=== PATIENT | male | born 1945 | race Caucasian/White ===

== ENCOUNTER 2017-03-09 19:22 | Inpatient (IN) | payer MEDICARE ==
[~2017-03-09] VITALS: Ht 167.6 cm; Wt 67.6 kg
[2017-03-09] VITALS (7 sets, daily range): BP systolic 114–156; BP diastolic 65–80; PULSE 102–124; RESP 18–20; TEMP 98.1; O2SAT 94–100
[2017-03-09] MEDS ORDERED: SODIUM CHLOR 0.9% 1000 ML INJ 1,000 ML IV SCH (19:41)
[2017-03-09] MEDS ORDERED: ONDANSETRON HCL 4 MG/2 ML VIAL IVP ONE (19:45)
[2017-03-09] MEDS ORDERED: SODIUM CHLORIDE 0.9% FLUSH 10 ML FLUSH IV FLUSH PRN ×3 (19:45→22:30)
[2017-03-09] MEDS ORDERED: FAMOTIDINE 20 MG/2 ML VIAL IV PUSH ONE (19:45)
[2017-03-09] MEDS ORDERED: MORPHINE SULFATE 4 MG/ML INJ IV PUSH ONE ×2 (19:45→22:00)
[2017-03-09] MEDS ORDERED: GLIP5TAB8 PO (19:58)
[2017-03-09] MEDS ORDERED: NABU1TAB37 PO (19:58)
[2017-03-09] MEDS ORDERED: LOVA40TA PO (19:58)
[2017-03-09] MEDS ORDERED: AMLO10TA2 PO (19:58)
[2017-03-09] MEDS ORDERED: LISI-519 PO (19:58)
[2017-03-09] MEDS ORDERED: METF1000 PO (19:58)
[2017-03-09] MEDS ORDERED: AMIT75TA2 PO ×2 (19:58)
[2017-03-09] MEDS ORDERED: OMEP20TA PO (19:58)
[2017-03-09 20:06] LABS: AUTOMATED NEUTROPHIL # 14.3 TH/MM3 (1.8-7.7); BASOPHIL # 0.7 TH/MM3 (0-0.2); EOSINOPHIL # 0.5 TH/MM3 (0-0.4); EOSINOPHIL % 2.9 % (0.0-4.0); HEMATOCRIT 27.2 % (39.0-51.0); LYMPH % 7.4 % (9.0-44.0); LYMPHOCYTE # 1.3 TH/MM3 (1.0-4.8); MEAN CELL VOLUME 89.6 FL (80.0-100.0); MEAN CORPUSCULAR HEMOGLOBIN 30.4 PG (27.0-34.0); MEAN CORPUSCULAR HGB CONC 33.9 % (32.0-36.0); MONO % 6.5 % (0.0-8.0); NEUT % 79.2 % (16.0-70.0); PLATELET COUNT 781 TH/MM3 (150-450); RED BLOOD COUNT 3.04 MIL/MM3 (4.50-5.90); RED CELL DISTRIBUTION WIDTH 12.3 % (11.6-17.2)
[2017-03-09 20:15] LABS: CHLORIDE 97 MEQ/L (98-107); POTASSIUM 3.9 MEQ/L (3.5-5.1); SODIUM (NA) 135 MEQ/L (136-145)
[2017-03-09 20:19] LABS: ANION GAP 15 MEQ/L (5-15); BICARBONATE 22.7 MEQ/L (21.0-32.0); BLOOD UREA NITROGEN 21 MG/DL (7-18)
[2017-03-09 20:20] LABS: APTT (PATIENT) 33.7 SEC (24.3-30.1); INTERNATIONAL NORMALIZED RATIO 1.1 RATIO; PROTHROMBIN TIME - PATIENT 12.7 SEC (9.8-11.6)
[2017-03-09 20:21] LABS: ALT (GPT) 31 U/L (12-78); HEMO FLAGS AUTO DIFF
[2017-03-09 20:22] LABS: AST (GOT) 12 U/L (15-37); GLOMERULAR FILTRATION RATE 73 ML/MIN (>89)
[2017-03-09 20:23] LABS: INDIRECT BILIRUBIN 0.2 MG/DL (0.0-0.8); TOTAL BILIRUBIN ADULT 0.3 MG/DL (0.2-1.0)
[2017-03-09 20:24] LABS: ALKALINE PHOSPHATASE 109 U/L (45-117)
[2017-03-09 20:50] LABS: PLATELET ESTIMATE SMEAR HIGH (NORMAL); PLATELET MORPHOLOGY NORMAL (NORMAL); SCAN/DIFF AUTO DIFF CONFIRMED
--- NOTE | 2017-03-09 20:51 | PD ---
HPI Chief Complaint: GI Complaint Time Seen by Provider: 19:41 Travel History International Travel<30 days: No Contact w/Intl Traveler<30days: No Traveled to known affect area: No History of Present Illness HPI Patient is a 72 year old male who comes in complaining of RUQ abdominal pain that started just prior to arrival. He says he has had increased GERD for the past few days and increased belching, but the severe pain just started. He says he feels nauseous, but has not vomited. He has not had a bowel movement in a few days. He denies fever or chills. He denies chest pain or SOB. PFSH Past Medical History Arthritis: Yes Depression: Yes High Cholesterol: Yes Diabetes: Yes Patient Takes Glucophage: No Diminished Hearing: Yes ([place]) GERD: Yes Hypertension: Yes Immunizations Current: Yes Tetanus Vaccination: Unknown Influenza Vaccination: No Past Surgical History Appendectomy: Yes Social History Alcohol Use: No Tobacco Use: No Substance Use: No Allergies-Medications (Allergen,Severity, Reaction): Coded Allergies: No Known Allergies (Unverified , 03/09/17) Reported Meds & Prescriptions Reported Meds & Active Scripts Active Reported Amlodipine (Amlodipine Besylate) 10 Mg Tab 10 Mg PO DAILY Nabumetone 500 Mg Tab 500 Mg PO DAILY Lovastatin 40 Mg Tab 40 Mg PO DAILY Omeprazole 20 Mg Tab 20 Mg PO DAILY Lisinopril 5 Mg Tab 5 Mg PO BID Amitriptyline (Amitriptyline HCl) 75 Mg Tab 75 Mg PO DAILY Metformin (Metformin HCl) 1,000 Mg Tab 1,000 Mg PO BIDPC With meals Glipizide 5 Mg Tab 5 Mg PO BIDAC Take 30 minutes before a meal Review of Systems Except as stated in HPI: all other systems reviewed are Neg General / Constitutional: No: Fever, Chills HENT: No: Headaches Cardiovascular: No: Chest Pain or Discomfort Respiratory: No: Shortness of Breath Gastrointestinal: Positive: Nausea, Abdominal Pain, Constipation, No: Vomiting Genitourinary: No: Dysuria Skin: No Rash, No Change in Pigmentation Neurologic: No: Weakness, Dizziness Physical Exam Narrative GENERAL: Awake and alert, in mild distress due to pain. SKIN: Focused skin assessment warm/dry. HEAD: Atraumatic. Normocephalic. EYES: Pupils equal and round. No scleral icterus. ENT: Mucous membranes pink and moist. NECK: Trachea midline. No JVD. CARDIOVASCULAR: Tachycardia. No murmur appreciated. RESPIRATORY: No accessory muscle use. Clear to auscultation. Breath sounds equal bilaterally. GASTROINTESTINAL: Tender to palpation of the right upper quadrant and midepigastric area. No rebound or guarding. Belly is slightly distended. Hyperactive bowel sounds. MUSCULOSKELETAL: No obvious deformities. No clubbing. No cyanosis. No edema. NEUROLOGICAL: Awake and alert. No obvious cranial nerve deficits. Motor grossly within normal limits. Normal speech. PSYCHIATRIC: Appropriate mood and affect; insight and judgment normal. Data Data Last Documented VS Vital Signs Date Time Temp Pulse Resp B/P Pulse Ox O2 Delivery O2 Flow Rate FiO2 03/09/17 20:35 18 03/09/17 19:45 99 Room Air 03/09/17 19:26 98.1 124 Orders Basic Metabolic Panel (Bmp) (03/09/17 19:41) Complete Blood Count With Diff (03/09/17:41) Lipase (03/09/17:41) Lactic Acid (03/09/17:41) Prothrombin Time / Inr (Pt) (03/09/17:41) Act Partial Throm Time (Ptt) (03/09/17:41) Urinalysis - C+S If Indicated (03/09/17 19:41) Ua Includes Microscopic (03/09/17 19:41) Ct Abd/Pel W Iv Contrast(Rout) (03/09/17 19:41) Iv Access Insert/Monitor (03/09/17 19:41) Ecg Monitoring (03/09/17:41) Oximetry (03/09/17:41) Morphine Inj (Morphine Inj) (03/09/17 19:45) Ondansetron Inj (Zofran Inj) (03/09/17 19:45) Sodium Chlor 0.9% 1000 Ml Inj (Ns 1000 M (03/09/17 19:41) Sodium Chloride 0.9% Flush (Ns Flush) (03/09/17 19:45) Electrocardiogram (03/09/17 19:41) Famotidine Inj (Pepcid Inj) (03/09/17 19:45) Troponin I (03/09/17 19:41) Hepatic Functional Panel (03/09/17 19:41) Iohexol 350 Inj (Omnipaque 350 Inj) (03/09/17 21:15) Morphine Inj (Morphine Inj) (03/09/17 22:00) Admit Order (Ed Use Only) (03/09/17 ) Labs Laboratory Tests Test 03/09/17 03/09/17 19:50 20:50 White Blood Count 18.0 TH/MM3 Red Blood Count 3.04 MIL/MM3 Hemoglobin 9.2 GM/DL Hematocrit 27.2 % Mean Corpuscular Volume 89.6 FL Mean Corpuscular Hemoglobin 30.4 PG Mean Corpuscular Hemoglobin 33.9 % Concent Red Cell Distribution Width 12.3 % Platelet Count 781 TH/MM3 Mean Platelet Volume 6.8 FL Neutrophils (%) (Auto) 79.2 % Lymphocytes (%) (Auto) 7.4 % Monocytes (%) (Auto) 6.5 % Eosinophils (%) (Auto) 2.9 % Basophils (%) (Auto) 4.0 % Neutrophils # (Auto) 14.3 TH/MM3 Lymphocytes # (Auto) 1.3 TH/MM3 Monocytes # (Auto) 1.2 TH/MM3 Eosinophils # (Auto) 0.5 TH/MM3 Basophils # (Auto) 0.7 TH/MM3 CBC Comment AUTO DIFF Differential Comment AUTO DIFF CONFIRMED Platelet Estimate HIGH Platelet Morphology Comment NORMAL Prothrombin Time 12.7 SEC Prothromb Time International 1.1 RATIO Ratio Activated Partial 33.7 SEC Thromboplast Time Sodium Level 135 MEQ/L Potassium Level 3.9 MEQ/L Chloride Level 97 MEQ/L Carbon Dioxide Level 22.7 MEQ/L Anion Gap 15 MEQ/L Blood Urea Nitrogen 21 MG/DL Creatinine 1.00 MG/DL Estimat Glomerular Filtration 73 ML/MIN Rate Random Glucose 120 MG/DL Lactic Acid Level 2.8 mmol/L Calcium Level 8.9 MG/DL Total Bilirubin 0.3 MG/DL Direct Bilirubin 0.1 MG/DL Indirect Bilirubin 0.2 MG/DL Aspartate Amino Transf 12 U/L (AST/SGOT) Alanine Aminotransferase 31 U/L (ALT/SGPT) Alkaline Phosphatase 109 U/L Troponin I LESS THAN 0.02 NG/ML Total Protein 7.3 GM/DL Albumin 2.3 GM/DL Lipase 250 U/L Urine Color YELLOW Urine Turbidity CLEAR Urine pH 6.0 Urine Specific [place] 1.007 Urine Protein NEG mg/dL Urine Glucose (UA) NEG mg/dL Urine Ketones TRACE mg/dL Urine Occult Blood NEG Urine Nitrite NEG Urine Bilirubin NEG Urine Leukocyte Esterase NEG Urine WBC 0-2 /hpf Urine Squamous Epithelial 0-5 /hpf Cells Microscopic Urinalysis Comment CULT NOT INDICATED MDM Medical Decision Making Medical Screen Exam Complete: Yes Emergency Medical Condition: Yes Interpretation(s) ECG shows sinus tachycardia at 108, no ST elevation or depression, normal intervals Differential Diagnosis Small bowel obstruction versus cholecystitis versus colitis versus ACS Narrative Course Patient is a 72-year-old male who comes in complaining of abdominal pain. Exam shows right upper quadrant epigastric tenderness on palpation. IV established, labs sent. Labs show a white blood cell count of 18.2 and a hemoglobin of 9. Lactic acid is 2.8. Given IV fluids and morphine for pain. 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 Patient's pain returned, given additional dose of morphine. GI consulted, advises EGD tomorrow. Patient informed of results. Patient admitted for further management. Diagnosis Primary Impression: Gastric outlet obstruction Additional Impression: Gastric mass Admitting Information Admitting Physician Requests: Admit Condition: Stable Diana Peterson MD Mar 09, 2017 20:51
[2017-03-09] MEDS ORDERED: IOHEXOL 350 MG/ML 10 ML VIAL (for RAD DIAG) IV ONE (21:15)
[2017-03-09 21:22] LABS: BLOOD, URINE NEG (NEG); GLUCOSE,URINE NEG (NEG); KETONE, URINE TRACE mg/dL (NEG); NITRITE,URINE NEG (NEG)
[2017-03-09 21:23] LABS: URINE COLOR YELLOW (YELLW/STRAW)
[2017-03-09 21:27] LABS: WBC, URINE 0-2 /hpf (0-5)
[2017-03-09 21:28] LABS: COMMENT (UR) CULT NOT INDICATED; CULTURE IF INDICATED CULT NOT INDICATED; SQUAMOUS EPITHELIAL CELL URINE 0-5 /hpf (0-5)
--- NOTE | 2017-03-09 21:42 | RADHPO ---
EXAM DATE/TIME: 03/09/2017 20:56 [facility] COMPARISON: No previous studies available for comparison. INDICATIONS : Right abdominal pain. Constipation. IV CONTRAST: 100 cc Omnipaque 350 (iohexol) IV ORAL CONTRAST: No oral contrast ingested. RADIATION DOSE: 10.82 CTDIvol (mGy) MEDICAL HISTORY : Hypertension. Gastroesophageal reflux disease. Diabetes mellitus type 2. SURGICAL HISTORY : Appendectomy. ENCOUNTER: Initial ACUITY: 1 week PAIN SCALE: 9/10 LOCATION: Right abdomen TECHNIQUE: Volumetric scanning of the abdomen and pelvis was performed. Using automated exposure control and ad justment of the mA and/or kV according to patient size, radiation dose was kept as low as reasonably achievable to obtain optimal diagnostic quality images. FINDINGS: There is a heterogeneous conglomerate mass in the region of the pyloric antrum, proximal duodenum and pancreatic head region. The exact site of origin is undetermined. Abnormality is fairly large, measu ring close to 8 cm and there appears to be associated gastric outlet obstruction with pronounced dila tion of the stomach and fluid distention of the esophagus. The third and fourth portions of the duode num appear normal. The distal pancreas appears mildly atrophic. There are the liver is notable for a 2.4 cm low-density mass in the subcapsular anterolateral tissue of segment V. A tiny nonspecific low- density in segment may be a small cyst. There are 8mm nodules in the lung bases bilaterally. The spleen and adrenals are benign in appearance. Bilateral renal cortical cysts are present. There is no evidence of retroperitoneal mass or adenopathy. The distal bowel structures are unremarkable other than colonic diverticula. In the pelvis cavity urinary bladder is mildly dilated. No free fluid or pelvic adenopathy is noted. CONCLUSION: Heterogeneous mass encompassing the region of the pyloric antrum, proximal duodenum and pancreatic he ad. There does appear to be gastric outlet obstruction without evidence of biliary obstruction which would favor a GI location of origin. Low-density lesion in the liver and bilateral lung base nodules worrisome for metastatic disease. Carlos Kelsey MD on March 09, 2017 at 21:30 Board Certified Radiologist. This report was verified electronically.
[2017-03-09] MEDS ORDERED: ACETAMINOPHEN/HYDROcodone 325 MG/5 MG TAB PO PRN (22:30)
[2017-03-09] MEDS ORDERED: BISACODYL 10 MG SUPP RECTAL PRN (22:30)
[2017-03-09] MEDS ORDERED: ONDANSETRON HCL 4 MG/2 ML VIAL IVP PRN (22:30)
[2017-03-09] MEDS ORDERED: ACETAMINOPHEN 325 MG TAB PO PRN ×2 (22:30)
[2017-03-09] MEDS ORDERED: NS + KCL 20 MEQ INJ 1,000 ML IV SCH (22:30)
[2017-03-09] MEDS ORDERED: NALOXONE HCL 0.4 MG/ML AMP IV PRN ×2 (22:30)
[2017-03-09] MEDS ORDERED: MAGNESIUM HYDROXIDE SUSP 30 ML CUP PO PRN (22:30)
[2017-03-09] MEDS: SODIUM CHLOR 0.9% 1000 ML INJ 1,000 ML IV SCH (22:45)
[2017-03-09] MEDS ORDERED: DEXTROSE 50% IN WATER 50 ML VIAL(D50) IV PUSH PRN (22:45)
[2017-03-09] MEDS ORDERED: GLUCAGON 1 MG/ML VIAL OTHER PRN (22:45)
[2017-03-09] MEDS ORDERED: DEXT 5%-NACL 0.45% 1000 ML INJ 1,000 ML IV SCH (22:45)
--- NOTE | 2017-03-09 22:49 | EKG ---
Date Performed: 03/09/2017 Time Performed: 20:06:02 PTAGE: 72 years EKG: Sinus tachycardia Possible inferior infarct - age undetermined Low QRS voltages in precordi al leads Abnormal ECG NO PREVIOUS TRACING DOCTOR: Maximo Mcclure Interpretating Date/Time 03/09/2017 22:49:07
[2017-03-09] MEDS: PANTOPRAZOLE SODIUM 40 MG VIAL IV PUSH SCH (23:43)
[2017-03-10] VITALS (13 sets, daily range): BP systolic 100–144; BP diastolic 54–82; PULSE 80–170; RESP 16–20; TEMP 96.3–99; O2SAT 92–96
[2017-03-10] MEDS: INSULIN ASPART SUPPLEMENTAL SCALE SQ SCH ×3 (05:48→19:51)
[2017-03-10 06:55] LABS: AUTOMATED NEUTROPHIL # 8.7 TH/MM3 (1.8-7.7); BASOPHIL # 0.1 TH/MM3 (0-0.2); BASOPHIL % 0.8 % (0.0-2.0); EOSINOPHIL # 0.7 TH/MM3 (0-0.4); EOSINOPHIL % 5.7 % (0.0-4.0); HEMATOCRIT 23.4 % (39.0-51.0); LYMPH % 13.4 % (9.0-44.0); LYMPHOCYTE # 1.6 TH/MM3 (1.0-4.8); MEAN CELL VOLUME 89.4 FL (80.0-100.0); MEAN CORPUSCULAR HEMOGLOBIN 30.6 PG (27.0-34.0); MEAN CORPUSCULAR HGB CONC 34.3 % (32.0-36.0); MONO % 9.3 % (0.0-8.0); NEUT % 70.8 % (16.0-70.0); PLATELET COUNT 689 TH/MM3 (150-450); RED BLOOD COUNT 2.62 MIL/MM3 (4.50-5.90); RED CELL DISTRIBUTION WIDTH 12.5 % (11.6-17.2); WHITE BLOOD COUNT 12.2 TH/MM3 (4.0-11.0)
[2017-03-10 07:00] LABS: POTASSIUM 3.7 MEQ/L (3.5-5.1)
[2017-03-10 07:11] LABS: HEMO FLAGS DIFF FINAL
--- NOTE | 2017-03-10 07:27 | GIPROC ---
[address], [address] EGD PROCEDURE REPORT EXAM DATE: 03/10/2017 PATIENT NAME: Pieter James MR #: [id number] BIRTHDATE: 1945 ATTENDING: Becki Brand MD ORDER #: [id number] FIELD UNDERWRITER: Yasmin Ayers and Kindra Mtz STATUS: inpatient INDICATIONS: The patient is a 72 yr old male here for an EGD due to anemia abnormal ct PROCEDURE PERFORMED: EGD w/ biopsy MEDICATIONS: None and Per Anesthesia. TOPICAL ANESTHETIC: none CONSENT: The patient understands the risks and benefits of the procedure and understands that these risks include, but are not limited to: sedation, allergic reaction, infection, perforation and/or bleeding. Alternative means of evaluation and treatment include, among others: physical exam, x-rays, and/or surgical intervention. The patient elects to proceed with this endoscopic procedure. medical equipment was checked for proper function. Hand hygiene and appropriate measures for infection prevention was taken. After the risks, benefits and alternatives of the procedure were thoroughly explained, Informed consent was verified, confirmed and timeout was successfully executed by the treatment team. The patient was anesthetized with topical anesthesia and the [employer] [id number] endoscope was introduced through the mouth and advanced to the second portion of the duodenum. Retroflexed views revealed a hiatal hernia The gastroscope was then slowly withdrawn and removed. Mass in duodenal bulb, extending to second portion, very friable, nearly obstructing lumen-multiple biopsies done. Gastritis antrum-biopsy gastric body poyps-biopsy. ADVERSE EVENTS: There were no complications. IMPRESSIONS: 1. Mass in duodenal bulb, extending to second portion, very friable, nearly obstructing lumen-multiple biopsies done 2. Retroflexed views revealed a hiatal hernia RECOMMENDATIONS: Clear liquid diet ppi consult surgical/oncology consult oncology cea level, ca 19-9 level alfafetoprotein trnasfuse to keep hb more than 8 PATIENT CONDITION: stable DISPOSITION: Inpatient REPEAT EXAM: EGD pending biopsy results Becki Brand MD eSigned: Becki Brand MD 03/10/2017 7:26 AM cc: PATIENT NAME: Pieter James MR#: [id number]
[2017-03-10 07:33] LABS: BICARBONATE 25.5 MEQ/L (21.0-32.0)
[2017-03-10] MEDS ORDERED: SODIUM CHLORIDE 0.9% FLUSH 10 ML FLUSH IV FLUSH SCH (09:00)
[2017-03-10] MEDS: SODIUM CHLORIDE 0.9% FLUSH 10 ML FLUSH IV FLUSH SCH ×2 (09:00→19:48)
[2017-03-10] MEDS: AMITRIPTYLINE HCL 75 MG TAB PO SCH (09:30)
[2017-03-10] MEDS: SODIUM CHLOR 0.9% 1000 ML INJ 1,000 ML IV SCH ×2 (09:31→19:51)
--- NOTE | 2017-03-10 10:08 | MB ---
cc: MER DWYER BEATRICE S. M.D. DATE OF CONSULTATION: 03/10/2017 DATE OF : 1945 REASON FOR CONSULTATION Abnormal CT, abdominal pain, anemia. HISTORY OF PRESENT ILLNESS: Mr. James is a 72-year-old gentleman who came to emergency room with complaint of right upper quadrant pain which started few days ago, increased reflux for the last few days, increased belching also he reports having nausea and decreased appetite and weight loss of approximately 20 pounds over the last couple of weeks. He does have also constipation and he did not have a bowel movement for a few days. He had a CT of the abdomen and pelvis to the emergency room which showed a gastric outlet obstruction secondary to a mass in the pylorus proximal duodenum and pancreatic head causing gastric outlet obstruction. Also low densities were seen in the liver and lung worrisome for metastatic disease. The patient never had an endoscopy. He did have a colonoscopy few years ago. PAST MEDICAL HISTORY: 1. Arthritis. 2. Depression. 3. High cholesterol. 4. Diabetes. 5. Diminished hearing. 6. Reflux 7. Hypertension. PAST SURGICAL HISTORY Appendectomy. SOCIAL HISTORY Denies any smoking, drinking or drug use. ALLERGIES No known allergies. MEDICATIONS Medications at home; 1. Amlodipine 2. <<1:41>> 3. Lovastatin. 4. Omeprazole 5. Lisinopril. 6. Amitripyline. 7. Metoformin. 8. Glipizide. REVIEW OF SYSTEMS IN GENERAL: He denies any fever or chills. She does have weight loss. HEAD, EYES, EARS, NOSE, AND THROAT: No alteration in baseline hearing or visual acuity. PULMONARY: Denies any chest pain, shortness of breath. GASTROINTESTINAL: As above. GENITOURINARY: Denies dysuria or hematuria. HEMATOLOGIC: No history of anemia or bleeding disorder. SKIN: No alteration in baseline skin lesion. NEUROLOGIC: No history of TIA or CVA kind of symptoms. PHYSICAL EXAMINATION: IN GENERAL: On clinical exam he is sitting comfortably in bed in no acute distress. Looks pale. VITAL SIGNS: Temperature 96.5, Pulse 90, blood pressure 108/64 saturation 95. SKIN: Pale. NECK: No JVD. No lymphadenopathy. CHEST: The chest is clear to auscultation on palpitation. CARDIOVASCULAR SYSTEM: S1, S2, No murmur. ABDOMEN: Soft, nontender. Bowel sounds are present. CENTRAL NERVOUS SYSTEM: Awake, alert, oriented x3. No focal signs identified. LABORATORY FINDINGS: Hemoglobin was 9.2 on admission currently 8, white count is 18 and then dropped to 12.2, platelets 71, currently 689. PT/INR normal. His chemistry was suggestive of glucose of 120, AST 12, ALT normal. Total bilirubin normal. RADIOLOGIC: The CT abdomen and pelvis as described. IMPRESSION Obstructive mass in the duodenum around the pancreatic head. Causing gastric outlet obstruction. He needs endoscopy for further evaluation and treatment of anemia most likely secondary to the above. RECOMMENDATIONS 1. Upper endoscopy will be scheduled. All risks and benefits were discussed with the patient and he is agreeing with it. Monitor H&H closely. Transfuse to keep hemoglobin more than 8. A tumor markers seen, CEA, Positive CA 19-9. Consult 2. General surgery for further evaluation and treatment. 3. Consult oncology for supportive care. I would like to thank you for referring her to our office for consultation. We will continue to follow the patient along with you. Becki Brand MD BSB/jessica /7:36 AM /9:43 AM MTDD
[2017-03-10] MEDS ORDERED: PROPOFOL 200 MG/20 ML AMP IV ONE (12:00)
--- NOTE | 2017-03-10 12:33 | HHI.HP ---
[facility] Service [facility] Primary Care Physician Non-Staff Admission Diagnosis gastric mass, gastric outlet obstruction Diagnoses: Chief Complaint: Abdominal pain Travel History International Travel<30 Days: No Contact w/Intl Traveler <30 Da: No Traveled to Known Affected Are: No History of Present Illness This is a 72-year-old male who presents to the emergency room complaining of right upper quadrant abdominal pain which started about a week ago. Pain has been intermittent triggered by eating but was worse yesterday associated with nausea, abdominal bloating/distention, heartburn and belching. He also reports of anorexia and weight loss of 30 pounds in the past 45 days. No BM for several days. Underwent EGD which showed nearly obstructing friable mass in the duodenal bulb. Discussed with general surgery, NGT will be placed for decompression and we'll schedule patient for CT-guided biopsy of the liver mass. The patient also needs to be transferred to the main hospital as he will need bypass surgery Review of Systems Constitutional: COMPLAINS OF: Weight loss, DENIES: Diaphoretic episodes, Fatigue, Fever, Weight gain, Chills, Dizziness, Change in appetite, Night Sweats Endocrine: DENIES: Heat/cold intolerance, Polydipsia, Polyuria, Polyphagia Eyes: DENIES: Blurred vision, Diplopia, Vision loss, Photosensitivity Ears, nose, mouth, throat: DENIES: Tinnitus, Vertigo, Throat pain, Hoarseness, Epistaxis, Odynophagia Respiratory: DENIES: Cough, Wheezing, Hemoptysis, Sputum production, Shortness of breath Cardiovascular: DENIES: Chest pain, Palpitations, Syncope, Dyspnea on Exertion , PND, Lower Extremity Edema, Orthopnea, Claudication Gastrointestinal: COMPLAINS OF: Abdominal pain, Nausea, Anorexia, DENIES: Black stools, Bloody stools, Constipation, Diarrhea, Vomiting, Difficulty Swallowing Genitourinary: DENIES: Urinary frequency, Urinary incontinence, Urgency, Hematuria, Dysuria, Nocturia, Penile Discharge Integumentary: DENIES: Rash Neurologic: DENIES: Headache, Localized weakness, Seizures, Tremor, Poor Balance Psychiatric: DENIES: Anxiety, Confusion, Depression, Hallucinations, Agitation , Suicidal Ideation, Homicidal Ideation, Delusions Past Family Social History Past Medical History Arthritis, depression, hyperlipidemia, diabetes mellitus, hard of hearing, GERD and hypertension Past Surgical History Appendectomy Reported Medications Amlodipine (Amlodipine Besylate) 10 Mg Tab 10 Mg PO DAILY Nabumetone 500 Mg Tab 500 Mg PO DAILY Lovastatin 40 Mg Tab 40 Mg PO DAILY Omeprazole 20 Mg Tab 20 Mg PO DAILY Lisinopril 5 Mg Tab 5 Mg PO BID Amitriptyline (Amitriptyline HCl) 75 Mg Tab 75 Mg PO DAILY Metformin (Metformin HCl) 1,000 Mg Tab 1,000 Mg PO BIDPC With meals Glipizide 5 Mg Tab 5 Mg PO BIDAC Take 30 minutes before a meal Allergies: Coded Allergies: No Known Allergies (Unverified , 03/09/17) Family History Breast cancer mother Social History Does not smoke or drink Physical Exam Vital Signs Vital Signs Date Time Temp Pulse Resp B/P Pulse Ox O2 Delivery O2 Flow Rate FiO2 03/10/17 08:00 97.8 88 16 100/63 96 03/10/17 07:55 98.1 93 16 103/57 96 03/10/17 07:30 98.2 83 16 95/43 96 03/10/17 06:55 96.5 90 20 108/64 94 03/10/17 04:00 96.3 95 20 109/68 95 03/10/17 00:32 98 03/10/17 00:30 96.8 103 20 144/82 95 03/10/17 00:05 102 18 111/63 94 Room Air 03/09/17 23:15 18 03/09/17 23:15 102 18 117/66 94 Room Air 03/09/17 22:51 94 21 03/09/17 22:20 16 03/09/17 22:15 104 18 114/65 94 Room Air 03/09/17 21:15 118 18 156/79 96 Room Air 03/09/17 20:45 110 18 156/80 97 Room Air 03/09/17 20:35 18 03/09/17 20:15 20 03/09/17 19:45 107 18 147/71 98 Room Air 03/09/17 19:45 18 99 Room Air 03/09/17 19:26 98.1 124 20 100 Physical Exam GENERAL: This is a well-nourished, well-developed patient, in distress due to NGT. SKIN: No rashes, ecchymoses or lesions. Cool and dry. HEAD: Atraumatic. Normocephalic. No temporal or scalp tenderness. EYES: Pupils equal round and reactive. Extraocular motions intact. No scleral icterus. No injection or drainage. ENT: Nose without bleeding, purulent drainage or septal hematoma. Throat without erythema, tonsillar hypertrophy or exudate. Uvula midline. Airway patent. NECK: Trachea midline. No JVD or lymphadenopathy. Supple, nontender, no meningeal signs. CARDIOVASCULAR: Regular rate and rhythm without murmurs, gallops, or rubs. RESPIRATORY: Clear to auscultation. Breath sounds equal bilaterally. No wheezes , rales, or rhonchi. GASTROINTESTINAL: Abdomen soft, non-tender, slightly distended. No guarding. MUSCULOSKELETAL: Extremities without clubbing, cyanosis, or edema. No joint tenderness, effusion, or edema noted. No calf tenderness. Negative Homans sign bilaterally. NEUROLOGICAL: Awake and alert. Cranial nerves II through XII intact. Motor and sensory grossly within normal limits. Five out of 5 muscle strength in all muscle groups. Normal speech. Laboratory Laboratory Tests Test 03/09/17 03/09/17 03/10/17 19:50 20:50 06:20 White Blood Count 18.0 12.2 Red Blood Count 3.04 2.62 Hemoglobin 9.2 8.0 Hematocrit 27.2 23.4 Mean Corpuscular Volume 89.6 89.4 Mean Corpuscular Hemoglobin 30.4 30.6 Mean Corpuscular Hemoglobin 33.9 34.3 Concent Red Cell Distribution Width 12.3 12.5 Platelet Count 781 689 Mean Platelet Volume 6.8 6.6 Neutrophils (%) (Auto) 79.2 70.8 Lymphocytes (%) (Auto) 7.4 13.4 Monocytes (%) (Auto) 6.5 9.3 Eosinophils (%) (Auto) 2.9 5.7 Basophils (%) (Auto) 4.0 0.8 Neutrophils # (Auto) 14.3 8.7 Lymphocytes # (Auto) 1.3 1.6 Monocytes # (Auto) 1.2 1.1 Eosinophils # (Auto) 0.5 0.7 Basophils # (Auto) 0.7 0.1 CBC Comment AUTO DIFF DIFF FINAL Differential Comment AUTO DIFF CONFIRMED Platelet Estimate HIGH Platelet Morphology Comment NORMAL Prothrombin Time 12.7 Prothromb Time International 1.1 Ratio Activated Partial 33.7 Thromboplast Time Sodium Level 135 139 Potassium Level 3.9 3.7 Chloride Level 97 103 Carbon Dioxide Level 22.7 25.5 Anion Gap 15 11 Blood Urea Nitrogen 21 15 Creatinine 1.00 0.78 Estimat Glomerular Filtration 73 98 Rate Random Glucose 120 175 Lactic Acid Level 2.8 Calcium Level 8.9 8.0 Total Bilirubin 0.3 Direct Bilirubin 0.1 Indirect Bilirubin 0.2 Aspartate Amino Transf 12 (AST/SGOT) Alanine Aminotransferase 31 (ALT/SGPT) Alkaline Phosphatase 109 Troponin I LESS THAN 0.02 Total Protein 7.3 Albumin 2.3 Lipase 250 Urine Color YELLOW Urine Turbidity CLEAR Urine pH 6.0 Urine Specific [place] 1.007 Urine Protein NEG Urine Glucose (UA) NEG Urine Ketones TRACE Urine Occult Blood NEG Urine Nitrite NEG Urine Bilirubin NEG Urine Leukocyte Esterase NEG Urine WBC 0-2 Urine Squamous Epithelial 0-5 Cells Microscopic Urinalysis Comment CULT NOT INDICATED Tumor Marker Alpha Fetoprotein 1.4 Carcinoembryonic Antigen 1.3 CA 19-9 Antigen 1.4 Result Diagram: 03/10/1720 03/10/17619 Imaging Last Impressions Abdomen/Pelvis CT 03/09/17 194 Signed Impressions: Service Date/Time: February 20:56 - CONCLUSION: Heterogeneous mass encompassing the region of the pyloric antrum, proximal duodenum and pancreatic head. There does appear to be gastric outlet obstruction without evidence of biliary obstruction which would favor a GI location of origin. Low-density lesion in the liver and bilateral lung base nodules worrisome for metastatic disease. Carlos Kelsey MD Assessment and Plan Problem List: (1) Gastric mass ICD Code: K31.9 Status: Acute (2) Gastric outlet obstruction ICD Code: K31.1 Status: Acute Assessment and Plan This is a 72-year-old male who presents to the emergency room complaining of right upper quadrant abdominal pain, nausea, abdominal bloating/distention, heartburn and belching. He also reports of anorexia and weight loss of 30 pounds in the past 45 days. Underwent EGD which showed nearly obstructing friable mass in the duodenal bulb. D Gastric outlet obstruction secondary to duodenal bulb mass status post EGD and biopsy. Discussed with general surgery, NGT will be placed for decompression and we'll schedule patient for CT-guided biopsy of the liver mass. The patient also needs to be transferred to the main hospital as he will need bypass surgery. Continue IV fluids and consult dietitian for recommendations for tube feeding versus PPN/TPN Leukocytosis likely reactive. Improving Normocytic normochromic anemia secondary to above. We'll monitor Chronic medical conditions of Arthritis, depression, hyperlipidemia, diabetes mellitus, hard of hearing, GERD and hypertension. Stable continue outpatient medications as appropriate. Monitor fingersticks with sliding scale coverage DVT prophylaxis with SCD and early ambulation. Avoid pharmacological prophylaxis secondary to procedures Discussed Condition With Patient, and Gen. surgery Physician Certification 2 Midnight Certification Type: Admission for Inpatient Services Order for Inpatient Services The services are ordered in accordance with Medicare regulations or non- Medicare payer requirements, as applicable. In the case of services not specified as inpatient-only, they are appropriately provided as inpatient services in accordance with the 2-midnight benchmark. Estimated LOS (days): 2 days is the estimated time the patient will need to remain in the hospital, assuming treatment plan goals are met and no additional complications. Post-Hospital Plan: Not yet determined Ryan Guerra MD Mar 10, 2017 12:33
--- NOTE | 2017-03-10 13:14 | MB ---
cc: BENIGNO BAKER DATE OF CONSULTATION: 03/10/2017. REASON FOR CONSULTATION: Patient with gastric outlet obstruction secondary to a mass in the pylorus / proximal duodenum and pancreatic head. CHIEF COMPLAINT: Abdominal pain. HISTORY OF PRESENT ILLNESS: Mr. James is a 72-year-old male who presented to the emergency department with right sided abdominal pain. He has been experiencing nausea and anorexia. He has had significant weight loss over the past one month. He endorses at least 20 pounds of weight loss. He has also been experiencing pain in his abdomen. He has not been having any urinary difficulty. He does endorse constipation for the past several days. In the emergency department, CT scan of the abdomen and pelvis was obtained. This showed a heterogeneous conglomerate mass in the pyloric antrum, proximal duodenum and pancreatic head region. This is a fairly large sized mass measuring approximately 80 cm and appears to be causing the gastric outlet obstruction with pronounced dilation of the stomach. There is fluid distension of the esophagus. The distal pancreatic appears mildly atrophic. There is a 2.4 cm low density mass in the subcapsular anterolateral tissue of segment 5 of the liver. On admission the patient was also found to be anemic with hemoglobin dropping to 8 today. His MCV is 89.4. The patient had tumor markers checked and his AST is normal. CEA level is 1.3 and CA 19-9 level is pending. The patient has undergone EGD with biopsy. The results of the biopsy are pending. REVIEW OF SYSTEMS: A comprehensive 14-point review of systems was completed which was negative except as described in the history of present illness. PAST MEDICAL HISTORY: 1. Osteoarthritis. 2. Depression. 3. Hyperlipidemia. 4. Diabetes. 5. Hearing loss. 6. Gastroesophageal reflux disease (GERD). 7. Hypertension. PAST SURGICAL HISTORY: History of appendectomy. SOCIAL HISTORY: He denies smoking cigarettes. No alcohol or drug abuse. MEDICATIONS: 1. Elavil 75 milligrams one tablet p.o. daily. 2. Insulin aspart sliding scale. 3. Protonix 40 milligrams q. 24 hours. 4. Tylenol 650 one tablet p.o. q. 4 hours. 5. Zofran 4 milligrams IV q. 6 hours PRN. 6. Dulcolax 10 milligrams rectally PRN. 7. [place] 5/325 one tablet p.o. q. 4 hours PRN. 8. Morphine 4 milligrams IV q. 3 hours PRN. ALLERGIES: NO KNOWN DRUG ALLERGIES. PHYSICAL EXAMINATION: VITAL SIGNS: Blood pressure is 100/63, pulse is in the 80s, temperature 97.8, 02 saturations are 96% on room air. GENERAL: In no apparent distress. HEAD, EYES, EARS, NOSE, THROAT: Pupils are equal, round and reactive to light. Extraocular muscles intact. No oral thrush. No oral lesions. NECK: The neck is supple. No jugular venous distention. No bruits. No lymphadenopathy. CARDIAC: S1-S2. Regular rate and rhythm. CHEST: Clear to auscultation bilaterally. ABDOMEN: Abdomen is tender in the left quadrant. No rebound or guarding. Bowel sounds are decreased. EXTREMITIES: No edema, erythema or cyanosis. SKIN: Without any petechiae, lesions or bruises. NEUROLOGIC: No focal deficit. PSYCHIATRIC: Mood and affect are appropriate. LABS: WBCs 12.2, hemoglobin is 8, MCV is 89.4, platelet count is 689,000. Serum chemistries show sodium of 139, potassium 3.7, chloride 103, anion gap 11, BUN 15, creatinine 0.78, GFR is 98, glucose is 175, calcium is 8. AST is 1.4. CEA is 1.3. Total protein is 7.3. Albumin is 0.3. Lipase is 250. IMAGING STUDIES: CT of the abdomen and pelvis was reviewed. ASSESSMENT AND PLAN: This is a 72-year-old male who presents with left-sided abdominal pain, nausea, anorexia and weight loss of 20 pounds and was found to have a duodenal and pancreatic mass. There is also a lesion in the liver. 1. Gastric outlet obstruction secondary to a mass / pancreatic mass / liver mass which appears to be metastatic disease. Biopsy has been obtained. Will wait for the results. It could be a GI malignancy such as pancreatic and cholangiocarcinoma. He will need a CT of the chest to complete staging. CA 19-9 levels are pending and CEA and AFP levels were within normal range. Further recommendations will be made once the biopsy results are available. He will need a PET/CT scan outpatient. 2. Normocytic anemia. Obtain anemia studies. Keep hemoglobin greater than 8 with p.r.n. packed red blood cell transfusions. 3. Thrombocytopenia. This is reactive secondary to his anemia. 4. Poor oral intake and malnutrition/hypoalbuminemia. Dietitian consult. Supplement meals with Ensure or Boost. Thank you for allowing me to participate in the care of this patient. I will continue to follow this patient along. MD SARAH Randall/WYATT /11:16 AM /12:59 PM MTDD
[2017-03-10] MEDS: MORPHINE SULFATE 4 MG/ML INJ IV PRN ×2 (15:07→18:33)
--- NOTE | 2017-03-10 15:52 | MB ---
cc: ANTONIO DE LA PAZ DATE OF CONSULTATION 03/10/2017 REASON FOR CONSULTATION Near obstructing duodenal mass, questionable metastatic malignancy. HISTORY This is a pleasant 72-year-old gentleman who has had some weeks duration of some abdominal discomfort, felt like he had to vomit, it never came around to vomiting. Pain became more severe in the right upper quadrant. He came into the emergency room where imaging was done and endoscopy recently performed showing a near obstructing mass in the distal proximal duodenal area and surgery was consulted for surgical opinion and evaluation. The mass appeared to be most likely a malignancy. PAST MEDICAL HISTORY The patient denied any cardiac or pulmonary history. PAST SURGICAL HISTORY The only surgery he had on his abdomen was appendectomy. SOCIAL HISTORY [place] months and comes down to [place]. ALLERGIES He is not allergic to anything. PHYSICAL EXAMINATION GENERAL: On physical exam he is a pleasant elderly gentleman in minimal distress. NECK: Supple. CHEST: Clear. HEART: Regular rate. ABDOMEN: Full in the right upper quadrant, mild soreness. Surgical scar in the right lower quadrant consistent with an appendectomy. No rebound or guarding. EXTREMITIES: Moves all extremities well with no clubbing, cyanosis or edema. NEUROLOGIC: He is alert, oriented, obviously concerned about his medical condition. LABORATORY DATA He had a white count of 18 yesterday, today it is 12. H&H 8 into 23. Platelets elevated. LFTs are normal. Chem-7 was normal. Tumor markers are all low normal, that is AFP, CEA and CA19-9. Calcium is 8.0. IMAGING STUDIES The imaging studies show a large mass in the first, second portion of duodenum and the pancreatic head and questionable possible metastatic disease in two areas of the liver. ASSESSMENT A 72-year-old gentleman with: 1. 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 2. Anemia. 3. Nausea. PLAN At this time his stomach is fairly sizable on the CT scan. Recommend NG tube for decompression of the stomach. Obtain a CT biopsy of the possible malignancy in the liver. If this is confirmed metastatic disease then he would be a candidate for palliative bypass surgery. The oncologist is seeing him as well, wait for his input. I have taken the liberty to order a CT guided biopsy that may be performed today or possibly by Monday. This was all discussed with the family, the at the bedside. They appear to understand. I reviewed the case with Dr. Guerra as well. Will follow during this admission. Antonio De La Paz MD JDB/[place] /2:26 PM /3:29 PM
--- NOTE | 2017-03-10 17:53 | RADRPT ---
EXAM DATE/TIME: 03/10/2017 17:22 [facility] COMPARISON: No previous studies available for comparison. INDICATIONS : NG tube placement. Gastric outlet obstruction. MEDICAL HISTORY : None. SURGICAL HISTORY : None. ENCOUNTER: Subsequent ACUITY: 2 days PAIN SCORE: 6/10 LOCATION: Left upper quadrant FINDINGS: Nasogastric tube tip just reaches the fundus of the stomach. The sidehole is in the distal esophagus. Advancement by an additional 6 cm would be optimal. Intestinal gas pattern is nonspecific with minim al gaseous distention of small and large bowel throughout the abdomen. No suspicious calcifications. Degenerative changes present in the spine. CONCLUSION: NG tube should be advanced slightly. Carlos Kelsey MD on March 10, 2017 at 17:51 Board Certified Radiologist. This report was verified electronically.
[2017-03-10] MEDS: HYDROmorphone HCL PF 1 MG/ML VIAL IV PUSH PRN (19:44)
[2017-03-10] MEDS ORDERED: LORazepam 0.5 MG TAB PO ONE (19:45)
[2017-03-10] MEDS ORDERED: LORazepam 2 MG/ML VIAL IV PUSH ONE (20:00)
[2017-03-10] MEDS ORDERED: SODIUM CHLORID 0.9% 500 ML INJ 500 ML IV ONE (20:15)
[2017-03-10] MEDS ORDERED: DILTIAZEM HCL 30 MG TAB PO ONE ×2 (21:15→21:45)
[2017-03-10] MEDS ORDERED: DILTIAZEM INJ 125 MG in SODIUM CHLORIDE 0.9% INJ 100 ML IV SCH (21:30)
[2017-03-10] MEDS ORDERED: DILTIAZEM HCL 25 MG/5 ML VIAL IVP ONE (21:30)
[2017-03-10] MEDS: PANTOPRAZOLE SODIUM 40 MG VIAL IV PUSH SCH (22:47)
[2017-03-10] MEDS: ACETAMINOPHEN/HYDROcodone 325 MG/7.5 MG TAB PO PRN (23:49)
[2017-03-11] VITALS (8 sets, daily range): BP systolic 117–145; BP diastolic 59–85; PULSE 88–119; RESP 17–20; TEMP 96.2–98.4; O2SAT 90–95
[2017-03-11] MEDS: INSULIN ASPART SUPPLEMENTAL SCALE SQ SCH ×4 (05:27→21:00)
[2017-03-11 07:59] LABS: AUTOMATED NEUTROPHIL # 16.5 TH/MM3 (1.8-7.7); BASOPHIL # 0.1 TH/MM3 (0-0.2); BASOPHIL % 0.5 % (0.0-2.0); EOSINOPHIL # 0.3 TH/MM3 (0-0.4); EOSINOPHIL % 1.7 % (0.0-4.0); HEMATOCRIT 26.8 % (39.0-51.0); HEMO FLAGS DIFF FINAL; LYMPH % 5.1 % (9.0-44.0); MEAN CELL VOLUME 89.3 FL (80.0-100.0); MEAN CORPUSCULAR HEMOGLOBIN 29.1 PG (27.0-34.0); MEAN CORPUSCULAR HGB CONC 32.6 % (32.0-36.0); MONO % 6.5 % (0.0-8.0); NEUT % 86.2 % (16.0-70.0); PLATELET COUNT 645 TH/MM3 (150-450); RED CELL DISTRIBUTION WIDTH 13.3 % (11.6-17.2); WHITE BLOOD COUNT 19.2 TH/MM3 (4.0-11.0)
[2017-03-11 08:25] LABS: BICARBONATE 26.5 MEQ/L (21.0-32.0); MAGNESIUM 1.5 MG/DL (1.5-2.5)
[2017-03-11] MEDS: SODIUM CHLORIDE 0.9% FLUSH 10 ML FLUSH IV FLUSH SCH ×2 (09:00→21:00)
[2017-03-11] MEDS: AMITRIPTYLINE HCL 75 MG TAB PO SCH (10:02)
[2017-03-11] MEDS ORDERED: IOHEXOL 350 MG/ML 10 ML VIAL (for RAD DIAG) IV ONE (10:48)
--- NOTE | 2017-03-11 11:05 | RADRPT ---
EXAM DATE/TIME: 03/11/2017 10:40 [facility] COMPARISON: CT ABDOMEN & PELVIS W CONTRAST, March 09, 2017, 20:56. INDICATIONS : Evaluate for neoplasm. IV CONTRAST: 75 cc Omnipaque 350 (iohexol) IV RADIATION DOSE: 8.80 CTDIvol (mGy) MEDICAL HISTORY : Cardiovascular disease. Carcinoma, gastric. Gastroesophageal reflux disease. SURGICAL HISTORY : None. ENCOUNTER: Initial ACUITY: 1 day PAIN SCALE: 0/10 LOCATION: Bilateral chest TECHNIQUE: Volumetric scanning of the chest was performed. Using automated exposure control and adjustment of t he mA and/or kV according to patient size, radiation dose was kept as low as reasonably achievable to obtain optimal diagnostic quality images. FINDINGS: There is an approximate 7 mm nodule in the right middle lobe with an approximate 5-6 mm nodule i n the left lower lobe. Slight bibasilar atelectasis and/or infiltrate is seen. There are lymph nodes within the mediastinum nonspecific most likely benign including the hilum bilaterally the largest john sures 2.3 cm in size in the subcarinal location. Coronary artery calcifications are seen typically se en with CAD and need to be evaluated clinically. There is an approximate 2.7 cm cystic lesion within the liver indeterminate and could be a simple cyst. There is vicarious excretion of contrast in the g allbladder. CONCLUSION: 1. Lung nodules are nonspecific in regards to metastatic disease. 2. There are lymph nodes within the mediastinum indeterminant, however could be benign. 3. Slight bibasilar atelectasis and/or infiltrate is seen. 4. Cystic lesion in the liver also not adequately characterized possibly a simple cyst. Robb Estevez MD on March 11, 2017 at 10:57 Board Certified Radiologist. This report was verified electronically.
--- NOTE | 2017-03-11 12:19 | HHI.PR ---
Subjective Remarks As per RN report, the patient removed his NG tube last night. The patient denies nausea, vomiting or abdominal pain. Denies fevers or chills Blood sugars very elevated. c/o pain in right upper quadrant with deep inspirations Objective Vitals Vital Signs Date Time Temp Pulse Resp B/P Pulse Ox O2 Delivery O2 Flow Rate FiO2 03/11/17 10:52 95 21 03/11/17 08:00 96.2 88 18 121/61 91 03/11/17 04:00 96.8 89 18 120/59 94 03/11/17 00:00 97.6 119 17 140/85 90 03/10/17 21:36 117 03/10/17 21:17 122 18 129/79 92 03/10/17 20:30 97.4 170 17 139/54 95 03/10/17 20:00 160 03/10/17 16:30 97.2 111 18 135/65 95 03/10/17 15:00 99.0 84 18 110/68 96 03/10/17 12:25 97.8 80 18 118/70 95 I/O 03/10/17 03/10/17 03/10/17 03/11/17 03/11/17 03/11/17 07:00 15:00 23:00 07:00 15:00 23:00 Intake Total 500 ml 480 ml 1035 ml Output Total 250 ml 300 ml Balance 500 ml -250 ml 180 ml 1035 ml Intake Oral 0 ml 480 ml IV Total 500 ml 1035 ml Output Urine Total 250 ml 300 ml # Voids 5 1 2 # Bowel Movements 0 0 Result Diagram: 03/11/17 0725 03/11/17 0735 Imaging Last Impressions Chest CT 03/11/17 0000 Signed Impressions: Service Date/Time: Saturday, March 11, 2017 10:40 - CONCLUSION: 1. Lung nodules are nonspecific in regards to metastatic disease. 2. There are lymph nodes within the mediastinum indeterminant, however could be benign. 3. Slight bibasilar atelectasis and/or infiltrate is seen. 4. Cystic lesion in the liver also not adequately characterized possibly a simple cyst. Robb Estevez MD Abdomen X-Ray 03/10/17 0000 Signed Impressions: Service Date/Time: Friday, March 10, 2017 17:22 - CONCLUSION: NG tube should be advanced slightly. Carlos Kelsey MD Abdomen/Pelvis CT 03/09/171940 Signed Impressions: Service Date/Time: February 20:56 - CONCLUSION: Heterogeneous mass encompassing the region of the pyloric antrum, proximal duodenum and pancreatic head. There does appear to be gastric outlet obstruction without evidence of biliary obstruction which would favor a GI location of origin. Low-density lesion in the liver and bilateral lung base nodules worrisome for metastatic disease. Carlos Kelsey MD Objective Remarks GENERAL: This is a thin, well-developed patient, NAD. SKIN: No rashes, ecchymoses or lesions. Cool and dry. Very pale skin. HEAD: Atraumatic. Normocephalic. No temporal or scalp tenderness. EYES: Pupils equal round and reactive. Extraocular motions intact. No scleral icterus. No injection or drainage. Pale conjunctiva. ENT: Nose without bleeding, purulent drainage or septal hematoma. Throat without erythema, tonsillar hypertrophy or exudate. Uvula midline. Airway patent. NECK: Trachea midline. No JVD or lymphadenopathy. Supple, nontender, no meningeal signs. CARDIOVASCULAR: Regular rate and rhythm without murmurs, gallops, or rubs. RESPIRATORY: Clear to auscultation. Breath sounds equal bilaterally. No wheezes , rales, or rhonchi. GASTROINTESTINAL: Abdomen soft, non-tender, slightly distended. No guarding. Bowel sounds present. MUSCULOSKELETAL: Extremities without clubbing, cyanosis, or edema. No joint tenderness, effusion, or edema noted. No calf tenderness. Negative Homans sign bilaterally. NEUROLOGICAL: Awake and alert. Cranial nerves II through XII intact. Motor and sensory grossly within normal limits. Five out of 5 muscle strength in all muscle groups. Normal speech. Procedures EGD with biopsy on 03/10/17 - Duodenal bulb mass, gastritis, gastric polyps. Medications and IVs Current Medications Medications (Trade) Dose Ordered Sig/Burton Route Start Time Stop Time Status Last Admin (NS 1000 ml Inj) 1,000 ml @ 84 mls/hr [id number] IV 03/09/17 22:45 03/10/17 19:51 (Protonix Inj) 40 mg Q24H IV PUSH 03/09/17 23:00 03/10/17 22:47 (NS Flush) 2 ml UNSCH PRN IV FLUSH 03/09/17 22:30 (NS Flush) 2 ml BID IV FLUSH 03/10/17 09:00 (Tylenol) 650 mg Q4H PRN PO 03/09/17 22:30 (Zofran Inj) 4 mg Q6H PRN IVP 03/09/17 22:30 (Dulcolax Supp) 10 mg DAILY PRN RECTAL 03/09/17 22:30 (Milk Of Magndeya Liq) 30 ml Q12H PRN PO 03/09/17 22:30 (Tylenol) 650 mg Q6H PRN PO 03/09/17 22:30 (Bertrand 5-325 Mg) 1 tab Q4H PRN PO 03/09/17 22:30 ([place] 7.5-325 Mg) 1 tab Q4H PRN PO 03/09/17 22:30 03/10/17 23:49 (Narcan Inj) 0.4 mg UNSCH PRN IV 03/09/17 22:30 (D50w (Vial) Inj) 25 ml UNSCH PRN IV PUSH 03/09/17 22:45 (Glucagon Inj) 1 mg UNSCH PRN OTHER 03/09/17 22:45 (Elavil) 75 mg DAILY PO 03/10/17 09:00 03/11/17 10:02 Hydromorphone HCl 0.5 mg 0.5 mg Q4H PRN IV PUSH 03/10/17 19:45 03/10/17 19:44 (Cardizem Inj/NS Inj) 125 ml @ 0 mls/hr TITRATE IV 03/10/17 21:30 Hold Urinary Catheter: No Vascular Central Line Catheter: No A/P Problem List: (1) Gastric mass ICD Code: K31.9 Status: Acute Plan: This is a 72-year-old male who presents to the emergency room complaining of right upper quadrant abdominal pain, nausea, abdominal bloating/ distention, heartburn and belching. He also reports of anorexia and weight loss of 30 pounds in the past 45 days. Underwent EGD which showed nearly obstructing friable mass in the duodenal bulb. General surgery consulted. Recommended a CT-guided biopsy of the liver lesion. If mass in the liver is confirmed to be metastatic disease then he will be a candidate for palliative bypass surgery. Medical oncology consulted as well. I will order a CT of the chest complete staging. (2) Gastric outlet obstruction ICD Code: K31.1 Status: Acute Plan: Secondary to duodenal bulb mass status post EGD and biopsy. Gen. surgery following. NG tube was placed for decompression, however patient has removed the NG tube. May keep NG tube out if patient is not nauseous or vomiting and there is no abdominal pain. (3) Weight loss ICD Code: R63.4 Status: Acute Plan: Consult dietitian. (4) Anemia ICD Code: D64.9 Status: Acute Plan: Normocytic. Will check iron studies and ferritin. (5) Thrombocytosis ICD Code: D47.3 Status: Acute Plan: Thrombocytosis likely reactive to anemia. (6) Diabetes ICD Code: E11.9 Status: Acute Plan: Continue SSI with insulin NovoLog. Monitor Accu-Cheks. Hold glipizide. (7) HTN (hypertension) ICD Code: I10 Status: Acute Plan: Blood pressure seems to be stable without any antihypertensive medications. We'll continue to monitor vital signs. (8) GERD (gastroesophageal reflux disease) ICD Code: K21.9 Status: Acute Plan: Continue PPI. Seems to be stable. Assessment and Plan Chronic medical conditions of arthritis, depression, hyperlipidemia, diabetes mellitus, heart appearing, GERD and hypertension seem to be stable. Continue outpatient medications as appropriate. Discharge Planning Continue to monitor in the oncology floor. Problem Qualifiers (1) Anemia: Qualified Code: D64.9 - Anemia, unspecified type (2) Diabetes: Qualified Code: E11.8 - Type 2 diabetes mellitus with complication, without long-term current use of insulin Ozzie Montes MD Mar 11, 2017 12:19
--- NOTE | 2017-03-11 13:11 | PD.ONC.PN ---
Subjective Subjective Remarks Afebrile overnight. Patient resting comfortably. Complaining of some pain in RUQ and hunger. Drank some coffee earlier but vomited it up. able to keep very little down. Objective Data Date Time Temp Pulse Resp B/P Pulse Ox O2 Delivery O2 Flow Rate FiO2 03/11/17 10:52 95 21 03/11/17 08:00 96.2 88 18 121/61 91 03/11/17 04:00 96.8 89 18 120/59 94 03/11/17 00:00 97.6 119 17 140/85 90 03/10/17 21:36 117 03/10/17 21:17 122 18 129/79 92 03/10/17 20:30 97.4 170 17 139/54 95 03/10/17 20:00 160 03/10/17 16:30 97.2 111 18 135/65 95 03/10/17 15:00 99.0 84 18 110/68 96 Result Diagram: 03/11/17 0725 03/11/17 0735 Laboratory Results Laboratory Tests Test 03/11/17 03/11/17 07:25 07:35 White Blood Count 19.2 TH/MM3 Red Blood Count 3.00 MIL/MM3 Hemoglobin 8.7 GM/DL Hematocrit 26.8 % Mean Corpuscular Volume 89.3 FL Mean Corpuscular Hemoglobin 29.1 PG Mean Corpuscular Hemoglobin 32.6 % Concent Red Cell Distribution Width 13.3 % Platelet Count 645 TH/MM3 Mean Platelet Volume 6.3 FL Neutrophils (%) (Auto) 86.2 % Lymphocytes (%) (Auto) 5.1 % Monocytes (%) (Auto) 6.5 % Eosinophils (%) (Auto) 1.7 % Basophils (%) (Auto) 0.5 % Neutrophils # (Auto) 16.5 TH/MM3 Lymphocytes # (Auto) 1.0 TH/MM3 Monocytes # (Auto) 1.3 TH/MM3 Eosinophils # (Auto) 0.3 TH/MM3 Basophils # (Auto) 0.1 TH/MM3 CBC Comment DIFF FINAL Differential Comment Sodium Level 137 MEQ/L Potassium Level 4.0 MEQ/L Chloride Level 102 MEQ/L Carbon Dioxide Level 26.5 MEQ/L Anion Gap 9 MEQ/L Blood Urea Nitrogen 9 MG/DL Creatinine 0.64 MG/DL Estimat Glomerular Filtration 123 ML/MIN Rate Random Glucose 170 MG/DL Calcium Level 8.4 MG/DL Magnesium Level 1.5 MG/DL Imaging Studies Last [address] 03/11/17 0000 Signed Impressions: Service Date/Time: Saturday, March 11, 2017 10:40 - CONCLUSION: 1. Lung nodules are nonspecific in regards to metastatic disease. 2. There are lymph nodes within the mediastinum indeterminant, however could be benign. 3. Slight bibasilar atelectasis and/or infiltrate is seen. 4. Cystic lesion in the liver also not adequately characterized possibly a simple cyst. KTonny Estevez MD Administered Medications Medications (Trade) Dose Ordered Sig/Burton Route PRN Reason Start Time Stop Time Status Last Admin Dose Admin Sodium Chloride (NS 1000 ml Inj) 1,000 ml @ 84 mls/hr [id number] IV 03/09/17 22:45 03/10/17 19:51 Pantoprazole Sodium (Protonix Inj) 40 mg Q24H IV PUSH 03/09/17 23:00 03/10/17 22:47 Acetaminophen/ Hydrocodone Bitart ([place] 7.5-325 Mg) 1 tab Q4H PRN PO PAIN SCALE 6 TO 10 03/09/17 22:30 03/10/17 23:49 Amitriptyline HCl (Elavil) 75 mg DAILY PO 03/10/17 09:00 03/11/17 10:02 Hydromorphone HCl (Dilaudid Pf Inj) 0.5 mg Q4H PRN IV PUSH BREAKTHROUGH PAIN 03/10/17 19:45 03/10/17 19:44 Objective Remarks GENERAL: Elderly male, lying in bed in nad. SKIN: Warm and dry. HEAD: Normocephalic. EYES: No injection or drainage. NECK: Supple, trachea midline. CARDIOVASCULAR: Regular rate and rhythm RESPIRATORY: Breath sounds equal bilaterally. No accessory muscle use. GASTROINTESTINAL: Abdomen soft, non-tender, nondistended. EXTREMITIES: No cyanosis MUSCULOSKELETAL: Adequate muscle tone. NEUROLOGICAL: No obvious focal deficit. Awake, alert, and oriented x3. Assessment/Plan Problem List: (1) Gastric mass Status: Acute Plan: --Gastric outlet obstruction secondary to a mass / pancreatic mass / liver mass which appears to be metastatic disease. --Biopsy has been obtained. pathology pending --could be a GI malignancy such as pancreatic and cholangiocarcinoma. --CT chest shows multiple lung nodules --CA 19-9 WNL --will need a PET/CT scan outpatient. (2) Anemia Status: Acute Plan: --Keep hemoglobin greater than 8 --iron studies show low iron. will give iv venofer --B12/folate pending (3) Weight loss Status: Acute Plan: -- Dietitian consult: Risk for refeeding syndrome 2.Rec PPN Clinimix 4.25/5 @ 80ml/hr and 20% Lipids 250ml @ 10ml/hr 3.For PPN, required greater than 7-days, then Rec placing PICC and start TPN w/Clinimix 4.25/25 @ 80ml/hr and 20% Lipids 250ml @ 31.25ml/hr twice weekly over 8-hrs 4.Consider placing J-tube, during bypass surgery, starting trickle feeds @ 10ml/hr w/Glucerna 1.5; once tolerated, increase 10ml Q 12-hr to a goal rate 50ml/hr 5.Rec checking Mg and Phosphorus levels prior to initiating parenteral/enteral feedings and recheck weekly until pt tolerating at rec goal rate and replenish as needed 6.Rec supplemental Thiamine 100mg daily until pt tolerating enteral/parenteral at feedings at Rec goal rate Assessment 72y/o male with gastric outlet obstruction secondary to a mass in the pylorus / proximal duodenum and pancreatic head. h/o Osteoarthritis. Depression. Hyperlipidemia. Diabetes. Hearing loss. Gastroesophageal reflux disease (GERD). Hypertension. HPI: presented to the emergency department with right sided abdominal pain, nausea and anorexia +20 pounds of weight loss. CT ab/pelvis showed a heterogeneous conglomerate 80cm mass in the pyloric antrum, proximal duodenum and pancreatic head region causing the gastric outlet obstruction with pronounced dilation of the stomach.+ 2.4 cm low density mass in liver. s/p EGD with biopsy. The results of the biopsy are pending. Plan 1. await pathology 2. start PPN 3. monitor CBC, CMP Attending Statement The exam, history, and the medical decision-making described in the above note were completed with the assistance of the mid-level provider. I reviewed and agree with the findings presented. I attest that I had a [id number] encounter with the patient on the same day, and personally performed and documented my assessment and findings in the medical record. CT guided biopsy of liver lesion on Monday Consideration of palliative surgery to relieve gastric obstruction Start PPN Hold off PICC line. Patient will need port placement for chemotherapy iron deficient. Give iron infusion. iron sucrose 200mg X 3 d/w rn Problem Qualifiers (1) Anemia: Qualified Code: D64.9 - Anemia, unspecified type Amanda Valverde Mar 11, 2017 13:11 Reji Rios MD Mar 11, 2017 23:51
[2017-03-11 13:38] LABS: TRANSFERRIN IRON PROFILE 123 MG/DL (200-360)
[2017-03-11] MEDS: SODIUM CHLOR 0.9% 1000 ML INJ 1,000 ML IV SCH (15:02)
--- NOTE | 2017-03-11 15:28 | EKG ---
Date Performed: 03/10/2017 Time Performed: 20:50:28 PTAGE: 72 years EKG: RAPID SUPRAVENTRICULAR TACHYCARDIA WITH RATE OF 163 WITH OCCASIONAL ABERRANT CONDUCTED BEAT S POSSIBLE INFERIOR WALL MYOCARDIAL INFARCTION , OF INDETERMINATE AGE POOR INITIAL ANTERIOR FORCES NO NSPECIFIC ST WAVE CHANGE Compared to previous tracing, heart rate has increased from [address]-T changes are slightly more prominent. Aberrant conduction is new on occasional beats. ABNORMAL ECG PREVIOUS TRACING : 03/09/2017 20.06 DOCTOR: Joseph Shelley Interpretating Date/Time 03/11/2017 15:28:09
[2017-03-11] MEDS: ACETAMINOPHEN/HYDROcodone 325 MG/7.5 MG TAB PO PRN (18:33)
[2017-03-11] MEDS: IRON SUCROSE INJ 200 MG in SODIUM CHLORIDE 0.9% INJ 100 ML IV SCH (18:35)
[2017-03-11] MEDS: HYDROmorphone HCL PF 1 MG/ML VIAL IV PUSH PRN (20:38)
[2017-03-11] MEDS: FAT EMULSION 20% INJ 250 ML (@10 mls/hr) IV SCH (20:38)
[2017-03-11] MEDS: CLINIMIX E 4.25/5 2000 mL- >42 mls/hr IV SCH ×3 (20:38)
--- NOTE | 2017-03-11 21:20 | HHI.PR ---
Subjective Subjective Notes Patient not sure what is going on; hurts on right side. Objective Vitals/I&O Vital Signs Date Time Temp Pulse Resp B/P Pulse Ox O2 Delivery O2 Flow Rate FiO2 03/11/17 20:50 98.4 111 20 145/76 91 03/11/17 10:52 21 03/10/17 00:05 Room Air Labs Laboratory Tests Test 03/11/17 03/11/17 03/11/17 07:25 07:35 12:40 White Blood Count 19.2 Red Blood Count 3.00 Hemoglobin 8.7 Hematocrit 26.8 Mean Corpuscular Volume 89.3 Mean Corpuscular Hemoglobin 29.1 Mean Corpuscular Hemoglobin 32.6 Concent Red Cell Distribution Width 13.3 Platelet Count 645 Mean Platelet Volume 6.3 Neutrophils (%) (Auto) 86.2 Lymphocytes (%) (Auto) 5.1 Monocytes (%) (Auto) 6.5 Eosinophils (%) (Auto) 1.7 Basophils (%) (Auto) 0.5 Neutrophils # (Auto) 16.5 Lymphocytes # (Auto) 1.0 Monocytes # (Auto) 1.3 Eosinophils # (Auto) 0.3 Basophils # (Auto) 0.1 CBC Comment DIFF FINAL Differential Comment Sodium Level 137 Potassium Level 4.0 Chloride Level 102 Carbon Dioxide Level 26.5 Anion Gap 9 Blood Urea Nitrogen 9 Creatinine 0.64 Estimat Glomerular Filtration 123 Rate Random Glucose 170 Calcium Level 8.4 Magnesium Level 1.5 Lactic Acid Level 0.8 Iron Level 17 Total Iron Binding Capacity 172 Percent Iron Saturation 9.9 Transferrin 123 Vitamin B12 Level 753 Lungs: Clear Abdomen: Non-distended, Other (Tender on right side near costal margin) A/P Assessment and Plan 72 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 Edwin Canales MD Mar 11, 2017 21:20
[2017-03-11 22:06] LABS: ALKALINE PHOSPHATASE 86 U/L (45-117); ALT (GPT) 22 U/L (12-78); AST (GOT) 17 U/L (15-37); GLOMERULAR FILTRATION RATE 111 ML/MIN (>89); MAGNESIUM 1.6 MG/DL (1.5-2.5); TOTAL BILIRUBIN ADULT 0.1 MG/DL (0.2-1.0)
[2017-03-11] MEDS: PANTOPRAZOLE SODIUM 40 MG VIAL IV PUSH SCH (22:54)
[2017-03-12] VITALS (10 sets, daily range): BP systolic 109–163; BP diastolic 64–86; PULSE 97–117; RESP 18–20; TEMP 95.6–98.2; O2SAT 88–95
[2017-03-12] MEDS: ACETAMINOPHEN/HYDROcodone 325 MG/7.5 MG TAB PO PRN ×3 (04:42→20:26)
[2017-03-12] MEDS: HYDROmorphone HCL PF 1 MG/ML VIAL IV PUSH PRN (05:22)
[2017-03-12] MEDS: INSULIN ASPART SUPPLEMENTAL SCALE SQ SCH ×5 (05:23→20:32)
[2017-03-12] MEDS: ONDANSETRON HCL 4 MG/2 ML VIAL IVP PRN (05:38)
--- NOTE | 2017-03-12 08:48 | PD.ONC.PN ---
Subjective Subjective Remarks Afebrile overnight. Patient had some pain in RUQ earlier this morning. It is improved now that he has had some pain medication. Tolerating PPN. Objective Data Date Time Temp Pulse Resp B/P Pulse Ox O2 Delivery O2 Flow Rate FiO2 03/12/17 05:42 113 142/78 95 03/12/17 04:00 96.2 107 18 109/72 94 03/12/17 02:52 93 3.00 03/12/17 01:05 98.2 109 18 149/68 95 03/12/17 00:01 95 03/12/17 00:01 95 Nasal Cannula 3.00 03/12/17 00:00 98.2 109 18 149/68 88 03/11/17 20:50 98.4 111 20 145/76 91 03/11/17 20:00 113 03/11/17 16:00 96.4 104 18 121/81 95 03/11/17 12:00 96.9 98 18 117/69 93 03/11/17 10:52 95 21 03/12/17 03/12/17 03/12/17 07:00 15:00 23:00 Intake Total 623 ml Output Total 900 ml Balance -277 ml Result Diagram: 03/11/1772403/11/172051 Laboratory Results Laboratory Tests Test 03/11/17 03/11/17 12:40 20:52 Lactic Acid Level 0.8 mmol/L Iron Level 17 MCG/DL Total Iron Binding Capacity 172 MCG/DL Percent Iron Saturation 9.9 % Transferrin 123 MG/DL Vitamin B12 Level 753 PG/ML Creatinine 0.70 MG/DL Estimat Glomerular Filtration 111 ML/MIN Rate Phosphorus Level 1.9 MG/DL Magnesium Level 1.6 MG/DL Total Bilirubin 0.1 MG/DL Direct Bilirubin LESS THAN 0.1 MG/DL Indirect Bilirubin 0.0 MG/DL Aspartate Amino Transf 17 U/L (AST/SGOT) Alanine Aminotransferase 22 U/L (ALT/SGPT) Alkaline Phosphatase 86 U/L Total Protein 6.5 GM/DL Albumin 2.0 GM/DL Administered Medications Medications (Trade) Dose Ordered Sig/Burton Route PRN Reason Start Time Stop Time Status Last Admin Dose Admin Pantoprazole Sodium (Protonix Inj) 40 mg Q24H IV PUSH 03/09/17 23:00 03/11/17 22:54 Ondansetron HCl (Zofran Inj) 4 mg Q6H PRN IVP NAUSEA OR VOMITING 03/09/17 22:30 03/12/17 05:38 Acetaminophen/ Hydrocodone Bitart ([place] 7.5-325 Mg) 1 tab Q4H PRN PO PAIN SCALE 6 TO 10 03/09/17 22:30 03/12/17 04:42 Amitriptyline HCl (Elavil) 75 mg DAILY PO 03/10/17 09:00 03/11/17 10:02 Hydromorphone HCl 0.5 mg 0.5 mg Q4H PRN IV PUSH BREAKTHROUGH PAIN 03/10/17 19:45 03/12/17 05:22 Multivitamins 10 ml/Folic Acid 1 mg/Amino Acids/ Electrolytes/ Dextrose 2,010.2 ml @ 80 mls/hr Q24H IV 03/11/17 20:00 03/11/17 20:38 Fat Emulsion Intravenous 250 ml @ 10 mls/hr Q24H IV 03/11/17 20:00 03/11/17 20:38 Iron Sucrose/ Sodium Chloride (Venofer Inj/NS Inj) 110 ml @ 110 mls/hr DAILY@17 IV 03/11/17 17:00 03/13/17 17:59 03/11/17 18:35 Objective Remarks GENERAL: Elderly male, lying in bed on 3L O2 via NC SKIN: Warm and dry. HEAD: Normocephalic. EYES: No injection or drainage. NECK: Supple, trachea midline. CARDIOVASCULAR: Regular rate and rhythm RESPIRATORY: Breath sounds equal bilaterally. No accessory muscle use. GASTROINTESTINAL: Abdomen soft, non-tender, nondistended. EXTREMITIES: No cyanosis MUSCULOSKELETAL: Adequate muscle tone. NEUROLOGICAL: awake and alert, normal speech. moving extremities. Assessment/Plan Problem List: (1) Gastric mass Status: Acute Plan: --CT liver biopsy Monday afternoon in IR --Gastric outlet obstruction secondary to a mass / pancreatic mass / liver mass which appears to be metastatic disease. --Biopsy has been obtained. pathology pending --could be a GI malignancy such as pancreatic and cholangiocarcinoma. --CT chest shows multiple lung nodules --CA 19-9 WNL --will need a PET/CT scan outpatient. (2) Anemia Status: Acute Plan: --Keep hemoglobin greater than 8 --iron studies show low iron. iv venofer 200mg x 3 ordered --B12/folate WNL (3) Weight loss Status: Acute Plan: --on PPN Clinimix 4.25/5 @ 80ml/hr and 20% Lipids 250ml @ 10ml/hr Assessment 72y/o male with gastric outlet obstruction secondary to a mass in the pylorus / proximal duodenum and pancreatic head. h/o Osteoarthritis. Depression. Hyperlipidemia. Diabetes. Hearing loss. Gastroesophageal reflux disease (GERD). Hypertension. HPI: presented to the emergency department with right sided abdominal pain, nausea and anorexia +20 pounds of weight loss. CT ab/pelvis showed a heterogeneous conglomerate 80cm mass in the pyloric antrum, proximal duodenum and pancreatic head region causing the gastric outlet obstruction with pronounced dilation of the stomach.+ 2.4 cm low density mass in liver. s/p EGD with biopsy. The results of the biopsy are pending. Plan 1. CT liver biopsy Monday 2. continue PPN 3. monitor CBC, CMP, phosphorus, magnesium 4. start Zosyn for possibly aspiration PNA--was hypoxic overnight, CXR shows possible infiltrate and WBC=27K 5. D-dimer for question of PE in patient with likely malignancy Attending Statement The exam, history, and the medical decision-making described in the above note were completed with the assistance of the mid-level provider. I reviewed and agree with the findings presented. I attest that I had a [id number] encounter with the patient on the same day, and personally performed and documented my assessment and findings in the medical record. Dyspnea and chest Xray worrisome for pneumonia. Leucocytosis worse Start abx. blood cultures continue Parenteral Nutrition. Poor oral intake check D-dimers. If dyspnea or O2 sats worse. will get CTA to r/o PTE NPO after midnight for CT guided liver biopsy in am d/w rn Problem Qualifiers (1) Anemia: Qualified Code: D64.9 - Anemia, unspecified type Amanda Valverde Mar 12, 2017 08:48 Reji Rios MD Mar 12, 2017 23:07
[2017-03-12 09:11] LABS: AUTOMATED NEUTROPHIL # 20.6 TH/MM3 (1.8-7.7); BASOPHIL # 0.2 TH/MM3 (0-0.2); BASOPHIL % 0.7 % (0.0-2.0); EOSINOPHIL # 1.6 TH/MM3 (0-0.4); EOSINOPHIL % 5.8 % (0.0-4.0); HEMATOCRIT 30.7 % (39.0-51.0); LYMPH % 8.1 % (9.0-44.0); LYMPHOCYTE # 2.2 TH/MM3 (1.0-4.8); MEAN CELL VOLUME 90.1 FL (80.0-100.0); MEAN CORPUSCULAR HEMOGLOBIN 29.1 PG (27.0-34.0); MEAN CORPUSCULAR HGB CONC 32.3 % (32.0-36.0); MONO % 9.2 % (0.0-8.0); NEUT % 76.2 % (16.0-70.0); PLATELET COUNT 782 TH/MM3 (150-450); RED BLOOD COUNT 3.41 MIL/MM3 (4.50-5.90); RED CELL DISTRIBUTION WIDTH 13.5 % (11.6-17.2)
[2017-03-12 09:13] LABS: HEMO FLAGS AUTO DIFF
[2017-03-12] MEDS: AMITRIPTYLINE HCL 75 MG TAB PO SCH (09:13)
[2017-03-12] MEDS: SODIUM CHLORIDE 0.9% FLUSH 10 ML FLUSH IV FLUSH SCH ×2 (09:13→20:26)
[2017-03-12 09:48] LABS: BANDS 1 % (0-6); BASOPHILS 1 % (0-2); EOSINOPHILS 5 % (0-4); NEUTROPHIL # MANUAL DIFF 22.1 TH/MM3 (1.8-7.7); POLYS (SEG NEUTROPHILS) 81 % (16-70); WBC DIFF SAMPLE 100
[2017-03-12 09:49] LABS: PLATELET ESTIMATE SMEAR HIGH (NORMAL); PLATELET MORPHOLOGY NORMAL (NORMAL); SCAN/DIFF FINAL DIFF MANUAL
[2017-03-12 09:56] LABS: ALKALINE PHOSPHATASE 96 U/L (45-117); ALT (GPT) 21 U/L (12-78); ANION GAP 10 MEQ/L (5-15); AST (GOT) 12 U/L (15-37); BICARBONATE 27.6 MEQ/L (21.0-32.0); BLOOD UREA NITROGEN 7 MG/DL (7-18); CHLORIDE 99 MEQ/L (98-107); FERRITIN 568 NG/ML (26-388); GLOMERULAR FILTRATION RATE 84 ML/MIN (>89); MAGNESIUM 1.8 MG/DL (1.5-2.5); POTASSIUM 4.1 MEQ/L (3.5-5.1); SODIUM (NA) 137 MEQ/L (136-145); TOTAL BILIRUBIN ADULT 0.2 MG/DL (0.2-1.0); TRANSFERRIN IRON PROFILE 155 MG/DL (200-360)
--- NOTE | 2017-03-12 10:13 | RADRPT ---
EXAM DATE/TIME: 03/12/2017 09:41 [facility] COMPARISON: No previous studies available for comparison. INDICATIONS : Shortness of breath. MEDICAL HISTORY : Cardiovascular disease. Carcinoma, gastric. SURGICAL HISTORY : None. ENCOUNTER: Initial ACUITY: 3 days PAIN SCORE: 0/10 LOCATION: Bilateral chest FINDINGS: Mild right lung base atelectasis and/or infiltrate is seen.. There is no appreciable pleural effusio n for technique. Heart and mediastinum are unremarkable. CONCLUSION: Mild right lung base atelectasis and/or infiltrate is seen. Robb Estevez MD on March 12, 2017 at 10:10 Board Certified Radiologist. This report was verified electronically.
--- NOTE | 2017-03-12 11:24 | HHI.PR ---
Subjective Remarks Patient had an episode of oxygen desaturation overnight into the 80's requiring oxygen administration patient denies cough denies cp/sob WBC trending up c/o right upper quadrant pain Objective Vitals Vital Signs Date Time Temp Pulse Resp B/P Pulse Ox O2 Delivery O2 Flow Rate FiO2 03/12/17 08:00 96.6 97 18 121/79 95 03/12/17 05:42 113 142/78 95 03/12/17 04:00 96.2 107 18 109/72 94 03/12/17 02:52 93 3.00 03/12/17 01:05 98.2 109 18 149/68 95 03/12/17 00:01 95 03/12/17 00:01 95 Nasal Cannula 3.00 03/12/17 00:00 98.2 109 18 149/68 88 03/11/17 20:50 98.4 111 20 145/76 91 03/11/17 20:00 113 03/11/17 16:00 96.4 104 18 121/81 95 03/11/17 12:00 96.9 98 18 117/69 93 I/O 03/11/17 03/11/17 03/11/17 03/12/17 03/12/17 03/12/17 07:00 15:00 23:00 07:00 15:00 23:00 Intake Total 1035 ml 840 ml 623 ml Output Total 900 ml Balance 1035 ml 840 ml -277 ml Intake Oral 840 ml IV Total 1035 ml 623 ml Output Urine Total 900 ml # Voids 3 Result Diagram: 03/12/17 0855 03/12/17 0855 Imaging Last Impressions Chest X-Ray 03/12/17 0000 Signed Impressions: Service Date/Time: Sunday, March 12, 2017 09:41 - CONCLUSION: Mild right lung base atelectasis and/or infiltrate is seen. Robb Estevez MD Chest CT 03/11/17 0000 Signed Impressions: Service Date/Time: Saturday, March 11, 2017 10:40 - CONCLUSION: 1. Lung nodules are nonspecific in regards to metastatic disease. 2. There are lymph nodes within the mediastinum indeterminant, however could be benign. 3. Slight bibasilar atelectasis and/or infiltrate is seen. 4. Cystic lesion in the liver also not adequately characterized possibly a simple cyst. KTonny Estevez MD Abdomen X-Ray 03/10/17 0000 Signed Impressions: Service Date/Time: Friday, March 10, 2017 17:22 - CONCLUSION: NG tube should be advanced slightly. Carlos Kelsey MD Abdomen/Pelvis CT 03/09/171940 Signed Impressions: Service Date/Time: February 20:56 - CONCLUSION: Heterogeneous mass encompassing the region of the pyloric antrum, proximal duodenum and pancreatic head. There does appear to be gastric outlet obstruction without evidence of biliary obstruction which would favor a GI location of origin. Low-density lesion in the liver and bilateral lung base nodules worrisome for metastatic disease. Carlos Kelsey MD Objective Remarks GENERAL: This is a thin, well-developed patient, NAD. SKIN: No rashes, ecchymoses or lesions. Cool and dry. Very pale skin. HEAD: Atraumatic. Normocephalic. No temporal or scalp tenderness. EYES: Pupils equal round and reactive. Extraocular motions intact. No scleral icterus. No injection or drainage. Pale conjunctiva. ENT: Nose without bleeding, purulent drainage or septal hematoma. Throat without erythema, tonsillar hypertrophy or exudate. Uvula midline. Airway patent. NECK: Trachea midline. No JVD or lymphadenopathy. Supple, nontender, no meningeal signs. CARDIOVASCULAR: Regular rate and rhythm without murmurs, gallops, or rubs. RESPIRATORY: Clear to auscultation. Breath sounds equal bilaterally. No wheezes , rales, or rhonchi. GASTROINTESTINAL: Abdomen soft, non-tender, slightly distended. No guarding. Bowel sounds present. MUSCULOSKELETAL: Extremities without clubbing, cyanosis, or edema. No joint tenderness, effusion, or edema noted. No calf tenderness. Negative Homans sign bilaterally. NEUROLOGICAL: Awake and alert. Cranial nerves II through XII intact. Motor and sensory grossly within normal limits. Five out of 5 muscle strength in all muscle groups. Normal speech. Procedures EGD with biopsy on 03/10/17 - Duodenal bulb mass, gastritis, gastric polyps. Medications and IVs Current Medications Medications (Trade) Dose Ordered Sig/Burton Route Start Time Stop Time Status Last Admin (Protonix Inj) 40 mg Q24H IV PUSH 03/09/17 23:00 03/11/17 22:54 (NS Flush) 2 ml UNSCH PRN IV FLUSH 03/09/17 22:30 (NS Flush) 2 ml BID IV FLUSH 03/10/17 09:00 (Tylenol) 650 mg Q4H PRN PO 03/09/17 22:30 (Zofran Inj) 4 mg Q6H PRN IVP 03/09/17 22:30 03/12/17 05:38 (Dulcolax Supp) 10 mg DAILY PRN RECTAL 03/09/17 22:30 (Milk Of Magnesia Liq) 30 ml Q12H PRN PO 03/09/17 22:30 (Tylenol) 650 mg Q6H PRN PO 03/09/17 22:30 ([place] 5-325 Mg) 1 tab Q4H PRN PO 03/09/17 22:30 ([place] 7.5-325 Mg) 1 tab Q4H PRN PO 03/09/17 22:30 03/12/17 09:15 (Narcan Inj) 0.4 mg UNSCH PRN IV 03/09/17 22:30 (D50w (Vial) Inj) 25 ml UNSCH PRN IV PUSH 03/09/17 22:45 (Glucagon Inj) 1 mg UNSCH PRN OTHER 03/09/17 22:45 (Elavil) 75 mg DAILY PO 03/10/17 09:00 03/12/17 09:13 Hydromorphone HCl 0.5 mg 0.5 mg Q4H PRN IV PUSH 03/10/17 19:45 03/12/17 05:22 Diltiazem HCl 125 mg/Sodium Chloride 125 ml @ 0 mls/hr TITRATE IV 03/10/17 21:30 Hold Multivitamins 10 ml/Folic Acid 1 mg/Amino Acids/ Electrolytes/ Dextrose 2,010.2 ml @ 80 mls/hr Q24H IV 03/11/17 20:00 03/11/17 20:38 Fat Emulsion Intravenous 250 ml @ 10 mls/hr Q24H IV 03/11/17 20:00 03/11/17 20:38 Iron Sucrose 200 mg/Sodium Chloride 110 ml @ 110 mls/hr DAILY@17 IV 03/11/17 17:00 03/13/17 17:59 03/11/17 18:35 (Zosyn 3.375 Gm Premix) 50 ml @ 100 mls/hr Q6H IV 03/12/17 10:00 Urinary Catheter: No Vascular Central Line Catheter: No A/P Problem List: (1) Gastric mass ICD Code: K31.9 Status: Acute Plan: This is a 72-year-old male who presents to the emergency room complaining of right upper quadrant abdominal pain, nausea, abdominal bloating/ distention, heartburn and belching. He also reports of anorexia and weight loss of 30 pounds in the past 45 days. Underwent EGD which showed nearly obstructing friable mass in the duodenal bulb. General surgery consulted. Recommended a CT-guided biopsy of the liver lesion. If mass in the liver is confirmed to be metastatic disease then he will be a candidate for palliative bypass surgery. Medical oncology consulted as well. CT chest as described above showed some infiltrates versus atelectasis in the lower lungs, some nodules. (2) Gastric outlet obstruction ICD Code: K31.1 Status: Acute Plan: Secondary to duodenal bulb mass status post EGD and biopsy. Gen. surgery following. NG tube was placed for decompression, however patient has removed the NG tube. May keep NG tube out if patient is not nauseous or vomiting and there is no abdominal pain. Patient on PPN and tolerating it. (3) Weight loss ICD Code: R63.4 Status: Acute Plan: Patient on PPN. Dietitian consulted. (4) Anemia ICD Code: D64.9 Status: Acute Plan: Normocytic. Iron studies consistent with iron deficiency anemia. IV iron ordered 3. (5) Thrombocytosis ICD Code: D47.3 Status: Acute Plan: Thrombocytosis likely reactive to anemia. (6) Diabetes ICD Code: E11.9 Status: Chronic Plan: Continue SSI with insulin NovoLog. Monitor Accu-Cheks. Hold glipizide. 03/12 blood sugars trending up in the 200s. I will start the patient on insulin Levemir 5 units at bedtime. (7) HTN (hypertension) ICD Code: I10 Status: Chronic Plan: Blood pressure seems to be stable without any antihypertensive medications. We'll continue to monitor vital signs. (8) GERD (gastroesophageal reflux disease) ICD Code: K21.9 Status: Chronic Plan: Continue PPI. Seems to be stable. (9) Sepsis ICD Code: A41.9 Status: Acute Plan: Present on admission. The patient with leukocytosis which is worsening and trending up. Sinus tachycardia. Patient decided overnight and CT chest shows bilateral lower lobe infiltrate versus atelectasis. So the patient IV Zosyn, obtain blood cultures, lactic acid, monitor CBC with differential. Case discussed with oncology PA. (10) Leukocytosis ICD Code: D72.829 Status: Acute Plan: Possibly secondary to sepsis, secondary to pneumonia. Continue to monitor CBC with differential. WBC trending up from 19 K2 20 7K. (11) PNA (pneumonia) ICD Code: J18.9 Status: Acute Plan: Possible aspiration pneumonia given findings on CT chest and chest x-ray with right middle lobe infiltrate. Start the patient. An IV Zosyn, continue supplemental oxygen to keep oxygen saturation more than 92% (12) Hypoxemia ICD Code: R09.02 Status: Acute Plan: Activity secondary to pneumonia as mentioned above. Continue supplemental oxygen. Will check d-dimer is elevated then will get CTA to rule out PE. Case discussed extensively with Mihaela Valverde. Assessment and Plan Chronic medical conditions of arthritis, depression, hyperlipidemia, diabetes mellitus, heart appearing, GERD and hypertension seem to be stable. Continue outpatient medications as appropriate. Discharge Planning Continue to monitor in the oncology floor. Problem Qualifiers (1) Anemia: Qualified Code: D64.9 - Anemia, unspecified type (2) Diabetes: Qualified Code: E11.8 - Type 2 diabetes mellitus with complication, without long-term current use of insulin (3) Sepsis: Qualified Code: A41.9 - Sepsis, due to unspecified organism (4) Leukocytosis: Qualified Code: D72.829 - Leukocytosis, unspecified type (5) PNA (pneumonia): Qualified Code: J69.0 - Aspiration pneumonia of both lower lobes due to gastric secretions Ozzie Montes MD Mar 12, 2017 11:24
[2017-03-12] MEDS: PIPERACIL-TAZO 3.375 GM PREMIX 50 ML IV SCH ×3 (13:45→22:35)
--- NOTE | 2017-03-12 14:59 | PD.PN.STU ---
Subjective Remarks DAILY PROGRESS NOTE FOR SURGICAL ATTENDING, DR. TARAS DE LA PAZ 72 year-old male with small bowel obstruction is "feeling fairly well " today. He accidentally pulled out his NG tube while was asleep. Despite his imaging results and upcoming liver biopsy, the patient is eager to get back to his home in [place], [place]. at bedside Objective Vitals Vital Signs Date Time Temp Pulse Resp B/P Pulse Ox O2 Delivery O2 Flow Rate FiO2 03/12/17 12:00 95.6 108 20 116/64 90 03/12/17 08:00 96.6 97 18 121/79 95 03/12/17 05:42 113 142/78 95 03/12/17 04:00 96.2 107 18 109/72 94 03/12/17 02:52 93 3.00 03/12/17 01:05 98.2 109 18 149/68 95 03/12/17 00:01 95 03/12/17 00:01 95 Nasal Cannula 3.00 03/12/17 00:00 98.2 109 18 149/68 88 03/11/17 20:50 98.4 111 20 145/76 91 03/11/17 20:00 113 03/11/17 16:00 96.4 104 18 121/81 95 I/O 03/11/17 03/11/17 03/11/17 03/12/17 03/12/17 03/12/17 07:00 15:00 23:00 07:00 15:00 23:00 Intake Total 1035 ml 840 ml 623 ml Output Total 900 ml Balance 1035 ml 840 ml -277 ml Intake Oral 840 ml IV Total 1035 ml 623 ml Output Urine Total 900 ml # Voids 3 Result Diagram: 03/12/17 0855 03/12/17 0855 Imaging Last Impressions Chest X-Ray 03/12/17 0000 Signed Impressions: Service Date/Time: Sunday, March 12, 2017 09:41 - CONCLUSION: Mild right lung base atelectasis and/or infiltrate is seen. Robb Estevez MD Chest CT 03/11/17 0000 Signed Impressions: Service Date/Time: Saturday, March 11, 2017 10:40 - CONCLUSION: 1. Lung nodules are nonspecific in regards to metastatic disease. 2. There are lymph nodes within the mediastinum indeterminant, however could be benign. 3. Slight bibasilar atelectasis and/or infiltrate is seen. 4. Cystic lesion in the liver also not adequately characterized possibly a simple cyst. Robb Estevez MD Abdomen X-Ray 03/10/17 0000 Signed Impressions: Service Date/Time: Friday, March 10, 2017 17:22 - CONCLUSION: NG tube should be advanced slightly. Carlos Kelsey MD Abdomen/Pelvis CT 03/09/171940 Signed Impressions: Service Date/Time: February 20:56 - CONCLUSION: Heterogeneous mass encompassing the region of the pyloric antrum, proximal duodenum and pancreatic head. There does appear to be gastric outlet obstruction without evidence of biliary obstruction which would favor a GI location of origin. Low-density lesion in the liver and bilateral lung base nodules worrisome for metastatic disease. Carlos Kelsey MD Objective Remarks The patient appeared comfortable and in no acute distress today. His was at his bedside. He is alert and oriented with an affect that paralleled his mood. His abdomen appeared distended, as it did when I saw him two days ago. Procedures Patient is going to have CT-guided biopsy tomorrow Medications and IVs Current Medications Medications (Trade) Dose Ordered Sig/Burton Route Start Time Stop Time Status Last Admin (Protonix Inj) 40 mg Q24H IV PUSH 03/09/17 23:00 03/11/17 22:54 (NS Flush) 2 ml UNSCH PRN IV FLUSH 03/09/17 22:30 (NS Flush) 2 ml BID IV FLUSH 03/10/17 09:00 (Tylenol) 650 mg Q4H PRN PO 03/09/17 22:30 (Zofran Inj) 4 mg Q6H PRN IVP 03/09/17 22:30 03/12/17 05:38 (Dulcolax Supp) 10 mg DAILY PRN RECTAL 03/09/17 22:30 (Milk Of Magnesia Liq) 30 ml Q12H PRN PO 03/09/17 22:30 (Tylenol) 650 mg Q6H PRN PO 03/09/17 22:30 ([place] 5-325 Mg) 1 tab Q4H PRN PO 03/09/17 22:30 ([place] 7.5-325 Mg) 1 tab Q4H PRN PO 03/09/17 22:30 03/12/17 09:15 (Narcan Inj) 0.4 mg UNSCH PRN IV 03/09/17 22:30 (D50w (Vial) Inj) 25 ml UNSCH PRN IV PUSH 03/09/17 22:45 (Glucagon Inj) 1 mg UNSCH PRN OTHER 03/09/17 22:45 (Elavil) 75 mg DAILY PO 03/10/17 09:00 03/12/17 09:13 Hydromorphone HCl 0.5 mg 0.5 mg Q4H PRN IV PUSH 03/10/17 19:45 03/12/17 05:22 Diltiazem HCl 125 mg/Sodium Chloride 125 ml @ 0 mls/hr TITRATE IV 03/10/17 21:30 Hold Multivitamins 10 ml/Folic Acid 1 mg/Amino Acids/ Electrolytes/ Dextrose 2,010.2 ml @ 80 mls/hr Q24H IV 03/11/17 20:00 03/11/17 20:38 Fat Emulsion Intravenous 250 ml @ 10 mls/hr Q24H IV 03/11/17 20:00 03/11/17 20:38 Iron Sucrose 200 mg/Sodium Chloride 110 ml @ 110 mls/hr DAILY@17 IV 03/11/17 17:00 03/13/17 17:59 03/11/17 18:35 (Zosyn 3.375 Gm Premix) 50 ml @ 100 mls/hr Q6H IV 03/12/17 10:00 03/12/17 13:45 A/P Assessment and Plan NOTE FOR SURGICAL ATTENDING, DR. TARAS DE LA PAZ I agree with above assessment and plan. The exam, history, and the medical decision-making described in the above note were completed with the assistance of the mid-level provider. I reviewed and agree with the findings presented. I attest that I had a [id number] encounter with the patient on the same day, and personally performed and documented my assessment and findings in the medical record. The following services were provided during this hospital visit: Chart data review, vital sign assessments/reviewing monitor data Review of consultations notes if present. Medication orders/review and/or management Ordering and/or reviewing lab tests Ordering and/or interpreting/reviewing x-rays and/or diagnostic studies Care of the patient and discussion of the patient with the care team Documentation time To help prompt me to consider important information that might be impacting today's encounter and assessment, information from prior notes written by myself or my colleagues may have been "brought forward/copy and pasted" into today's note. Gastric outlet obstruction: CT imaging has confirmed a mass involving the pyloric antrum, proximal duodenum , and pancreatic head. Lack of biliary obstruction decreases the likelihood of pancreatic origin. Results of endoscopic biopsy are pending. NG tube does not need to be reinserted immediately, but will likely be necessary if serial imaging suggests stomach overload. Liver nodules: Liver nodule biopsy will be performed on Monday (03/13) to differentiate between benign/unrelated hepatic cysts and metastatic disease. Anemia: Continue monitoring to keep hemoglobin > 8. The patient was informed that the plan of care will depend on the pathology reports obtained from the endoscopic duodenal biopsy and the upcoming liver biopsy. Him and his understand that the only surgical intervention that will occur if there is metastatic disease would be for alleviation of gastric outlet obstruction. The patient is encouraged to ambulate and his diet will be changed from clear liquids to full liquids. Alicia Frances Mar 12, 2017 14:59 Taras De La Paz MD Mar 12, 2017 15:02
[2017-03-12] MEDS: IRON SUCROSE INJ 200 MG in SODIUM CHLORIDE 0.9% INJ 100 ML IV SCH (16:33)
[2017-03-12] MEDS: CLINIMIX E 4.25/5 2000 mL- >42 mls/hr IV SCH ×3 (20:24)
[2017-03-12] MEDS: FAT EMULSION 20% INJ 250 ML (@10 mls/hr) IV SCH (20:26)
[2017-03-12] MEDS: PANTOPRAZOLE SODIUM 40 MG VIAL IV PUSH SCH (22:35)
[2017-03-13] VITALS: BP 125/80; PULSE 106; RESP 18; TEMP 97.7; O2SAT 92
[2017-03-13] MEDS: ACETAMINOPHEN/HYDROcodone 325 MG/7.5 MG TAB PO PRN ×2 (02:53→08:53)
[2017-03-13] MEDS: HYDROmorphone HCL PF 1 MG/ML VIAL IV PUSH PRN (03:54)
[2017-03-13] MEDS: PIPERACIL-TAZO 3.375 GM PREMIX 50 ML IV SCH ×4 (03:54→22:02)
[2017-03-13 04:00] VITALS: BP 145/75; PULSE 110; RESP 20; TEMP 98.8; O2SAT 92
[2017-03-13] MEDS: INSULIN ASPART SUPPLEMENTAL SCALE SQ SCH ×4 (05:21→20:40)
[2017-03-13 08:00] VITALS: BP 125/79; PULSE 88; PULSE 90; RESP 16; TEMP 96; O2SAT 96
[2017-03-13] MEDS: AMITRIPTYLINE HCL 75 MG TAB PO SCH (08:52)
[2017-03-13 09:07] LABS: AUTOMATED NEUTROPHIL # 16.9 TH/MM3 (1.8-7.7); BASOPHIL # 0.1 TH/MM3 (0-0.2); BASOPHIL % 0.5 % (0.0-2.0); EOSINOPHIL # 1.1 TH/MM3 (0-0.4); EOSINOPHIL % 4.9 % (0.0-4.0); HEMATOCRIT 28.3 % (39.0-51.0); LYMPH % 8.4 % (9.0-44.0); LYMPHOCYTE # 1.8 TH/MM3 (1.0-4.8); MEAN CELL VOLUME 89.9 FL (80.0-100.0); MEAN CORPUSCULAR HEMOGLOBIN 30.1 PG (27.0-34.0); MEAN CORPUSCULAR HGB CONC 33.5 % (32.0-36.0); MONO % 7.5 % (0.0-8.0); NEUT % 78.7 % (16.0-70.0); PLATELET COUNT 676 TH/MM3 (150-450); RED BLOOD COUNT 3.14 MIL/MM3 (4.50-5.90); RED CELL DISTRIBUTION WIDTH 13.6 % (11.6-17.2); WHITE BLOOD COUNT 21.4 TH/MM3 (4.0-11.0)
[2017-03-13 09:09] LABS: HEMO FLAGS AUTO DIFF
[2017-03-13 09:20] LABS: ANION GAP 8 MEQ/L (5-15); AST (GOT) 9 U/L (15-37); BICARBONATE 27.2 MEQ/L (21.0-32.0); BLOOD UREA NITROGEN 11 MG/DL (7-18); CHLORIDE 100 MEQ/L (98-107); GLOMERULAR FILTRATION RATE 101 ML/MIN (>89); MAGNESIUM 1.9 MG/DL (1.5-2.5); POTASSIUM 3.9 MEQ/L (3.5-5.1); SODIUM (NA) 135 MEQ/L (136-145)
[2017-03-13 09:24] LABS: ALKALINE PHOSPHATASE 85 U/L (45-117); ALT (GPT) 15 U/L (12-78); TOTAL BILIRUBIN ADULT 0.2 MG/DL (0.2-1.0)
[2017-03-13 09:35] LABS: BANDS 8 % (0-6); BASOPHILS 1 % (0-2); EOSINOPHILS 9 % (0-4); NEUTROPHIL # MANUAL DIFF 17.1 TH/MM3 (1.8-7.7); POLYS (SEG NEUTROPHILS) 72 % (16-70); WBC DIFF SAMPLE 100
[2017-03-13 09:36] LABS: PLATELET ESTIMATE SMEAR HIGH (NORMAL); PLATELET MORPHOLOGY NORMAL (NORMAL); ROULEAUX PRESENT (NORMAL); SCAN/DIFF FINAL DIFF MANUAL
--- NOTE | 2017-03-13 10:17 | RADRPT ---
EXAM DATE/TIME: 03/10/2017 13:30 [facility] COMPARISON: CT ABDOMEN & PELVIS W CONTRAST, March 09, 2017, 20:56. INDICATIONS : Liver mass. FINDINGS: Previous CT of the abdomen and pelvis dated 03/09/17 was reviewed for possible biopsy of right hepatic lobe mass. It is difficult to rule out hemangioma on this CT scan and therefore CT-guided core biop sy of this lesion, MRI of the abdomen with contrast using hemangioma protocol is suggested for furthe r evaluation of this lesion before biopsy. The findings were discussed with Dr. De La Paz who agrees w ith this plan. CONCLUSION: 1. Indeterminate mass within the right lobe of the liver. MRI of the abdomen with contrast using he mangioma protocol is suggested before core biopsy of this lesion is attempted. Campbell Jensen MD on March 13, 2017 at 9:50 Board Certified Radiologist. This report was verified electronically.
--- NOTE | 2017-03-13 10:23 | HHI.PR ---
Subjective Subjective Notes DAILY PROGRESS NOTE FOR SURGICAL ATTENDING, DR. TARAS DE LA PAZ Feels okay Minimal right upper quadrant discomfort Objective Vitals/I&O Vital Signs Date Time Temp Pulse Resp B/P Pulse Ox O2 Delivery O2 Flow Rate FiO2 03/13/17 04:00 98.8 110 20 145/75 92 03/13/17 03:02 3.00 03/13/17 03:00 Room Air 03/11/17 10:52 21 Labs Laboratory Tests Test 03/12/17 03/13/17 12:15 08:50 D-Dimer Quantitative (PE/DVT) 1.22 Lactic Acid Level 1.7 White Blood Count 21.4 Red Blood Count 3.14 Hemoglobin 9.5 Hematocrit 28.3 Mean Corpuscular Volume 89.9 Mean Corpuscular Hemoglobin 30.1 Mean Corpuscular Hemoglobin 33.5 Concent Red Cell Distribution Width 13.6 Platelet Count 676 Mean Platelet Volume 6.4 Neutrophils (%) (Auto) 78.7 Lymphocytes (%) (Auto) 8.4 Monocytes (%) (Auto) 7.5 Eosinophils (%) (Auto) 4.9 Basophils (%) (Auto) 0.5 Neutrophils # (Auto) 16.9 Lymphocytes # (Auto) 1.8 Monocytes # (Auto) 1.6 Eosinophils # (Auto) 1.1 Basophils # (Auto) 0.1 CBC Comment AUTO DIFF Differential Total Cells 100 Counted Neutrophils % (Manual) 72 Band Neutrophils % 8 Lymphocytes % 5 Monocytes % 5 Eosinophils % 9 Basophils % 1 Neutrophils # (Manual) 17.1 Differential Comment FINAL DIFF MANUAL Platelet Estimate HIGH Platelet Morphology Comment NORMAL Rouleau PRESENT Sodium Level 135 Potassium Level 3.9 Chloride Level 100 Carbon Dioxide Level 27.2 Anion Gap 8 Blood Urea Nitrogen 11 Creatinine 0.76 Estimat Glomerular Filtration 101 Rate Random Glucose 170 Calcium Level 8.7 Phosphorus Level 3.8 Magnesium Level 1.9 Total Bilirubin 0.2 Aspartate Amino Transf 9 (AST/SGOT) Alanine Aminotransferase 15 (ALT/SGPT) Alkaline Phosphatase 85 Total Protein 6.7 Albumin 2.0 Date/Time Procedure Status Source Growth 03/12/17 12:13 Aerobic Blood Culture Received Blood Line Pending 03/12/17 12:13 Anaerobic Blood Culture Received Blood Line Pending Radiology Last Impressions Chest X-Ray 03/12/17 0000 Signed Impressions: Service Date/Time: Sunday, March 12, 2017 09:41 - CONCLUSION: Mild right lung base atelectasis and/or infiltrate is seen. Robb Estevez MD Chest CT 03/11/17 0000 Signed Impressions: Service Date/Time: Saturday, March 11, 2017 10:40 - CONCLUSION: 1. Lung nodules are nonspecific in regards to metastatic disease. 2. There are lymph nodes within the mediastinum indeterminant, however could be benign. 3. Slight bibasilar atelectasis and/or infiltrate is seen. 4. Cystic lesion in the liver also not adequately characterized possibly a simple cyst. Robb Estevez MD Abdomen X-Ray 03/10/17 0000 Signed Impressions: Service Date/Time: Friday, March 10, 2017 17:22 - CONCLUSION: NG tube should be advanced slightly. Carlos Kelsey MD Abdomen/Pelvis CT 03/09/17 1941 Signed Impressions: Service Date/Time: February 20:56 - CONCLUSION: Heterogeneous mass encompassing the region of the pyloric antrum, proximal duodenum and pancreatic head. There does appear to be gastric outlet obstruction without evidence of biliary obstruction which would favor a GI location of origin. Low-density lesion in the liver and bilateral lung base nodules worrisome for metastatic disease. 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 CT suggest metastatic disease however I talked to the radiologist today (Dr Jensen ) and he wants further imaging on the abnormality seen on the CT scan to rule out a hemangioma of the liver. This was discussed with the patient and Will order an MRI to further evaluate the liver masses Then plan to biopsy if indicated Again if he has metastatic disease he will need palliative bypass if it is not metastatic disease then he will benefit from attempted resection of the mass Attending Statement NOTE FOR SURGICAL ATTENDING, DR. TARAS DE LA PAZ I attest that I had a [id number] encounter with the patient on the same day, and personally performed and documented my assessment and findings in the medical record. The following services were provided during this hospital visit: Chart data review, vital sign assessments/reviewing monitor data Review of consultations notes if present. Medication orders/review and/or management Ordering and/or reviewing lab tests Ordering and/or interpreting/reviewing x-rays and/or diagnostic studies Care of the patient and discussion of the patient with the care team Documentation time To help prompt me to consider important information that might be impacting today's encounter and assessment, information from prior notes written by myself or my colleagues may have been "brought forward/copy and pasted" into today's note. Problem Qualifiers (1) Anemia: Qualified Code: D64.9 - Anemia, unspecified type (2) Leukocytosis: Qualified Code: D72.829 - Leukocytosis, unspecified type (3) HTN (hypertension): Qualified Code: I10 - Essential hypertension (4) Diabetes: Qualified Code: E11.8 - Type 2 diabetes mellitus with complication, without long-term current use of insulin Taras De La Paz MD Mar 13, 2017 10:23
--- NOTE | 2017-03-13 10:50 | HHI.PR ---
Subjective Remarks Overnight events reviewed Patient had an episode of oxygen to saturation in the high 70s earlier Patient denies chest pain, shortness of breath or cough Afebrile Objective Vitals Vital Signs Date Time Temp Pulse Resp B/P Pulse Ox O2 Delivery O2 Flow Rate FiO2 03/13/17 04:00 98.8 110 20 145/75 92 03/13/17 03:02 92 3.00 03/13/17 03:00 78 Room Air 03/13/17 00:00 97.7 106 18 125/80 92 03/12/17 20:32 92 1.50 03/12/17 20:30 90 1.00 03/12/17 20:09 108 03/12/17 20:00 97.4 117 20 163/86 91 03/12/17 17:00 96.6 102 20 142/74 92 03/12/17 12:00 95.6 108 20 116/64 90 I/O 03/12/17 03/12/17 03/12/17 03/13/17 03/13/17 03/13/17 07:00 15:00 23:00 07:00 15:00 23:00 Intake Total 623 ml 480 ml Output Total 900 ml 900 ml 200 ml 800 ml Balance -277 ml -420 ml -200 ml -800 ml Intake Oral 480 ml IV Total 623 ml Output Urine Total 900 ml 900 ml 200 ml 800 ml # Bowel Movements 0 Result Diagram: 03/13/17 0850 03/13/17 0850 Imaging Last Impressions Chest X-Ray 03/12/17 0000 Signed Impressions: Service Date/Time: Sunday, March 12, 2017 09:41 - CONCLUSION: Mild right lung base atelectasis and/or infiltrate is seen. Robb Estevez MD Chest CT 03/11/17 0000 Signed Impressions: Service Date/Time: Saturday, March 11, 2017 10:40 - CONCLUSION: 1. Lung nodules are nonspecific in regards to metastatic disease. 2. There are lymph nodes within the mediastinum indeterminant, however could be benign. 3. Slight bibasilar atelectasis and/or infiltrate is seen. 4. Cystic lesion in the liver also not adequately characterized possibly a simple cyst. Robb Estevez MD Consultation 03/10/17 1330 Signed Impressions: Service Date/Time: Friday, March 10, 2017 13:30 - CONCLUSION: 1. Indeterminate mass within the right lobe of the liver. MRI of the abdomen with contrast using hemangioma protocol is suggested before core biopsy of this lesion is attempted. Campbell Jensen MD Abdomen X-Ray 03/10/17 0000 Signed Impressions: Service Date/Time: Friday, March 10, 2017 17:22 - CONCLUSION: NG tube should be advanced slightly. Carlos Kelsey MD Abdomen/Pelvis CT 03/09/17 1941 Signed Impressions: Service Date/Time: February 20:56 - CONCLUSION: Heterogeneous mass encompassing the region of the pyloric antrum, proximal duodenum and pancreatic head. There does appear to be gastric outlet obstruction without evidence of biliary obstruction which would favor a GI location of origin. Low-density lesion in the liver and bilateral lung base nodules worrisome for metastatic disease. Carlos Kelsey MD Objective Remarks GENERAL: This is a thin, well-developed patient, NAD. SKIN: No rashes, ecchymoses or lesions. Cool and dry. Very pale skin. HEAD: Atraumatic. Normocephalic. No temporal or scalp tenderness. EYES: Pupils equal round and reactive. Extraocular motions intact. No scleral icterus. No injection or drainage. Pale conjunctiva. ENT: Nose without bleeding, purulent drainage or septal hematoma. Throat without erythema, tonsillar hypertrophy or exudate. Uvula midline. Airway patent. NECK: Trachea midline. No JVD or lymphadenopathy. Supple, nontender, no meningeal signs. CARDIOVASCULAR: Regular rate and rhythm without murmurs, gallops, or rubs. RESPIRATORY: Fine rales at bilateral bases. Breath sounds equal bilaterally. No wheezes, rales, or rhonchi. GASTROINTESTINAL: Abdomen soft, non-tender, slightly distended. No guarding. Bowel sounds present. MUSCULOSKELETAL: Extremities without clubbing, cyanosis, or edema. No joint tenderness, effusion, or edema noted. No calf tenderness. Negative Homans sign bilaterally. NEUROLOGICAL: Awake and alert. Cranial nerves II through XII intact. Motor and sensory grossly within normal limits. Five out of 5 muscle strength in all muscle groups. Normal speech. Procedures EGD with biopsy on 03/10/17 - Duodenal bulb mass, gastritis, gastric polyps. Medications and IVs Current Medications Medications (Trade) Dose Ordered Sig/Burton Route Start Time Stop Time Status Last Admin (Protonix Inj) 40 mg Q24H IV PUSH 03/09/17 23:00 03/12/17 22:35 (NS Flush) 2 ml UNSCH PRN IV FLUSH 03/09/17 22:30 (NS Flush) 2 ml BID IV FLUSH 03/10/17 09:00 (Tylenol) 650 mg Q4H PRN PO 03/09/17 22:30 (Zofran Inj) 4 mg Q6H PRN IVP 03/09/17 22:30 03/12/17 05:38 (Dulcolax Supp) 10 mg DAILY PRN RECTAL 03/09/17 22:30 (Milk Of Magnesia Liq) 30 ml Q12H PRN PO 03/09/17 22:30 (Tylenol) 650 mg Q6H PRN PO 03/09/17 22:30 ([place] 5-325 Mg) 1 tab Q4H PRN PO 03/09/17 22:30 ([place] 7.5-325 Mg) 1 tab Q4H PRN PO 03/09/17 22:30 03/13/17 08:53 (Narcan Inj) 0.4 mg UNSCH PRN IV 03/09/17 22:30 (D50w (Vial) Inj) 25 ml UNSCH PRN IV PUSH 03/09/17 22:45 (Glucagon Inj) 1 mg UNSCH PRN OTHER 03/09/17 22:45 (Elavil) 75 mg DAILY PO 03/10/17 09:00 03/13/17 08:52 Hydromorphone HCl 0.5 mg 0.5 mg Q4H PRN IV PUSH 03/10/17 19:45 03/13/17 03:54 Diltiazem HCl 125 mg/Sodium Chloride 125 ml @ 0 mls/hr TITRATE IV 03/10/17 21:30 Hold Multivitamins 10 ml/Folic Acid 1 mg/Amino Acids/ Electrolytes/ Dextrose 2,010.2 ml @ 80 mls/hr Q24H IV 03/11/17 20:00 03/12/17 20:24 Fat Emulsion Intravenous 250 ml @ 10 mls/hr Q24H IV 03/11/17 20:00 03/12/17 20:26 Iron Sucrose 200 mg/Sodium Chloride 110 ml @ 110 mls/hr DAILY@17 IV 03/11/17 17:00 03/13/17 17:59 03/12/17 16:33 (Zosyn 3.375 Gm Premix) 50 ml @ 100 mls/hr Q6H IV 03/12/17 10:00 03/13/17 08:53 Urinary Catheter: No Vascular Central Line Catheter: No A/P Problem List: (1) Gastric mass ICD Code: K31.9 Status: Acute Plan: This is a 72-year-old male who presents to the emergency room complaining of right upper quadrant abdominal pain, nausea, abdominal bloating/ distention, heartburn and belching. He also reports of anorexia and weight loss of 30 pounds in the past 45 days. Underwent EGD which showed nearly obstructing friable mass in the duodenal bulb. General surgery consulted. Recommended a CT-guided biopsy of the liver lesion. If mass in the liver is confirmed to be metastatic disease then he will be a candidate for palliative bypass surgery. Medical oncology consulted as well. CT chest as described above showed some infiltrates versus atelectasis in the lower lungs, some nodules. 03/13 as per general surgery documentation. Radiology recommended doing further studies to rule out hemangioma in the liver. MRI ordered by general surgery. Will follow. If disease is metastatic then palliative bypass surgery will be done, if not metastatic in resection of the tumor would be attempted. (2) Gastric outlet obstruction ICD Code: K31.1 Status: Acute Plan: Secondary to duodenal bulb mass status post EGD and biopsy. Gen. surgery following. NG tube was placed for decompression, however patient has removed the NG tube. NG tube was kept out to patient not having nausea or vomiting. Currently on PPN and tolerating it. (3) Weight loss ICD Code: R63.4 Status: Acute Plan: Patient on PPN. Dietitian consulted. On PPN. (4) Anemia ICD Code: D64.9 Status: Acute Plan: Normocytic. Iron studies consistent with iron deficiency anemia. IV iron ordered 3. Follow-up hematology/oncology recommendations. (5) Thrombocytosis ICD Code: D47.3 Status: Acute Plan: Thrombocytosis likely reactive to anemia. Continue to monitor platelets. (6) Diabetes ICD Code: E11.9 Status: Chronic Plan: Continue SSI with insulin NovoLog. Monitor Accu-Cheks. Hold glipizide. 03/13 Blood sugars uncontrolled. I will start Levemir 5 units subcutaneously twice a day. (7) HTN (hypertension) ICD Code: I10 Status: Chronic Plan: Blood pressure seems to be stable without any antihypertensive medications. We'll continue to monitor vital signs. (8) GERD (gastroesophageal reflux disease) ICD Code: K21.9 Status: Chronic Plan: Continue PPI. Seems to be stable. (9) Sepsis ICD Code: A41.9 Status: Acute Plan: Present on admission. Initially the patient's WBC was increased and was trending up. Patient with both leukocytosis and tachycardia. Patient desated overnight on 03/[address] chest shows bilateral lower lobe infiltrate versus atelectasis. Continue IV Zosyn, blood cultures still pending, lactic acid was elevated at 2.8 on admission, now within normal range. 03/13 WBC trending down, now 20 1K. Continue to monitor CBC with differential and continue IV Zosyn. Blood cultures still pending. (10) Leukocytosis ICD Code: D72.829 Status: Acute Plan: Possibly secondary to sepsis, secondary to suspected aspiration pneumonia. Continue to monitor CBC with differential. WBC trending up from 19 K2 27K. 03/13 WBC trending down, now 21. Continue IV Zosyn. (11) PNA (pneumonia) ICD Code: J18.9 Status: Acute Plan: Possible aspiration pneumonia given findings on CT chest and chest x-ray with right middle lobe infiltrate. Continue IV Zosyn, continue supplemental oxygen to keep oxygen saturation more than 92% (12) Hypoxemia ICD Code: R09.02 Status: Acute Plan: Likely secondary to pneumonia as mentioned above. Continue supplemental oxygen. D-dimer elevated, will order a CT of the chest since patient is very high risk for PE due to suspected malignancy Assessment and Plan Chronic medical conditions of arthritis, depression, hyperlipidemia, diabetes mellitus, heart appearing, GERD and hypertension seem to be stable. Continue outpatient medications as appropriate. Discharge Planning Continue to monitor in the oncology floor. Problem Qualifiers (1) Anemia: Qualified Code: D64.9 - Anemia, unspecified type (2) Diabetes: Qualified Code: E11.8 - Type 2 diabetes mellitus with complication, without long-term current use of insulin (3) HTN (hypertension): Qualified Code: I10 - Essential hypertension (4) Sepsis: Qualified Code: A41.9 - Sepsis, due to unspecified organism (5) Leukocytosis: Qualified Code: D72.829 - Leukocytosis, unspecified type (6) PNA (pneumonia): Qualified Code: J69.0 - Aspiration pneumonia of both lower lobes due to gastric secretions Ozzie Montes MD Mar 13, 2017 10:50
--- NOTE | 2017-03-13 10:54 | EKG ---
Date Performed: 03/13/2017 Time Performed: 09:38:59 PTAGE: 72 years EKG: Sinus rhythm POSSIBLE ANTERIOR MYOCARDIAL INFARCTION , OF INDETERMINATE AGE INFERIOR MYOCARDIAL INFARCTION , PROB ABLY OLD ABNORMAL ECG PREVIOUS TRACING : 03/10/2017 20.50 Compared to the previous tracing sinus tachycardia no longe r present DOCTOR: Ahmet Augustin Interpretating Date/Time 03/13/2017 10:52:03
[2017-03-13] MEDS ORDERED: IOHEXOL 350 MG/ML 10 ML VIAL (for RAD DIAG) IV ONE (12:36)
--- NOTE | 2017-03-13 12:46 | RADRPT ---
EXAM DATE/TIME: 03/13/2017 12:09 [facility] COMPARISON: CT THORAX W CONTRAST, March 11, 2017, 10:40. CT ABDOMEN & PELVIS W CONTRAST, March 09, 2017, 20:56. INDICATIONS : Evaluate for pulmonary emboli. IV CONTRAST: 75 cc Omnipaque 350 (iohexol) IV RADIATION DOSE: 9.68 CTDIvol (mGy) MEDICAL HISTORY : Cardiovascular disease. Hypertension. SURGICAL HISTORY : Appendectomy. ENCOUNTER: Initial ACUITY: 1 day PAIN SCALE: 0/10 LOCATION: Bilateral chest TECHNIQUE: Volumetric scanning of the chest was performed using a pulmonary embolism protocol MIP images were re constructed. Using automated exposure control and adjustment of the mA and/or kV according to patien t size, radiation dose was kept as low as reasonably achievable to obtain optimal diagnostic quality images. FINDINGS: There is no evidence for PE for technique. Right middle lobe nodule is again seen and discussed previously and not changed. Slight bilateral lung base atelectasis and/or infiltrate is seen. There i s no change in small lymph nodes within the mediastinum. There are findings in the upper abdomen disc ussed on the patient's CT abdomen from 4 days ago. Coronary artery calcifications are seen typically seen with CAD and need to be evaluated clinically. CONCLUSION: There is no evidence for PE for technique. Robb Estevez MD on March 13, 2017 at 12:41 Board Certified Radiologist. This report was verified electronically.
[2017-03-13] MEDS ORDERED: GADODIAMIDE PF 287 MG/ML 10 ML VIAL (for RAD MRI) IV ONE (13:29)
--- NOTE | 2017-03-13 14:26 | PD.ONC.PN ---
Subjective Subjective Remarks Afebrile overnight. Patient resting comfortably. Just back from MRI abdomen. He is requesting something to drink. Objective Data Date Time Temp Pulse Resp B/P Pulse Ox O2 Delivery O2 Flow Rate FiO2 03/13/17 08:00 96.0 88 16 125/79 96 03/13/17 04:00 98.8 110 20 145/75 92 03/13/17 03:02 92 3.00 03/13/17 03:00 78 Room Air 03/13/17 00:00 97.7 106 18 125/80 92 03/12/17 20:32 92 1.50 03/12/17 20:30 90 1.00 03/12/17 20:09 108 03/12/17 20:00 97.4 117 20 163/86 91 03/12/17 17:00 96.6 102 20 142/74 92 03/13/17 03/13/17 03/13/17 07:00 15:00 23:00 Output Total 800 ml Balance -800 ml Result Diagram: 03/13/17 0850 03/13/17 0850 Laboratory Results Laboratory Tests Test 03/13/17 08:50 White Blood Count 21.4 TH/MM3 Red Blood Count 3.14 MIL/MM3 Hemoglobin 9.5 GM/DL Hematocrit 28.3 % Mean Corpuscular Volume 89.9 FL Mean Corpuscular Hemoglobin 30.1 PG Mean Corpuscular Hemoglobin 33.5 % Concent Red Cell Distribution Width 13.6 % Platelet Count 676 TH/MM3 Mean Platelet Volume 6.4 FL Neutrophils (%) (Auto) 78.7 % Lymphocytes (%) (Auto) 8.4 % Monocytes (%) (Auto) 7.5 % Eosinophils (%) (Auto) 4.9 % Basophils (%) (Auto) 0.5 % Neutrophils # (Auto) 16.9 TH/MM3 Lymphocytes # (Auto) 1.8 TH/MM3 Monocytes # (Auto) 1.6 TH/MM3 Eosinophils # (Auto) 1.1 TH/MM3 Basophils # (Auto) 0.1 TH/MM3 CBC Comment AUTO DIFF Differential Total Cells 100 Counted Neutrophils % (Manual) 72 % Band Neutrophils % 8 % Lymphocytes % 5 % Monocytes % 5 % Eosinophils % 9 % Basophils % 1 % Neutrophils # (Manual) 17.1 TH/MM3 Differential Comment FINAL DIFF MANUAL Platelet Estimate HIGH Platelet Morphology Comment NORMAL Rouleau PRESENT Sodium Level 135 MEQ/L Potassium Level 3.9 MEQ/L Chloride Level 100 MEQ/L Carbon Dioxide Level 27.2 MEQ/L Anion Gap 8 MEQ/L Blood Urea Nitrogen 11 MG/DL Creatinine 0.76 MG/DL Estimat Glomerular Filtration 101 ML/MIN Rate Random Glucose 170 MG/DL Calcium Level 8.7 MG/DL Phosphorus Level 3.8 MG/DL Magnesium Level 1.9 MG/DL Total Bilirubin 0.2 MG/DL Aspartate Amino Transf 9 U/L (AST/SGOT) Alanine Aminotransferase 15 U/L (ALT/SGPT) Alkaline Phosphatase 85 U/L Total Protein 6.7 GM/DL Albumin 2.0 GM/DL Culture Results Microbiology Date/Time Procedure Status Source Growth 03/12/17 12:07 Aerobic Blood Culture - Preliminary Resulted Blood Line NO GROWTH IN 1 DAY 03/12/17 12:07 Anaerobic Blood Culture - Preliminary Resulted Blood Line NO GROWTH IN 1 DAY 03/12/17 12:13 Aerobic Blood Culture - Preliminary Resulted Blood Line NO GROWTH IN 1 DAY 03/12/17 12:13 Anaerobic Blood Culture - Preliminary Resulted Blood Line NO GROWTH IN 1 DAY Imaging Studies Last [address] Angiography 03/13/17 0000 Signed Impressions: Service Date/Time: Monday, March 13, 2017 12:09 - CONCLUSION: There is no evidence for PE for technique. K. Saji Estevez MD Administered Medications Medications (Trade) Dose Ordered Sig/Burton Route PRN Reason Start Time Stop Time Status Last Admin Dose Admin Pantoprazole Sodium (Protonix Inj) 40 mg Q24H IV PUSH 03/09/17 23:00 03/12/17 22:35 Ondansetron HCl (Zofran Inj) 4 mg Q6H PRN IVP NAUSEA OR VOMITING 03/09/17 22:30 03/12/17 05:38 Acetaminophen/ Hydrocodone Bitart ([place] 7.5-325 Mg) 1 tab Q4H PRN PO PAIN SCALE 6 TO 10 03/09/17 22:30 03/13/17 08:53 Amitriptyline HCl (Elavil) 75 mg DAILY PO 03/10/17 09:00 03/13/17 08:52 Hydromorphone HCl 0.5 mg 0.5 mg Q4H PRN IV PUSH BREAKTHROUGH PAIN 03/10/17 19:45 03/13/17 03:54 Multivitamins 10 ml/Folic Acid 1 mg/Amino Acids/ Electrolytes/ Dextrose 2,010.2 ml @ 80 mls/hr Q24H IV 03/11/17 20:00 03/12/17 20:24 Fat Emulsion Intravenous 250 ml @ 10 mls/hr Q24H IV 03/11/17 20:00 03/12/17 20:26 Iron Sucrose 200 mg/Sodium Chloride 110 ml @ 110 mls/hr DAILY@17 IV 03/11/17 17:00 03/13/17 17:59 03/12/17 16:33 Piperacillin Sod/ Tazobactam Sod (Zosyn 3.375 Gm Premix) 50 ml @ 100 mls/hr Q6H IV 03/12/17 10:00 03/13/17 08:53 Objective Remarks GENERAL: Elderly male, supine in bed on 4L O2 via NC. SKIN: Warm and dry. HEAD: Normocephalic. EYES: No injection or drainage. NECK: Supple, trachea midline. CARDIOVASCULAR: Regular rate and rhythm RESPIRATORY: diminished at bases, anterior [place] clear. GASTROINTESTINAL: Abdomen soft, non-tender, nondistended. EXTREMITIES: No cyanosis MUSCULOSKELETAL: Adequate muscle tone. NEUROLOGICAL: aox3. normal speech. moving extremities. Assessment/Plan Problem List: (1) Gastric mass Status: Acute Plan: --CT liver biopsy ordered--awaiting MRI for further characterization --Gastric outlet obstruction secondary to a mass / pancreatic mass / liver mass which appears to be metastatic disease. --Biopsy has been obtained. pathology pending --could be a GI malignancy such as pancreatic and cholangiocarcinoma. --CT chest shows multiple lung nodules --CA 19-9 WNL --will need a PET/CT scan outpatient. (2) Anemia Status: Acute Plan: --Keep hemoglobin greater than 8 --iron studies show low iron. iv venofer 200mg x 3 ordered --B12/folate WNL (3) Weight loss Status: Acute Plan: --on PPN Clinimix 4.25/5 @ 80ml/hr and 20% Lipids 250ml @ 10ml/hr Assessment 72y/o male with gastric outlet obstruction secondary to a mass in the pylorus / proximal duodenum and pancreatic head. h/o Osteoarthritis. Depression. Hyperlipidemia. Diabetes. Hearing loss. Gastroesophageal reflux disease (GERD). Hypertension. HPI: presented to the emergency department with right sided abdominal pain, nausea and anorexia +20 pounds of weight loss. CT ab/pelvis showed a heterogeneous conglomerate 80cm mass in the pyloric antrum, proximal duodenum and pancreatic head region causing the gastric outlet obstruction with pronounced dilation of the stomach.+ 2.4 cm low density mass in liver. s/p EGD with biopsy. The results of the biopsy are pending. Plan 1. continue Zosyn 2. MRI abdomen 3. monitor CBC, CMP Attending Statement The exam, history, and the medical decision-making described in the above note were completed with the assistance of the mid-level provider. I reviewed and agree with the findings presented. I attest that I had a [id number] encounter with the patient on the same day, and personally performed and documented my assessment and findings in the medical record. MRI images reviewed. liver mass not a hemangioma. possibility of complex cyst MRI shows metastatic mesenteric lymphadenopathy. Biopsy results confirm high grade neoplasm. IHC staining pending to characterize the malignancy pending will d/w surgery whether debulking surgery to palliate the obstruction would be beneficial vs excision of the mass with lymphadenectomy. CTA did not show PTE continue PPN/PT tolerating iron infusion. thrombocythemia is reactive d/w rn Problem Qualifiers (1) Anemia: Qualified Code: D64.9 - Anemia, unspecified type Amanda Valverde Mar 13, 2017 14:26 Reji Rios MD Mar 13, 2017 22:43
--- NOTE | 2017-03-13 15:28 | RADRPT ---
EXAM DATE/TIME: 03/13/2017 12:34 [facility] COMPARISON: CT ABDOMEN & PELVIS W CONTRAST, March 09, 2017, 20:56. INDICATIONS : Liver masses with an abnormal CT. CONTRAST: 13 cc Omniscan (gadodiamide) IV MEDICAL HISTORY : Diabetes mellitus type 2. Hypertension. SURGICAL HISTORY : Appendectomy. ENCOUNTER: Subsequent ACUITY: 4-6 days PAIN SCORE: 0/10 LOCATION: abdomen TECHNIQUE: Multiplanar, multisequence magnetic resonance imaging of the abdomen was performed without and with i ntravenous contrast. FINDINGS: There is a 2.7 x 2.0 cm complex cystic mass within the right lobe of the liver which does not have th e typical appearance of a hemangioma. There is a second 1.1 cm complex cystic lesion within the infe rior aspect of the right lobe. No other hepatic lesions are identified. The heterogeneous mass iden tified within the expected region of the proximal duodenum is again confirmed within the proximal duo denum rather than within the pancreatic head. The pancreatic head is not enlarged. Multiple bilater al renal cysts are noted. The spleen is normal. The adrenal glands are normal bilaterally. There a ppears to be an enlarged mesenteric lymph node anterior to the third portion of the duodenum. This m easures 3.1 x 2.3 cm. CONCLUSION: 1. Complex cystic mass within the anterior aspect of the right lobe of the liver measuring 2.7 x 2.0 cm. This lesion does NOT have the typical appearance of a hemangioma. Cystic metastasis or a complex cyst remain in the differential. 2. 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 Upper endoscopy would be helpful for further evaluation and possible biopsy of this lesion if n ot already performed. 3. Enlarged mesenteric lymph node within the midline measuring 3.1 x 2.3 cm. 4. A tiny complex cystic nodule within the inferior aspect of the right lobe of the liver measuring 1 1 mm. 5. Multiple bilateral renal cysts. Campbell Jensen MD on March 13, 2017 at 15:09 Board Certified Radiologist. This report was verified electronically.
[2017-03-13 16:00] VITALS: BP 134/79; PULSE 106; RESP 16; TEMP 98.9; O2SAT 95
[2017-03-13] MEDS: IRON SUCROSE INJ 200 MG in SODIUM CHLORIDE 0.9% INJ 100 ML IV SCH (16:52)
[2017-03-13 17:51] VITALS: PULSE 110
[2017-03-13] MEDS: SODIUM CHLORIDE 0.9% FLUSH 10 ML FLUSH IV FLUSH SCH ×2 (18:22→20:38)
[2017-03-13 20:00] VITALS: BP 157/79; PULSE 109; PULSE 87; RESP 18; TEMP 97.2; O2SAT 95
[2017-03-13] MEDS: INSULIN DETEMIR 100 UNITS/ML VIAL SQ SCH (20:38)
[2017-03-13] MEDS: CLINIMIX E 4.25/5 2000 mL- >42 mls/hr IV SCH ×3 (20:38)
[2017-03-13] MEDS: FAT EMULSION 20% INJ 250 ML (@10 mls/hr) IV SCH (20:38)
[2017-03-13] MEDS: PANTOPRAZOLE SODIUM 40 MG VIAL IV PUSH SCH (22:02)
[2017-03-14] VITALS (12 sets, daily range): BP systolic 106–144; BP diastolic 52–81; PULSE 93–125; RESP 16–20; TEMP 96.4–98.8; O2SAT 91–96
[2017-03-14] MEDS: PIPERACIL-TAZO 3.375 GM PREMIX 50 ML IV SCH ×4 (04:36→22:40)
[2017-03-14] MEDS: ACETAMINOPHEN/HYDROcodone 325 MG/7.5 MG TAB PO PRN ×2 (05:04→21:32)
[2017-03-14] MEDS: INSULIN ASPART SUPPLEMENTAL SCALE SQ SCH ×5 (05:04→21:31)
[2017-03-14 05:41] LABS: AUTOMATED NEUTROPHIL # 18.5 TH/MM3 (1.8-7.7); BASOPHIL # 0.4 TH/MM3 (0-0.2); BASOPHIL % 1.7 % (0.0-2.0); EOSINOPHIL # 1.3 TH/MM3 (0-0.4); EOSINOPHIL % 5.3 % (0.0-4.0); LYMPHOCYTE # 1.9 TH/MM3 (1.0-4.8); MEAN CELL VOLUME 90.1 FL (80.0-100.0); MEAN CORPUSCULAR HEMOGLOBIN 29.1 PG (27.0-34.0); MEAN CORPUSCULAR HGB CONC 32.3 % (32.0-36.0); MONO % 8.9 % (0.0-8.0); NEUT % 76.1 % (16.0-70.0); PLATELET COUNT 641 TH/MM3 (150-450); RED BLOOD COUNT 3.22 MIL/MM3 (4.50-5.90); RED CELL DISTRIBUTION WIDTH 14.1 % (11.6-17.2); WHITE BLOOD COUNT 24.2 TH/MM3 (4.0-11.0)
[2017-03-14 05:44] LABS: HEMO FLAGS AUTO DIFF
[2017-03-14 05:46] LABS: ANION GAP 12 MEQ/L (5-15); AST (GOT) 10 U/L (15-37); BICARBONATE 25.5 MEQ/L (21.0-32.0); BLOOD UREA NITROGEN 11 MG/DL (7-18); CHLORIDE 100 MEQ/L (98-107); GLOMERULAR FILTRATION RATE 114 ML/MIN (>89); MAGNESIUM 1.8 MG/DL (1.5-2.5); POTASSIUM 4.6 MEQ/L (3.5-5.1); SODIUM (NA) 137 MEQ/L (136-145)
[2017-03-14 05:49] LABS: ALKALINE PHOSPHATASE 94 U/L (45-117); ALT (GPT) 15 U/L (12-78); TOTAL BILIRUBIN ADULT 0.3 MG/DL (0.2-1.0)
[2017-03-14] MEDS: HYDROmorphone HCL PF 1 MG/ML VIAL IV PUSH PRN (07:05)
[2017-03-14] MEDS: INSULIN DETEMIR 100 UNITS/ML VIAL SQ SCH ×2 (09:00→21:31)
[2017-03-14 09:15] LABS: HEMATOCRIT 26.2 % (39.0-51.0); MEAN CELL VOLUME 89.5 FL (80.0-100.0); MEAN CORPUSCULAR HEMOGLOBIN 30.2 PG (27.0-34.0); MEAN CORPUSCULAR HGB CONC 33.7 % (32.0-36.0); PLATELET COUNT 652 TH/MM3 (150-450); RED BLOOD COUNT 2.92 MIL/MM3 (4.50-5.90); RED CELL DISTRIBUTION WIDTH 13.7 % (11.6-17.2); REVIEW FLAG FINAL; WHITE BLOOD COUNT 21.9 TH/MM3 (4.0-11.0)
[2017-03-14 09:16] LABS: BANDS 6 % (0-6); BASOPHILS 2 % (0-2); EOSINOPHILS 6 % (0-4); METAMYELOCYTES 1 % (0-1); NEUTROPHIL # MANUAL DIFF 19.1 TH/MM3 (1.8-7.7); POLYS (SEG NEUTROPHILS) 72 % (16-70); WBC DIFF SAMPLE 100
[2017-03-14 09:17] LABS: PLATELET ESTIMATE SMEAR HIGH (NORMAL); PLATELET MORPHOLOGY NORMAL (NORMAL); SCAN/DIFF FINAL DIFF MANUAL
[2017-03-14] MEDS: SODIUM CHLORIDE 0.9% FLUSH 10 ML FLUSH IV FLUSH SCH ×2 (09:50→21:31)
[2017-03-14 10:05] LABS: BICARBONATE 29.2 MEQ/L (21.0-32.0); POTASSIUM 4.5 MEQ/L (3.5-5.1)
--- NOTE | 2017-03-14 11:26 | PD.ONC.PN ---
Subjective Subjective Remarks Afebrile overnight. Patient waiting to go down for CT biopsy of liver lesion. He feels well without complaint. Objective Data Date Time Temp Pulse Resp B/P Pulse Ox O2 Delivery O2 Flow Rate FiO2 03/14/17 08:00 96.4 93 16 121/77 96 03/14/17 04:00 97.7 99 17 125/75 95 03/14/17 00:00 97.5 100 18 120/66 94 03/13/17 20:00 87 03/13/17 20:00 97.2 109 18 157/79 95 03/13/17 20:00 Nasal Cannula 3.00 03/13/17 17:51 110 03/13/17 16:00 98.9 106 16 134/79 95 03/14/17 03/14/17 03/14/17 07:00 15:00 23:00 Intake Total 1164 ml Output Total 600 ml Balance -600 ml 1164 ml Result Diagram: 03/14/17 0830 03/14/17 0830 Laboratory Results Laboratory Tests Test 03/14/17 03/14/17 04:47 08:30 White Blood Count 24.2 TH/MM3 21.9 TH/MM3 Red Blood Count 3.22 MIL/MM3 2.92 MIL/MM3 Hemoglobin 9.4 GM/DL 8.8 GM/DL Hematocrit 29.0 % 26.2 % Mean Corpuscular Volume 90.1 FL 89.5 FL Mean Corpuscular Hemoglobin 29.1 PG 30.2 PG Mean Corpuscular Hemoglobin 32.3 % 33.7 % Concent Red Cell Distribution Width 14.1 % 13.7 % Platelet Count 641 TH/MM3 652 TH/MM3 Mean Platelet Volume 6.7 FL 6.7 FL Neutrophils (%) (Auto) 76.1 % Lymphocytes (%) (Auto) 8.0 % Monocytes (%) (Auto) 8.9 % Eosinophils (%) (Auto) 5.3 % Basophils (%) (Auto) 1.7 % Neutrophils # (Auto) 18.5 TH/MM3 Lymphocytes # (Auto) 1.9 TH/MM3 Monocytes # (Auto) 2.2 TH/MM3 Eosinophils # (Auto) 1.3 TH/MM3 Basophils # (Auto) 0.4 TH/MM3 CBC Comment AUTO DIFF Differential Total Cells 100 Counted Neutrophils % (Manual) 72 % Band Neutrophils % 6 % Lymphocytes % 11 % Monocytes % 2 % Eosinophils % 6 % Basophils % 2 % Neutrophils # (Manual) 19.1 TH/MM3 Metamyelocytes 1 % Differential Comment FINAL DIFF MANUAL Platelet Estimate HIGH Platelet Morphology Comment NORMAL Sodium Level 137 MEQ/L 136 MEQ/L Potassium Level 4.6 MEQ/L 4.5 MEQ/L Chloride Level 100 MEQ/L 99 MEQ/L Carbon Dioxide Level 25.5 MEQ/L 29.2 MEQ/L Anion Gap 12 MEQ/L 8 MEQ/L Blood Urea Nitrogen 11 MG/DL 12 MG/DL Creatinine 0.68 MG/DL 0.74 MG/DL Estimat Glomerular Filtration 114 ML/MIN 104 ML/MIN Rate Random Glucose 159 MG/DL 171 MG/DL Calcium Level 8.7 MG/DL 8.7 MG/DL Phosphorus Level 3.6 MG/DL Magnesium Level 1.8 MG/DL Total Bilirubin 0.3 MG/DL Aspartate Amino Transf 10 U/L (AST/SGOT) Alanine Aminotransferase 15 U/L (ALT/SGPT) Alkaline Phosphatase 94 U/L Total Protein 6.1 GM/DL Albumin 2.1 GM/DL Culture Results Microbiology Date/Time Procedure Status Source Growth 03/12/17 12:07 Aerobic Blood Culture - Preliminary Resulted Blood Line NO GROWTH IN 2 DAYS 03/12/17 12:07 Anaerobic Blood Culture - Preliminary Resulted Blood Line NO GROWTH IN 2 DAYS 03/12/17 12:13 Aerobic Blood Culture - Preliminary Resulted Blood Line NO GROWTH IN 2 DAYS 03/12/17 12:13 Anaerobic Blood Culture - Preliminary Resulted Blood Line NO GROWTH IN 2 DAYS Administered Medications Medications (Trade) Dose Ordered Sig/[place] Route PRN Reason Start Time Stop Time Status Last Admin Dose Admin Pantoprazole Sodium (Protonix Inj) 40 mg Q24H IV PUSH 03/09/17 23:00 03/13/17 22:02 Sodium Chloride (NS Flush) 2 ml BID IV FLUSH 03/10/17 09:00 03/13/17 18:22 Ondansetron HCl (Zofran Inj) 4 mg Q6H PRN IVP NAUSEA OR VOMITING 03/09/17 22:30 03/12/17 05:38 Acetaminophen/ Hydrocodone Bitart ([place] 5-325 Mg) 1 tab Q4H PRN PO PAIN SCALE 3 TO 5 03/09/17 22:30 03/13/17 17:02 Acetaminophen/ Hydrocodone Bitart ([place] 7.5-325 Mg) 1 tab Q4H PRN PO PAIN SCALE 6 TO 10 03/09/17 22:30 03/14/17 05:04 Amitriptyline HCl (Elavil) 75 mg DAILY PO 03/10/17 09:00 03/13/17 08:52 Hydromorphone HCl 0.5 mg 0.5 mg Q4H PRN IV PUSH BREAKTHROUGH PAIN 03/10/17 19:45 03/14/17 07:05 Multivitamins 10 ml/Folic Acid 1 mg/Amino Acids/ Electrolytes/ Dextrose 2,010.2 ml @ 80 mls/hr Q24H IV 03/11/17 20:00 03/13/17 20:38 Fat Emulsion Intravenous 250 ml @ 10 mls/hr Q24H IV 03/11/17 20:00 03/13/17 20:38 Piperacillin Sod/ Tazobactam Sod (Zosyn 3.375 Gm Premix) 50 ml @ 100 mls/hr Q6H IV 03/12/17 10:00 03/14/17 04:36 Insulin Detemir (Levemir Inj) 5 units Q12HR SQ 03/13/17 21:00 03/13/17 20:38 Objective Remarks GENERAL: Elderly male, sitting up in bed in [facility]. SKIN: Warm and dry. HEAD: Normocephalic. EYES: No injection or drainage. NECK: Supple, trachea midline. CARDIOVASCULAR: Regular rate and rhythm RESPIRATORY: diminished at bases, anterior [place] clear. GASTROINTESTINAL: Abdomen soft, non-tender, nondistended. EXTREMITIES: No cyanosis MUSCULOSKELETAL: Adequate muscle tone. NEUROLOGICAL: awake and alert, normal speech. moving extremities. Assessment/Plan Problem List: (1) Gastric mass Status: Acute Plan: --CT liver biopsy ordered--awaiting MRI for further characterization --Gastric outlet obstruction secondary to a mass / pancreatic mass / liver mass which appears to be metastatic disease. --Biopsy has been obtained. pathology pending --could be a GI malignancy such as pancreatic and cholangiocarcinoma. --CT chest shows multiple lung nodules --CA 19-9 WNL --will need a PET/CT scan outpatient. (2) Anemia Status: Acute Plan: --Keep hemoglobin greater than 8 --iron studies show low iron. iv venofer 200mg x 3 ordered --B12/folate WNL (3) Weight loss Status: Acute Plan: --on PPN Clinimix 4.25/5 @ 80ml/hr and 20% Lipids 250ml @ 10ml/hr Assessment 72y/o male with gastric outlet obstruction secondary to a mass in the pylorus / proximal duodenum and pancreatic head. h/o Osteoarthritis. Depression. Hyperlipidemia. Diabetes. Hearing loss. Gastroesophageal reflux disease (GERD). Hypertension. HPI: presented to the emergency department with right sided abdominal pain, nausea and anorexia +20 pounds of weight loss. CT ab/pelvis showed a heterogeneous conglomerate 80cm mass in the pyloric antrum, proximal duodenum and pancreatic head region causing the gastric outlet obstruction with pronounced dilation of the stomach.+ 2.4 cm low density mass in liver. s/p EGD with biopsy. Plan 1. continue PPI 2. CT guided biopsy of liver lesion today 3. monitor CBC, CMP 4. continue zosyn Attending Statement The exam, history, and the medical decision-making described in the above note were completed with the assistance of the mid-level provider. I reviewed and agree with the findings presented. I attest that I had a [id number] encounter with the patient on the same day, and personally performed and documented my assessment and findings in the medical record. Still hypoxic. chest imaging not impressive for pneumonia. Blood cultures negative for 2 days. Switch to azithromycin Anemia possibly contributing to hypoxia. CTA was negative for PTE. Transfuse 1 unit of pRBC Iron Infusion being given and tolerating CT guided biopsy of liver lesion today. Path pending d/w rn Problem Qualifiers (1) Anemia: Qualified Code: D64.9 - Anemia, unspecified type Amanda Valverde Mar 14, 2017 11:26 Reji Rios MD Mar 14, 2017 23:14
[2017-03-14] MEDS ORDERED: LIDOCAINE 1%/EPINEPHrine 1:100,000 SOLN 20 ML VIAL ONE (11:29)
[2017-03-14] MEDS ORDERED: MIDAZOLAM HCL 5 MG/5 ML VIAL ONE (12:02)
[2017-03-14] MEDS ORDERED: fentaNYL CITRATE 250 MCG/5 ML AMP ONE (12:02)
[2017-03-14] MEDS: AMITRIPTYLINE HCL 75 MG TAB PO SCH (15:10)
--- NOTE | 2017-03-14 15:23 | RADRPT ---
EXAM DATE/TIME: 03/14/2017 12:11 [place] COMPARISON: No previous studies available for comparison. INDICATIONS : Liver mass. SEDATION TIME: 30 minutes BIOPSY SITE: Liver MEDICATION(S): 1.) 3 mg midazolam (Versed) IV 2.) 150 mcg fentanyl (Sublimaze) IV DEVICE(S): 1.) 18 gauge Temno core biopsy needle MEDICAL HISTORY : Diabetes mellitus type 2. Gastroesophageal reflux disease. Hypertension. SURGICAL HISTORY : Appendectomy. ENCOUNTER: Initial ACUITY: 1 day PAIN SCORE: 0/10 LOCATION: Right hepatic lobe mass A total of one core specimen(s) were obtained and sent to the laboratory for pathologic evaluation. PROCEDURE: 1. CT guided liver biopsy. 2. Conscious sedation with continuous EKG and oximetry monitoring. 3. EKG and oximetry remained stable throughout the procedure. Prior to the procedure informed consent was obtained. Any appropriate prior imaging studies were rev iewed. Using automated exposure control and adjustment of the mA and/or kV according to patient size, radiat ion dose was kept as low as reasonably achievable to obtain optimal diagnostic quality images. The site was prepped in a sterile fashion. Full sterile technique was used, including cap, mask, mandy rile gloves and gown and a large sterile sheet. Hand hygiene and 2% chlorhexidine and/or betadine/al cohol prep was utilized per protocol for cutaneous antisepsis. The skin and subcutaneous tissues wer e infiltrated with local anesthetic solution. With CT guidance the previously identified target was localized. Biopsy was performed using the presc ribed needle as above. Adequate hemostasis was obtained with compression at the puncture site. Follow-up CT scan reveals no hemorrhage. The patient tolerated the procedure well and there were no complications. The patient was returned to the Radiology Outpatient Unit in stable condition. CONCLUSION: Uncomplicated CT-guided biopsy of right hepatic lobe mass. Campbell Jensen MD on March 14, 2017 at 15:20 Board Certified Radiologist. This report was verified electronically.
--- NOTE | 2017-03-14 16:40 | HHI.PR ---
Subjective Remarks Status post liver biopsy today. Results pending. He will be having a trial of food this evening. Objective Vital Signs Date Time Temp Pulse Resp B/P Pulse Ox O2 Delivery O2 Flow Rate FiO2 03/14/17 15:03 Nasal Cannula 3.00 03/14/17 14:40 100 18 108/64 94 03/14/17 14:10 101 18 106/52 93 03/14/17 13:40 100 18 112/57 94 03/14/17 13:10 103 18 109/57 94 03/14/17 12:55 97.5 104 20 123/55 91 03/14/17 08:09 95 03/14/17 08:00 96.4 93 16 121/77 96 03/14/17 04:00 97.7 99 17 125/75 95 03/14/17 00:00 97.5 100 18 120/66 94 03/13/17 20:00 87 03/13/17 20:00 97.2 109 18 157/79 95 03/13/17 20:00 Nasal Cannula 3.00 03/13/17 17:51 110 I/O 03/13/17 03/13/17 03/13/17 03/14/17 03/14/17 03/14/17 07:00 15:00 23:00 07:00 15:00 23:00 Intake Total 240 ml 1164 ml 764 ml Output Total 800 ml 450 ml 650 ml 600 ml Balance -800 ml -210 ml -650 ml -600 ml 1164 ml 764 ml Intake Oral 240 ml TPN/PPN 987 ml 679 ml Lipid 177 ml 85 ml Output Urine Total 800 ml 450 ml 650 ml 600 ml Result Diagram: 03/14/17 0830 03/14/17 0830 Imaging Last Impressions Liver Biopsy CT 03/14/17 0000 Signed Impressions: Service Date/Time: Tuesday, March 14, 2017 12:11 - CONCLUSION: Uncomplicated CT-guided biopsy of right hepatic lobe mass. Campbell Jensen MD CT Angiography 03/13/17 0000 Signed Impressions: Service Date/Time: Monday, March 13, 2017 12:09 - CONCLUSION: There is no evidence for PE for technique. K. Saji Estevez MD Abdomen MRI 03/13/17 0000 Signed Impressions: Service Date/Time: Monday, March 13, 2017 12:34 - CONCLUSION: 1. Complex cystic mass within the anterior aspect of the right lobe of the liver measuring 2.7 x 2.0 cm. This lesion does NOT have the typical appearance of a hemangioma. Cystic metastasis or a complex cyst remain in the differential. 2. 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 Upper endoscopy would be helpful for further evaluation and possible biopsy of this lesion if not already performed. 3. Enlarged mesenteric lymph node within the midline measuring 3.1 x 2.3 cm. 4. A tiny complex cystic nodule within the inferior aspect of the right lobe of the liver measuring 11 mm. 5. Multiple bilateral renal cysts. Campbell Jensen MD Chest X-Ray 03/12/17 0000 Signed Impressions: Service Date/Time: Sunday, March 12, 2017 09:41 - CONCLUSION: Mild right lung base atelectasis and/or infiltrate is seen. Robb Estevez MD Chest CT 03/11/17 0000 Signed Impressions: Service Date/Time: Saturday, March 11, 2017 10:40 - CONCLUSION: 1. Lung nodules are nonspecific in regards to metastatic disease. 2. There are lymph nodes within the mediastinum indeterminant, however could be benign. 3. Slight bibasilar atelectasis and/or infiltrate is seen. 4. Cystic lesion in the liver also not adequately characterized possibly a simple cyst. Robb Estevez MD Consultation 03/10/17 1330 Signed Impressions: Service Date/Time: Friday, March 10, 2017 13:30 - CONCLUSION: 1. Indeterminate mass within the right lobe of the liver. MRI of the abdomen with contrast using hemangioma protocol is suggested before core biopsy of this lesion is attempted. Campbell Jensen MD Abdomen X-Ray 03/10/17 0000 Signed Impressions: Service Date/Time: Friday, March 10, 2017 17:22 - CONCLUSION: NG tube should be advanced slightly. Carlos Kelsey MD Abdomen/Pelvis CT 03/09/17 1941 Signed Impressions: Service Date/Time: February 20:56 - CONCLUSION: Heterogeneous mass encompassing the region of the pyloric antrum, proximal duodenum and pancreatic head. There does appear to be gastric outlet obstruction without evidence of biliary obstruction which would favor a GI location of origin. Low-density lesion in the liver and bilateral lung base nodules worrisome for metastatic disease. Carlos Kelsey MD Procedures Liver Biopsy 03/14/17 Objective Remarks GENERAL: A&Ox3, NAD SKIN: Warm and dry. HEAD: Normocephalic. EYES: No scleral icterus. No injection or drainage. NECK: Supple, trachea midline. No JVD or lymphadenopathy. CARDIOVASCULAR: Regular rate and rhythm without murmurs, gallops, or rubs. RESPIRATORY: Breath sounds equal bilaterally. No accessory muscle use. GASTROINTESTINAL: Abdomen soft, non-tender, nondistended. MUSCULOSKELETAL: No cyanosis, or edema. BACK: Nontender without obvious deformity. No CVA tenderness. Medications and IVs Administered Medications Medications (Trade) Dose Ordered Sig/[place]ton Route PRN Reason Start Time Stop Time Status Last Admin Dose Admin Pantoprazole Sodium (Protonix Inj) 40 mg Q24H IV PUSH 03/09/17 23:00 03/13/17 22:02 Sodium Chloride (NS Flush) 2 ml BID IV FLUSH 03/10/17 09:00 03/14/17 09:50 Ondansetron HCl (Zofran Inj) 4 mg Q6H PRN IVP NAUSEA OR VOMITING 03/09/17 22:30 03/12/17 05:38 Acetaminophen/ Hydrocodone Bitart ([place] 5-325 Mg) 1 tab Q4H PRN PO PAIN SCALE 3 TO 5 03/09/17 22:30 03/13/17 17:02 Acetaminophen/ Hydrocodone Bitart ([place] 7.5-325 Mg) 1 tab Q4H PRN PO PAIN SCALE 6 TO 10 03/09/17 22:30 03/14/17 05:04 Amitriptyline HCl (Elavil) 75 mg DAILY PO 03/10/17 09:00 03/14/17 15:10 Hydromorphone HCl 0.5 mg 0.5 mg Q4H PRN IV PUSH BREAKTHROUGH PAIN 03/10/17 19:45 03/14/17 07:05 Multivitamins 10 ml/Folic Acid 1 mg/Amino Acids/ Electrolytes/ Dextrose 2,010.2 ml @ 80 mls/hr Q24H IV 03/11/17 20:00 03/13/17 20:38 Fat Emulsion Intravenous 250 ml @ 10 mls/hr Q24H IV 03/11/17 20:00 03/13/17 20:38 Piperacillin Sod/ Tazobactam Sod (Zosyn 3.375 Gm Premix) 50 ml @ 100 mls/hr Q6H IV 03/12/17 10:00 03/14/17 15:11 Insulin Detemir (Levemir Inj) 5 units Q12HR SQ 03/13/17 21:00 03/13/17 20:38 A/P Problem List: (1) Gastric outlet obstruction ICD Code: K31.1 Assessment & Plan: [place] of food No nausea when seen Monitor for emesis (2) Gastric mass ICD Code: K31.9 Assessment & Plan: (same as above 'gastric outlet obstruction') (3) Anemia ICD Code: D64.9 Assessment & Plan: Appearing stable Follow CBC (4) Liver masses ICD Code: R16.0 Assessment & Plan: Post biopsy today Follow pathology (5) Leukocytosis ICD Code: D72.829 Assessment & Plan: Remains elevated No evidence of infection otherwise Follow CBC Problem Qualifiers (1) Anemia: Qualified Code: D64.9 - Anemia, unspecified type (2) Leukocytosis: Qualified Code: D72.829 - Leukocytosis, unspecified type Samir Palm MD Mar 14, 2017 16:40
[2017-03-14] MEDS: FAT EMULSION 20% INJ 250 ML (@10 mls/hr) IV SCH (21:31)
[2017-03-14] MEDS: CLINIMIX E 4.25/5 2000 mL- >42 mls/hr IV SCH ×3 (21:32)
[2017-03-14] MEDS: PANTOPRAZOLE SODIUM 40 MG VIAL IV PUSH SCH (22:39)
[2017-03-15] VITALS (10 sets, daily range): BP systolic 114–157; BP diastolic 65–100; PULSE 82–150; RESP 17–20; TEMP 95.3–98.6; O2SAT 94–98
[2017-03-15] MEDS: ACETAMINOPHEN/HYDROcodone 325 MG/7.5 MG TAB PO PRN ×3 (03:30→22:42)
[2017-03-15] MEDS: ONDANSETRON HCL 4 MG/2 ML VIAL IVP PRN (03:30)
[2017-03-15] MEDS ORDERED: diphenhydrAMINE HCL 25 MG CAP PO PRN (04:00)
--- NOTE | 2017-03-15 06:21 | MB ---
cc: RACHEL HERNÁNDEZ DATE OF EVALUATION 03/14/[address] De La Paz, General Surgery. REASON FOR CONSULTATION Surgical oncology evaluation for duodenal malignancy. HISTORY OF PRESENT ILLNESS The patient is a 72-year-old male who was admitted to the emergency department to [facility] for gastric outlet obstruction. The patient developed nausea, anorexia and significant weight loss, approximately 20 pounds over the previous month. The patient has pain and bloating in his abdomen and is unable to take significant p.o. intake. He also relates constipation as well. During the patient's evaluation he underwent a CT scan was clearly shows a large mass in the duodenum as well as liver lesions concerning for metastasis. The patient did undergo placement of NG tube and nonoperative management of this for gastric decompression successfully. The patient underwent upper endoscopy on 03/10/[address] Brand and that returned high-grade malignant neoplasm. 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 Due to the patient's complexity, Surgical Oncology is asked to evaluate the patient for possible resection and treatment options versus palliation. Currently the patient has no NG tube and is tolerating clear liquids and has minimal pain. He states that he would like to undergo palliative surgery as previously discussed by General Surgery, Dr. De La Paz, and mandible would like to pursue chemotherapy and other cancer treatment options in his hometown in [place] at the [facility]. REVIEW OF SYSTEMS A 12-point review of systems done with the patient is negative except for the pertinent positives mentioned above in the History Present Illness. PAST MEDICAL HISTORY 1. Diabetes. 2. Hearing loss. 3. Hypertension 4. Gastroesophageal reflux disease. 5. Depression. 6. Osteoarthritis. 7. Hyperlipidemia. PAST SURGICAL HISTORY Appendectomy. SOCIAL HISTORY No history of tobacco. No alcohol or drug use. MEDICATIONS 1. Elavil. 2. Insulin. 3. Protonix. 4. Tylenol. 5. Zofran. 6. Dulcolax. 7. [place]. 8. Morphine. ALLERGIES No known drug allergies. PHYSICAL EXAMINATION VITAL SIGNS: Temperature 97.0 degrees, blood pressure 144/77, heart rate 125. GENERAL: The patient is a thin elderly, chronically ill-appearing male in no acute distress. HEAD: Normocephalic, atraumatic. Pupils round, equally reactive to accommodate and to light. Sclerae anicteric. Mucous membranes are moist. NECK: Supple. No JVD. LUNGS: Clear to auscultation bilaterally. Nonlabored breathing pattern. HEART: Regular rate and rhythm. ABDOMEN: Soft, minimally distended. Nontender to palpation. No organomegaly. No ascites. BACK: No CVA tenderness. EXTREMITIES: No clubbing, cyanosis or edema. NEUROLOGIC EXAM: The patient is alert and oriented x 4, nonfocal peripheral exam. Cranial II-XII are grossly intact. LABORATORY VALUES White blood cell count 21.9, hemoglobin 8.8. 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 If the patient is found to be Stage IV, would not recommend any surgical intervention beyond palliation and would recommend palliative chemotherapy, consideration of radiation as well as palliation with either a GI stent, bypass or at a minimum gastrostomy tube. I discussed these options with him and he would like to undergo palliative gastroduodenal bypass or for symptomatic control and to improve his clinical status for travel back to [place]. At this point the risks, benefits and alternatives including risks of open procedures well as the risks of anastomotic leak, dehiscence or stricture and all questions were answered to his satisfaction. We will plan surgery once we have liver biopsy results in the near future. I do recommend if the patient has recurrent tachycardia, abdominal bloating, discomfort, diaphoresis, nausea, vomiting or signs of gastric distension, we would recommend to replace NG tube. We will follow the patient. Thank you very much for this consultation. MD JULIUS Luis/HERON /10:06 PM /6:01 AM
[2017-03-15] MEDS: INSULIN ASPART SUPPLEMENTAL SCALE SQ SCH ×4 (06:30→20:19)
[2017-03-15] MEDS: SODIUM CHLORIDE 0.9% FLUSH 10 ML FLUSH IV FLUSH SCH ×2 (08:23→20:14)
[2017-03-15] MEDS: AMITRIPTYLINE HCL 75 MG TAB PO SCH (08:23)
[2017-03-15] MEDS: AZITHROMYCIN INJ 250 MG in SODIUM CHLOR 0.9% 250 ML INJ 250 ML IV SCH (08:23)
[2017-03-15] MEDS: INSULIN DETEMIR 100 UNITS/ML VIAL SQ SCH ×2 (08:24→20:13)
[2017-03-15 11:44] LABS: AUTOMATED NEUTROPHIL # 12.9 TH/MM3 (1.8-7.7); BASOPHIL # 0.1 TH/MM3 (0-0.2); BASOPHIL % 0.7 % (0.0-2.0); EOSINOPHIL # 0.9 TH/MM3 (0-0.4); EOSINOPHIL % 5.4 % (0.0-4.0); HEMATOCRIT 27.9 % (39.0-51.0); LYMPH % 8.4 % (9.0-44.0); LYMPHOCYTE # 1.4 TH/MM3 (1.0-4.8); MEAN CELL VOLUME 89.9 FL (80.0-100.0); MEAN CORPUSCULAR HEMOGLOBIN 30.9 PG (27.0-34.0); MEAN CORPUSCULAR HGB CONC 34.3 % (32.0-36.0); MONO % 9.1 % (0.0-8.0); NEUT % 76.4 % (16.0-70.0); PLATELET COUNT 577 TH/MM3 (150-450); RED CELL DISTRIBUTION WIDTH 13.9 % (11.6-17.2); WHITE BLOOD COUNT 16.9 TH/MM3 (4.0-11.0)
[2017-03-15 11:46] LABS: HEMO FLAGS AUTO DIFF
--- NOTE | 2017-03-15 11:59 | PD.ONC.PN ---
Subjective Subjective Remarks Afebrile overnight. Patient resting comfortably. He is very tired as he had a hard time sleeping last night due to multiple interupptions for vitals to check ivs, etc. Objective Data Date Time Temp Pulse Resp B/P Pulse Ox O2 Delivery O2 Flow Rate FiO2 03/15/17 11:40 Nasal Cannula 2.00 03/15/17 09:12 88 03/15/17 08:20 96.2 84 18 157/71 97 03/15/17 05:59 96.8 92 17 134/69 98 03/15/17 04:35 96.8 98 17 138/65 03/15/17 04:30 18 03/15/17 04:00 96.5 96 18 142/76 96 03/15/17 00:00 97.8 99 17 136/67 97 03/14/17 20:15 114 03/14/17 20:00 97.0 125 18 144/77 92 03/14/17 19:37 Nasal Cannula 3.00 03/14/17 16:00 98.8 102 16 127/81 96 03/14/17 15:03 Nasal Cannula 3.00 03/14/17 14:40 100 18 108/64 94 03/14/17 14:10 101 18 106/52 93 03/14/17 13:40 100 18 112/57 94 03/14/17 13:10 103 18 109/57 94 03/14/17 12:55 97.5 104 20 123/55 91 Result Diagram: 03/15/17 1056 03/14/17 0830 Laboratory Results Laboratory Tests Test 03/15/17 03/15/17 01:35 10:56 Blood Type AB POSITIVE Antibody Screen NEGATIVE Crossmatch Leukocyte-Reduced Red Blood Cells Blood Bank Comment White Blood Count 16.9 TH/MM3 Red Blood Count 3.10 MIL/MM3 Hemoglobin 9.6 GM/DL Hematocrit 27.9 % Mean Corpuscular Volume 89.9 FL Mean Corpuscular Hemoglobin 30.9 PG Mean Corpuscular Hemoglobin 34.3 % Concent Red Cell Distribution Width 13.9 % Platelet Count 577 TH/MM3 Mean Platelet Volume 7.1 FL Neutrophils (%) (Auto) 76.4 % Lymphocytes (%) (Auto) 8.4 % Monocytes (%) (Auto) 9.1 % Eosinophils (%) (Auto) 5.4 % Basophils (%) (Auto) 0.7 % Neutrophils # (Auto) 12.9 TH/MM3 Lymphocytes # (Auto) 1.4 TH/MM3 Monocytes # (Auto) 1.5 TH/MM3 Eosinophils # (Auto) 0.9 TH/MM3 Basophils # (Auto) 0.1 TH/MM3 CBC Comment AUTO DIFF Culture Results Microbiology Date/Time Procedure Status Source Growth 03/12/17 12:07 Aerobic Blood Culture - Preliminary Resulted Blood Line NO GROWTH IN 3 DAYS 03/12/17 12:07 Anaerobic Blood Culture - Preliminary Resulted Blood Line NO GROWTH IN 3 DAYS 03/12/17 12:13 Aerobic Blood Culture - Preliminary Resulted Blood Line NO GROWTH IN 3 DAYS 03/12/17 12:13 Anaerobic Blood Culture - Preliminary Resulted Blood Line NO GROWTH IN 3 DAYS Administered Medications Medications (Trade) Dose Ordered Sig/[place] Route PRN Reason Start Time Stop Time Status Last Admin Dose Admin Pantoprazole Sodium (Protonix Inj) 40 mg Q24H IV PUSH 03/09/17 23:00 03/14/17 22:39 Sodium Chloride (NS Flush) 2 ml BID IV FLUSH 03/10/17 09:00 03/14/17 21:31 Ondansetron HCl (Zofran Inj) 4 mg Q6H PRN IVP NAUSEA OR VOMITING 03/09/17 22:30 03/15/17 03:30 Acetaminophen (Tylenol) 650 mg Q6H PRN PO PAIN SCALE 1 TO 2 03/09/17 22:30 03/15/17 03:54 Acetaminophen/ Hydrocodone Bitart ([place] 5-325 Mg) 1 tab Q4H PRN PO PAIN SCALE 3 TO 5 03/09/17 22:30 03/13/17 17:02 Acetaminophen/ Hydrocodone Bitart ([place] 7.5-325 Mg) 1 tab Q4H PRN PO PAIN SCALE 6 TO 10 03/09/17 22:30 03/15/17 03:30 Amitriptyline HCl (Elavil) 75 mg DAILY PO 03/10/17 09:00 03/15/17 08:23 Hydromorphone HCl 0.5 mg 0.5 mg Q4H PRN IV PUSH BREAKTHROUGH PAIN 03/10/17 19:45 03/14/17 07:05 Multivitamins 10 ml/Folic Acid 1 mg/Amino Acids/ Electrolytes/ Dextrose 2,010.2 ml @ 80 mls/hr Q24H IV 03/11/17 20:00 03/14/17 21:32 Fat Emulsion Intravenous (Liposyn Iii 20% Inj) 250 ml @ 10 mls/hr Q24H IV 03/11/17 20:00 03/14/17 21:31 Insulin Detemir 5 units 5 units Q12HR SQ 03/13/17 21:00 03/15/17 08:24 Azithromycin/ Sodium Chloride (Zithromax Inj/ NS 250 ml Inj) 250 ml @ 250 mls/hr Q24H IV 03/15/17 06:00 03/18/17 05:59 03/15/17 08:23 Objective Remarks GENERAL: Elderly male, lying in bed, fatigued. SKIN: Warm and dry. HEAD: Normocephalic. EYES: No injection or drainage. NECK: Supple, trachea midline. CARDIOVASCULAR: Regular rate and rhythm RESPIRATORY: Breath sounds equal bilaterally. No accessory muscle use. GASTROINTESTINAL: Abdomen soft, non-tender, nondistended. EXTREMITIES: No cyanosis NEUROLOGICAL: No obvious focal deficit. Awake, alert, and oriented x3. Assessment/Plan Problem List: (1) Gastric mass Status: Acute Plan: --CT liver biopsy done, pathology pending. --Gastric outlet obstruction secondary to a mass / pancreatic mass / liver mass which appears to be metastatic disease. --could be a GI malignancy such as pancreatic and cholangiocarcinoma. --CT chest shows multiple lung nodules --CA 19-9 WNL --will need a PET/CT scan outpatient. (2) Anemia Status: Acute Plan: --Keep hemoglobin greater than 8 --iron studies show low iron. iv venofer 200mg x 3 ordered --B12/folate WNL (3) Weight loss Status: Acute Plan: --on PPN Clinimix 4.25/5 @ 80ml/hr and 20% Lipids 250ml @ 10ml/hr Assessment 72y/o male with gastric outlet obstruction secondary to a mass in the pylorus / proximal duodenum and pancreatic head. h/o Osteoarthritis. Depression. Hyperlipidemia. Diabetes. Hearing loss. Gastroesophageal reflux disease (GERD). Hypertension. HPI: presented to the emergency department with right sided abdominal pain, nausea and anorexia +20 pounds of weight loss. CT ab/pelvis showed a heterogeneous conglomerate 80cm mass in the pyloric antrum, proximal duodenum and pancreatic head region causing the gastric outlet obstruction with pronounced dilation of the stomach.+ 2.4 cm low density mass in liver. s/p EGD with biopsy. Plan 1. await pathology from liver biopsy 2. continue PPN 3. monitor CBC, CMP Attending Statement The exam, history, and the medical decision-making described in the above note were completed with the assistance of the mid-level provider. I reviewed and agree with the findings presented. I attest that I had a [id number] encounter with the patient on the same day, and personally performed and documented my assessment and findings in the medical record. Biopsy from liver shows metastatic disease Patient agrees to palliative surgery to relieve obstruction IHC studies to further delineate the malignancy pending. CA19-9 and CEA levels were normal. AFP was also normal. Will need port placement since he would require systemic chemotherapy continue parenteral nutrition. albumin remains very low. d/w rn Problem Qualifiers (1) Anemia: Qualified Code: D64.9 - Anemia, unspecified type Amanda Valverde Mar 15, 2017 11:59 Reji Rios MD Mar 15, 2017 23:01
[2017-03-15 12:03] LABS: ALKALINE PHOSPHATASE 106 U/L (45-117); ALT (GPT) 18 U/L (12-78); ANION GAP 8 MEQ/L (5-15); AST (GOT) 17 U/L (15-37); BICARBONATE 26.7 MEQ/L (21.0-32.0); BLOOD UREA NITROGEN 15 MG/DL (7-18); CHLORIDE 101 MEQ/L (98-107); GLOMERULAR FILTRATION RATE 112 ML/MIN (>89); SODIUM (NA) 136 MEQ/L (136-145); TOTAL BILIRUBIN ADULT 0.7 MG/DL (0.2-1.0)
[2017-03-15 12:16] LABS: PLATELET ESTIMATE SMEAR HIGH (NORMAL); PLATELET MORPHOLOGY NORMAL (NORMAL); SCAN/DIFF AUTO DIFF CONFIRMED; TOXIC VACUOLATION PRESENT (NONE SEEN)
--- NOTE | 2017-03-15 16:10 | HHI.PR ---
Subjective Remarks Status post liver biopsy yesterday. Results pending. He is tolerating PO intake of solids thus far. No nausea reported. No emesis after meals. Objective Vital Signs Date Time Temp Pulse Resp B/P Pulse Ox O2 Delivery O2 Flow Rate FiO2 03/15/17 12:00 95.3 82 20 114/72 97 03/15/17 11:40 Nasal Cannula 2.00 03/15/17 09:12 88 03/15/17 08:20 96.2 84 18 157/71 97 03/15/17 05:59 96.8 92 17 134/69 98 03/15/17 04:35 96.8 98 17 138/65 03/15/17 04:30 18 03/15/17 04:00 96.5 96 18 142/76 96 03/15/17 00:00 97.8 99 17 136/67 97 03/14/17 20:15 114 03/14/17 20:00 97.0 125 18 144/77 92 03/14/17 19:37 Nasal Cannula 3.00 I/O 03/14/17 03/14/17 03/14/17 03/15/17 03/15/17 03/15/17 07:00 15:00 23:00 07:00 15:00 23:00 Intake Total 1164 ml 1564 ml Output Total 600 ml 300 ml 600 ml 850 ml Balance -600 ml 864 ml 964 ml -850 ml TPN/PPN 987 ml 1399 ml Lipid 177 ml 165 ml Output Urine Total 600 ml 300 ml 600 ml 850 ml # Voids 1 Result Diagram: 03/15/17 1056 03/15/17 1056 Procedures Liver Biopsy 03/14/17 Objective Remarks GENERAL: A&Ox3, NAD SKIN: Warm and dry. HEAD: Normocephalic. EYES: No scleral icterus. No injection or drainage. NECK: Supple, trachea midline. No JVD or lymphadenopathy. CARDIOVASCULAR: Regular rate and rhythm without murmurs, gallops, or rubs. RESPIRATORY: Breath sounds equal bilaterally. No accessory muscle use. GASTROINTESTINAL: Abdomen soft, non-tender, nondistended. MUSCULOSKELETAL: No cyanosis, or edema. BACK: Nontender without obvious deformity. No CVA tenderness. A/P Problem List: (1) Gastric outlet obstruction ICD Code: K31.1 Assessment & Plan: Continue PO intake No nausea Monitor for emesis (2) Gastric mass ICD Code: K31.9 Assessment & Plan: Awaiting biopsy results Treatment pending findings of biopsy GI, Surgery, Oncology also following (3) Anemia ICD Code: D64.9 Assessment & Plan: No decline Follow CBC intermittantly (4) Liver masses ICD Code: R16.0 Assessment & Plan: Post biopsy yesterday Follow pathology (5) Leukocytosis ICD Code: D72.829 Assessment & Plan: Improving Follow CBC Problem Qualifiers (1) Anemia: Qualified Code: D64.9 - Anemia, unspecified type (2) Leukocytosis: Qualified Code: D72.829 - Leukocytosis, unspecified type Samir Palm MD Mar 15, 2017 16:10
[2017-03-15] MEDS: HYDROmorphone HCL PF 1 MG/ML VIAL IV PUSH PRN (19:29)
[2017-03-15] MEDS: FAT EMULSION 20% INJ 250 ML (@10 mls/hr) IV SCH (20:13)
[2017-03-15] MEDS: CLINIMIX E 4.25/5 2000 mL- >42 mls/hr IV SCH ×3 (20:14)
[2017-03-15] MEDS: PANTOPRAZOLE SODIUM 40 MG VIAL IV PUSH SCH (22:41)
[2017-03-16] VITALS: BP 135/78; PULSE 86; RESP 17; TEMP 97.5; O2SAT 95
[2017-03-16 04:00] VITALS: BP 130/66; PULSE 85; RESP 17; TEMP 97; O2SAT 98
[2017-03-16] MEDS: INSULIN ASPART SUPPLEMENTAL SCALE SQ SCH ×4 (05:30→22:47)
[2017-03-16] MEDS: AZITHROMYCIN INJ 250 MG in SODIUM CHLOR 0.9% 250 ML INJ 250 ML IV SCH (05:30)
[2017-03-16 08:00] VITALS: BP 130/74; PULSE 90; RESP 16; TEMP 96.5; O2SAT 98
[2017-03-16 08:35] VITALS: PULSE 94
[2017-03-16] MEDS: SODIUM CHLORIDE 0.9% FLUSH 10 ML FLUSH IV FLUSH SCH ×2 (08:35→21:00)
[2017-03-16] MEDS: INSULIN DETEMIR 100 UNITS/ML VIAL SQ SCH ×2 (08:35→22:47)
[2017-03-16] MEDS: AMITRIPTYLINE HCL 75 MG TAB PO SCH (08:40)
--- NOTE | 2017-03-16 10:46 | PD.ONC.PN ---
Subjective Subjective Remarks Afebrile overnight. Patient tired today. He had a hard time sleeping again last night. at bedside. Patient denies pain. Objective Data Date Time Temp Pulse Resp B/P Pulse Ox O2 Delivery O2 Flow Rate FiO2 03/16/17 08:43 Nasal Cannula 3.00 03/16/17 08:00 96.5 90 16 130/74 98 03/16/17 04:00 97.0 85 17 130/66 98 03/16/17 00:00 97.5 86 17 135/78 95 03/15/17 23:40 18 03/15/17 20:20 Nasal Cannula 2.00 21 03/15/17 20:07 99 03/15/17 20:00 98.6 150 18 157/100 94 03/15/17 19:58 18 03/15/17 17:00 96.8 93 20 139/84 97 03/15/17 12:00 95.3 82 20 114/72 97 03/15/17 11:40 Nasal Cannula 2.00 Result Diagram: 03/15/17 1056 03/15/17 1056 Laboratory Results Laboratory Tests Test 03/15/17 10:56 White Blood Count 16.9 TH/MM3 Red Blood Count 3.10 MIL/MM3 Hemoglobin 9.6 GM/DL Hematocrit 27.9 % Mean Corpuscular Volume 89.9 FL Mean Corpuscular Hemoglobin 30.9 PG Mean Corpuscular Hemoglobin 34.3 % Concent Red Cell Distribution Width 13.9 % Platelet Count 577 TH/MM3 Mean Platelet Volume 7.1 FL Neutrophils (%) (Auto) 76.4 % Lymphocytes (%) (Auto) 8.4 % Monocytes (%) (Auto) 9.1 % Eosinophils (%) (Auto) 5.4 % Basophils (%) (Auto) 0.7 % Neutrophils # (Auto) 12.9 TH/MM3 Lymphocytes # (Auto) 1.4 TH/MM3 Monocytes # (Auto) 1.5 TH/MM3 Eosinophils # (Auto) 0.9 TH/MM3 Basophils # (Auto) 0.1 TH/MM3 CBC Comment AUTO DIFF Differential Comment AUTO DIFF CONFIRMED Toxic Vacuolation PRESENT Platelet Estimate HIGH Platelet Morphology Comment NORMAL Sodium Level 136 MEQ/L Potassium Level 4.0 MEQ/L Chloride Level 101 MEQ/L Carbon Dioxide Level 26.7 MEQ/L Anion Gap 8 MEQ/L Blood Urea Nitrogen 15 MG/DL Creatinine 0.69 MG/DL Estimat Glomerular Filtration 112 ML/MIN Rate Random Glucose 203 MG/DL Calcium Level 8.5 MG/DL Magnesium Level 2.0 MG/DL Total Bilirubin 0.7 MG/DL Aspartate Amino Transf 17 U/L (AST/SGOT) Alanine Aminotransferase 18 U/L (ALT/SGPT) Alkaline Phosphatase 106 U/L Total Protein 6.0 GM/DL Albumin 1.8 GM/DL Administered Medications Medications (Trade) Dose Ordered Sig/[place] Route PRN Reason Start Time Stop Time Status Last Admin Dose Admin Pantoprazole Sodium (Protonix Inj) 40 mg Q24H IV PUSH 03/09/17 23:00 03/15/17 22:41 Sodium Chloride (NS Flush) 2 ml BID IV FLUSH 03/10/17 09:00 03/15/17 20:14 Ondansetron HCl (Zofran Inj) 4 mg Q6H PRN IVP NAUSEA OR VOMITING 03/09/17 22:30 03/15/17 03:30 Acetaminophen (Tylenol) 650 mg Q6H PRN PO PAIN SCALE 1 TO 2 03/09/17 22:30 03/15/17 03:54 Acetaminophen/ Hydrocodone Bitart ([place] 5-325 Mg) 1 tab Q4H PRN PO PAIN SCALE 3 TO 5 03/09/17 22:30 03/13/17 17:02 Acetaminophen/ Hydrocodone Bitart ([place] 7.5-325 Mg) 1 tab Q4H PRN PO PAIN SCALE 6 TO 10 03/09/17 22:30 03/15/17 22:42 Amitriptyline HCl (Elavil) 75 mg DAILY PO 03/10/17 09:00 03/16/17 08:40 Hydromorphone HCl 0.5 mg 0.5 mg Q4H PRN IV PUSH BREAKTHROUGH PAIN 03/10/17 19:45 03/15/17 19:29 Multivitamins 10 ml/Folic Acid 1 mg/Amino Acids/ Electrolytes/ Dextrose 2,010.2 ml @ 80 mls/hr Q24H IV 03/11/17 20:00 03/15/17 20:14 Fat Emulsion Intravenous (Liposyn Iii 20% Inj) 250 ml @ 10 mls/hr Q24H IV 03/11/17 20:00 03/15/17 20:13 Insulin Detemir 5 units 5 units Q12HR SQ 03/13/17 21:00 03/15/17 20:13 Azithromycin/ Sodium Chloride (Zithromax Inj/ NS 250 ml Inj) 250 ml @ 250 mls/hr Q24H IV 03/15/17 06:00 03/18/17 05:59 03/16/17 05:30 Objective Remarks GENERAL: Elderly male, lying in bed in nad. SKIN: Warm and dry. HEAD: Normocephalic. EYES: No injection or drainage. NECK: Supple, trachea midline. CARDIOVASCULAR: Regular rate and rhythm RESPIRATORY: Breath sounds equal bilaterally. No accessory muscle use. GASTROINTESTINAL: Abdomen soft, non-tender, nondistended. EXTREMITIES: No cyanosis NEUROLOGICAL: awake and alert, normal speech. moving all extremities. Assessment/Plan Problem List: (1) Gastric mass Status: Acute Plan: --CT liver biopsy done, pathology shows non-small cell cancer--awaiting stains to help determine primary site --CT chest shows multiple lung nodules --CA 19-9 WNL --will need a PET/CT scan outpatient. (2) Anemia Status: Acute Plan: --Keep hemoglobin greater than 8 --iron studies show low iron. iv venofer 200mg x 3 ordered --B12/folate WNL (3) Weight loss Status: Acute Plan: --on PPN Clinimix 4.25/5 @ 80ml/hr and 20% Lipids 250ml @ 10ml/hr Assessment 72y/o male with gastric outlet obstruction secondary to a mass in the pylorus / proximal duodenum and pancreatic head. h/o Osteoarthritis. Depression. Hyperlipidemia. Diabetes. Hearing loss. Gastroesophageal reflux disease (GERD). Hypertension. HPI: presented to the emergency department with right sided abdominal pain, nausea and anorexia +20 pounds of weight loss. CT ab/pelvis showed a heterogeneous conglomerate 80cm mass in the pyloric antrum, proximal duodenum and pancreatic head region causing the gastric outlet obstruction with pronounced dilation of the stomach.+ 2.4 cm low density mass in liver. s/p EGD with biopsy. Plan 1. continue PPN 2. will need port placement--d/w Dr. King, not good to do with surgery planned for today (dirty and clean procedure, respectively) will do at a later date. 3. monitor CBC, CMP Attending Statement The exam, history, and the medical decision-making described in the above note were completed with the assistance of the mid-level provider. I reviewed and agree with the findings presented. I attest that I had a [id number] encounter with the patient on the same day, and personally performed and documented my assessment and findings in the medical record. Problem Qualifiers (1) Anemia: Qualified Code: D64.9 - Anemia, unspecified type Amanda Valverde Mar 16, 2017 10:46 Reji Rios MD Mar 16, 2017 23:12
[2017-03-16 10:51] LABS: BICARBONATE 27.2 MEQ/L (21.0-32.0); POTASSIUM 4.5 MEQ/L (3.5-5.1)
[2017-03-16 12:00] VITALS: BP 140/72; PULSE 88; RESP 16; TEMP 97; O2SAT 97
[2017-03-16 12:07] LABS: AUTOMATED NEUTROPHIL # 13.3 TH/MM3 (1.8-7.7); BASOPHIL # 0.2 TH/MM3 (0-0.2); BASOPHIL % 0.9 % (0.0-2.0); EOSINOPHIL # 0.8 TH/MM3 (0-0.4); EOSINOPHIL % 4.5 % (0.0-4.0); HEMATOCRIT 29.3 % (39.0-51.0); LYMPH % 8.2 % (9.0-44.0); LYMPHOCYTE # 1.4 TH/MM3 (1.0-4.8); MEAN CELL VOLUME 90.5 FL (80.0-100.0); MEAN CORPUSCULAR HEMOGLOBIN 30.1 PG (27.0-34.0); MEAN CORPUSCULAR HGB CONC 33.3 % (32.0-36.0); MONO % 9.1 % (0.0-8.0); NEUT % 77.3 % (16.0-70.0); PLATELET COUNT 555 TH/MM3 (150-450); RED BLOOD COUNT 3.24 MIL/MM3 (4.50-5.90); RED CELL DISTRIBUTION WIDTH 14.3 % (11.6-17.2); WHITE BLOOD COUNT 17.3 TH/MM3 (4.0-11.0)
[2017-03-16 12:11] LABS: HEMO FLAGS AUTO DIFF
[2017-03-16 13:01] LABS: BANDS 5 % (0-6); BASOPHILS 2 % (0-2); EOSINOPHILS 2 % (0-4); MYELOCYTES 3 % (0-0); NEUTROPHIL # MANUAL DIFF 13.8 TH/MM3 (1.8-7.7); POLYS (SEG NEUTROPHILS) 72 % (16-70); WBC DIFF SAMPLE 100
[2017-03-16 13:02] LABS: PLATELET ESTIMATE SMEAR HIGH (NORMAL); PLATELET MORPHOLOGY NORMAL (NORMAL); SCAN/DIFF FINAL DIFF MANUAL
[2017-03-16] MEDS ORDERED: BUPIVACAINE/EPINEPHRINE 0.25% 50 ML VIAL ONE (13:32)
--- NOTE | 2017-03-16 13:50 | EKG ---
Date Performed: 03/15/2017 Time Performed: 20:09:52 PTAGE: 72 years EKG: Sinus rhythm PROBABLE INFERIOR MYOCARDIAL INFARCTION , OF INDETERMINATE AGE ANTEROSEPTAL MYOCARDIAL INFARCTION , PROBABLY OLD ABNORMAL ECG Compared to prior tracing no significant change PREVIOUS TRACING : 03/13/2017 09.38 DOCTOR: Guy Fitzgerald Interpretating Date/Time 03/16/2017 13:47:33
[2017-03-16] MEDS ORDERED: PHENYLEPH/NS 1000 MCG/10 ML SYR IV ONE (14:03)
[2017-03-16] MEDS ORDERED: PROPOFOL 200 MG/20 ML AMP IV ONE (14:03)
[2017-03-16] MEDS ORDERED: NEOSTIGMINE 3 MG/3 ML SYR IV ONE (14:03)
[2017-03-16] MEDS ORDERED: NORMOSOL R INJ 1,000 ML IV ONE (14:04)
[2017-03-16] MEDS ORDERED: LACTATED RINGER'S 1000 ML INJ 1,000 ML IV ONE (14:04)
[2017-03-16] MEDS ORDERED: ONDANSETRON HCL 4 MG/2 ML VIAL IV PUSH ONE (14:04)
[2017-03-16] MEDS: HYDROmorphone HCL PF 1 MG/ML VIAL IV PUSH PRN (14:30)
--- NOTE | 2017-03-16 16:32 | HHI.PR ---
Subjective Remarks Gastric surgery today. Status post liver biopsy. Results pending. Objective Vital Signs Date Time Temp Pulse Resp B/P Pulse Ox O2 Delivery O2 Flow Rate FiO2 03/16/17 12:00 97.0 88 16 140/72 97 03/16/17 08:43 Nasal Cannula 3.00 03/16/17 08:00 96.5 90 16 130/74 98 03/16/17 04:00 97.0 85 17 130/66 98 03/16/17 00:00 97.5 86 17 135/78 95 03/15/17 23:40 18 03/15/17 20:20 Nasal Cannula 2.00 21 03/15/17 20:07 99 03/15/17 20:00 98.6 150 18 157/100 94 03/15/17 19:58 18 03/15/17 17:00 96.8 93 20 139/84 97 I/O 03/15/17 03/15/17 03/15/17 03/16/17 03/16/17 03/16/17 07:00 15:00 23:00 07:00 15:00 23:00 Intake Total 1348 ml 616 ml Output Total 850 ml 400 ml 750 ml Balance -850 ml 1348 ml -400 ml -134 ml Intake Oral 600 ml IV Total 660 ml TPN/PPN 547 ml Lipid 88 ml 69 ml Output Urine Total 850 ml 400 ml 750 ml # Voids 4 Result Diagram: 03/16/17 1149 03/16/17 1005 Procedures Liver Biopsy 03/14/17 Objective Remarks GENERAL: A&Ox3, NAD SKIN: Warm and dry. HEAD: Normocephalic. EYES: No scleral icterus. No injection or drainage. NECK: Supple, trachea midline. No JVD or lymphadenopathy. CARDIOVASCULAR: Regular rate and rhythm without murmurs, gallops, or rubs. RESPIRATORY: Breath sounds equal bilaterally. No accessory muscle use. GASTROINTESTINAL: Abdomen soft, non-tender, nondistended. MUSCULOSKELETAL: No cyanosis, or edema. BACK: Nontender without obvious deformity. No CVA tenderness. Medications and IVs Administered Medications Medications (Trade) Dose Ordered Sig/[place] Route PRN Reason Start Time Stop Time Status Last Admin Dose Admin Pantoprazole Sodium (Protonix Inj) 40 mg Q24H IV PUSH 03/09/17 23:00 03/15/17 22:41 Sodium Chloride (NS Flush) 2 ml BID IV FLUSH 03/10/17 09:00 03/15/17 20:14 Ondansetron HCl (Zofran Inj) 4 mg Q6H PRN IVP NAUSEA OR VOMITING 03/09/17 22:30 03/15/17 03:30 Acetaminophen (Tylenol) 650 mg Q6H PRN PO PAIN SCALE 1 TO 2 03/09/17 22:30 03/15/17 03:54 Acetaminophen/ Hydrocodone Bitart ([place] 5-325 Mg) 1 tab Q4H PRN PO PAIN SCALE 3 TO 5 03/09/17 22:30 03/13/17 17:02 Acetaminophen/ Hydrocodone Bitart ([place] 7.5-325 Mg) 1 tab Q4H PRN PO PAIN SCALE 6 TO 10 03/09/17 22:30 03/15/17 22:42 Amitriptyline HCl (Elavil) 75 mg DAILY PO 03/10/17 09:00 03/16/17 08:40 Hydromorphone HCl 0.5 mg 0.5 mg Q4H PRN IV PUSH BREAKTHROUGH PAIN 03/10/17 19:45 03/16/17 14:30 Multivitamins 10 ml/Folic Acid 1 mg/Amino Acids/ Electrolytes/ Dextrose 2,010.2 ml @ 80 mls/hr Q24H IV 03/11/17 20:00 03/15/17 20:14 Fat Emulsion Intravenous (Liposyn Iii 20% Inj) 250 ml @ 10 mls/hr Q24H IV 03/11/17 20:00 03/15/17 20:13 Insulin Detemir 5 units 5 units Q12HR SQ 03/13/17 21:00 03/15/17 20:13 Azithromycin/ Sodium Chloride (Zithromax Inj/ NS 250 ml Inj) 250 ml @ 250 mls/hr Q24H IV 03/15/17 06:00 03/18/17 05:59 03/16/17 05:30 A/P Problem List: (1) Gastric outlet obstruction ICD Code: K31.1 Assessment & Plan: NPO for surgery Surgery today No nausea Monitor for emesis (2) Gastric mass ICD Code: K31.9 Assessment & Plan: Awaiting biopsy results Treatment pending findings of biopsy GI, Surgery, Oncology also following (3) Anemia ICD Code: D64.9 Assessment & Plan: No decline Follow CBC (4) Liver masses ICD Code: R16.0 Assessment & Plan: Post biopsy yesterday Follow pathology (5) Leukocytosis ICD Code: D72.829 Assessment & Plan: Improving Follow CBC Problem Qualifiers (1) Anemia: Qualified Code: D64.9 - Anemia, unspecified type (2) Leukocytosis: Qualified Code: D72.829 - Leukocytosis, unspecified type Samir Palm MD Mar 16, 2017 16:32
[2017-03-16] MEDS ORDERED: ACETAMINOPHEN 1000 MG/100 ML VIAL IV ONE (17:23)
--- NOTE | 2017-03-16 18:38 | HHI.PR ---
Immediate Post Op Note Procedure Date: Mar 16, 2017 Pre Op Diagnosis: (1) Gastric outlet obstruction Post Op Diagnosis: (1) Gastric outlet obstruction Surgeon: Romeo King Real Estate Clerk(s): MD Ana Cristina Procedure: laparoscopic gastrojejunostomy Findings: no carcinomatosis Complications: none Estimated blood loss: 10ml Anesthesia: General Drains: None IVF Patient to: PACU Patient Condition: Good Romeo King MD Mar 16, 2017 18:38
[2017-03-16] MEDS ORDERED: SUGAMMADEX SODIUM 200 MG/2 ML VIAL IV PUSH ONE ×2 (19:11)
[2017-03-16] MEDS ORDERED: fentaNYL CITRATE 250 MCG/5 ML AMP ONE (19:25)
[2017-03-16] MEDS ORDERED: *morphine SULFATE 8 MG/ML PERIprocedure ONLY ONE ×2 (19:44→20:14)
[2017-03-16] MEDS ORDERED: DO NOT ADM ANY ANTICOAGULANT DRUGS PRN (19:45)
[2017-03-16 20:00] VITALS: BP 145/72; PULSE 90; RESP 18; TEMP 96.2; O2SAT 92
[2017-03-16] MEDS: FAT EMULSION 20% INJ 250 ML (@10 mls/hr) IV SCH (22:46)
[2017-03-16] MEDS: PANTOPRAZOLE SODIUM 40 MG VIAL IV PUSH SCH (22:46)
[2017-03-16] MEDS: CLINIMIX E 4.25/5 2000 mL- >42 mls/hr IV SCH ×3 (22:46)
[2017-03-17] VITALS: BP 147/80; PULSE 89; RESP 18; TEMP 96.1; O2SAT 93
[2017-03-17] MEDS: HYDROmorphone HCL PF 1 MG/ML VIAL IV PUSH PRN ×3 (03:40→13:50)
[2017-03-17 04:00] VITALS: BP 173/92; PULSE 103; RESP 20; TEMP 95.9; O2SAT 91
[2017-03-17] MEDS: INSULIN ASPART SUPPLEMENTAL SCALE SQ SCH ×4 (06:16→21:11)
[2017-03-17] MEDS: AZITHROMYCIN INJ 250 MG in SODIUM CHLOR 0.9% 250 ML INJ 250 ML IV SCH (08:24)
[2017-03-17] MEDS ORDERED: cloNIDine HCL 0.1 MG TAB PO PRN (08:30)
[2017-03-17] MEDS: AMITRIPTYLINE HCL 75 MG TAB PO SCH (09:00)
[2017-03-17] MEDS: SODIUM CHLORIDE 0.9% FLUSH 10 ML FLUSH IV FLUSH SCH ×2 (09:15→21:11)
[2017-03-17 10:00] VITALS: BP 161/84; PULSE 109; RESP 16; TEMP 97.8; O2SAT 93
[2017-03-17] MEDS: INSULIN DETEMIR 100 UNITS/ML VIAL SQ SCH ×2 (10:41→21:12)
[2017-03-17 12:00] VITALS: BP 161/85; PULSE 108; RESP 16; TEMP 96.5; O2SAT 95
[2017-03-17 12:23] LABS: AUTOMATED NEUTROPHIL # 22.1 TH/MM3 (1.8-7.7); BASOPHIL # 0.1 TH/MM3 (0-0.2); BASOPHIL % 0.5 % (0.0-2.0); EOSINOPHIL # 0.1 TH/MM3 (0-0.4); EOSINOPHIL % 0.5 % (0.0-4.0); HEMATOCRIT 33.7 % (39.0-51.0); HEMO FLAGS DIFF FINAL; LYMPH % 3.6 % (9.0-44.0); LYMPHOCYTE # 0.9 TH/MM3 (1.0-4.8); MEAN CELL VOLUME 91.8 FL (80.0-100.0); MEAN CORPUSCULAR HEMOGLOBIN 29.8 PG (27.0-34.0); MEAN CORPUSCULAR HGB CONC 32.4 % (32.0-36.0); MONO % 7.5 % (0.0-8.0); NEUT % 87.9 % (16.0-70.0); PLATELET COUNT 581 TH/MM3 (150-450); RED BLOOD COUNT 3.67 MIL/MM3 (4.50-5.90); RED CELL DISTRIBUTION WIDTH 14.2 % (11.6-17.2); WHITE BLOOD COUNT 25.2 TH/MM3 (4.0-11.0)
--- NOTE | 2017-03-17 12:44 | HHI.PR ---
Subjective Subjective Notes post op day 1 Objective Vitals/I&O Vital Signs Date Time Temp Pulse Resp B/P Pulse Ox O2 Delivery O2 Flow Rate FiO2 03/17/17 04:00 95.9 103 20 173/92 91 03/16/17 22:45 Nasal Cannula 3.00 03/15/17 20:20 21 Labs Laboratory Tests Test 03/16/17 03/17/17 17:07 11:52 Blood Type AB POSITIVE Crossmatch Leukocyte-Reduced Red Blood Cells Blood Bank Comment White Blood Count 25.2 Red Blood Count 3.67 Hemoglobin 10.9 Hematocrit 33.7 Mean Corpuscular Volume 91.8 Mean Corpuscular Hemoglobin 29.8 Mean Corpuscular Hemoglobin 32.4 Concent Red Cell Distribution Width 14.2 Platelet Count 581 Mean Platelet Volume 6.9 Neutrophils (%) (Auto) 87.9 Lymphocytes (%) (Auto) 3.6 Monocytes (%) (Auto) 7.5 Eosinophils (%) (Auto) 0.5 Basophils (%) (Auto) 0.5 Neutrophils # (Auto) 22.1 Lymphocytes # (Auto) 0.9 Monocytes # (Auto) 1.9 Eosinophils # (Auto) 0.1 Basophils # (Auto) 0.1 CBC Comment DIFF FINAL Differential Comment Radiology Last Impressions Chest X-Ray 03/12/17 0000 Signed Impressions: Service Date/Time: Sunday, March 12, 2017 09:41 - CONCLUSION: Mild right lung base atelectasis and/or infiltrate is seen. Robb Estevez MD Chest CT 03/11/17 0000 Signed Impressions: Service Date/Time: Saturday, March 11, 2017 10:40 - CONCLUSION: 1. Lung nodules are nonspecific in regards to metastatic disease. 2. There are lymph nodes within the mediastinum indeterminant, however could be benign. 3. Slight bibasilar atelectasis and/or infiltrate is seen. 4. Cystic lesion in the liver also not adequately characterized possibly a simple cyst. Robb Estevez MD Abdomen X-Ray 03/10/17 0000 Signed Impressions: Service Date/Time: Friday, March 10, 2017 17:22 - CONCLUSION: NG tube should be advanced slightly. Carlos Kelsey MD Abdomen/Pelvis CT 03/09/17 1941 Signed Impressions: Service Date/Time: February 20:56 - CONCLUSION: Heterogeneous mass encompassing the region of the pyloric antrum, proximal duodenum and pancreatic head. There does appear to be gastric outlet obstruction without evidence of biliary obstruction which would favor a GI location of origin. Low-density lesion in the liver and bilateral lung base nodules worrisome for metastatic disease. 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
[2017-03-17 12:55] LABS: ALKALINE PHOSPHATASE 134 U/L (45-117); ALT (GPT) 27 U/L (12-78); ANION GAP 9 MEQ/L (5-15); AST (GOT) 21 U/L (15-37); BLOOD UREA NITROGEN 12 MG/DL (7-18); CHLORIDE 95 MEQ/L (98-107); GLOMERULAR FILTRATION RATE 112 ML/MIN (>89); POTASSIUM 4.5 MEQ/L (3.5-5.1); SODIUM (NA) 131 MEQ/L (136-145); TOTAL BILIRUBIN ADULT 0.3 MG/DL (0.2-1.0)
[2017-03-17] MEDS ORDERED: NALOXONE HCL 0.4 MG/ML AMP IV PRN (13:30)
--- NOTE | 2017-03-17 13:38 | PD.ONC.PN ---
Subjective Subjective Remarks Afebrile overnight. Patient complaining of pain in his abdomen. His pain is not controlled with current regimen of 0.5mg of dilaudid every 4 hours. The pain quickly returns after the medication is received. He accidently pulled out his martin catheter this AM. at bedside is overwhelmed and stressed out with the patient's condition. Objective Data Date Time Temp Pulse Resp B/P Pulse Ox O2 Delivery O2 Flow Rate FiO2 03/17/17 04:00 95.9 103 20 173/92 91 03/17/17 00:00 96.1 89 18 147/80 93 03/16/17 22:45 Nasal Cannula 3.00 03/16/17 20:30 98.1 90 16 151/78 97 Nasal Cannula 3 03/16/17 20:00 88 16 145/80 98 Nasal Cannula 3 03/16/17 20:00 96.2 90 18 145/72 92 03/16/17 19:45 86 16 167/90 97 Nasal Cannula 3 03/16/17 19:30 86 15 157/86 97 Nasal Cannula 3 03/16/17 19:15 84 15 156/86 97 Simple Mask 6 03/16/17 19:06 97.7 89 15 170/90 94 Simple Mask 6 03/17/17 03/17/17 03/17/17 07:00 15:00 23:00 Output Total 1800 ml Balance -1800 ml Result Diagram: 03/17/17 1152 03/17/17 1152 Laboratory Results Laboratory Tests Test 03/16/17 03/17/17 17:07 11:52 Blood Type AB POSITIVE Crossmatch Leukocyte-Reduced Red Blood Cells Blood Bank Comment White Blood Count 25.2 TH/MM3 Red Blood Count 3.67 MIL/MM3 Hemoglobin 10.9 GM/DL Hematocrit 33.7 % Mean Corpuscular Volume 91.8 FL Mean Corpuscular Hemoglobin 29.8 PG Mean Corpuscular Hemoglobin 32.4 % Concent Red Cell Distribution Width 14.2 % Platelet Count 581 TH/MM3 Mean Platelet Volume 6.9 FL Neutrophils (%) (Auto) 87.9 % Lymphocytes (%) (Auto) 3.6 % Monocytes (%) (Auto) 7.5 % Eosinophils (%) (Auto) 0.5 % Basophils (%) (Auto) 0.5 % Neutrophils # (Auto) 22.1 TH/MM3 Lymphocytes # (Auto) 0.9 TH/MM3 Monocytes # (Auto) 1.9 TH/MM3 Eosinophils # (Auto) 0.1 TH/MM3 Basophils # (Auto) 0.1 TH/MM3 CBC Comment DIFF FINAL Differential Comment Sodium Level 131 MEQ/L Potassium Level 4.5 MEQ/L Chloride Level 95 MEQ/L Carbon Dioxide Level 27.0 MEQ/L Anion Gap 9 MEQ/L Blood Urea Nitrogen 12 MG/DL Creatinine 0.69 MG/DL Estimat Glomerular Filtration 112 ML/MIN Rate Random Glucose 253 MG/DL Calcium Level 8.9 MG/DL Total Bilirubin 0.3 MG/DL Aspartate Amino Transf 21 U/L (AST/SGOT) Alanine Aminotransferase 27 U/L (ALT/SGPT) Alkaline Phosphatase 134 U/L Total Protein 7.2 GM/DL Albumin 2.1 GM/DL Administered Medications Medications (Trade) Dose Ordered Sig/[place] Route PRN Reason Start Time Stop Time Status Last Admin Dose Admin Pantoprazole Sodium (Protonix Inj) 40 mg Q24H IV PUSH 03/09/17 23:00 03/16/17 22:46 Sodium Chloride (NS Flush) 2 ml BID IV FLUSH 03/10/17 09:00 03/17/17 09:15 Ondansetron HCl (Zofran Inj) 4 mg Q6H PRN IVP NAUSEA OR VOMITING 03/09/17 22:30 03/15/17 03:30 Acetaminophen (Tylenol) 650 mg Q6H PRN PO PAIN SCALE 1 TO 2 03/09/17 22:30 03/15/17 03:54 Acetaminophen/ Hydrocodone Bitart ([place] 5-325 Mg) 1 tab Q4H PRN PO PAIN SCALE 3 TO 5 03/09/17 22:30 03/13/17 17:02 Acetaminophen/ Hydrocodone Bitart ([place] 7.5-325 Mg) 1 tab Q4H PRN PO PAIN SCALE 6 TO 10 03/09/17 22:30 03/15/17 22:42 Amitriptyline HCl (Elavil) 75 mg DAILY PO 03/10/17 09:00 03/17/17 09:00 Hydromorphone HCl 0.5 mg 0.5 mg Q4H PRN IV PUSH BREAKTHROUGH PAIN 03/10/17 19:45 03/17/17 09:14 Multivitamins 10 ml/Folic Acid 1 mg/Amino Acids/ Electrolytes/ Dextrose 2,010.2 ml @ 80 mls/hr Q24H IV 03/11/17 20:00 03/16/17 22:46 Fat Emulsion Intravenous (Liposyn Iii 20% Inj) 250 ml @ 10 mls/hr Q24H IV 03/11/17 20:00 03/16/17 22:46 Insulin Detemir 5 units 5 units Q12HR SQ 03/13/17 21:00 03/17/17 10:41 Azithromycin/ Sodium Chloride (Zithromax Inj/ NS 250 ml Inj) 250 ml @ 250 mls/hr Q24H IV 03/15/17 06:00 03/18/17 05:59 03/17/17 08:24 Objective Remarks GENERAL: Elderly male, groaning in pain supine in bed SKIN: Warm and dry. HEAD: Normocephalic. NG tube in place. EYES: No injection or drainage. NECK: Supple, trachea midline. CARDIOVASCULAR: Regular rate and rhythm RESPIRATORY: Breath sounds equal bilaterally. No accessory muscle use. GASTROINTESTINAL: Abdomen soft, multiple incision sites are clean without bleeding or sign of infection. TTP throughout EXTREMITIES: No cyanosis NEUROLOGICAL: No obvious focal deficit. Awake, alert, and oriented x3. Assessment/Plan Problem List: (1) Gastric mass Status: Acute Plan: --CT liver biopsy done, pathology shows non-small cell cancer--awaiting stains to help determine primary site --CT chest shows multiple lung nodules --CA 19-9 WNL --will need a PET/CT scan outpatient. --fs faxed to new patient referrals (2) Anemia Status: Acute Plan: --Keep hemoglobin greater than 8 --iron studies show low iron. iv venofer 200mg x 3 ordered --B12/folate WNL (3) Weight loss Status: Acute Plan: --on PPN Clinimix 4.25/5 @ 80ml/hr and 20% Lipids 250ml @ 10ml/hr Assessment 72y/o male with gastric outlet obstruction secondary to a mass in the pylorus / proximal duodenum and pancreatic head. h/o Osteoarthritis. Depression. Hyperlipidemia. Diabetes. Hearing loss. Gastroesophageal reflux disease (GERD). Hypertension. HPI: presented to the emergency department with right sided abdominal pain, nausea and anorexia +20 pounds of weight loss. CT ab/pelvis showed a heterogeneous conglomerate 80cm mass in the pyloric antrum, proximal duodenum and pancreatic head region causing the gastric outlet obstruction with pronounced dilation of the stomach.+ 2.4 cm low density mass in liver. s/p EGD with biopsy. Plan 1. continue PPN 2. plan for port placement outpatient 3. start morphine AUTOMOTIVE MACHINIST for better pain control Attending Statement The exam, history, and the medical decision-making described in the above note were completed with the assistance of the mid-level provider. I reviewed and agree with the findings presented. I attest that I had a [id number] encounter with the patient on the same day, and personally performed and documented my assessment and findings in the medical record. had surgery yesterday pain not adequately controlled. add basal morphine to the AUTOMOTIVE MACHINIST 0.5 per hour/has on demand as well Plan for port on Monday by IR supportive care PT and nutritional focus d/w rn Problem Qualifiers (1) Anemia: Amanda Valverde Mar 17, 2017 13:37 Reji Rios MD Mar 17, 2017 23:02
[2017-03-17] MEDS: PCA - TOTAL MG MORPHINE DELIVERED PER SHIFT SCH ×2 (14:00→22:00)
[2017-03-17 16:00] VITALS: BP 170/85; PULSE 95; RESP 16; TEMP 96.7; O2SAT 95
--- NOTE | 2017-03-17 16:35 | HHI.PR ---
Subjective Remarks Gastric surgery yesterday. Complaints of pain are present. Pain is controlled when he is on his pain medications.. Status post liver biopsy. Results pending. Objective Vital Signs Date Time Temp Pulse Resp B/P Pulse Ox O2 Delivery O2 Flow Rate FiO2 03/17/17 15:00 95 Nasal Cannula 3.00 03/17/17 12:00 96.5 108 16 161/85 95 03/17/17 10:00 97.8 109 16 161/84 93 03/17/17 04:00 95.9 103 20 173/92 91 03/17/17 00:00 96.1 89 18 147/80 93 03/16/17 22:45 Nasal Cannula 3.00 03/16/17 20:30 98.1 90 16 151/78 97 Nasal Cannula 3 03/16/17 20:00 88 16 145/80 98 Nasal Cannula 3 03/16/17 20:00 96.2 90 18 145/72 92 03/16/17 19:45 86 16 167/90 97 Nasal Cannula 3 03/16/17 19:30 86 15 157/86 97 Nasal Cannula 3 03/16/17 19:15 84 15 156/86 97 Simple Mask 6 03/16/17 19:06 97.7 89 15 170/90 94 Simple Mask 6 I/O 03/16/17 03/16/17 03/16/17 03/17/17 03/17/17 03/17/17 07:00 15:00 23:00 07:00 15:00 23:00 Intake Total 616 ml 0 ml 2100 ml Output Total 750 ml 1075 ml 1800 ml 250 ml Balance -134 ml 0 ml 1025 ml -1800 ml -250 ml Intake Oral 0 ml IV Total 300 ml TPN/PPN 547 ml Lipid 69 ml Other 1800 ml Output Urine Total 750 ml 1050 ml 1800 ml 250 ml Gastric Drainage Total 0 ml Estimated Blood Loss 25 ml # Voids 5 # Bowel Movements 0 Result Diagram: 03/17/17 1152 03/17/17 1152 Procedures Liver Biopsy 03/14/17 Objective Remarks GENERAL: A&Ox3, NAD SKIN: Warm and dry. HEAD: Normocephalic. EYES: No scleral icterus. No injection or drainage. NECK: Supple, trachea midline. No JVD or lymphadenopathy. CARDIOVASCULAR: Regular rate and rhythm without murmurs, gallops, or rubs. RESPIRATORY: Breath sounds equal bilaterally. No accessory muscle use. GASTROINTESTINAL: Abdomen soft, non-tender, nondistended. MUSCULOSKELETAL: No cyanosis, or edema. BACK: Nontender without obvious deformity. No CVA tenderness. A/P Problem List: (1) Gastric outlet obstruction ICD Code: K31.1 Assessment & Plan: NPO post op Gastrojejunostomy performed yesterday No nausea Monitor for emesis (2) Gastric mass ICD Code: K31.9 Assessment & Plan: Awaiting biopsy results Treatment pending findings of biopsy GI, Surgery, Oncology also following (3) Anemia ICD Code: D64.9 Assessment & Plan: Stable on labs Follow CBC (4) Liver masses ICD Code: R16.0 Assessment & Plan: Post biopsy Follow pathology (5) Leukocytosis ICD Code: D72.829 Assessment & Plan: Improving Follow CBC Problem Qualifiers (1) Anemia: (2) Leukocytosis: Qualified Code: D72.829 - Leukocytosis, unspecified type Samir Palm MD Mar 17, 2017 16:35
[2017-03-17] MEDS: MORPHINE SULFATE 30 MG/30 ML PCA IV SCH (17:38)
[2017-03-17 20:00] VITALS: BP 169/90; PULSE 109; RESP 20; TEMP 96.2; O2SAT 95
[2017-03-17] MEDS: CLINIMIX E 4.25/5 2000 mL- >42 mls/hr IV SCH ×3 (21:11)
[2017-03-17] MEDS: FAT EMULSION 20% INJ 250 ML (@10 mls/hr) IV SCH (21:11)
[2017-03-17] MEDS: PANTOPRAZOLE SODIUM 40 MG VIAL IV PUSH SCH (23:03)
[2017-03-18] VITALS (8 sets, daily range): BP systolic 134–149; BP diastolic 79–89; PULSE 96–182; RESP 18–22; TEMP 96–97.4; O2SAT 92–99
[2017-03-18] MEDS: PCA - TOTAL MG MORPHINE DELIVERED PER SHIFT SCH ×3 (05:52→22:00)
[2017-03-18] MEDS: INSULIN ASPART SUPPLEMENTAL SCALE SQ SCH ×4 (05:59→21:08)
[2017-03-18] MEDS: MORPHINE SULFATE 30 MG/30 ML PCA IV SCH ×2 (06:49→14:59)
[2017-03-18 07:42] LABS: AUTOMATED NEUTROPHIL # 18.3 TH/MM3 (1.8-7.7); BASOPHIL # 0.1 TH/MM3 (0-0.2); BASOPHIL % 0.6 % (0.0-2.0); EOSINOPHIL # 0.5 TH/MM3 (0-0.4); EOSINOPHIL % 2.4 % (0.0-4.0); HEMATOCRIT 33.8 % (39.0-51.0); HEMO FLAGS AUTO DIFF; LYMPH % 5.9 % (9.0-44.0); LYMPHOCYTE # 1.3 TH/MM3 (1.0-4.8); MEAN CELL VOLUME 91.2 FL (80.0-100.0); MEAN CORPUSCULAR HEMOGLOBIN 30.2 PG (27.0-34.0); MEAN CORPUSCULAR HGB CONC 33.1 % (32.0-36.0); MONO % 9.9 % (0.0-8.0); NEUT % 81.2 % (16.0-70.0); PLATELET COUNT 532 TH/MM3 (150-450); RED BLOOD COUNT 3.71 MIL/MM3 (4.50-5.90); RED CELL DISTRIBUTION WIDTH 14.4 % (11.6-17.2); WHITE BLOOD COUNT 22.4 TH/MM3 (4.0-11.0)
--- NOTE | 2017-03-18 09:01 | HHI.PR ---
Subjective Remarks Post op gastric surgery. Less pain today. 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 Objective Vital Signs Date Time Temp Pulse Resp B/P Pulse Ox O2 Delivery O2 Flow Rate FiO2 03/18/17 08:04 96 03/18/17 06:49 16 03/18/17 05:52 16 03/18/17 04:00 96.5 106 18 137/80 95 03/18/17 00:00 96.0 112 20 149/89 95 03/17/17 22:00 16 03/17/17 21:11 Nasal Cannula 3.00 21 03/17/17 21:11 16 03/17/17 20:00 109 03/17/17 20:00 96.2 109 20 169/90 95 03/17/17 17:38 18 03/17/17 16:00 96.7 95 16 170/85 95 03/17/17 15:00 95 Nasal Cannula 3.00 03/17/17 12:00 96.5 108 16 161/85 95 03/17/17 10:00 97.8 109 16 161/84 93 I/O 03/17/17 03/17/17 03/17/17 03/18/17 03/18/17 03/18/17 07:00 15:00 23:00 07:00 15:00 23:00 Output Total 1800 ml 250 ml 1200 ml 500 ml Balance -1800 ml -250 ml -1200 ml -500 ml Output Urine Total 1800 ml 250 ml 500 ml 200 ml Gastric Drainage Total 0 ml 700 ml 300 ml Result Diagram: 03/18/17 0641 03/17/17 1152 Procedures Liver Biopsy 03/14/17 Gastrojejunostomy 03/16/17 Objective Remarks GENERAL: A&Ox3, NAD SKIN: Warm and dry. HEAD: Normocephalic. EYES: No scleral icterus. No injection or drainage. NECK: Supple, trachea midline. No JVD or lymphadenopathy. CARDIOVASCULAR: Regular rate and rhythm without murmurs, gallops, or rubs. RESPIRATORY: Breath sounds equal bilaterally. No accessory muscle use. GASTROINTESTINAL: Abdomen soft, non-tender, nondistended. MUSCULOSKELETAL: No cyanosis, or edema. BACK: Nontender without obvious deformity. No CVA tenderness. Medications and IVs Administered Medications Medications (Trade) Dose Ordered Sig/[place] Route PRN Reason Start Time Stop Time Status Last Admin Dose Admin Pantoprazole Sodium (Protonix Inj) 40 mg Q24H IV PUSH 03/09/17 23:00 03/17/17 23:03 Sodium Chloride (NS Flush) 2 ml BID IV FLUSH 03/10/17 09:00 03/17/17 21:11 Ondansetron HCl (Zofran Inj) 4 mg Q6H PRN IVP NAUSEA OR VOMITING 03/09/17 22:30 03/15/17 03:30 Amitriptyline HCl (Elavil) 75 mg DAILY PO 03/10/17 09:00 03/17/17 09:00 Hydromorphone HCl 0.5 mg 0.5 mg Q4H PRN IV PUSH BREAKTHROUGH PAIN 03/10/17 19:45 03/17/17 13:50 Multivitamins 10 ml/Folic Acid 1 mg/Amino Acids/ Electrolytes/ Dextrose 2,010.2 ml @ 80 mls/hr Q24H IV 03/11/17 20:00 03/17/17 21:11 Fat Emulsion Intravenous (Liposyn Iii 20% Inj) 250 ml @ 10 mls/hr Q24H IV 03/11/17 20:00 03/17/17 21:11 Insulin Detemir (Levemir Inj) 5 units Q12HR SQ 03/13/17 21:00 03/17/17 21:12 Morphine Sulfate (Morphine 1 Mg/ ml DIGITAL MARKETING PROJECT MANAGER) 30 mg UNSCH IV 03/17/17 13:30 03/18/17 06:49 DIGITAL MARKETING PROJECT MANAGER Dosage Infused (Pha) 1 Q8HR .XX 03/17/17 14:00 03/18/17 05:52 A/P Problem List: (1) Gastric outlet obstruction ICD Code: K31.1 Assessment & Plan: NPO post op Gastrojejunostomy performed 03/16/17 No nausea Monitor for emesis (2) Gastric mass ICD Code: K31.9 Assessment & Plan: Post op gastrojejunostomy on 03/16/17 Recovering well from surgery GI, Surgery, Oncology also following (3) Anemia ICD Code: D64.9 Assessment & Plan: Stable on labs Follow CBC (4) Liver masses ICD Code: R16.0 Assessment & Plan: 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 Possible metastasis from primary lung cancer Oncology following (5) Leukocytosis ICD Code: D72.829 Assessment & Plan: Improving Follow CBC Problem Qualifiers (1) Anemia: (2) Leukocytosis: Qualified Code: D72.829 - Leukocytosis, unspecified type Samir Palm MD Mar 18, 2017 09:01
[2017-03-18] MEDS: SODIUM CHLORIDE 0.9% FLUSH 10 ML FLUSH IV FLUSH SCH ×2 (09:15→21:08)
[2017-03-18] MEDS: AMITRIPTYLINE HCL 75 MG TAB PO SCH (09:15)
[2017-03-18] MEDS: INSULIN DETEMIR 100 UNITS/ML VIAL SQ SCH ×2 (09:15→21:07)
[2017-03-18 09:16] LABS: BANDS 2 % (0-6); EOSINOPHILS 2 % (0-4); NEUTROPHIL # MANUAL DIFF 17.5 TH/MM3 (1.8-7.7); PLATELET ESTIMATE SMEAR HIGH (NORMAL); PLATELET MORPHOLOGY NORMAL (NORMAL); POLYS (SEG NEUTROPHILS) 76 % (16-70); SCAN/DIFF FINAL DIFF MANUAL; WBC DIFF SAMPLE 100
[2017-03-18 14:09] LABS: BICARBONATE 27.9 MEQ/L (21.0-32.0); POTASSIUM 4.2 MEQ/L (3.5-5.1)
--- NOTE | 2017-03-18 16:58 | HHI.PR ---
Subjective Subjective Notes feels well today Objective Vitals/I&O Vital Signs Date Time Temp Pulse Resp B/P Pulse Ox O2 Delivery O2 Flow Rate FiO2 03/18/17 16:00 96.8 108 18 134/83 92 03/18/17 14:06 Room Air 03/17/17 21:11 3.00 21 Labs Laboratory Tests Test 03/18/17 03/18/17 06:41 13:22 White Blood Count 22.4 Red Blood Count 3.71 Hemoglobin 11.2 Hematocrit 33.8 Mean Corpuscular Volume 91.2 Mean Corpuscular Hemoglobin 30.2 Mean Corpuscular Hemoglobin 33.1 Concent Red Cell Distribution Width 14.4 Platelet Count 532 Mean Platelet Volume 7.4 Neutrophils (%) (Auto) 81.2 Lymphocytes (%) (Auto) 5.9 Monocytes (%) (Auto) 9.9 Eosinophils (%) (Auto) 2.4 Basophils (%) (Auto) 0.6 Neutrophils # (Auto) 18.3 Lymphocytes # (Auto) 1.3 Monocytes # (Auto) 2.2 Eosinophils # (Auto) 0.5 Basophils # (Auto) 0.1 CBC Comment AUTO DIFF Differential Total Cells 100 Counted Neutrophils % (Manual) 76 Band Neutrophils % 2 Lymphocytes % 12 Monocytes % 8 Eosinophils % 2 Neutrophils # (Manual) 17.5 Differential Comment FINAL DIFF MANUAL Platelet Estimate HIGH Platelet Morphology Comment NORMAL Red Cell Morphology Comment NORMAL Hematology Comments Sodium Level 133 Potassium Level 4.2 Chloride Level 96 Carbon Dioxide Level 27.9 Anion Gap 9 Blood Urea Nitrogen 16 Creatinine 0.65 Estimat Glomerular Filtration 120 Rate Random Glucose 222 Calcium Level 8.9 Radiology Last Impressions Chest X-Ray 03/12/17 0000 Signed Impressions: Service Date/Time: Sunday, March 12, 2017 09:41 - CONCLUSION: Mild right lung base atelectasis and/or infiltrate is seen. Robb Estevez MD Chest CT 03/11/17 0000 Signed Impressions: Service Date/Time: Saturday, March 11, 2017 10:40 - CONCLUSION: 1. Lung nodules are nonspecific in regards to metastatic disease. 2. There are lymph nodes within the mediastinum indeterminant, however could be benign. 3. Slight bibasilar atelectasis and/or infiltrate is seen. 4. Cystic lesion in the liver also not adequately characterized possibly a simple cyst. Robb Estevez MD Abdomen X-Ray 03/10/17 0000 Signed Impressions: Service Date/Time: Friday, March 10, 2017 17:22 - CONCLUSION: NG tube should be advanced slightly. Carlos Kelsey MD Abdomen/Pelvis CT 03/09/17 1941 Signed Impressions: Service Date/Time: February 20:56 - CONCLUSION: Heterogeneous mass encompassing the region of the pyloric antrum, proximal duodenum and pancreatic head. There does appear to be gastric outlet obstruction without evidence of biliary obstruction which would favor a GI location of origin. Low-density lesion in the liver and bilateral lung base nodules worrisome for metastatic disease. 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 keep NG for now, if falls out leave out and keep NPO Problem Qualifiers (1) Anemia: (2) Leukocytosis: Qualified Code: D72.829 - Leukocytosis, unspecified type (3) HTN (hypertension): Qualified Code: I10 - Essential hypertension (4) Diabetes: Qualified Code: E11.8 - Type 2 diabetes mellitus with complication, without long-term current use of insulin Romeo King MD Mar 18, 2017 16:58
[2017-03-18] MEDS ORDERED: DIATRIZOATE MEGLUM/DIATRIZOATE SOD 9 ML CUP PO ONE (17:30)
[2017-03-18] MEDS ORDERED: ADENOSINE IV SOLN 3 MG/ML 2 ML VIAL IV PUSH ONE ×2 (20:00→20:15)
[2017-03-18] MEDS ORDERED: METOPROLOL TARTRATE 5 MG/5 ML VIAL IV PUSH ONE (20:15)
--- NOTE | 2017-03-18 20:24 | HHI.PR ---
Addendum to Inpatient Note Addendum Reason: Additional Documentation Additional Information AVI was called for SVT with heart rate sustaining in 180's - rhythm confirmed with stat 12 lead EKG. Valsalva maneuvers failed to convert the patient as they had on 03/15. Case discussed with attending physician Dr. Marcus - BP stable, oxygen saturation > 95%. Adenosine 6 mg IV ordered and was given as we (Dr. Marcus and I) came to the bedside with HR dropping to 130's. The patient denies CP, SOB, dizziness. He is confused to place and time - thinks it is 1968 and we are in the ER in a hospital in [place]. Neuro exam performed with no focal weakness. Lungs clear to auscultation though somewhat diminished bibasilarly. Cardiac tones S1S2 without murmur, rub, or gallop. A second dose of Adenosine 12 mg IV was administered with a transient decrease in HR but then it returned to the 130's. Metoprolol 5 mg IV ordered and heart rate dropped to low 100's - sinus tachycardia. Vital signs remain stable. Will transfer to [facility] due to recurrent episode of Vtach. Will check head CT stat for new onset of altered mental status. Will also check stat CBC, BMP, Mag , and Trop I. Will consult cardiology since this is his second episode of SVT this week. Again, first time was 03/15 and the patient converted with Valsalva maneuver. . Nilam Novak Mar 18, 2017 20:24
[2017-03-18 21:27] LABS: AUTOMATED NEUTROPHIL # 18.8 TH/MM3 (1.8-7.7); BASOPHIL # 0.1 TH/MM3 (0-0.2); BASOPHIL % 0.6 % (0.0-2.0); EOSINOPHIL # 0.8 TH/MM3 (0-0.4); EOSINOPHIL % 3.4 % (0.0-4.0); HEMATOCRIT 32.6 % (39.0-51.0); HEMO FLAGS DIFF FINAL; LYMPH % 3.9 % (9.0-44.0); LYMPHOCYTE # 0.9 TH/MM3 (1.0-4.8); MEAN CELL VOLUME 89.9 FL (80.0-100.0); MEAN CORPUSCULAR HEMOGLOBIN 29.5 PG (27.0-34.0); MEAN CORPUSCULAR HGB CONC 32.8 % (32.0-36.0); NEUT % 84.1 % (16.0-70.0); PLATELET COUNT 616 TH/MM3 (150-450); RED BLOOD COUNT 3.63 MIL/MM3 (4.50-5.90); RED CELL DISTRIBUTION WIDTH 14.7 % (11.6-17.2); WHITE BLOOD COUNT 22.3 TH/MM3 (4.0-11.0)
[2017-03-18] MEDS: PANTOPRAZOLE SODIUM 40 MG VIAL IV PUSH SCH (22:11)
[2017-03-18] MEDS: METOPROLOL TARTRATE 25 MG TAB PO SCH (22:11)
[2017-03-18] MEDS: FAT EMULSION 20% INJ 250 ML (@10 mls/hr) IV SCH (22:28)
[2017-03-18] MEDS: CLINIMIX E 4.25/5 2000 mL- >42 mls/hr IV SCH ×3 (22:28)
[2017-03-18 22:45] LABS: BICARBONATE 28.9 MEQ/L (21.0-32.0); MAGNESIUM 1.9 MG/DL (1.5-2.5); POTASSIUM 4.4 MEQ/L (3.5-5.1)
[2017-03-19] VITALS (9 sets, daily range): BP systolic 117–163; BP diastolic 56–87; PULSE 92–165; RESP 20–30; TEMP 97.7–98.9; O2SAT 93–100
--- NOTE | 2017-03-19 00:10 | RADRPT ---
EXAM DATE/TIME: 03/18/2017 23:53 [place] COMPARISON: No previous studies available for comparison. INDICATIONS : Altered mental status. RADIATION DOSE: 41.37 CTDIvol (mGy) MEDICAL HISTORY : Hypertension. Diabetes mellitus type 2. Gastroesophageal reflux disease. SURGICAL HISTORY : Appendectomy. ENCOUNTER: Initial ACUITY: 1 day PAIN SCALE: 0/10 LOCATION: cranial TECHNIQUE: Multiple contiguous axial images were obtained of the head. Using automated exposure control and adj ustment of the mA and/or kV according to patient size, radiation dose was kept as low as reasonably a chievable to obtain optimal diagnostic quality images. FINDINGS: CEREBRUM: Periventricular low attenuation changes seen involving both cerebral hemispheres. The ventricles are normal for age. No evidence of midline shift, mass lesion, hemorrhage or acute infarction. No extra -axial fluid collections are seen. POSTERIOR FOSSA: The cerebellum and brainstem are intact. The 4th ventricle is midline. The cerebellopontine angle i s unremarkable. EXTRACRANIAL: The visualized portion of the orbits is intact. SKULL: The calvaria is intact. No evidence of skull fracture. CONCLUSION: 1. No acute intracranial abnormality. 2. Chronic small vessel ischemic change. Davonte Ansari Jr., MD on March 19, 2017 at 0:07 Board Certified Radiologist. This report was verified electronically.
[2017-03-19 05:05] LABS: BICARBONATE 28.5 MEQ/L (21.0-32.0); POTASSIUM 4.1 MEQ/L (3.5-5.1)
[2017-03-19] MEDS: PCA - TOTAL MG MORPHINE DELIVERED PER SHIFT SCH (05:16)
[2017-03-19 05:23] LABS: AUTOMATED NEUTROPHIL # 16.3 TH/MM3 (1.8-7.7); BASOPHIL # 0.2 TH/MM3 (0-0.2); BASOPHIL % 0.8 % (0.0-2.0); EOSINOPHIL # 1.1 TH/MM3 (0-0.4); EOSINOPHIL % 4.9 % (0.0-4.0); HEMATOCRIT 32.1 % (39.0-51.0); LYMPH % 8.5 % (9.0-44.0); LYMPHOCYTE # 1.9 TH/MM3 (1.0-4.8); MEAN CELL VOLUME 90.3 FL (80.0-100.0); MEAN CORPUSCULAR HEMOGLOBIN 29.9 PG (27.0-34.0); MEAN CORPUSCULAR HGB CONC 33.1 % (32.0-36.0); MONO % 10.9 % (0.0-8.0); NEUT % 74.9 % (16.0-70.0); PLATELET COUNT 603 TH/MM3 (150-450); RED BLOOD COUNT 3.55 MIL/MM3 (4.50-5.90); RED CELL DISTRIBUTION WIDTH 14.7 % (11.6-17.2); WHITE BLOOD COUNT 21.8 TH/MM3 (4.0-11.0)
[2017-03-19 05:57] LABS: HEMO FLAGS AUTO DIFF
[2017-03-19] MEDS: INSULIN ASPART SUPPLEMENTAL SCALE SQ SCH ×4 (06:03→22:23)
[2017-03-19] MEDS: SODIUM CHLORIDE 0.9% FLUSH 10 ML FLUSH IV FLUSH SCH ×2 (08:12→20:50)
[2017-03-19] MEDS: AMITRIPTYLINE HCL 75 MG TAB PO SCH (08:12)
[2017-03-19] MEDS: HYDROmorphone HCL PF 1 MG/ML VIAL IV PUSH PRN (08:12)
[2017-03-19] MEDS: INSULIN DETEMIR 100 UNITS/ML VIAL SQ SCH ×2 (08:12→22:18)
[2017-03-19] MEDS: METOPROLOL TARTRATE 25 MG TAB PO SCH ×2 (08:12→20:50)
[2017-03-19 09:24] LABS: BANDS 6 % (0-6); BASOPHILS 1 % (0-2); EOSINOPHILS 2 % (0-4); MYELOCYTES 1 % (0-0); NEUTROPHIL # MANUAL DIFF 17.7 TH/MM3 (1.8-7.7); POLYS (SEG NEUTROPHILS) 74 % (16-70); WBC DIFF SAMPLE 100
[2017-03-19 09:25] LABS: PLATELET ESTIMATE SMEAR HIGH (NORMAL); PLATELET MORPHOLOGY NORMAL (NORMAL); SCAN/DIFF FINAL DIFF MANUAL
--- NOTE | 2017-03-19 09:36 | HHI.PR ---
Subjective Subjective Notes transferred to ICU for AMS, arrhythmia Objective Vitals/I&O Vital Signs Date Time Temp Pulse Resp B/P Pulse Ox O2 Delivery O2 Flow Rate FiO2 03/19/17 08:42 18 03/19/17 07:15 100 03/19/17 07:00 99 Nasal Cannula 21 03/19/17 04:00 97.7 117/56 03/18/17 22:00 3.00 Labs Laboratory Tests Test 03/18/17 03/18/17 03/19/17 13:22 20:50 04:07 Sodium Level 133 134 135 Potassium Level 4.2 4.4 4.1 Chloride Level 96 95 97 Carbon Dioxide Level 27.9 28.9 28.5 Anion Gap 9 10 10 Blood Urea Nitrogen 16 19 18 Creatinine 0.65 0.76 0.67 Estimat Glomerular Filtration 120 101 116 Rate Random Glucose 222 195 101 Calcium Level 8.9 9.0 9.2 White Blood Count 22.3 21.8 Red Blood Count 3.63 3.55 Hemoglobin 10.7 10.6 Hematocrit 32.6 32.1 Mean Corpuscular Volume 89.9 90.3 Mean Corpuscular Hemoglobin 29.5 29.9 Mean Corpuscular Hemoglobin 32.8 33.1 Concent Red Cell Distribution Width 14.7 14.7 Platelet Count 616 603 Mean Platelet Volume 7.0 6.9 Neutrophils (%) (Auto) 84.1 74.9 Lymphocytes (%) (Auto) 3.9 8.5 Monocytes (%) (Auto) 8.0 10.9 Eosinophils (%) (Auto) 3.4 4.9 Basophils (%) (Auto) 0.6 0.8 Neutrophils # (Auto) 18.8 16.3 Lymphocytes # (Auto) 0.9 1.9 Monocytes # (Auto) 1.8 2.4 Eosinophils # (Auto) 0.8 1.1 Basophils # (Auto) 0.1 0.2 CBC Comment DIFF FINAL AUTO DIFF Differential Comment FINAL DIFF MANUAL Magnesium Level 1.9 Troponin I 0.04 Differential Total Cells 100 Counted Neutrophils % (Manual) 74 Band Neutrophils % 6 Lymphocytes % 8 Monocytes % 8 Eosinophils % 2 Basophils % 1 Neutrophils # (Manual) 17.7 Myelocytes 1 Platelet Estimate HIGH Platelet Morphology Comment NORMAL Polychromasia 2.0 Radiology Last Impressions Chest X-Ray 03/12/17 0000 Signed Impressions: Service Date/Time: Sunday, March 12, 2017 09:41 - CONCLUSION: Mild right lung base atelectasis and/or infiltrate is seen. Robb Estevez MD Chest CT 03/11/17 0000 Signed Impressions: Service Date/Time: Saturday, March 11, 2017 10:40 - CONCLUSION: 1. Lung nodules are nonspecific in regards to metastatic disease. 2. There are lymph nodes within the mediastinum indeterminant, however could be benign. 3. Slight bibasilar atelectasis and/or infiltrate is seen. 4. Cystic lesion in the liver also not adequately characterized possibly a simple cyst. Robb Estevez MD Abdomen X-Ray 03/10/17 0000 Signed Impressions: Service Date/Time: Friday, March 10, 2017 17:22 - CONCLUSION: NG tube should be advanced slightly. Carlos Kelsey MD Abdomen/Pelvis CT 03/09/17 194 Signed Impressions: Service Date/Time: February 20:56 - CONCLUSION: Heterogeneous mass encompassing the region of the pyloric antrum, proximal duodenum and pancreatic head. There does appear to be gastric outlet obstruction without evidence of biliary obstruction which would favor a GI location of origin. Low-density lesion in the liver and bilateral lung base nodules worrisome for metastatic disease. Carlos Kelsey MD Abdomen: Non-distended, Post-op tenderness Narrative Exam incision clean, intact A/P Problem List: (1) Gastric outlet obstruction (2) Duodenal cancer (3) S/P bypass gastrojejunostomy (4) Liver masses (5) Anemia (6) Weight loss (7) Thrombocytosis (8) Leukocytosis (9) GERD (gastroesophageal reflux disease) (10) HTN (hypertension) (11) Diabetes Assessment and Plan 72yo male POD#2 lap GJ bypass, admitted to [facility] overnight. follow up recs keep NG for now, if falls out leave out and keep NPO check upper GI series x-ray on Monday if stable Problem Qualifiers (1) Anemia: (2) Leukocytosis: Qualified Code: D72.829 - Leukocytosis, unspecified type (3) HTN (hypertension): Qualified Code: I10 - Essential hypertension (4) Diabetes: Qualified Code: E11.8 - Type 2 diabetes mellitus with complication, without long-term current use of insulin Romeo King MD Mar 19, 2017 09:35
--- NOTE | 2017-03-19 10:23 | HHI.PR ---
Subjective Remarks Onset of confussion overnight. He also developed SVT tachycardia to a rate of 182 overnight, responded to a beta preston treatment and now is improved. Cardiology has been consulted and will evaluate the tachycardia further, though a likely cause is physiologic changes post op. Objective Vital Signs Date Time Temp Pulse Resp B/P Pulse Ox O2 Delivery O2 Flow Rate FiO2 03/19/17 08:42 18 03/19/17 07:15 100 03/19/17 07:00 99 Nasal Cannula 21 03/19/17 04:00 97.7 98 25 117/56 93 03/19/17 00:00 98.6 92 20 132/79 94 03/18/17 22:00 100 Nasal Cannula 3.00 03/18/17 20:00 100 03/18/17 19:30 96.2 182 22 136/89 99 03/18/17 16:00 96.8 108 18 134/83 92 03/18/17 14:59 16 03/18/17 14:06 Room Air 03/18/17 14:00 16 03/18/17 12:00 97.4 97 18 144/79 95 I/O 03/18/17 03/18/17 03/18/17 03/19/17 03/19/17 03/19/17 07:00 15:00 23:00 07:00 15:00 23:00 Intake Total 0 ml 0 ml 126 ml Output Total 500 ml 300 ml 250 ml Balance -500 ml -300 ml 0 ml -124 ml Intake Oral 0 ml 0 ml 0 ml TPN/PPN 112 ml Lipid 14 ml Output Urine Total 200 ml 300 ml 250 ml Gastric Drainage Total 300 ml # Voids 1 # Bowel Movements 0 0 0 Result Diagram: 03/19/17 0407 03/19/17 0407 Procedures Liver Biopsy 03/14/17 Gastrojejunostomy 03/16/17 Objective Remarks GENERAL: A&Ox3, NAD SKIN: Warm and dry. HEAD: Normocephalic. EYES: No scleral icterus. No injection or drainage. NECK: Supple, trachea midline. No JVD or lymphadenopathy. CARDIOVASCULAR: Regular rate and rhythm without murmurs, gallops, or rubs. RESPIRATORY: Breath sounds equal bilaterally. No accessory muscle use. GASTROINTESTINAL: Abdomen soft, non-tender, nondistended. MUSCULOSKELETAL: No cyanosis, or edema. BACK: Nontender without obvious deformity. No CVA tenderness. Medications and IVs Administered Medications Medications (Trade) Dose Ordered Sig/Burton Route PRN Reason Start Time Stop Time Status Last Admin Dose Admin Pantoprazole Sodium (Protonix Inj) 40 mg Q24H IV PUSH 03/09/17 23:00 03/18/17 22:11 Sodium Chloride (NS Flush) 2 ml BID IV FLUSH 03/10/17 09:00 03/19/17 08:12 Ondansetron HCl (Zofran Inj) 4 mg Q6H PRN IVP NAUSEA OR VOMITING 03/09/17 22:30 03/15/17 03:30 Amitriptyline HCl (Elavil) 75 mg DAILY PO 03/10/17 09:00 03/19/17 08:12 Hydromorphone HCl 0.5 mg 0.5 mg Q4H PRN IV PUSH BREAKTHROUGH PAIN 03/10/17 19:45 03/19/17 08:12 Multivitamins 10 ml/Folic Acid 1 mg/Amino Acids/ Electrolytes/ Dextrose 2,010.2 ml @ 80 mls/hr Q24H IV 03/11/17 20:00 03/18/17 22:28 Fat Emulsion Intravenous (Liposyn Iii 20% Inj) 250 ml @ 10 mls/hr Q24H IV 03/11/17 20:00 03/18/17 22:28 Insulin Detemir (Levemir Inj) 5 units Q12HR SQ 03/13/17 21:00 03/19/17 08:12 Morphine Sulfate (Morphine 1 Mg/ ml AUDIO VISUAL DESIGN ENGINEER) 30 mg UNSCH IV 03/17/17 13:30 03/18/17 14:59 AUDIO VISUAL DESIGN ENGINEER Dosage Infused (Pha) 1 Q8HR .XX 03/17/17 14:00 03/18/17 14:00 Metoprolol Tartrate (Lopressor) 25 mg Q12HR PO 03/18/17 21:15 03/19/17 08:12 A/P Problem List: (1) Gastric outlet obstruction ICD Code: K31.1 Assessment & Plan: NPO post op Gastrojejunostomy performed 03/16/17 No nausea Monitor for emesis (2) Gastric mass ICD Code: K31.9 Assessment & Plan: Post op gastrojejunostomy on 03/16/17 Recovering well from surgery GI, Surgery, Oncology also following (3) Anemia ICD Code: D64.9 Assessment & Plan: Stable on labs Follow CBC (4) Liver masses ICD Code: R16.0 Assessment & Plan: 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 Possible metastasis from primary lung cancer Oncology following (5) Leukocytosis ICD Code: D72.829 Assessment & Plan: Improving Follow CBC (6) SVT (supraventricular tachycardia) ICD Code: I47.1 Assessment & Plan: possible increase natural stimulants from post op condition or pain Follow on telemetry Beta preston now present Cardiology following (7) Encephalopathy acute ICD Code: G93.40 Assessment & Plan: May be from narcotics Dilaudid stopped Continue morphine for pain control AUDIO VISUAL DESIGN ENGINEER discontinued (confusion makes self dosing less likely to be effective) Check a serum ammonia level Problem Qualifiers (1) Anemia: (2) Leukocytosis: Qualified Code: D72.829 - Leukocytosis, unspecified type Samir Palm MD Mar 19, 2017 10:23
--- NOTE | 2017-03-19 11:16 | MB ---
cc: DAYDAY DANIEL M.D. DATE OF CONSULTATION: 03/19/2017 HISTORY OF PRESENT ILLNESS Yesterday the patient had ventricular tachycardia and was transferred to the unit. He seemed to be doing okay neurologic teresa but during the night he was confused, paranoid and this has persisted. He has been in the hospital since 03/09 for abdominal pain, being evaluated for GI and liver dysfunction and had liver biopsy as well as gastric biopsy. Diagnosis apparently includes a poorly differentiated non-small cell cancer. Possible metastatic disease from lung cancer. The patient was very anxious but this may be his baseline. He has been a bit confused and to me he also mentioned that he saw something that was a problem for the government and now the government is after him and he has been afraid that the government wants to kill him. He seems to be anxious about his and did not know her whereabouts. NEUROLOGIC EXAMINATION The neurologic exam shows that he knows he is in the hospital, knows his age, as some reasonable information on the background. He is obviously very anxious. He seemed to be suspicious about everything and initially did not provide much information to me. There seems to be a reasonable trust to his nurse and she has helped him here and she was by me during the exam. The ocular movements and visual robledo were full. There is no facial weakness. He has good strength in the upper and lower extremities on the bedside exam and his reflexes were 2+, plantar responses flexor. ASSESSMENT Acute encephalopathy with paranoid behavior and some agitation and confusion. Apparent underlying metastatic disease. He has been followed by multiple specialists. Status post ventricular tachycardia yesterday. The patient had a CT brain that is reporting no acute abnormality. I am going to request an EEG on him. If feasible an MRI brain also should be obtained but psychotic behavior may all be metabolic. I looked at his labs and he has persistent elevated white count, now 21.8. His chemistries are essentially benign today. If needed we could use small dose of Seroquel, perhaps 25 mg twice a day for the psychotic behavior. He has been on Elavil 75 mg daily and I believe this is a baseline, prehospital medication. I have not had a chance to speak with family members yet. I will follow the neurological course. Thank you for asking us to assist in his care. MD MARÍA Lanier/[employer]LD[employer]a /10:03 AM /10:47 AM
[2017-03-19] MEDS: ONDANSETRON HCL 4 MG/2 ML VIAL IVP PRN ×2 (14:35→22:19)
[2017-03-19] MEDS: MORPHINE SULFATE 4 MG/ML INJ IV PUSH PRN ×2 (14:35→22:19)
--- NOTE | 2017-03-19 14:35 | EKG ---
Date Performed: 03/18/2017 Time Performed: 19:43:24 PTAGE: 72 years EKG: SUPRAVENTRICULAR TACHYCARDIA SEPTAL MYOCARDIAL INFARCTION , PROBABLY OLD Possible inferior infarct, probably old Rate has increased significantly Compared to previous tracing Clinical correlat ion is recommended ABNORMAL ECG PREVIOUS TRACING : 03/15/2017 20.09 DOCTOR: Artur Esparza Interpretating Date/Time 03/19/2017 14:35:12
--- NOTE | 2017-03-19 15:20 | MB ---
cc: NEO JIMENES DO DATE OF CONSULTATION: 03/19/2017. REASON FOR CONSULTATION: Supraventricular tachycardia. HISTORY OF PRESENT ILLNESS: Pieter James is a pleasant 72-year-old male who originally presented to [facility] on March 09, 2017 due to abdominal pain. It appears during his workup he was found to have gastric outlet obstruction by a gastric mass. It appears that he underwent laparoscopic gastrojejunostomy on March 16, [address] King. He appears to be recovering from that and was doing well until last night where he had an episode of supraventricular tachycardia with a heart rate in the 180s. Valsalva maneuvers were attempted but did not convert him. He received adenosine 6 milligrams IV and then a second dose at 12 milligrams IV. He was transferred to the intensive care unit for further observation. On seeing him today, he is slightly confused which appears to have been going on over the past day or so. He denies chest pain or shortness of breath. PAST MEDICAL HISTORY: 1. Duodenal cancer. 2. Diabetes mellitus. 3. Hypertension. 4. Gastroesophageal reflux disease (GERD). 5. Depression. 6. Osteoarthritis. 7. Hyperlipidemia. PAST SURGICAL HISTORY: 1. Appendectomy. 2. Laparoscopic gastrojejunostomy (March 16, 2017). ALLERGIES: NO KNOWN DRUG ALLERGIES. HOME MEDICATIONS: 1. Lisinopril 5 milligrams twice a day. 2. Amitriptyline 75 milligrams daily. 3. Metformin 1000 milligrams twice a day. 4. Norvasc 10 milligrams daily. 5. Lovastatin 40 milligrams daily. 6. Nabumetone 500 milligrams daily. 7. Omeprazole 20 milligrams daily. 8. Glipizide 5 milligrams twice a day. FAMILY HISTORY: Denies premature coronary artery disease or sudden cardiac within the family. SOCIAL HISTORY: Denies tobacco, alcohol or drug abuse. REVIEW OF SYSTEMS: Fourteen systems were reviewed including osteopathic with pertinent positives and negatives as above; otherwise negative. PHYSICAL EXAMINATION VITAL SIGNS: Temperature 98.2, heart rate 95, blood pressure 136/70, respirations 18, pulse ox 100% on room air. GENERAL: In general the patient appears well and in acute distress, alert and awake, somewhat oriented. HEAD, EYES, EARS, NOSE, THROAT: Extraocular muscles intact. Mucous membranes moist. NECK: The neck is supple. No JVD at 45 degrees. No carotid bruits heard bilaterally. Carotid upstroke is brisk in nature. HEART: Regular rate and rhythm. Positive first and second heart sounds with no noted murmurs, gallops or rubs. LUNGS: Clear to auscultation bilaterally. No wheezes, rales or rhonchi. ABDOMEN: Soft and mildly tender at incisional points but no guarding or rebound tenderness noted. EXTREMITIES: No clubbing, cyanosis or edema. Femoral and distal pulses are intact bilaterally. NEUROLOGIC: No focal deficits. SKIN: Warm, dry and intact. OSTEOPATHIC: Osteopathically, mild kyphoscoliosis, no lordosis or paraspinal tender points. LABORATORY FINDINGS: Hemoglobin 10.6, hematocrit 32.1, platelets 603,000. Potassium 4.1, BUN 18, creatinine 0.67. Troponin 0.04. EKGS: Electrocardiogram (March 18, 2017 at 1943): Supraventricular tachycardia with a long R-P tachycardia with no acute S-T-T wave changes. IMPRESSION: 1. Long R-P supraventricular tachycardia with a rate of 180 beats per minute. 2. Duodenal cancer status post laparoscopic gastrojejunostomy. 3. History of hypertension 4. History of diabetes mellitus 5. History of hyperlipidemia. RECOMMENDATIONS: 1. It appears that Mr. James he has had two episodes of SVT with a long R-P interval. This is most likely an atrial tachycardia which has responded to adenosine. 2. I agree with placing him on metoprolol to try to decrease these episodes. 3. These episodes may be partially due to his recent diagnosis and surgery increasing his sympathetic tone. 4. Previous notes mention ventricular tachycardia and these are most likely clerical errors as no ventricular tachycardia has been noted. 5. Will check a 2-D echo to look at his overall left ventricular function, cardiac structure and overall possible valvulopathies. 6. Lastly, he will be watched in the unit for 24 more hours. Thank you for allowing me to see Campbell James. If there are any questions, please do not hesitate to call. Neo Jimenes DO VGP/JCC /1:34 PM /3:06 PM
[2017-03-19] MEDS: ENOXAPARIN SODIUM 40 MG/0.4 ML SYRINGE SQ SCH (17:15)
--- NOTE | 2017-03-19 18:58 | MG ---
cc: DAYDAY DANIEL M.D. Lab No: Date: 03/19/2017 Age: 72 Sex: M Race: REQUESTING: Munir. HISTORY: An EEG was obtained on this 72-year-old patient being evaluated for confusion. DESCRIPTION OF THE RECORD: This EEG is showing a lot of alpha rhythms and there is some intermixed theta activity. The patient seems awake and asleep. Photic stimulation disclosed no significant change. The study is somewhat limited. There is some intermittent eye movement, leg movement and there is no associated paroxysmal activity. INTERPRETATION: Abnormal EEG because of some intermixed slowing intermittently suggesting a mild to moderately severe diffuse disturbance of cerebral function. No epileptiform features present. MD MARÍA Lanier/WYATT /6:40 PM /6:55 PM
[2017-03-19] MEDS: CLINIMIX E 4.25/5 2000 mL- >42 mls/hr IV SCH ×3 (20:50)
[2017-03-19] MEDS: FAT EMULSION 20% INJ 250 ML (@10 mls/hr) IV SCH (20:50)
[2017-03-19] MEDS: PANTOPRAZOLE SODIUM 40 MG VIAL IV PUSH SCH (22:19)
[2017-03-20] VITALS (9 sets, daily range): BP systolic 132–162; BP diastolic 68–80; PULSE 89–104; RESP 12–26; TEMP 97.4–98.4; O2SAT 94–100
[2017-03-20] MEDS: MORPHINE SULFATE 4 MG/ML INJ IV PUSH PRN ×4 (01:22→17:12)
[2017-03-20 04:17] LABS: AUTOMATED NEUTROPHIL # 12.9 TH/MM3 (1.8-7.7); BASOPHIL # 0.1 TH/MM3 (0-0.2); BASOPHIL % 0.7 % (0.0-2.0); EOSINOPHIL # 0.9 TH/MM3 (0-0.4); EOSINOPHIL % 5.1 % (0.0-4.0); HEMATOCRIT 31.4 % (39.0-51.0); HEMO FLAGS DIFF FINAL; LYMPH % 8.8 % (9.0-44.0); LYMPHOCYTE # 1.5 TH/MM3 (1.0-4.8); MEAN CELL VOLUME 89.8 FL (80.0-100.0); MEAN CORPUSCULAR HEMOGLOBIN 29.8 PG (27.0-34.0); MEAN CORPUSCULAR HGB CONC 33.2 % (32.0-36.0); MONO % 10.6 % (0.0-8.0); NEUT % 74.8 % (16.0-70.0); PLATELET COUNT 584 TH/MM3 (150-450); RED CELL DISTRIBUTION WIDTH 14.8 % (11.6-17.2); WHITE BLOOD COUNT 17.2 TH/MM3 (4.0-11.0)
[2017-03-20 04:25] LABS: ALT (GPT) 29 U/L (12-78); ANION GAP 8 MEQ/L (5-15); AST (GOT) 17 U/L (15-37); BICARBONATE 28.6 MEQ/L (21.0-32.0); BLOOD UREA NITROGEN 19 MG/DL (7-18); CHLORIDE 97 MEQ/L (98-107); GLOMERULAR FILTRATION RATE 99 ML/MIN (>89); POTASSIUM 4.8 MEQ/L (3.5-5.1); SODIUM (NA) 134 MEQ/L (136-145)
[2017-03-20 04:27] LABS: ALKALINE PHOSPHATASE 192 U/L (45-117); TOTAL BILIRUBIN ADULT 0.6 MG/DL (0.2-1.0)
[2017-03-20] MEDS: INSULIN ASPART SUPPLEMENTAL SCALE SQ SCH ×4 (06:25→21:03)
[2017-03-20] MEDS: METOPROLOL TARTRATE 25 MG TAB PO SCH (08:31)
[2017-03-20] MEDS: AMITRIPTYLINE HCL 75 MG TAB PO SCH (08:31)
[2017-03-20] MEDS: SODIUM CHLORIDE 0.9% FLUSH 10 ML FLUSH IV FLUSH SCH ×2 (08:31→20:59)
[2017-03-20] MEDS: INSULIN DETEMIR 100 UNITS/ML VIAL SQ SCH ×2 (08:32→20:59)
--- NOTE | 2017-03-20 10:53 | HHI.PR ---
Subjective Remarks Patient is here for a gastric mass with obstruction and is post op gastrojejunectomy and liver biopsies. Confussion is improved. One brief episode of tachycardia overnight. Cardiology has cleared the patient for CIC. I have contacted his PCP regarding the priliminary pathology to initiate the referal process. I faxed imaging and preliminary pathology reports to his PCPs office. No new complaints. Objective Vital Signs Date Time Temp Pulse Resp B/P Pulse Ox O2 Delivery O2 Flow Rate FiO2 03/20/17 10:01 22 03/20/17 04:00 97.7 92 12 149/80 94 03/20/17 00:00 98.4 104 25 158/80 100 03/19/17 20:00 98.3 102 21 151/75 96 03/19/17 19:32 165 03/19/17 19:15 102 03/19/17 19:00 96 Room Air 03/19/17 16:00 98.9 104 20 163/87 100 03/19/17 12:00 98.9 98 30 152/80 97 I/O 03/19/17 03/19/17 03/19/17 03/20/17 03/20/17 03/20/17 07:00 15:00 23:00 07:00 15:00 23:00 Intake Total 126 ml 1085 ml 1106 ml 820 ml Output Total 250 ml 700 ml 325 ml 650 ml Balance -124 ml 385 ml 781 ml 170 ml Intake Oral 0 ml 420 ml 480 ml 240 ml TPN/PPN 112 ml 572 ml 556 ml 516 ml Lipid 14 ml 73 ml 70 ml 64 ml Other 20 ml Output Urine Total 250 ml 700 ml 325 ml 650 ml # Bowel Movements 0 0 0 0 Result Diagram: 03/20/17 0306 03/20/17 0306 Procedures Liver Biopsy 03/14/17 Gastrojejunostomy 03/16/17 Objective Remarks GENERAL: A&Ox3, NAD SKIN: Warm and dry. HEAD: Normocephalic. EYES: No scleral icterus. No injection or drainage. NECK: Supple, trachea midline. No JVD or lymphadenopathy. CARDIOVASCULAR: Regular rate and rhythm without murmurs, gallops, or rubs. RESPIRATORY: Breath sounds equal bilaterally. No accessory muscle use. GASTROINTESTINAL: Abdomen soft, non-tender, nondistended. MUSCULOSKELETAL: No cyanosis, or edema. BACK: Nontender without obvious deformity. No CVA tenderness. Medications and IVs Administered Medications Medications (Trade) Dose Ordered Sig/Burton Route PRN Reason Start Time Stop Time Status Last Admin Dose Admin Pantoprazole Sodium (Protonix Inj) 40 mg Q24H IV PUSH 03/09/17 23:00 03/19/17 22:19 Sodium Chloride (NS Flush) 2 ml BID IV FLUSH 03/10/17 09:00 03/19/17 20:50 Ondansetron HCl (Zofran Inj) 4 mg Q6H PRN IVP NAUSEA OR VOMITING 03/09/17 22:30 03/19/17 22:19 Amitriptyline HCl 75 mg 75 mg DAILY PO 03/10/17 09:00 03/20/17 08:31 Multivitamins 10 ml/Folic Acid 1 mg/Amino Acids/ Electrolytes/ Dextrose 2,010.2 ml @ 80 mls/hr Q24H IV 03/11/17 20:00 03/19/17 20:50 Fat Emulsion Intravenous (Liposyn Iii 20% Inj) 250 ml @ 10 mls/hr Q24H IV 03/11/17 20:00 03/19/17 20:50 Insulin Detemir (Levemir Inj) 5 units Q12HR SQ 03/13/17 21:00 03/20/17 08:32 Metoprolol Tartrate (Lopressor) 25 mg Q12HR PO 03/18/17 21:15 03/20/17 08:31 Morphine Sulfate (Morphine Inj) 2 mg Q3H PRN IV PUSH pain 3-10 03/19/17 10:15 03/20/17 09:56 Enoxaparin Sodium (Lovenox Inj) 40 mg Q24H SQ 03/19/17 15:00 03/19/17 17:15 A/P Problem List: (1) Gastric outlet obstruction ICD Code: K31.1 Assessment & Plan: NPO post op Gastrojejunostomy performed 03/16/17 No nausea Monitor for emesis (2) Gastric mass ICD Code: K31.9 Assessment & Plan: Post op gastrojejunostomy on 03/16/17 Recovering well from surgery GI, Surgery, Oncology also following (3) Anemia ICD Code: D64.9 Assessment & Plan: Stable on labs Follow CBC (4) Liver masses ICD Code: R16.0 Assessment & Plan: 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 possible increase natural stimulants from post op condition or pain Follow on telemetry Beta preston now present Cardiology following (7) Encephalopathy acute ICD Code: G93.40 Assessment & Plan: Resolving well with medication chagnes May have been from narcotics Dilaudid stopped Continue morphine for pain control CROTCH BREAKER discontinued (confusion makes self dosing less likely to be effective) Normal serum ammonia level Problem Qualifiers (1) Anemia: (2) Leukocytosis: Qualified Code: D72.829 - Leukocytosis, unspecified type Samir Palm MD Mar 20, 2017 10:53
--- NOTE | 2017-03-20 11:25 | HHI.PR ---
Review/Management Daily Summary spoke to staff spoke to dr Palm spoke to his at bedside, she feels he is mentally back himself not paranoic this am moves limbs well met encephalopathy monitor neuro peripherally, no other intervention neuro teresa for now please call prn Subjective Subjective Comments No acute neuro events reported No headache Active Medications Current Medications Medications (Trade) Dose Ordered Sig/Burton Route Start Time Stop Time Status Last Admin (Protonix Inj) 40 mg Q24H IV PUSH 03/09/17 23:00 03/19/17 22:19 (NS Flush) 2 ml UNSCH PRN IV FLUSH 03/09/17 22:30 (NS Flush) 2 ml BID IV FLUSH 03/10/17 09:00 03/19/17 20:50 (Tylenol) 650 mg Q4H PRN PO 03/09/17 22:30 (Zofran Inj) 4 mg Q6H PRN IVP 03/09/17 22:30 03/19/17 22:19 (Dulcolax Supp) 10 mg DAILY PRN RECTAL 03/09/17 22:30 (Milk Of Magnesia Liq) 30 ml Q12H PRN PO 03/09/17 22:30 (D50w (Vial) Inj) 25 ml UNSCH PRN IV PUSH 03/09/17 22:45 (Glucagon Inj) 1 mg UNSCH PRN OTHER 03/09/17 22:45 Amitriptyline HCl 75 mg 75 mg DAILY PO 03/10/17 09:00 03/20/17 08:31 Diltiazem HCl 125 mg/Sodium Chloride 125 ml @ 0 mls/hr TITRATE IV 03/10/17 21:30 Hold Multivitamins 10 ml/Folic Acid 1 mg/Amino Acids/ Electrolytes/ Dextrose 2,010.2 ml @ 80 mls/hr Q24H IV 03/11/17 20:00 03/19/17 20:50 (Liposyn Iii 20% Inj) 250 ml @ 10 mls/hr Q24H IV 03/11/17 20:00 03/19/17 20:50 (Levemir Inj) 5 units Q12HR SQ 03/13/17 21:00 03/20/17 08:32 (Catapres) 0.1 mg Q6H PRN PO 03/17/17 08:30 (Lopressor) 25 mg Q12HR PO 03/18/17 21:15 03/20/17 08:31 (Morphine Inj) 2 mg Q3H PRN IV PUSH 03/19/17 10:15 03/20/17 09:56 (Lovenox Inj) 40 mg Q24H SQ 03/19/17 15:00 03/19/17 17:15 Allergies Allergies Coded Allergies No Known Allergies (Unverified03/09/17) Exam I&O / VS 03/19/17 03/19/17 03/20/17 15:00 23:00 07:00 Intake Total 1085 ml 1106 ml 820 ml Output Total 700 ml 325 ml 650 ml Balance 385 ml 781 ml 170 ml Intake Oral 420 ml 480 ml 240 ml TPN/PPN 572 ml 556 ml 516 ml Lipid 73 ml 70 ml 64 ml Other 20 ml Output Urine Total 700 ml 325 ml 650 ml # Bowel Movements 0 0 0 Vital Signs Date Time Temp Pulse Resp B/P Pulse Ox O2 Delivery O2 Flow Rate FiO2 03/20/17 10:01 22 03/20/17 08:00 98.2 92 19 162/79 96 03/20/17 07:15 94 03/20/17 07:00 97 Room Air 03/20/17 04:00 97.7 92 12 149/80 94 03/20/17 00:00 98.4 104 25 158/80 100 03/19/17 20:00 98.3 102 21 151/75 96 03/19/17 19:32 165 03/19/17 19:15 102 03/19/17 19:00 96 Room Air 03/19/17 16:00 98.9 104 20 163/87 100 03/19/17 12:00 98.9 98 30 152/80 97 Objective Micro and Labs Laboratory Tests Test 03/19/17 03/20/17 11:45 03:06 Ammonia 15 White Blood Count 17.2 Red Blood Count 3.50 Hemoglobin 10.4 Hematocrit 31.4 Mean Corpuscular Volume 89.8 Mean Corpuscular Hemoglobin 29.8 Mean Corpuscular Hemoglobin 33.2 Concent Red Cell Distribution Width 14.8 Platelet Count 584 Mean Platelet Volume 7.1 Neutrophils (%) (Auto) 74.8 Lymphocytes (%) (Auto) 8.8 Monocytes (%) (Auto) 10.6 Eosinophils (%) (Auto) 5.1 Basophils (%) (Auto) 0.7 Neutrophils # (Auto) 12.9 Lymphocytes # (Auto) 1.5 Monocytes # (Auto) 1.8 Eosinophils # (Auto) 0.9 Basophils # (Auto) 0.1 CBC Comment DIFF FINAL Differential Comment Sodium Level 134 Potassium Level 4.8 Chloride Level 97 Carbon Dioxide Level 28.6 Anion Gap 8 Blood Urea Nitrogen 19 Creatinine 0.77 Estimat Glomerular Filtration 99 Rate Random Glucose 194 Calcium Level 9.6 Total Bilirubin 0.6 Aspartate Amino Transf 17 (AST/SGOT) Alanine Aminotransferase 29 (ALT/SGPT) Alkaline Phosphatase 192 Total Protein 7.0 Albumin 2.1 Dajuan Amaral MD Mar 20, 2017 11:25
--- NOTE | 2017-03-20 12:07 | PD.CARD.PN ---
Subjective Subjective Remarks One episode of short atrial tachycardia over night Patient asymptomatic over night, no chest pain, no shortness of breath Mentally feels better Objective Medications Current Medications Medications (Trade) Dose Ordered Sig/Burton Route Start Time Stop Time Status Last Admin (Protonix Inj) 40 mg Q24H IV PUSH 03/09/17 23:00 03/19/17 22:19 (NS Flush) 2 ml UNSCH PRN IV FLUSH 03/09/17 22:30 (NS Flush) 2 ml BID IV FLUSH 03/10/17 09:00 03/19/17 20:50 (Tylenol) 650 mg Q4H PRN PO 03/09/17 22:30 (Zofran Inj) 4 mg Q6H PRN IVP 03/09/17 22:30 03/19/17 22:19 (Dulcolax Supp) 10 mg DAILY PRN RECTAL 03/09/17 22:30 (Milk Of Magnesia Liq) 30 ml Q12H PRN PO 03/09/17 22:30 (D50w (Vial) Inj) 25 ml UNSCH PRN IV PUSH 03/09/17 22:45 (Glucagon Inj) 1 mg UNSCH PRN OTHER 03/09/17 22:45 Amitriptyline HCl 75 mg 75 mg DAILY PO 03/10/17 09:00 03/20/17 08:31 Diltiazem HCl 125 mg/Sodium Chloride 125 ml @ 0 mls/hr TITRATE IV 03/10/17 21:30 Hold Multivitamins 10 ml/Folic Acid 1 mg/Amino Acids/ Electrolytes/ Dextrose 2,010.2 ml @ 80 mls/hr Q24H IV 03/11/17 20:00 03/19/17 20:50 (Liposyn Iii 20% Inj) 250 ml @ 10 mls/hr Q24H IV 03/11/17 20:00 03/19/17 20:50 (Levemir Inj) 5 units Q12HR SQ 03/13/17 21:00 03/20/17 08:32 (Catapres) 0.1 mg Q6H PRN PO 03/17/17 08:30 (Lopressor) 25 mg Q12HR PO 03/18/17 21:15 03/20/17 08:31 (Morphine Inj) 2 mg Q3H PRN IV PUSH 03/19/17 10:15 03/20/17 09:56 (Lovenox Inj) 40 mg Q24H SQ 03/19/17 15:00 03/19/17 17:15 Vital Signs / I&O Vital Signs Date Time Temp Pulse Resp B/P Pulse Ox O2 Delivery O2 Flow Rate FiO2 03/20/17 10:01 22 03/20/17 08:00 98.2 92 19 162/79 96 03/20/17 07:15 94 03/20/17 07:00 97 Room Air 03/20/17 04:00 97.7 92 12 149/80 94 03/20/17 00:00 98.4 104 25 158/80 100 03/19/17 20:00 98.3 102 21 151/75 96 03/19/17 19:32 165 03/19/17 19:15 102 03/19/17 19:00 96 Room Air 03/19/17 16:00 98.9 104 20 163/87 100 I/O 03/19/17 03/19/17 03/19/17 03/20/17 03/20/17 03/20/17 07:00 15:00 23:00 07:00 15:00 23:00 Intake Total 126 ml 1085 ml 1106 ml 820 ml Output Total 250 ml 700 ml 325 ml 650 ml Balance -124 ml 385 ml 781 ml 170 ml Intake Oral 0 ml 420 ml 480 ml 240 ml TPN/PPN 112 ml 572 ml 556 ml 516 ml Lipid 14 ml 73 ml 70 ml 64 ml Other 20 ml Output Urine Total 250 ml 700 ml 325 ml 650 ml # Bowel Movements 0 0 0 0 Physical Exam GENERAL: NAD, AAOx3 SKIN: Warm and dry. HEAD: Atraumatic. Normocephalic. EYES: Pupils equal and round. No scleral icterus. No injection or drainage. ENT: No nasal bleeding or discharge. Mucous membranes pink and moist. NECK: Trachea midline. No JVD. CARDIOVASCULAR: Regular rate and rhythm. RESPIRATORY: No accessory muscle use. Clear to auscultation. Breath sounds equal bilaterally. GASTROINTESTINAL: Abdomen soft, non-tender, nondistended. Incisions clean/dry/ intact MUSCULOSKELETAL: Extremities without clubbing, cyanosis, or edema. No obvious deformities. NEUROLOGICAL: Awake and alert. No obvious cranial nerve deficits. Motor grossly within normal limits. Five out of 5 muscle strength in the arms and legs. Normal speech. PSYCHIATRIC: Appropriate mood and affect; insight and judgment normal. Laboratory Laboratory Tests Test 03/20/17 03:06 White Blood Count 17.2 TH/MM3 Red Blood Count 3.50 MIL/MM3 Hemoglobin 10.4 GM/DL Hematocrit 31.4 % Mean Corpuscular Volume 89.8 FL Mean Corpuscular Hemoglobin 29.8 PG Mean Corpuscular Hemoglobin 33.2 % Concent Red Cell Distribution Width 14.8 % Platelet Count 584 TH/MM3 Mean Platelet Volume 7.1 FL Neutrophils (%) (Auto) 74.8 % Lymphocytes (%) (Auto) 8.8 % Monocytes (%) (Auto) 10.6 % Eosinophils (%) (Auto) 5.1 % Basophils (%) (Auto) 0.7 % Neutrophils # (Auto) 12.9 TH/MM3 Lymphocytes # (Auto) 1.5 TH/MM3 Monocytes # (Auto) 1.8 TH/MM3 Eosinophils # (Auto) 0.9 TH/MM3 Basophils # (Auto) 0.1 TH/MM3 CBC Comment DIFF FINAL Differential Comment Sodium Level 134 MEQ/L Potassium Level 4.8 MEQ/L Chloride Level 97 MEQ/L Carbon Dioxide Level 28.6 MEQ/L Anion Gap 8 MEQ/L Blood Urea Nitrogen 19 MG/DL Creatinine 0.77 MG/DL Estimat Glomerular Filtration 99 ML/MIN Rate Random Glucose 194 MG/DL Calcium Level 9.6 MG/DL Total Bilirubin 0.6 MG/DL Aspartate Amino Transf 17 U/L (AST/SGOT) Alanine Aminotransferase 29 U/L (ALT/SGPT) Alkaline Phosphatase 192 U/L Total Protein 7.0 GM/DL Albumin 2.1 GM/DL Assessment and Plan Problem List: (1) SVT (supraventricular tachycardia) (2) Duodenal cancer (3) Liver masses (4) Diabetes (5) HTN (hypertension) (6) S/P bypass gastrojejunostomy Assessment and Plan 1) 1 episode of SVT over night, appears to be atrial tachycardia 2) Increase Lopressor to 50mg BID 3) Echo pending 4) Stable for CIC today Problem Qualifiers (1) Diabetes: Qualified Code: E11.8 - Type 2 diabetes mellitus with complication, without long-term current use of insulin (2) HTN (hypertension): Qualified Code: I10 - Essential hypertension Neo Simons DO Mar 20, 2017 12:07
[2017-03-20] MEDS ORDERED: METOPROLOL TARTRATE 25 MG TAB PO ONE (12:15)
[2017-03-20] MEDS ORDERED: DIATRIZOATE MEGLUM/DIATRIZOATE SOD 120 ML BTL (for RAD DIAG) PO ONE (13:26)
--- NOTE | 2017-03-20 13:41 | PD.ONC.PN ---
Subjective Subjective Remarks Afebrile overnight. Events from the weekend reviewed. Patient feeling tired today but much more coherent than yesterday. Per nurse he had a run of SVT last night which improved. Objective Data Date Time Temp Pulse Resp B/P Pulse Ox O2 Delivery O2 Flow Rate FiO2 03/20/17 10:01 22 03/20/17 08:00 98.2 92 19 162/79 96 03/20/17 07:15 94 03/20/17 07:00 97 Room Air 03/20/17 04:00 97.7 92 12 149/80 94 03/20/17 00:00 98.4 104 25 158/80 100 03/19/17 20:00 98.3 102 21 151/75 96 03/19/17 19:32 165 03/19/17 19:15 102 03/19/17 19:00 96 Room Air 03/19/17 16:00 98.9 104 20 163/87 100 03/20/17 03/20/17 03/20/17 07:00 15:00 23:00 Intake Total 820 ml Output Total 650 ml Balance 170 ml Result Diagram: 03/20/17 0306 03/20/17 0306 Laboratory Results Laboratory Tests Test 03/20/17 03:06 White Blood Count 17.2 TH/MM3 Red Blood Count 3.50 MIL/MM3 Hemoglobin 10.4 GM/DL Hematocrit 31.4 % Mean Corpuscular Volume 89.8 FL Mean Corpuscular Hemoglobin 29.8 PG Mean Corpuscular Hemoglobin 33.2 % Concent Red Cell Distribution Width 14.8 % Platelet Count 584 TH/MM3 Mean Platelet Volume 7.1 FL Neutrophils (%) (Auto) 74.8 % Lymphocytes (%) (Auto) 8.8 % Monocytes (%) (Auto) 10.6 % Eosinophils (%) (Auto) 5.1 % Basophils (%) (Auto) 0.7 % Neutrophils # (Auto) 12.9 TH/MM3 Lymphocytes # (Auto) 1.5 TH/MM3 Monocytes # (Auto) 1.8 TH/MM3 Eosinophils # (Auto) 0.9 TH/MM3 Basophils # (Auto) 0.1 TH/MM3 CBC Comment DIFF FINAL Differential Comment Sodium Level 134 MEQ/L Potassium Level 4.8 MEQ/L Chloride Level 97 MEQ/L Carbon Dioxide Level 28.6 MEQ/L Anion Gap 8 MEQ/L Blood Urea Nitrogen 19 MG/DL Creatinine 0.77 MG/DL Estimat Glomerular Filtration 99 ML/MIN Rate Random Glucose 194 MG/DL Calcium Level 9.6 MG/DL Total Bilirubin 0.6 MG/DL Aspartate Amino Transf 17 U/L (AST/SGOT) Alanine Aminotransferase 29 U/L (ALT/SGPT) Alkaline Phosphatase 192 U/L Total Protein 7.0 GM/DL Albumin 2.1 GM/DL Administered Medications Medications (Trade) Dose Ordered Sig/Burton Route PRN Reason Start Time Stop Time Status Last Admin Dose Admin Pantoprazole Sodium (Protonix Inj) 40 mg Q24H IV PUSH 03/09/17 23:00 03/19/17 22:19 Sodium Chloride (NS Flush) 2 ml BID IV FLUSH 03/10/17 09:00 03/19/17 20:50 Ondansetron HCl (Zofran Inj) 4 mg Q6H PRN IVP NAUSEA OR VOMITING 03/09/17 22:30 03/19/17 22:19 Amitriptyline HCl 75 mg 75 mg DAILY PO 03/10/17 09:00 03/20/17 08:31 Multivitamins 10 ml/Folic Acid 1 mg/Amino Acids/ Electrolytes/ Dextrose 2,010.2 ml @ 80 mls/hr Q24H IV 03/11/17 20:00 03/19/17 20:50 Fat Emulsion Intravenous (Liposyn Iii 20% Inj) 250 ml @ 10 mls/hr Q24H IV 03/11/17 20:00 03/19/17 20:50 Insulin Detemir (Levemir Inj) 5 units Q12HR SQ 03/13/17 21:00 03/20/17 08:32 Morphine Sulfate (Morphine Inj) 2 mg Q3H PRN IV PUSH pain 3-10 03/19/17 10:15 03/20/17 09:56 Enoxaparin Sodium (Lovenox Inj) 40 mg Q24H SQ 03/19/17 15:00 03/19/17 17:15 Objective Remarks GENERAL: Well-nourished, well-developed patient. SKIN: Warm and dry. HEAD: Normocephalic. EYES: No scleral icterus. No injection or drainage. NECK: Supple, trachea midline. No JVD or lymphadenopathy. LYMPHATIC: No adenopathy. CARDIOVASCULAR: Regular rate and rhythm without murmurs. RESPIRATORY: Breath sounds equal bilaterally. No accessory muscle use. GASTROINTESTINAL: Abdomen soft, non-tender, nondistended. EXTREMITIES: No cyanosis, or edema. MUSCULOSKELETAL: Adequate muscle tone. NEUROLOGICAL: No obvious focal deficit. Awake, alert, and oriented x3. PSYCHIATRIC: Appropriate mood and affect; insight and judgment normal. Assessment/Plan Problem List: (1) Gastric mass Status: Acute Plan: --CT liver biopsy done, pathology shows non-small cell cancer--awaiting stains to help determine primary site --CT chest shows multiple lung nodules --CA 19-9 WNL --will need a PET/CT scan outpatient. --fs faxed to new patient referrals (2) Anemia Status: Acute Plan: --Keep hemoglobin greater than 8 --iron studies show low iron. iv venofer 200mg x 3 ordered --B12/folate WNL (3) Weight loss Status: Acute Plan: --on PPN Clinimix 4.25/5 @ 80ml/hr and 20% Lipids 250ml @ 10ml/hr (4) SVT (supraventricular tachycardia) Status: Acute Plan: --cardiology following --now on Lopressor --had brief run of SVT overnight Assessment 72y/o male with gastric outlet obstruction secondary to a mass in the pylorus / proximal duodenum and pancreatic head. h/o Osteoarthritis. Depression. Hyperlipidemia. Diabetes. Hearing loss. Gastroesophageal reflux disease (GERD). Hypertension. HPI: presented to the emergency department with right sided abdominal pain, nausea and anorexia +20 pounds of weight loss. CT ab/pelvis showed a heterogeneous conglomerate 80cm mass in the pyloric antrum, proximal duodenum and pancreatic head region causing the gastric outlet obstruction with pronounced dilation of the stomach.+ 2.4 cm low density mass in liver. s/p EGD with biopsy. Plan 1. continue PPN 2. Port placement by Dr. King when patient more stable. plan to start chemotherapy outpatient. awaiting stains on pathology for further determination of primary site. 3. diet per Dr. King. patient to have upper GI series today and is currently allowed sips of clears. 4. monitor CBC Attending Statement The exam, history, and the medical decision-making described in the above note were completed with the assistance of the mid-level provider. I reviewed and agree with the findings presented. I attest that I had a [id number] encounter with the patient on the same day, and personally performed and documented my assessment and findings in the medical record. Problem Qualifiers (1) Anemia: Amanda Valverde Mar 20, 2017 13:41 Reji Rios MD Mar 20, 2017 23:24
--- NOTE | 2017-03-20 14:40 | MP ---
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 PROCEDURE Laparoscopic gastrojejunostomy (palliative bypass). ATTENDING SURGEON Dr. Hernández [employer] REPA[employer]ER SURGEON Dr. De La Paz ANESTHESIA General and local anesthetic. FINDINGS Gastrojejunostomy, antecolic, retrogastric with no tension. No carcinomatosis. Liver lesions noted on laparoscopy. INDICATION FOR PROCEDURE The patient is a 72-year-old male recently diagnosed with stage IV adenocarcinoma arising from either the ampullary head of the pancreas or duodenum causing gastric outlet obstruction. He has multiple liver lesions, biopsied and also proven to be metastatic disease. Due to the patient with a reasonable performance status we discussed palliative options including laparoscopic gastrojejunostomy and possible open with the patient. The patient agreed to undergo the procedure and the risks, benefits and alternatives were discussed with him for this procedure. The patient understands that this is not a surgery for malignancy but rather for palliation in order to allow him to possibly eat more normally due to his gastric outlet obstruction. DETAILS OF PROCEDURE After informed consent was obtained, the patient was taken to the operating room and placed in a supine position, placed under general endotracheal anesthesia. The patient's abdomen was shaved, prepped and draped in a sterile fashion. A timeout was performed. The patient's abdomen was entered through a [place] direct entry technique in a periumbilical type incision. We placed a 10 mm port into the abdomen and surveyed the abdomen with a 5 mm, 30 degree camera. There was no evidence of any complication from our entry. At this point in time we placed additional ports. We did place a second 10 mm port in the right upper quadrant as well as two 5 mm ports in the right of the umbilicus as well as the left upper quadrant. At this point in time with Dr. De La Paz present we were able to identify the ligament of Treitz quite easily. We ran the bowel approximately 4 cm distal to the ligament of Treitz and found a loop of bowel that was very mobile, could reach up to the stomach. We did divide some of the omentum over the colon as well as open the gastrocolic ligament to give us more direct shots, brining this antecolic retrogastric. Once we identified our area we did place a silk stay suture on the antimesenteric side of the ileum and the retrogastric greater curve of the stomach. This was used as a stay stitch and we made two staple placement holes, one in the antimesenteric portion of the small bowel wall and one in the retrogastric stomach. We placed a green load with a large staple load into the stomach and the anvil into the small bowel and aligned this up horizontally. We fired the stapler with a good technical result. We had a wide open staple line with no bleeding. This was essentially under no tension. We were then able to place a stay stitch over the staple defect and use two blue loads to close our staple defect completely closing the GI tract. We then placed a crotch stitch distally and one proximally to take any tension off the staple line. The NG tube was confirmed to be in a good position laparoscopically as well. At this point in time we turned our attention towards closure. We removed all ports under direct visualization with the laparoscope and expressed pneumoperitoneum. We closed the fascia of the 10 port sites and closed the skin with 4-0 Monocryl and Dermabond. The patient at this point in time was discontinued from anesthesia and taken to PACU in stable addition. The patient tolerated the procedure well. No apparent complications. All counts were correct. I was present and scrubbed for the entire procedure. Dr. De La Paz's presence was required for this procedure due to the complex nature of the GI surgery and laparoscopy. MD JULIUS Luis/ESAU /10:00 PM /2:26 PM
--- NOTE | 2017-03-20 14:44 | RADRPT ---
EXAM DATE/TIME: 03/20/2017 12:22 [facility] COMPARISON: CT ABDOMEN & PELVIS W CONTRAST, March 09, 2017, 20:56. INDICATIONS : Obstruction. Post loop gastrojejunostomy. FLUORO TIME: 1.9 minutes IMAGE COUNT: 21 CONTRAST: MD Soto IMAGING TIME(S): 1 hr MEDICAL HISTORY : Gastroesophageal reflux disease. Diabetes mellitus type II. SURGICAL HISTORY : Appendectomy. loop gastrojejunostomy. ENCOUNTER: Initial ACUITY: 1 week PAIN SCORE: 10/10 LOCATION: Bilateral abdomen. FINDINGS: The trencher driver film of the abdomen demonstrates an unremarkable bowel gas pattern. The Gastrografin upper GI series demonstrated an unremarkable appearing esophagus with no evidence of hernia or reflux. Ther e is mild dysmotility. A gastrojejunostomy is present which is patent with drainage of contrast into the proximal small bowel. There was poor mucosal detail of the stomach. There is no evidence of obstr uction or leakage. The known tumor in region of the distal stomach was not well-visualized. The small bowel follow-through examination demonstrated no gross abnormalities. There was poor mucosal detail secondary to the Gastrografin technique. Cecum is filled with contrast at one hour. CONCLUSION: 1. Status post gastrojejunostomy with no evidence of leakage or obstruction. 2. Unremarkable appearing small bowel follow-through. 3. Mild esophageal dysmotility. Edwin Silverio MD on March 20, 2017 at 14:37 Board Certified Radiologist. This report was verified electronically.
[2017-03-20] MEDS: ENOXAPARIN SODIUM 40 MG/0.4 ML SYRINGE SQ SCH (15:00)
--- NOTE | 2017-03-20 15:42 | HHI.PR ---
Subjective Subjective Notes Resting in bed Family at bedside Objective Vitals/I&O Vital Signs Date Time Temp Pulse Resp B/P Pulse Ox O2 Delivery O2 Flow Rate FiO2 03/20/17 12:00 98.0 97 23 132/71 94 03/20/17 07:00 Room Air 03/19/17 07:00 21 03/18/17 22:00 3.00 Labs Laboratory Tests Test 03/20/17 03:06 White Blood Count 17.2 Red Blood Count 3.50 Hemoglobin 10.4 Hematocrit 31.4 Mean Corpuscular Volume 89.8 Mean Corpuscular Hemoglobin 29.8 Mean Corpuscular Hemoglobin 33.2 Concent Red Cell Distribution Width 14.8 Platelet Count 584 Mean Platelet Volume 7.1 Neutrophils (%) (Auto) 74.8 Lymphocytes (%) (Auto) 8.8 Monocytes (%) (Auto) 10.6 Eosinophils (%) (Auto) 5.1 Basophils (%) (Auto) 0.7 Neutrophils # (Auto) 12.9 Lymphocytes # (Auto) 1.5 Monocytes # (Auto) 1.8 Eosinophils # (Auto) 0.9 Basophils # (Auto) 0.1 CBC Comment DIFF FINAL Differential Comment Sodium Level 134 Potassium Level 4.8 Chloride Level 97 Carbon Dioxide Level 28.6 Anion Gap 8 Blood Urea Nitrogen 19 Creatinine 0.77 Estimat Glomerular Filtration 99 Rate Random Glucose 194 Calcium Level 9.6 Total Bilirubin 0.6 Aspartate Amino Transf 17 (AST/SGOT) Alanine Aminotransferase 29 (ALT/SGPT) Alkaline Phosphatase 192 Total Protein 7.0 Albumin 2.1 Radiology Last Impressions Chest X-Ray 03/12/17 0000 Signed Impressions: Service Date/Time: Sunday, March 12, 2017 09:41 - CONCLUSION: Mild right lung base atelectasis and/or infiltrate is seen. Robb Estevez MD Chest CT 03/11/17 0000 Signed Impressions: Service Date/Time: Saturday, March 11, 2017 10:40 - CONCLUSION: 1. Lung nodules are nonspecific in regards to metastatic disease. 2. There are lymph nodes within the mediastinum indeterminant, however could be benign. 3. Slight bibasilar atelectasis and/or infiltrate is seen. 4. Cystic lesion in the liver also not adequately characterized possibly a simple cyst. Robb Estevez MD Abdomen X-Ray 03/10/17 0000 Signed Impressions: Service Date/Time: Friday, March 10, 2017 17:22 - CONCLUSION: NG tube should be advanced slightly. Carlos Kelsey MD Abdomen/Pelvis CT 03/09/17 194 Signed Impressions: Service Date/Time: February 20:56 - CONCLUSION: Heterogeneous mass encompassing the region of the pyloric antrum, proximal duodenum and pancreatic head. There does appear to be gastric outlet obstruction without evidence of biliary obstruction which would favor a GI location of origin. Low-density lesion in the liver and bilateral lung base nodules worrisome for metastatic disease. Carlos Kelsey MD Cardiovascular: Regular Lungs: Clear Abdomen: Non-distended, Other (incision c/d/i; no drainage ) Extremities: No edema A/P Problem List: (1) Gastric outlet obstruction (2) Duodenal cancer (3) S/P bypass gastrojejunostomy (4) Liver masses (5) Anemia (6) Weight loss (7) Thrombocytosis (8) Leukocytosis (9) GERD (gastroesophageal reflux disease) (10) HTN (hypertension) (11) Diabetes Assessment and Plan 72yo male s/p lap GJ bypass -Upper GI negative for leak -Start sips of clear liquids -OOB and mobilize -Updated at the bedside -Primary team planning to transfer to floor when bed available Attending Statement patient is improving overall, upper GI shows no leak and good emptying The exam, history, and the medical decision-making described in the above note were completed with the assistance of the mid-level provider. I reviewed and agree with the findings presented. I attest that I had a [id number] encounter with the patient on the same day, and personally performed and documented my assessment and findings in the medical record. Problem Qualifiers (1) Anemia: (2) Leukocytosis: Qualified Code: D72.829 - Leukocytosis, unspecified type (3) HTN (hypertension): Qualified Code: I10 - Essential hypertension (4) Diabetes: Qualified Code: E11.8 - Type 2 diabetes mellitus with complication, without long-term current use of insulin Rosario Max Mar 20, 2017 15:42 Romeo King MD Mar 21, 2017 10:54
[2017-03-20] MEDS: CLINIMIX E 4.25/5 2000 mL- >42 mls/hr IV SCH ×3 (20:25)
[2017-03-20] MEDS: FAT EMULSION 20% INJ 250 ML (@10 mls/hr) IV SCH (20:25)
[2017-03-20] MEDS: METOPROLOL TARTRATE 50 MG TAB PO SCH (20:25)
--- NOTE | 2017-03-20 21:01 | EC ---
Study Study Date:03/20/2017 STUDY CONCLUSIONS SUMMARY - Left ventricle: The cavity size was mildly dilated. Wall thickness was normal. Systolic function was mildly reduced. The estimated ejection fraction was 45%. Distal anteroseptal hypokinesis. - Mitral valve: Calcified annulus. Mildly thickened, mildly calcified leaflets, . - Right ventricle: The cavity size was mildly dilated. Wall thickness was normal. - Pulmonary arteries: PA peak pressure: 37mm Hg (S). If LV function is below 40, please consider prescribing an ACEI or ARB or document rationale for non-use. PROCEDURE DATA STUDY STATUS: Elective. Procedure: Transthoracic echocardiography. Image quality was good. Scanning was performed from the parasternal, apical, and subcostal acoustic windows. Study completion: The patient tolerated the procedure well. Transthoracic echocardiography. M-mode, complete 2D, complete spectral Doppler, and color Doppler. Height: Height: 66in. Weight: Weight: 146.7lb. Body mass index: BMI: 23.7kg/m^2. Body surface area: BSA: 1.75m^2. Patient status: Inpatient. CARDIAC ANATOMY LEFT VENTRICLE: The cavity size was mildly dilated. Wall thickness was normal. Systolic function was mildly reduced. The estimated ejection fraction was 45%. Distal anteroseptal hypokinesis. AORTIC VALVE: Trileaflet; mildly thickened, mildly calcified leaflets. Doppler: Transvalvular velocity was within the normal range. There was no stenosis. No regurgitation. Valve area: 1.39cm^2(VTI). Indexed valve area: 0.79cm^2/m^2 (VTI). Valve area: 1.44cm^2 (Vmax). Indexed valve area: 0.82cm^2/m^2 (Vmax). Mean gradient: 12mm Hg (S). Peak gradient: 20mm Hg (S). AORTA: Aortic root: The aortic root was normal in size. MITRAL VALVE: Calcified annulus. Mildly thickened, mildly calcified leaflets, . Doppler: Transvalvular velocity was within the normal range. There was no evidence for stenosis. Trace regurgitation. Peak gradient: 2mm Hg (D). LEFT ATRIUM: The atrium was normal in size. RIGHT VENTRICLE: The cavity size was mildly dilated. Wall thickness was normal. PULMONIC VALVE: Doppler: Transvalvular velocity was within the normal range. There was no evidence for stenosis. No regurgitation. TRICUSPID VALVE: Structurally normal valve. Doppler: Transvalvular velocity was within the normal range. Trace regurgitation. PULMONARY ARTERY: The main pulmonary artery was normal-sized. Systolic pressure was at the upper limits of normal. RIGHT ATRIUM: The atrium was normal in size. PERICARDIUM: There was no pericardial effusion. SYSTEMIC VEINS: Inferior vena cava: The vessel was normal in size. Patient weight: 146.7lb _Ejection fraction:_ 65-75% _Fractional shortening:_ 32% up to 5Kg 5-11.5Kg 11.6-22.9Kg 23-45Kg 45-57Kg Aortic Root 7-13 <17 13-22 17-27 17-27 LA diam 6-13 <23 24-38 33-47 37-40 RVID 10-17 7-15 7-15 7-18 8-17 LVIDd 12-22 <32 24-38 33-47 37-40 LVPW 2-4 3-6 5-7 6-8 7-8 IVS 2-4 3-6 5-7 6-8 7-8 BASIC MEASUREMENTS ADULT NORMAL Left ventricle LV internal dimension, ED, chordal 51.1 mm 43-52 level, PLAX LV internal dimension, ES, chordal *43.1 mm 23-38 level, PLAX Fractional shortening, chordal level, *16 % >29 PLAX LV posterior wall thickness, ED 8.99 mm IVS/LVPW ratio, ED 0.99 <1.3 Ventricular septum Septal thickness, ED 8.92 mm Aortic valve Leaflet separation *12 mm 15-26 Aorta Root diameter, ED 31 mm Left atrium Anterior-posterior dimension 37 mm Anterior-posterior dimension index 2.11 cm/m^2 <2.2 BASIC MEASUREMENTS ADULT NORMAL Aortic valve Leaflet separation *12 mm 15-26 DOPPLER MEASUREMENTS ADULT NORMAL Main pulmonary artery Pressure, S *37 mm Hg =30 Aortic valve Peak velocity, S 222 cm/s Mean velocity, S 160 cm/s VTI, S 39.9 cm Mean gradient, S 12 mm Hg Peak gradient, S 20 mm Hg Valve area, VTI 1.39 cm^2 Valve area index, VTI 0.79 cm^2/m^2 Valve area, Vmax 1.44 cm^2 Valve area index, Vmax 0.82 cm^2/m^2 Mitral valve Peak E-wave velocity 79 cm/s Peak A-wave velocity 118 cm/s Deceleration time 204 ms 150-230 Peak gradient, D 2 mm Hg Peak E/A ratio 0.7 Tricuspid valve Regurgitant peak velocity 269 cm/s Peak RV-RA gradient, S 29 mm Hg Maximal regurgitant velocity 269 cm/s Systemic veins Estimated CVP 10 mm Hg Right ventricle RV pressure, S *39 mm Hg <30 Pulmonic valve Peak velocity, S 63.2 cm/s LEGEND: Mean values are shown as u=mean value. Asterisk (*) whitney values outside specified normal range. Prepared and signed by Lauro Vo [id number]
[2017-03-21] VITALS: BP 128/72; PULSE 92; RESP 23; TEMP 98.5; O2SAT 94
[2017-03-21] MEDS: PANTOPRAZOLE SODIUM 40 MG VIAL IV PUSH SCH ×2 (00:01→20:58)
[2017-03-21 04:00] VITALS: BP 169/83; PULSE 88; RESP 24; TEMP 98.1; O2SAT 92
[2017-03-21 04:17] LABS: HEMATOCRIT 30.6 % (39.0-51.0); MEAN CELL VOLUME 90.3 FL (80.0-100.0); MEAN CORPUSCULAR HEMOGLOBIN 29.5 PG (27.0-34.0); MEAN CORPUSCULAR HGB CONC 32.7 % (32.0-36.0); PLATELET COUNT 617 TH/MM3 (150-450); RED BLOOD COUNT 3.39 MIL/MM3 (4.50-5.90); RED CELL DISTRIBUTION WIDTH 14.4 % (11.6-17.2); REVIEW FLAG FINAL; WHITE BLOOD COUNT 17.5 TH/MM3 (4.0-11.0)
[2017-03-21 05:13] LABS: BICARBONATE 28.1 MEQ/L (21.0-32.0); POTASSIUM 4.2 MEQ/L (3.5-5.1)
[2017-03-21] MEDS: INSULIN ASPART SUPPLEMENTAL SCALE SQ SCH ×4 (07:00→21:00)
[2017-03-21] MEDS: SODIUM CHLORIDE 0.9% FLUSH 10 ML FLUSH IV FLUSH SCH ×2 (09:00→20:58)
[2017-03-21] MEDS: METOPROLOL TARTRATE 50 MG TAB PO SCH ×3 (09:08→20:58)
[2017-03-21] MEDS: INSULIN DETEMIR 100 UNITS/ML VIAL SQ SCH ×3 (09:08→22:22)
[2017-03-21] MEDS: AMITRIPTYLINE HCL 75 MG TAB PO SCH ×2 (09:08→12:04)
--- NOTE | 2017-03-21 10:54 | PD.ONC.PN ---
Subjective Subjective Remarks (seen at 8AM) Afebrile overnight. Patient confused and combative this morning. He is refusing monitoring and all medications and IV's. He is also refusing cardiac monitoring. He states he believes someone is trying to put something into his food, so he will not eat. Objective Data Date Time Temp Pulse Resp B/P Pulse Ox O2 Delivery O2 Flow Rate FiO2 03/21/17 04:00 98.1 88 24 169/83 92 03/21/17 00:00 98.5 92 23 128/72 94 03/20/17 20:00 98.3 89 24 136/68 94 03/20/17 19:59 95 21 03/20/17 19:15 90 03/20/17 19:00 95 Room Air 03/20/17 17:17 23 03/20/17 16:00 97.4 103 26 146/74 96 03/20/17 12:00 98.0 97 23 132/71 94 03/21/17 03/21/17 03/21/17 07:00 15:00 23:00 Intake Total 843 ml Balance 843 ml Result Diagram: 03/21/17 0302 03/21/17 0302 Laboratory Results Laboratory Tests Test 03/21/17 03:02 White Blood Count 17.5 TH/MM3 Red Blood Count 3.39 MIL/MM3 Hemoglobin 10.0 GM/DL Hematocrit 30.6 % Mean Corpuscular Volume 90.3 FL Mean Corpuscular Hemoglobin 29.5 PG Mean Corpuscular Hemoglobin 32.7 % Concent Red Cell Distribution Width 14.4 % Platelet Count 617 TH/MM3 Mean Platelet Volume 7.5 FL Sodium Level 133 MEQ/L Potassium Level 4.2 MEQ/L Chloride Level 97 MEQ/L Carbon Dioxide Level 28.1 MEQ/L Anion Gap 8 MEQ/L Blood Urea Nitrogen 23 MG/DL Creatinine 0.76 MG/DL Estimat Glomerular Filtration 101 ML/MIN Rate Random Glucose 155 MG/DL Calcium Level 8.8 MG/DL Administered Medications Medications (Trade) Dose Ordered Sig/Burton Route PRN Reason Start Time Stop Time Status Last Admin Dose Admin Pantoprazole Sodium (Protonix Inj) 40 mg Q24H IV PUSH 03/09/17 23:00 03/21/17 00:01 Sodium Chloride (NS Flush) 2 ml BID IV FLUSH 03/10/17 09:00 03/20/17 20:59 Ondansetron HCl (Zofran Inj) 4 mg Q6H PRN IVP NAUSEA OR VOMITING 03/09/17 22:30 03/19/17 22:19 Amitriptyline HCl 75 mg 75 mg DAILY PO 03/10/17 09:00 03/21/17 09:08 Multivitamins 10 ml/Folic Acid 1 mg/Amino Acids/ Electrolytes/ Dextrose 2,010.2 ml @ 80 mls/hr Q24H IV 03/11/17 20:00 03/20/17 20:25 Fat Emulsion Intravenous (Liposyn Iii 20% Inj) 250 ml @ 10 mls/hr Q24H IV 03/11/17 20:00 03/20/17 20:25 Insulin Detemir (Levemir Inj) 5 units Q12HR SQ 03/13/17 21:00 03/20/17 20:59 Morphine Sulfate (Morphine Inj) 2 mg Q3H PRN IV PUSH pain 3-10 03/19/17 10:15 03/20/17 17:12 Enoxaparin Sodium (Lovenox Inj) 40 mg Q24H SQ 03/19/17 15:00 03/20/17 15:00 Metoprolol Tartrate (Lopressor) 50 mg Q12HR PO 03/20/17 21:00 03/20/17 20:25 Objective Remarks GENERAL: Confused elderly male, lying in bed, irritable. SKIN: Warm and dry. HEAD: Normocephalic. EYES: No injection or drainage. NECK: Supple, trachea midline. CARDIOVASCULAR: Regular rate and rhythm RESPIRATORY: Breath sounds equal bilaterally. No accessory muscle use. GASTROINTESTINAL: Abdomen soft, non-tender, nondistended. EXTREMITIES: No cyanosis NEUROLOGICAL: awake. confused. moving extremities. Assessment/Plan Problem List: (1) Altered mental status Status: Acute Plan: --CT brain on 03/19 WNL --likely ICU delirium --expose patient to light during day --try to impose normal date/night cycles --afebrile, unlikely d/t infection, will check U/A --psych consulted --may need to reduce dose of Elavil (2) Gastric mass Status: Acute Plan: --CT liver biopsy done, pathology shows non-small cell cancer--awaiting stains to help determine primary site --CT chest shows multiple lung nodules --CA 19-9 WNL --will need a PET/CT scan outpatient. --fs faxed to new patient referrals (3) Anemia Status: Acute Plan: --Keep hemoglobin greater than 8 --iron studies show low iron. iv venofer 200mg x 3 given --B12/folate WNL (4) Weight loss Status: Acute Plan: --on PPN Clinimix 4.25/5 @ 80ml/hr and 20% Lipids 250ml @ 10ml/hr ( currently refusing) (5) SVT (supraventricular tachycardia) Status: Acute Plan: --cardiology following --now on Lopressor --had brief run of SVT overnight Assessment 72y/o male with gastric outlet obstruction secondary to a mass in the pylorus / proximal duodenum and pancreatic head. h/o Osteoarthritis. Depression. Hyperlipidemia. Diabetes. Hearing loss. Gastroesophageal reflux disease (GERD). Hypertension. HPI: presented to the emergency department with right sided abdominal pain, nausea and anorexia +20 pounds of weight loss. CT ab/pelvis showed a heterogeneous conglomerate 80cm mass in the pyloric antrum, proximal duodenum and pancreatic head region causing the gastric outlet obstruction with pronounced dilation of the stomach.+ 2.4 cm low density mass in liver. s/p EGD with biopsy. Plan 1. monitor mental status 2. expose patient to light 3. agree with psych consult Attending Statement The exam, history, and the medical decision-making described in the above note were completed with the assistance of the mid-level provider. I reviewed and agree with the findings presented. I attest that I had a [id number] encounter with the patient on the same day, and personally performed and documented my assessment and findings in the medical record. Patient experiencing delirium. Having auditory and visual hallucinations. r/o any metabolic/infectious or drug related etiology expose to sunlight haldol for agitation d/w rn Problem Qualifiers (1) Anemia: Amanda Valverde Mar 21, 2017 10:54 Reji Rios MD Mar 21, 2017 23:52
--- NOTE | 2017-03-21 11:02 | HHI.PR ---
Subjective Remarks angry- going through events when he is in [place], paranoid, talking about Ceasar Duenas denies any pain- ready to try food- [place] states I remind him of a [place] gave us his RAE number but he accurate of events that brought him here- " I can't crap for few days and my took me to a place in [facility] and transferred here" per - no history of psychiatric condition, no history alcoholism Objective Vitals Vital Signs Date Time Temp Pulse Resp B/P Pulse Ox O2 Delivery O2 Flow Rate FiO2 03/21/17 04:00 98.1 88 24 169/83 92 03/21/17 00:00 98.5 92 23 128/72 94 03/20/17 20:00 98.3 89 24 136/68 94 03/20/17 19:59 95 21 03/20/17 19:15 90 03/20/17 19:00 95 Room Air 03/20/17 17:17 23 03/20/17 16:00 97.4 103 26 146/74 96 03/20/17 12:00 98.0 97 23 132/71 94 I/O 03/20/17 03/20/17 03/20/17 03/21/17 03/21/17 03/21/17 07:00 15:00 23:00 07:00 15:00 23:00 Intake Total 820 ml 755 ml 772 ml 843 ml Output Total 650 ml 550 ml Balance 170 ml 205 ml 772 ml 843 ml Intake Oral 240 ml 80 ml 240 ml 150 ml TPN/PPN 516 ml 600 ml 473 ml 616 ml Lipid 64 ml 75 ml 59 ml 77 ml Output Urine Total 650 ml 550 ml # Voids 3 2 # Bowel Movements 0 0 4 2 Result Diagram: 03/21/17 0302 03/21/17 0302 Imaging Last Impressions Upper GI and Small Bowel X-Ray 03/20/17 0000 Signed Impressions: Service Date/Time: Monday, March 20, 2017 12:22 - CONCLUSION: 1. Status post gastrojejunostomy with no evidence of leakage or obstruction. 2. Unremarkable appearing small bowel follow-through. 3. Mild esophageal dysmotility. Edwin Silverio MD Head CT 03/18/17 2331 Signed Impressions: Service Date/Time: Saturday, March 18, 2017 23:53 - CONCLUSION: 1. No acute intracranial abnormality. 2. Chronic small vessel ischemic change. Davonte Ansari Jr., MD Liver Biopsy CT 03/14/17 0000 Signed Impressions: Service Date/Time: Tuesday, March 14, 2017 12:11 - CONCLUSION: Uncomplicated CT-guided biopsy of right hepatic lobe mass. Campbell Jensen MD CT Angiography 03/13/17 0000 Signed Impressions: Service Date/Time: Monday, March 13, 2017 12:09 - CONCLUSION: There is no evidence for PE for technique. Robb Estevez MD Abdomen MRI 03/13/17 0000 Signed Impressions: Service Date/Time: Monday, March 13, 2017 12:34 - CONCLUSION: 1. Complex cystic mass within the anterior aspect of the right lobe of the liver measuring 2.7 x 2.0 cm. This lesion does NOT have the typical appearance of a hemangioma. Cystic metastasis or a complex cyst remain in the differential. 2. 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 Upper endoscopy would be helpful for further evaluation and possible biopsy of this lesion if not already performed. 3. Enlarged mesenteric lymph node within the midline measuring 3.1 x 2.3 cm. 4. A tiny complex cystic nodule within the inferior aspect of the right lobe of the liver measuring 11 mm. 5. Multiple bilateral renal cysts. Campbell Jensen MD Chest X-Ray 03/12/17 0000 Signed Impressions: Service Date/Time: Sunday, March 12, 2017 09:41 - CONCLUSION: Mild right lung base atelectasis and/or infiltrate is seen. Robb Estevez MD Chest CT 03/11/17 0000 Signed Impressions: Service Date/Time: Saturday, March 11, 2017 10:40 - CONCLUSION: 1. Lung nodules are nonspecific in regards to metastatic disease. 2. There are lymph nodes within the mediastinum indeterminant, however could be benign. 3. Slight bibasilar atelectasis and/or infiltrate is seen. 4. Cystic lesion in the liver also not adequately characterized possibly a simple cyst. Robb Estevez MD Consultation 03/10/17 1330 Signed Impressions: Service Date/Time: Friday, March 10, 2017 13:30 - CONCLUSION: 1. Indeterminate mass within the right lobe of the liver. MRI of the abdomen with contrast using hemangioma protocol is suggested before core biopsy of this lesion is attempted. Campbell Jensen MD Abdomen X-Ray 03/10/17 0000 Signed Impressions: Service Date/Time: Friday, March 10, 2017 17:22 - CONCLUSION: NG tube should be advanced slightly. Carlos Kelsey MD Abdomen/Pelvis CT 03/09/17 1941 Signed Impressions: Service Date/Time: February 20:56 - CONCLUSION: Heterogeneous mass encompassing the region of the pyloric antrum, proximal duodenum and pancreatic head. There does appear to be gastric outlet obstruction without evidence of biliary obstruction which would favor a GI location of origin. Low-density lesion in the liver and bilateral lung base nodules worrisome for metastatic disease. Carlos Kesley MD Objective Remarks awake and alert but confused, ff commands anicteric lungs clear regular rhythm abdomen soft, good bowel - incisions dry extremities no edema Procedures EGD with biopsy on 03/10/17 - Duodenal bulb mass, gastritis, gastric polyps. 03/18- gastrojejunostomy A/P Problem List: (1) Gastric mass ICD Code: K31.9 Status: Acute (2) Gastric outlet obstruction ICD Code: K31.1 Status: Acute (3) Weight loss ICD Code: R63.4 Status: Acute (4) Anemia ICD Code: D64.9 Status: Acute (5) Thrombocytosis ICD Code: D47.3 Status: Acute (6) Diabetes ICD Code: E11.9 Status: Chronic (7) HTN (hypertension) ICD Code: I10 Status: Chronic (8) GERD (gastroesophageal reflux disease) ICD Code: K21.9 Status: Chronic (9) Sepsis ICD Code: A41.9 Status: Acute (10) Leukocytosis ICD Code: D72.829 Status: Acute (11) PNA (pneumonia) ICD Code: J18.9 Status: Acute (12) Hypoxemia ICD Code: R09.02 Status: Acute Assessment and Plan Gastric outlet obstruction- with gastric mass S/P palliative gastric bypass surgery S/P gastrojejunostomy 03/18 Gastrojejunostomy performed 03/16/17 No nausea Monitor for emesis tolerating current diet- advance gradually Recovering well from surgery GI, Surgery, Oncology also following Anemia ICD Code: D64.9 Assessment & Plan: Stable on labs Follow CBC Liver masses ICD Code: R16.0 Assessment & Plan: 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 Possible metastasis from primary lung cancer Oncology following Leukocytosis ICD Code: D72.829 Assessment & Plan: Improving Follow CBC SVT (supraventricular tachycardia)- resolved- in SR ICD Code: I47.1 Assessment & Plan: One brief episode possible increase natural stimulants from post op condition or pain Follow on telemetry continue Beta preston Cardiology following Acute ICU psychosis- paranoia- relating events from [place] and RAE- number Dilaudid stopped change to po prn pain meds get Psychiatry consult PT consult- deconditioning Problem Qualifiers (1) Anemia: (2) Diabetes: Qualified Code: E11.8 - Type 2 diabetes mellitus with complication, without long-term current use of insulin (3) HTN (hypertension): Qualified Code: I10 - Essential hypertension (4) Sepsis: Qualified Code: A41.9 - Sepsis, due to unspecified organism (5) Leukocytosis: Qualified Code: D72.829 - Leukocytosis, unspecified type (6) PNA (pneumonia): Qualified Code: J69.0 - Aspiration pneumonia of both lower lobes due to gastric secretions Amparo Bloom MD Mar 21, 2017 11:02 Amparo Bloom MD Mar 21, 2017 11:02 Amparo Bloom MD Mar 21, 2017 11:02
--- NOTE | 2017-03-21 11:38 | PD.CARD.PN ---
Subjective Subjective Remarks No chest pain, no shortness of breath Did have one event of tachycardia over night More paranoia today, feels the ekg monitor is changing things in his body... tv show was changed to mess with him Unwilling to wear telemetry Mentioned about being in [place] and the RAE, which his said were true Objective Medications Current Medications Medications (Trade) Dose Ordered Sig/Burton Route Start Time Stop Time Status Last Admin (Protonix Inj) 40 mg Q24H IV PUSH 03/09/17 23:00 03/21/17 00:01 (NS Flush) 2 ml UNSCH PRN IV FLUSH 03/09/17 22:30 (NS Flush) 2 ml BID IV FLUSH 03/10/17 09:00 03/20/17 20:59 (Tylenol) 650 mg Q4H PRN PO 03/09/17 22:30 (Zofran Inj) 4 mg Q6H PRN IVP 03/09/17 22:30 03/19/17 22:19 (Dulcolax Supp) 10 mg DAILY PRN RECTAL 03/09/17 22:30 (Milk Of Magnesia Liq) 30 ml Q12H PRN PO 03/09/17 22:30 (D50w (Vial) Inj) 25 ml UNSCH PRN IV PUSH 03/09/17 22:45 (Glucagon Inj) 1 mg UNSCH PRN OTHER 03/09/17 22:45 Amitriptyline HCl 75 mg 75 mg DAILY PO 03/10/17 09:00 03/21/17 09:08 Diltiazem HCl 125 mg/Sodium Chloride 125 ml @ 0 mls/hr TITRATE IV 03/10/17 21:30 Hold Multivitamins 10 ml/Folic Acid 1 mg/Amino Acids/ Electrolytes/ Dextrose 2,010.2 ml @ 80 mls/hr Q24H IV 03/11/17 20:00 03/20/17 20:25 (Liposyn Iii 20% Inj) 250 ml @ 10 mls/hr Q24H IV 03/11/17 20:00 03/20/17 20:25 (Levemir Inj) 5 units Q12HR SQ 03/13/17 21:00 03/20/17 20:59 (Catapres) 0.1 mg Q6H PRN PO 03/17/17 08:30 (Lovenox Inj) 40 mg Q24H SQ 03/19/17 15:00 03/20/17 15:00 (Lopressor) 50 mg Q12HR PO 03/20/17 21:00 03/20/17 20:25 (Morphine Inj) 1 mg Q4HR PRN IV PUSH 03/21/17 12:00 UNV Vital Signs / I&O Vital Signs Date Time Temp Pulse Resp B/P Pulse Ox O2 Delivery O2 Flow Rate FiO2 03/21/17 04:00 98.1 88 24 169/83 92 03/21/17 00:00 98.5 92 23 128/72 94 03/20/17 20:00 98.3 89 24 136/68 94 03/20/17 19:59 95 21 03/20/17 19:15 90 03/20/17 19:00 95 Room Air 03/20/17 17:17 23 03/20/17 16:00 97.4 103 26 146/74 96 03/20/17 12:00 98.0 97 23 132/71 94 I/O 03/20/17 03/20/17 03/20/17 03/21/17 03/21/17 03/21/17 07:00 15:00 23:00 07:00 15:00 23:00 Intake Total 820 ml 755 ml 772 ml 843 ml Output Total 650 ml 550 ml Balance 170 ml 205 ml 772 ml 843 ml Intake Oral 240 ml 80 ml 240 ml 150 ml TPN/PPN 516 ml 600 ml 473 ml 616 ml Lipid 64 ml 75 ml 59 ml 77 ml Output Urine Total 650 ml 550 ml # Voids 3 2 # Bowel Movements 0 0 4 2 Physical Exam GENERAL: NAD, AAOx3 SKIN: Warm and dry. HEAD: Atraumatic. Normocephalic. EYES: Pupils equal and round. No scleral icterus. No injection or drainage. ENT: No nasal bleeding or discharge. Mucous membranes pink and moist. NECK: Trachea midline. No JVD. CARDIOVASCULAR: Regular rate and rhythm. RESPIRATORY: No accessory muscle use. Clear to auscultation. Breath sounds equal bilaterally. GASTROINTESTINAL: Abdomen soft, non-tender, nondistended. Incisions clean/dry/ intact MUSCULOSKELETAL: Extremities without clubbing, cyanosis, or edema. No obvious deformities. NEUROLOGICAL: Awake and alert. No obvious cranial nerve deficits. Motor grossly within normal limits. Five out of 5 muscle strength in the arms and legs. Normal speech. PSYCHIATRIC: Appropriate mood and affect; insight and judgment normal. Laboratory Laboratory Tests Test 03/21/17 03:02 White Blood Count 17.5 TH/MM3 Red Blood Count 3.39 MIL/MM3 Hemoglobin 10.0 GM/DL Hematocrit 30.6 % Mean Corpuscular Volume 90.3 FL Mean Corpuscular Hemoglobin 29.5 PG Mean Corpuscular Hemoglobin 32.7 % Concent Red Cell Distribution Width 14.4 % Platelet Count 617 TH/MM3 Mean Platelet Volume 7.5 FL Sodium Level 133 MEQ/L Potassium Level 4.2 MEQ/L Chloride Level 97 MEQ/L Carbon Dioxide Level 28.1 MEQ/L Anion Gap 8 MEQ/L Blood Urea Nitrogen 23 MG/DL Creatinine 0.76 MG/DL Estimat Glomerular Filtration 101 ML/MIN Rate Random Glucose 155 MG/DL Calcium Level 8.8 MG/DL Assessment and Plan Problem List: (1) SVT (supraventricular tachycardia) (2) Duodenal cancer (3) Liver masses (4) Diabetes (5) HTN (hypertension) (6) S/P bypass gastrojejunostomy Assessment and Plan 1) 1 episode of SVT over night, appears to be atrial tachycardia 2) Increase Lopressor to 50mg TID 3) EF 45% 4) Agree with psych assessment Problem Qualifiers (1) Diabetes: Qualified Code: E11.8 - Type 2 diabetes mellitus with complication, without long-term current use of insulin (2) HTN (hypertension): Qualified Code: I10 - Essential hypertension Neo Simons DO Mar 21, 2017 11:38
[2017-03-21] MEDS ORDERED: MORPHINE SULFATE 4 MG/ML INJ IV PUSH PRN (12:00)
[2017-03-21 12:02] VITALS: BP 165/87
[2017-03-21] MEDS ORDERED: oxyCODONE/ACETAMINOPHEN 5 MG/325 MG TAB PO PRN (14:45)
[2017-03-21] MEDS: ENOXAPARIN SODIUM 40 MG/0.4 ML SYRINGE SQ SCH (14:51)
--- NOTE | 2017-03-21 15:21 | HHI.PR ---
Subjective Subjective Notes Resting in bed Visiting with and family friend Objective Vitals/I&O Vital Signs Date Time Temp Pulse Resp B/P Pulse Ox O2 Delivery O2 Flow Rate FiO2 03/21/17 12:02 165/87 03/21/17 04:00 98.1 88 24 92 03/20/17 19:59 21 03/20/17 19:00 Room Air 03/18/17 22:00 3.00 Labs Laboratory Tests Test 03/21/17 03:02 White Blood Count 17.5 Red Blood Count 3.39 Hemoglobin 10.0 Hematocrit 30.6 Mean Corpuscular Volume 90.3 Mean Corpuscular Hemoglobin 29.5 Mean Corpuscular Hemoglobin 32.7 Concent Red Cell Distribution Width 14.4 Platelet Count 617 Mean Platelet Volume 7.5 Sodium Level 133 Potassium Level 4.2 Chloride Level 97 Carbon Dioxide Level 28.1 Anion Gap 8 Blood Urea Nitrogen 23 Creatinine 0.76 Estimat Glomerular Filtration 101 Rate Random Glucose 155 Calcium Level 8.8 Radiology Last Impressions Chest X-Ray 03/12/17 0000 Signed Impressions: Service Date/Time: Sunday, March 12, 2017 09:41 - CONCLUSION: Mild right lung base atelectasis and/or infiltrate is seen. Robb Estevez MD Chest CT 03/11/17 0000 Signed Impressions: Service Date/Time: Saturday, March 11, 2017 10:40 - CONCLUSION: 1. Lung nodules are nonspecific in regards to metastatic disease. 2. There are lymph nodes within the mediastinum indeterminant, however could be benign. 3. Slight bibasilar atelectasis and/or infiltrate is seen. 4. Cystic lesion in the liver also not adequately characterized possibly a simple cyst. Robb Estevez MD Abdomen X-Ray 03/10/17 0000 Signed Impressions: Service Date/Time: Friday, March 10, 2017 17:22 - CONCLUSION: NG tube should be advanced slightly. Carlos Kelsey MD Abdomen/Pelvis CT 03/09/17 194 Signed Impressions: Service Date/Time: February 20:56 - CONCLUSION: Heterogeneous mass encompassing the region of the pyloric antrum, proximal duodenum and pancreatic head. There does appear to be gastric outlet obstruction without evidence of biliary obstruction which would favor a GI location of origin. Low-density lesion in the liver and bilateral lung base nodules worrisome for metastatic disease. Carlos Kelsey MD Cardiovascular: Regular Lungs: Clear Abdomen: Other (lap sites c/d/i; abdomen soft; mildly tender ) Extremities: No edema A/P Problem List: (1) Gastric outlet obstruction (2) Duodenal cancer (3) S/P bypass gastrojejunostomy (4) Liver masses (5) Anemia (6) Weight loss (7) Thrombocytosis (8) Leukocytosis (9) GERD (gastroesophageal reflux disease) (10) HTN (hypertension) (11) Diabetes Assessment and Plan 72yo male s/p lap GJ bypass -Upper GI negative for leak -Continue clears -Okay to shower from GS standpoint---patient feels like it will make him feel "human" again -OOB and mobilize -Updated at the bedside -AMS overnight Attending Statement The exam, history, and the medical decision-making described in the above note were completed with the assistance of the mid-level provider. I reviewed and agree with the findings presented. I attest that I had a [id number] encounter with the patient on the same day, and personally performed and documented my assessment and findings in the medical record. Abdominal exam stable, tender to palpation without rebound tenderness or peritonitis Problem Qualifiers (1) Anemia: (2) Leukocytosis: Qualified Code: D72.829 - Leukocytosis, unspecified type (3) HTN (hypertension): Qualified Code: I10 - Essential hypertension (4) Diabetes: Qualified Code: E11.8 - Type 2 diabetes mellitus with complication, without long-term current use of insulin Rosario Max Mar 21, 2017 15:21 Romeo King MD April 25, 2017 11:05
[2017-03-21 16:48] VITALS: BP 136/75; RESP 22; TEMP 98.7
[2017-03-21 17:04] LABS: BACTERIA, URINE OCC /hpf; BLOOD, URINE NEG (NEG); COMMENT (UR) CULT NOT INDICATED; CULTURE IF INDICATED CULT NOT INDICATED; GLUCOSE,URINE NEG (NEG); HYALINE CAST, URINE 2 /lpf (RARE); KETONE, URINE 10 mg/dL (NEG); NITRITE,URINE NEG (NEG); PH, URINE 6.5 (5.0-8.5); URINE COLOR YELLOW (YELLW/STRAW)
[2017-03-21 19:15] VITALS: PULSE 88
[2017-03-21 20:00] VITALS: BP 141/86; PULSE 90; RESP 24; TEMP 97.6; O2SAT 93
[2017-03-21] MEDS: FAT EMULSION 20% INJ 250 ML (@10 mls/hr) IV SCH (20:00)
[2017-03-21] MEDS: CLINIMIX E 4.25/5 2000 mL- >42 mls/hr IV SCH ×3 (20:00)
[2017-03-22] VITALS (10 sets, daily range): BP systolic 131–157; BP diastolic 71–91; PULSE 79–93; RESP 18–24; TEMP 96–98.5; O2SAT 93–96
[2017-03-22 04:26] LABS: AUTOMATED NEUTROPHIL # 11.8 TH/MM3 (1.8-7.7); BASOPHIL # 0.1 TH/MM3 (0-0.2); BASOPHIL % 0.9 % (0.0-2.0); EOSINOPHIL # 0.7 TH/MM3 (0-0.4); EOSINOPHIL % 4.8 % (0.0-4.0); HEMATOCRIT 30.7 % (39.0-51.0); LYMPH % 8.8 % (9.0-44.0); LYMPHOCYTE # 1.4 TH/MM3 (1.0-4.8); MEAN CELL VOLUME 88.2 FL (80.0-100.0); MEAN CORPUSCULAR HEMOGLOBIN 29.8 PG (27.0-34.0); MEAN CORPUSCULAR HGB CONC 33.8 % (32.0-36.0); MONO % 9.1 % (0.0-8.0); NEUT % 76.4 % (16.0-70.0); PLATELET COUNT 687 TH/MM3 (150-450); RED BLOOD COUNT 3.48 MIL/MM3 (4.50-5.90); RED CELL DISTRIBUTION WIDTH 14.8 % (11.6-17.2); WHITE BLOOD COUNT 15.4 TH/MM3 (4.0-11.0)
[2017-03-22 04:36] LABS: HEMO FLAGS AUTO DIFF
[2017-03-22 04:52] LABS: ALKALINE PHOSPHATASE 245 U/L (45-117); ALT (GPT) 57 U/L (12-78); ANION GAP 10 MEQ/L (5-15); AST (GOT) 33 U/L (15-37); BLOOD UREA NITROGEN 17 MG/DL (7-18); CHLORIDE 97 MEQ/L (98-107); GLOMERULAR FILTRATION RATE 93 ML/MIN (>89); POTASSIUM 3.9 MEQ/L (3.5-5.1); SODIUM (NA) 134 MEQ/L (136-145); TOTAL BILIRUBIN ADULT 0.5 MG/DL (0.2-1.0)
[2017-03-22 05:11] LABS: SCAN/DIFF AUTO DIFF CONFIRMED
[2017-03-22] MEDS: METOPROLOL TARTRATE 50 MG TAB PO SCH ×3 (05:40→22:54)
[2017-03-22] MEDS: INSULIN ASPART SUPPLEMENTAL SCALE SQ SCH ×4 (05:40→21:00)
--- NOTE | 2017-03-22 07:16 | RADRPT ---
EXAM DATE/TIME: 03/22/2017 06:45 [facility] COMPARISON: CHEST SINGLE AP, March 12, 2017, 9:41. INDICATIONS : Possible respiratory infection. MEDICAL HISTORY : Hypertension. Diabetes mellitus type II. Gastroesophageal reflux disease. SURGICAL HISTORY : Appendectomy. ENCOUNTER: Subsequent ACUITY: 1 week PAIN SCORE: 0/10 LOCATION: Bilateral chest FINDINGS: Portable AP view of the chest demonstrates a normal-sized cardiac silhouette. No effusion, consolidat ion, or pneumothorax is visualized. There is mild atelectasis at the right lung base. The bones and s oft tissues demonstrate no acute abnormality. CONCLUSION: No acute cardiopulmonary abnormality is identified. Carlos Aguilar MD on March 22, 2017 at 7:13 Board Certified Radiologist. This report was verified electronically.
[2017-03-22] MEDS: INSULIN DETEMIR 100 UNITS/ML VIAL SQ SCH ×2 (08:49→22:55)
[2017-03-22] MEDS: AMITRIPTYLINE HCL 75 MG TAB PO SCH (08:49)
[2017-03-22] MEDS: SODIUM CHLORIDE 0.9% FLUSH 10 ML FLUSH IV FLUSH SCH ×2 (08:50→21:00)
--- NOTE | 2017-03-22 12:16 | PD.CARD.PN ---
Subjective Subjective Remarks No events over night Placed back on telemetry, one 5 beat run of PAT, otherwise nothing Much more lucid today, no delusions Objective Medications Current Medications Medications (Trade) Dose Ordered Sig/[place] Route Start Time Stop Time Status Last Admin (Protonix Inj) 40 mg Q24H IV PUSH 03/09/17 23:00 03/21/17 00:01 (NS Flush) 2 ml UNSCH PRN IV FLUSH 03/09/17 22:30 (NS Flush) 2 ml BID IV FLUSH 03/10/17 09:00 03/22/17 08:50 (Tylenol) 650 mg Q4H PRN PO 03/09/17 22:30 03/22/17 02:30 (Zofran Inj) 4 mg Q6H PRN IVP 03/09/17 22:30 03/19/17 22:19 (Dulcolax Supp) 10 mg DAILY PRN RECTAL 03/09/17 22:30 (Milk Of Magnesia Liq) 30 ml Q12H PRN PO 03/09/17 22:30 (D50w (Vial) Inj) 25 ml UNSCH PRN IV PUSH 03/09/17 22:45 (Glucagon Inj) 1 mg UNSCH PRN OTHER 03/09/17 22:45 Amitriptyline HCl 75 mg 75 mg DAILY PO 03/10/17 09:00 03/22/17 08:49 Diltiazem HCl 125 mg/Sodium Chloride 125 ml @ 0 mls/hr TITRATE IV 03/10/17 21:30 Hold Multivitamins 10 ml/Folic Acid 1 mg/Amino Acids/ Electrolytes/ Dextrose 2,010.2 ml @ 80 mls/hr Q24H IV 03/11/17 20:00 03/20/17 20:25 (Liposyn Iii 20% Inj) 250 ml @ 10 mls/hr Q24H IV 03/11/17 20:00 03/20/17 20:25 (Levemir Inj) 5 units Q12HR SQ 03/13/17 21:00 03/22/17 08:49 (Catapres) 0.1 mg Q6H PRN PO 03/17/17 08:30 (Lovenox Inj) 40 mg Q24H SQ 03/19/17 15:00 03/21/17 14:51 (Morphine Inj) 1 mg Q4HR PRN IV PUSH 03/21/17 12:00 (Lopressor) 50 mg Q8HR PO 03/21/17 14:00 03/22/17 05:40 (Percocet 5-325 Mg) 1 tab Q6H PRN PO 03/21/17 14:45 Vital Signs / I&O Vital Signs Date Time Temp Pulse Resp B/P Pulse Ox O2 Delivery O2 Flow Rate FiO2 03/22/17 10:10 79 03/22/17 08:06 98.5 85 20 131/75 95 03/22/17 04:00 98.0 93 24 155/74 94 03/22/17 00:00 86 21 151/76 93 03/21/17 20:00 97.6 90 24 141/86 93 03/21/17 19:15 88 03/21/17 19:00 96 Room Air 03/21/17 16:48 98.7 22 136/75 03/21/17 15:52 Room Air I/O 03/21/17 03/21/17 03/21/17 03/22/17 03/22/17 03/22/17 07:00 15:00 23:00 07:00 15:00 23:00 Intake Total 843 ml 240 ml 240 ml Output Total 800 ml 600 ml Balance 843 ml -560 ml -360 ml Intake Oral 150 ml 240 ml 240 ml TPN/PPN 616 ml 0 ml 0 ml Lipid 77 ml 0 ml 0 ml Output Urine Total 800 ml 175 ml Emesis 425 ml # Voids 2 # Bowel Movements 2 0 0 Physical Exam GENERAL: NAD, AAOx3 SKIN: Warm and dry. HEAD: Atraumatic. Normocephalic. EYES: Pupils equal and round. No scleral icterus. No injection or drainage. ENT: No nasal bleeding or discharge. Mucous membranes pink and moist. NECK: Trachea midline. No JVD. CARDIOVASCULAR: Regular rate and rhythm. RESPIRATORY: No accessory muscle use. Clear to auscultation. Breath sounds equal bilaterally. GASTROINTESTINAL: Abdomen soft, non-tender, nondistended. Incisions clean/dry/ intact MUSCULOSKELETAL: Extremities without clubbing, cyanosis, or edema. No obvious deformities. NEUROLOGICAL: Awake and alert. No obvious cranial nerve deficits. Motor grossly within normal limits. Five out of 5 muscle strength in the arms and legs. Normal speech. PSYCHIATRIC: Appropriate mood and affect; insight and judgment normal. Laboratory Laboratory Tests Test 03/21/17 03/22/17 16:35 03:42 Urine Color YELLOW Urine Turbidity CLEAR Urine pH 6.5 Urine Specific [place] 1.018 Urine Protein TRACE mg/dL Urine Glucose (UA) NEG mg/dL Urine Ketones 10 mg/dL Urine Occult Blood NEG Urine Nitrite NEG Urine Bilirubin NEG Urine Urobilinogen LESS THAN 2.0 MG/DL Urine Leukocyte Esterase NEG Urine RBC LESS THAN 1 /hpf Urine WBC 1 /hpf Urine Bacteria OCC /hpf Urine Hyaline Casts 2 /lpf Microscopic Urinalysis Comment CULT NOT INDICATED White Blood Count 15.4 TH/MM3 Red Blood Count 3.48 MIL/MM3 Hemoglobin 10.4 GM/DL Hematocrit 30.7 % Mean Corpuscular Volume 88.2 FL Mean Corpuscular Hemoglobin 29.8 PG Mean Corpuscular Hemoglobin 33.8 % Concent Red Cell Distribution Width 14.8 % Platelet Count 687 TH/MM3 Mean Platelet Volume 7.1 FL Neutrophils (%) (Auto) 76.4 % Lymphocytes (%) (Auto) 8.8 % Monocytes (%) (Auto) 9.1 % Eosinophils (%) (Auto) 4.8 % Basophils (%) (Auto) 0.9 % Neutrophils # (Auto) 11.8 TH/MM3 Lymphocytes # (Auto) 1.4 TH/MM3 Monocytes # (Auto) 1.4 TH/MM3 Eosinophils # (Auto) 0.7 TH/MM3 Basophils # (Auto) 0.1 TH/MM3 CBC Comment AUTO DIFF Differential Comment AUTO DIFF CONFIRMED Sodium Level 134 MEQ/L Potassium Level 3.9 MEQ/L Chloride Level 97 MEQ/L Carbon Dioxide Level 27.0 MEQ/L Anion Gap 10 MEQ/L Blood Urea Nitrogen 17 MG/DL Creatinine 0.81 MG/DL Estimat Glomerular Filtration 93 ML/MIN Rate Random Glucose 142 MG/DL Calcium Level 8.7 MG/DL Total Bilirubin 0.5 MG/DL Aspartate Amino Transf 33 U/L (AST/SGOT) Alanine Aminotransferase 57 U/L (ALT/SGPT) Alkaline Phosphatase 245 U/L Total Protein 7.0 GM/DL Albumin 2.0 GM/DL Assessment and Plan Problem List: (1) SVT (supraventricular tachycardia) (2) Duodenal cancer (3) Liver masses (4) Diabetes (5) HTN (hypertension) (6) S/P bypass gastrojejunostomy Assessment and Plan 1) SVT, appears to be atrial tachycardia 2) Lopressor to 50mg TID 3) EF 45% 4) Agree with psych assessment still, but much more clear thoughts without delusions Problem Qualifiers (1) Diabetes: Qualified Code: E11.8 - Type 2 diabetes mellitus with complication, without long-term current use of insulin (2) HTN (hypertension): Qualified Code: I10 - Essential hypertension Neo Simons DO Mar 22, 2017 12:16
--- NOTE | 2017-03-22 13:04 | HHI.PR ---
Subjective Remarks patient more interactive and not confused today ff commands- SR on telemetry a x ox 3 coughs when swallowing Objective Vitals Vital Signs Date Time Temp Pulse Resp B/P Pulse Ox O2 Delivery O2 Flow Rate FiO2 03/22/17 12:00 97.8 85 18 148/75 96 03/22/17 10:10 79 03/22/17 08:06 98.5 85 20 131/75 95 03/22/17 04:00 98.0 93 24 155/74 94 03/22/17 00:00 86 21 151/76 93 03/21/17 20:00 97.6 90 24 141/86 93 03/21/17 19:15 88 03/21/17 19:00 96 Room Air 03/21/17 16:48 98.7 22 136/75 03/21/17 15:52 Room Air I/O 03/21/17 03/21/17 03/21/17 03/22/17 03/22/17 03/22/17 07:00 15:00 23:00 07:00 15:00 23:00 Intake Total 843 ml 240 ml 240 ml Output Total 800 ml 600 ml Balance 843 ml -560 ml -360 ml Intake Oral 150 ml 240 ml 240 ml TPN/PPN 616 ml 0 ml 0 ml Lipid 77 ml 0 ml 0 ml Output Urine Total 800 ml 175 ml Emesis 425 ml # Voids 2 # Bowel Movements 2 0 0 Result Diagram: 03/22/17 0342 03/22/17 0342 Imaging Last Impressions Chest X-Ray 03/22/17 0632 Signed Impressions: Service Date/Time: Wednesday, March 22, 2017 06:45 - CONCLUSION: No acute cardiopulmonary abnormality is identified. Carlos Aguilar MD Upper GI and Small Bowel X-Ray 03/20/17 0000 Signed Impressions: Service Date/Time: Monday, March 20, 2017 12:22 - CONCLUSION: 1. Status post gastrojejunostomy with no evidence of leakage or obstruction. 2. Unremarkable appearing small bowel follow-through. 3. Mild esophageal dysmotility. Edwin Silverio MD Head CT 03/18/17 2331 Signed Impressions: Service Date/Time: Saturday, March 18, 2017 23:53 - CONCLUSION: 1. No acute intracranial abnormality. 2. Chronic small vessel ischemic change. Davonte Ansari Jr., MD Liver Biopsy CT 03/14/17 0000 Signed Impressions: Service Date/Time: Tuesday, March 14, 2017 12:11 - CONCLUSION: Uncomplicated CT-guided biopsy of right hepatic lobe mass. Campbell Jensen MD CT Angiography 03/13/17 0000 Signed Impressions: Service Date/Time: Monday, March 13, 2017 12:09 - CONCLUSION: There is no evidence for PE for technique. Robb Estevez MD Abdomen MRI 03/13/17 0000 Signed Impressions: Service Date/Time: Monday, March 13, 2017 12:34 - CONCLUSION: 1. Complex cystic mass within the anterior aspect of the right lobe of the liver measuring 2.7 x 2.0 cm. This lesion does NOT have the typical appearance of a hemangioma. Cystic metastasis or a complex cyst remain in the differential. 2. 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 Upper endoscopy would be helpful for further evaluation and possible biopsy of this lesion if not already performed. 3. Enlarged mesenteric lymph node within the midline measuring 3.1 x 2.3 cm. 4. A tiny complex cystic nodule within the inferior aspect of the right lobe of the liver measuring 11 mm. 5. Multiple bilateral renal cysts. Campbell Jensen MD Chest CT 03/11/17 0000 Signed Impressions: Service Date/Time: Saturday, March 11, 2017 10:40 - CONCLUSION: 1. Lung nodules are nonspecific in regards to metastatic disease. 2. There are lymph nodes within the mediastinum indeterminant, however could be benign. 3. Slight bibasilar atelectasis and/or infiltrate is seen. 4. Cystic lesion in the liver also not adequately characterized possibly a simple cyst. oRbb Estevez MD Consultation 03/10/17 1330 Signed Impressions: Service Date/Time: Friday, March 10, 2017 13:30 - CONCLUSION: 1. Indeterminate mass within the right lobe of the liver. MRI of the abdomen with contrast using hemangioma protocol is suggested before core biopsy of this lesion is attempted. Campbell Jensen MD Abdomen X-Ray 03/10/17 0000 Signed Impressions: Service Date/Time: Friday, March 10, 2017 17:22 - CONCLUSION: NG tube should be advanced slightly. Carlos Kelsey MD Abdomen/Pelvis CT 4/1940 Signed Impressions: Service Date/Time: February 20:56 - CONCLUSION: Heterogeneous mass encompassing the region of the pyloric antrum, proximal duodenum and pancreatic head. There does appear to be gastric outlet obstruction without evidence of biliary obstruction which would favor a GI location of origin. Low-density lesion in the liver and bilateral lung base nodules worrisome for metastatic disease. Carlos Kelsey MD Objective Remarks awake and alert- oriented , not confused anicteric lungs clear regular rhythm abdomen soft, good bowel - incisions dry extremities no edema Procedures EGD with biopsy on 03/10/17 - Duodenal bulb mass, gastritis, gastric polyps. 03/18- gastrojejunostomy A/P Problem List: (1) Gastric mass ICD Code: K31.9 Status: Acute (2) Gastric outlet obstruction ICD Code: K31.1 Status: Acute (3) Weight loss ICD Code: R63.4 Status: Acute (4) Anemia ICD Code: D64.9 Status: Acute (5) Thrombocytosis ICD Code: D47.3 Status: Acute (6) Diabetes ICD Code: E11.9 Status: Chronic (7) HTN (hypertension) ICD Code: I10 Status: Chronic (8) GERD (gastroesophageal reflux disease) ICD Code: K21.9 Status: Chronic (9) Sepsis ICD Code: A41.9 Status: Acute (10) Leukocytosis ICD Code: D72.829 Status: Acute (11) PNA (pneumonia) ICD Code: J18.9 Status: Acute (12) Hypoxemia ICD Code: R09.02 Status: Acute Assessment and Plan Gastric outlet obstruction- with gastric mass S/P palliative gastric bypass surgery S/P gastrojejunostomy 03/18 Gastrojejunostomy performed 03/16/17 No nausea Monitor for emesis tolerating current diet- advance gradually Recovering well from surgery GI, Surgery, Oncology also following consult speech therapy for swallowing eval Anemia, low iron stores ICD Code: D64.9 Assessment & Plan: Stable on labs Follow CBC. 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 Possible metastasis from primary lung cancer Oncology following Leukocytosis ICD Code: D72.829 Assessment & Plan: Improving Follow CBC SVT (supraventricular tachycardia)- resolved- in SR History of Hypertension, CMP EF 45% ICD Code: I47.1 Assessment & Plan: One brief episode possible increase natural stimulants from post op condition or pain Follow on telemetry continue Beta preston , consider adding CLARITA low dose as BP tolerates and titrate gradually (on CLARITA as OP) Cardiology following Acute ICU psychosis- paranoia- relating events from [place] and RAE- number - improved Dilaudid stopped change to po prn pain meds get Psychiatry consult- d/w Dr. Parish- will benefit from med/psych transfer no bed available today- tomorrow possibly- spoke with charge nurse from med/ psych PT daily deconditioning Problem Qualifiers (1) Anemia: (2) Diabetes: Qualified Code: E11.8 - Type 2 diabetes mellitus with complication, without long-term current use of insulin (3) HTN (hypertension): Qualified Code: I10 - Essential hypertension (4) Sepsis: Qualified Code: A41.9 - Sepsis, due to unspecified organism (5) Leukocytosis: Qualified Code: D72.829 - Leukocytosis, unspecified type (6) PNA (pneumonia): Qualified Code: J69.0 - Aspiration pneumonia of both lower lobes due to gastric secretions Amparo Bloom MD Mar 22, 2017 13:04
[2017-03-22] MEDS ORDERED: PILL SPLITTER OTHER PRN (14:00)
--- NOTE | 2017-03-22 14:13 | PD.CONS ---
Provisional Diagnosis Admission Date Mar 09, 2017 at 22:14 Clif[place] I. Unspecified psychosis, rule out acute PTSD, rule out major depressive disorder with psychotic features, rule out delirium due to underlying medical condition Clifton II. Deferred Clifton III. Gastric outlet obstruction- with gastric mass, Anemia, Liver masses, Leukocytosis, SVT Clifton IV. Multiple medical conditions Clifton V. 45 History of Present Illness Service Psychiatry Consult Requested By Primary Care Physician Unknown HPI The patient is a 72 years old man, domicile in [place] with his , he comes to [facility] for vacations, retired, with psychiatric history of depression, he is on amitriptyline 75 mg, no previous psychiatric hospitalizations, no previous suicidal attempts, hospitalized due to Gastric outlet obstruction- with gastric mass S/P palliative gastric bypass surgery S/P gastrojejunostomy 03/18, Gastrojejunostomy performed 03/16/17, Anemia , Liver masses, Leukocytosis, SVT, consulted to psychiatry due to Acute ICU psychosis- paranoia- relating events from [place] and RAE. On psychiatric evaluation today patient is found in his bed, he is calm, cooperative but guarded. Patient seems to be distant, with visible neurovegetative symptoms of depression, psychomotor retardation, hypoactivity, poor appetite, melancholia, poor sleep at night. 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 He says that he feels very guilty because many of his friend in front of his eyes, and because many orphans after be bombarded by the [employer]. He says that after he came from [place] he donated money every month to the orphans there. So far he has been able to cope with the trauma that he received in the war, but in the last weeks, he says, he has been able to stop thinking about it. Patient says that he feels extremely depressed, "however, I know that my and my family are going to help me, I also know that [facility]". He denies suicidal or homicidal ideation, he denies visual and auditory hallucinations. Patient is oriented 3, no attention deficit, no fluctuation of consciousness, no gross cognitive impairment is observed. Patient denies the use of alcohol and illicit drugs. Collateral information from his Nakita James was obtained. She says that the patient never had any significant psychiatric history. She says that all of a sudden about a week ago patient develop "this preoccupation about what happened in [place] to him". She says that if he had any trauma during the [place] War he has been suppressing very good so far, because she hasn't noticed symptoms like this in the patient before. In the last days he has fixed about feeling guilty and talking about [place]. He has been tearful, also feeling very guilty. The nurse in charge, who had him yesterday and today , says that the patient yesterday was giving agitated thinking that people around him were people from [place] and he was thinking that the [facility] was following him. She says that today he is doing much better. Review of Systems Constitutional: DENIES: Diaphoretic episodes, Fatigue, Fever, Weight gain, Weight loss, Chills, Dizziness, Change in appetite, Night Sweats Endocrine: DENIES: Heat/cold intolerance, Polydipsia, Polyuria, Polyphagia Eyes: DENIES: Blurred vision, Diplopia, Eye inflammation, Eye pain, Vision loss , Photosensitivity, Double Vision Ears, nose, mouth, throat: DENIES: Tinnitus, Hearing loss, Vertigo, Nasal discharge, Oral lesions, Throat pain, Hoarseness, Ear Pain, Running Nose, Epistaxis, Sinus Pain, Toothache, Odynophagia Respiratory: DENIES: Apneas, Cough, Snoring, Wheezing, Hemoptysis, Sputum production, Shortness of breath Cardiovascular: DENIES: Chest pain, Palpitations, Syncope, Dyspnea on Exertion , PND, Lower Extremity Edema, Orthopnea, Claudication Gastrointestinal: DENIES: Abdominal pain, Black stools, Bloody stools, Constipation, Diarrhea, Nausea, Vomiting, Difficulty Swallowing, Anorexia Genitourinary: DENIES: Sexual dysfunction, Urinary frequency, Urinary incontinence, Urgency, Hematuria, Dysuria, Nocturia, Penile Discharge, Testicular Pain, Testicular Swelling Hematologic/lymphatic: DENIES: Bruising, Lymphadenopathy Immunologic/allergic: DENIES: Eczema, Urticaria Psychiatric: COMPLAINS OF: Depression, DENIES: Anxiety, Confusion, Mood changes, Hallucinations, Agitation, Suicidal Ideation, Homicidal Ideation, Delusions Past Family Social History Coded Allergies: No Known Allergies (Unverified , 03/09/17) Reported Medications Amlodipine 10 Mg Tab10 Mg PO DAILY #30 TAB Ref 0 03/09/17 Nabumetone 500 Mg Svv643 Mg PO DAILY #60 TAB Ref 0 03/09/17 Lovastatin 40 Mg Tab40 Mg PO DAILY #30 TAB Ref 0 03/09/17 Omeprazole 20 Mg Tab20 Mg PO DAILY #30 TAB Ref 0 03/09/17 Lisinopril 5 Mg Tab5 Mg PO BID #30 TAB Ref 0 03/09/17 Amitriptyline 75 Mg Tab75 Mg PO DAILY #30 TAB Ref 0 03/09/17 Metformin 1,000 Mg Tab1,000 Mg PO BIDPC #60 TAB Ref 0 With meals 03/09/17 Glipizide 5 Mg Tab5 Mg PO BIDAC #60 TAB Ref 0 Take 30 minutes before a meal 03/09/17 Current Medications Medications (Trade) Dose Ordered Sig/Burton Route Start Time Stop Time Status Last Admin (Protonix Inj) 40 mg Q24H IV PUSH 03/09/17 23:00 03/21/17 00:01 (NS Flush) 2 ml UNSCH PRN IV FLUSH 03/09/17 22:30 (NS Flush) 2 ml BID IV FLUSH 03/10/17 09:00 03/22/17 08:50 (Tylenol) 650 mg Q4H PRN PO 03/09/17 22:30 03/22/17 02:30 (Zofran Inj) 4 mg Q6H PRN IVP 03/09/17 22:30 03/19/17 22:19 (Dulcolax Supp) 10 mg DAILY PRN RECTAL 03/09/17 22:30 (Milk Of Magnesia Liq) 30 ml Q12H PRN PO 03/09/17 22:30 (D50w (Vial) Inj) 25 ml UNSCH PRN IV PUSH 03/09/17 22:45 Glucagon 1 mg 1 mg UNSCH PRN OTHER 03/09/17 22:45 Diltiazem HCl 125 mg/Sodium Chloride 125 ml @ 0 mls/hr TITRATE IV 03/10/17 21:30 Hold Multivitamins 10 ml/Folic Acid 1 mg/Amino Acids/ Electrolytes/ Dextrose 2,010.2 ml @ 80 mls/hr Q24H IV 03/11/17 20:00 03/20/17 20:25 (Liposyn Iii 20% Inj) 250 ml @ 10 mls/hr Q24H IV 03/11/17 20:00 03/20/17 20:25 (Levemir Inj) 5 units Q12HR SQ 03/13/17 21:00 03/22/17 08:49 (Catapres) 0.1 mg Q6H PRN PO 03/17/17 08:30 (Lovenox Inj) 40 mg Q24H SQ 03/19/17 15:00 03/21/17 14:51 (Morphine Inj) 1 mg Q4HR PRN IV PUSH 03/21/17 12:00 (Lopressor) 50 mg Q8HR PO 03/21/17 14:00 03/22/17 05:40 (Percocet 5-325 Mg) 1 tab Q6H PRN PO 03/21/17 14:45 (Elavil) 50 mg DAILY PO 03/23/17 09:00 (Zoloft) 25 mg DAILY PO 03/22/17 13:45 (SEROquel) 25 mg HS PO 03/22/17 21:00 Family History He denies Social History Patient was born and raised in [place], he has been living between [place] and [facility] in the last 5 years, he is , has 2 kids, he is a retired constructor, highest level of education is high school Patient's Strengths (min. 2) Family support Physical Exam Patient has marked psychomotor retardation, but no EPS, no tremors, no gait abnormality, Vital Signs Vital Signs Date Time Temp Pulse Resp B/P Pulse Ox O2 Delivery O2 Flow Rate FiO2 03/22/17 12:00 97.8 85 18 148/75 96 03/21/17 19:00 Room Air 03/20/17 19:59 21 03/18/17 22:00 3.00 I/O 03/21/17 03/21/17 03/22/17 08:00 16:00 00:00 Intake Total 843 ml 240 ml Output Total 600 ml 200 ml Balance 843 ml -600 ml 40 ml Lab Results QTc interval is 408 WBC 15.4, Hgb 3.4, HCT 30.7, NA 134, K3.9, BUN 17, creatinine 0.8, AST 33, ALT 57 Mental Status Examination Appearance man, [facility], good hygiene, hypoactive, with marked psychomotor retardation, slow, superficially, Speech: Hesitant, Slow Orientation: x3 Memory: Unremarkable Thought Process: Logical, Goal Directed, Linear Thought Content: Paranoid, Obsessions Hallucination Type: None Attention and Concentration: Good Suicidal Ideation: No Previous Suicide Attempts: No Homicidal Ideation: No Previous Homicide Attempts: No Insight: Fair Judgment: Poor Affect: Sad Mood: Sad Motor Activity: Normal gait Assessment & Plan Problem List: (1) Unspecified psychosis Assessment & Plan: On psychiatric evaluation patient reports about week with sudden onset of preoccupations about traumatic experiences in [place], extremely guiltiness, depressed mood, frequent crying spells, obsessive thoughts about not being done the right things, paranoia of been followed and monitored by [place], periodic agitation and disorganized behavior. As per patient and this is the first time patient experienced this symptomatology. He denies suicidal and homicidal ideation, he denies visual and auditory hallucination at this moment. At the moment of this evaluation patient is fully oriented 3, without any attention deficit, no fluctuation of consciousness, no gross cognitive impairment observed. He denies hypervigilance , he denies nightmares, he denies avoidance. Current symptoms could be related with delirium related with underlying medical conditions, but the persistency and continuity of depression and preoccupation seems to be more secondary to a major psychiatric illness, most probably depression or PTSD. More longitudinal observation will be important in order to define the real source of current symptoms. However, patient would benefit of antidepressants and medication to help with anxiety and insomnia. We will taper down amitriptyline to 50 mg daily , will start Zoloft 25 mg for depressive symptoms, we will start Seroquel 25 mg at bedtime to help with depression and insomnia. Patient might benefit of being transferred to the med psych unit to continue medical care and also for close monitoring of neuropsychiatric symptoms. This possibility was discussed with Dr. Bloom. Extensive psychoeducation, supportive provided to patient and family members. We'll continue follow-up. ICD Code: F29 Assessment & Plan Estimated LOS: Ronni Chawla MD Mar 22, 2017 14:13
[2017-03-22] MEDS ORDERED: Amitriptyline PO (14:47)
[2017-03-22] MEDS ORDERED: METO-309 PO (14:47)
[2017-03-22] MEDS ORDERED: OXYC1TAB63 PO (14:47)
[2017-03-22] MEDS ORDERED: LEVEMIR SQ (14:47)
[2017-03-22] MEDS ORDERED: ZOLO50TA PO (14:47)
[2017-03-22] MEDS ORDERED: QUET1TAB7 PO (14:47)
--- NOTE | 2017-03-22 14:48 | HHI.DS ---
Discharge Summary Admission Date Mar 09, 2017 at 22:14 Discharge Date: Mar 22, 2017 Admitting Diagnosis gastric mass, gastric outlet obstruction (1) Gastric mass ICD Code: K31.9 Diagnosis: Principal (2) Gastric outlet obstruction ICD Code: K31.1 Diagnosis: Principal (3) Anemia ICD Code: D64.9 Diagnosis: Secondary (4) Thrombocytosis ICD Code: D47.3 Diagnosis: Secondary (5) Diabetes ICD Code: E11.9 Diagnosis: Secondary (6) HTN (hypertension) ICD Code: I10 Diagnosis: Secondary (7) GERD (gastroesophageal reflux disease) ICD Code: K21.9 Diagnosis: Secondary (8) Sepsis ICD Code: A41.9 Diagnosis: Secondary (9) Leukocytosis ICD Code: D72.829 Diagnosis: Secondary (10) PNA (pneumonia) ICD Code: J18.9 Diagnosis: Secondary (11) Hypoxemia ICD Code: R09.02 Diagnosis: Secondary Procedures EGD with biopsy on 03/10/17 - Duodenal bulb mass, gastritis, gastric polyps. 03/18- gastrojejunostomy Brief History - From Admission This is a 72-year-old male who presents to the emergency room complaining of right upper quadrant abdominal pain which started about a week ago. Pain has been intermittent triggered by eating but was worse yesterday associated with nausea, abdominal bloating/distention, heartburn and belching. He also reports of anorexia and weight loss of 30 pounds in the past 45 days. No BM for several days. Underwent EGD which showed nearly obstructing friable mass in the duodenal bulb. Discussed with general surgery, NGT will be placed for decompression and we'll schedule patient for CT-guided biopsy of the liver mass. The patient also needs to be transferred to the main hospital as he will need bypass surgery CBC/BMP: 03/22/17 0342 03/22/17 0342 Significant Findings Laboratory Tests Test 03/20/17 03/21/17 03/21/17 03/22/17 03:06 03:02 16:35 03:42 White Blood Count 17.2 TH/MM3 17.5 TH/MM3 15.4 TH/MM3 (4.0-11.0) (4.0-11.0) (4.0-11.0) Red Blood Count 3.50 MIL/MM3 3.39 MIL/MM3 3.48 MIL/MM3 (4.50-5.90) (4.50-5.90) (4.50-5.90) Hemoglobin 10.4 GM/DL 10.0 GM/DL 10.4 GM/DL (13.0-17.0) (13.0-17.0) (13.0-17.0) Hematocrit 31.4 % 30.6 % 30.7 % (39.0-51.0) (39.0-51.0) (39.0-51.0) Platelet Count 584 TH/MM3 617 TH/MM3 687 TH/MM3 (150-450) (150-450) (150-450) Neutrophils (%) (Auto) 74.8 % 76.4 % (16.0-70.0) (16.0-70.0) Lymphocytes (%) (Auto) 8.8 % 8.8 % (9.0-44.0) (9.0-44.0) Monocytes (%) (Auto) 10.6 % 9.1 % (0.0-8.0) (0.0-8.0) Eosinophils (%) (Auto) 5.1 % (0.0-4.0) 4.8 % (0.0-4.0) Neutrophils # (Auto) 12.9 TH/MM3 11.8 TH/MM3 (1.8-7.7) (1.8-7.7) Monocytes # (Auto) 1.8 TH/MM3 1.4 TH/MM3 (0-0.9) (0-0.9) Eosinophils # (Auto) 0.9 TH/MM3 0.7 TH/MM3 (0-0.4) (0-0.4) Sodium Level 134 MEQ/L 133 MEQ/L 134 MEQ/L (136-145) (136-145) (136-145) Chloride Level 97 MEQ/L 97 MEQ/L 97 MEQ/L (98-107) (98-107) (98-107) Blood Urea Nitrogen 19 MG/DL (7-18) 23 MG/DL (7-18) Random Glucose 194 MG/DL 155 MG/DL 142 MG/DL (74-106) (74-106) (74-106) Alkaline Phosphatase 192 U/L 245 U/L (45-117) (45-117) Albumin 2.1 GM/DL 2.0 GM/DL (3.4-5.0) (3.4-5.0) Urine Ketones 10 mg/dL (NEG) Urine Bacteria OCC /hpf (NONE) PE at Discharge awake and alert- oriented , not confused anicteric lungs clear regular rhythm abdomen soft, good bowel - incisions dry extremities no edema Pt update on day of discharge awake and alert, tolerating po acute psychoses- but calmer with medications- relating events from [place] war- to be transferred to psychiatry floor Hospital Course Gastric outlet obstruction- with gastric mass S/P palliative gastric bypass surgery S/P gastrojejunostomy 03/18 Gastrojejunostomy performed 03/16/17 tolerating current regular diet- Recovering well from surgery GI, Surgery, Oncology following Anemia- low Iron stores ICD Code: D64.9 Assessment & Plan: S/P IV 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 restart Lisinopril at 2.5 mg po daily Cardiology following - ASA ? will clear too with Dr. Rios Acute ICU psychosis- paranoia- relating events from [place] and RAE- number - improved but still with allusions regarding [place] era off Dilaudid . po prn pain meds. On Seroquel- appreciate Dr. Parish recommendations- transfer to [facility] psychiatry floor [facility] will continue to ff him there PT daily deconditioning Pt Condition on Discharge: Stable Discharge Disposition: Disc to Psych Care Fac Discharge Time: <= 30 minutes Discharge Instructions DIET: Follow Instructions for: Heart Healthy Diet Speech Therapy-Diet Recommends: Regular Activities you can perform: Weight Bearing as Wade Follow up Referrals: PCP Follow-up - Next Day with hepas New Medications: Insulin Detemir Inj (Levemir Inj) 1,000 unit/ 10 ML Vial 5 UNITS SQ Q12HR dm Days 30 INJECTION Metoprolol Tartrate (Lopressor) 50 Mg Tab 50 MG PO Q8HR htn Days 30 TAB Oxycodone-Acetaminophen (Oxycodone-Acetaminophen) 5-325 mg Tab 1 TAB PO Q6H PRN BREAKTHROUGH PAIN Days 7 TAB Quetiapine (Quetiapine) 25 Mg Tab 25 MG PO HS PSYCH Days 30 TAB Sertraline (Zoloft) 50 Mg Tab 25 MG PO DAILY PSYCH Days 30 TAB ([Amitriptyline]) 50 MG TAB 50 MG PO DAILY PSYCH #30 TAB Amparo Bloom MD Mar 22, 2017 14:48
--- NOTE | 2017-03-22 15:06 | HHI.PR ---
Subjective Subjective Notes DAILY PROGRESS NOTE FOR SURGICAL ATTENDING, DR. TARAS DE LA PAZ Resting in bed and son at bedside Objective Vitals/I&O Vital Signs Date Time Temp Pulse Resp B/P Pulse Ox O2 Delivery O2 Flow Rate FiO2 03/22/17 12:00 97.8 85 18 148/75 96 03/21/17 19:00 Room Air 03/20/17 19:59 21 03/18/17 22:00 3.00 Labs Laboratory Tests Test 03/21/17 03/22/17 16:35 03:42 Urine Color YELLOW Urine Turbidity CLEAR Urine pH 6.5 Urine Specific Spencer 1.018 Urine Protein TRACE Urine Glucose (UA) NEG Urine Ketones 10 Urine Occult Blood NEG Urine Nitrite NEG Urine Bilirubin NEG Urine Urobilinogen LESS THAN 2.0 Urine Leukocyte Esterase NEG Urine RBC LESS THAN 1 Urine WBC 1 Urine Bacteria OCC Urine Hyaline Casts 2 Microscopic Urinalysis Comment CULT NOT INDICATED White Blood Count 15.4 Red Blood Count 3.48 Hemoglobin 10.4 Hematocrit 30.7 Mean Corpuscular Volume 88.2 Mean Corpuscular Hemoglobin 29.8 Mean Corpuscular Hemoglobin 33.8 Concent Red Cell Distribution Width 14.8 Platelet Count 687 Mean Platelet Volume 7.1 Neutrophils (%) (Auto) 76.4 Lymphocytes (%) (Auto) 8.8 Monocytes (%) (Auto) 9.1 Eosinophils (%) (Auto) 4.8 Basophils (%) (Auto) 0.9 Neutrophils # (Auto) 11.8 Lymphocytes # (Auto) 1.4 Monocytes # (Auto) 1.4 Eosinophils # (Auto) 0.7 Basophils # (Auto) 0.1 CBC Comment AUTO DIFF Differential Comment AUTO DIFF CONFIRMED Sodium Level 134 Potassium Level 3.9 Chloride Level 97 Carbon Dioxide Level 27.0 Anion Gap 10 Blood Urea Nitrogen 17 Creatinine 0.81 Estimat Glomerular Filtration 93 Rate Random Glucose 142 Calcium Level 8.7 Total Bilirubin 0.5 Aspartate Amino Transf 33 (AST/SGOT) Alanine Aminotransferase 57 (ALT/SGPT) Alkaline Phosphatase 245 Total Protein 7.0 Albumin 2.0 Radiology Last Impressions Chest X-Ray 03/22/17 0632 Signed Impressions: Service Date/Time: Wednesday, March 22, 2017 06:45 - CONCLUSION: No acute cardiopulmonary abnormality is identified. Carlos Aguilar MD Upper GI and Small Bowel X-Ray 03/20/17 0000 Signed Impressions: Service Date/Time: Monday, March 20, 2017 12:22 - CONCLUSION: 1. Status post gastrojejunostomy with no evidence of leakage or obstruction. 2. Unremarkable appearing small bowel follow-through. 3. Mild esophageal dysmotility. Edwin Silverio MD Head CT 03/18/17 2331 Signed Impressions: Service Date/Time: Saturday, March 18, 2017 23:53 - CONCLUSION: 1. No acute intracranial abnormality. 2. Chronic small vessel ischemic change. Davonte Ansari Jr., MD Liver Biopsy CT 03/14/17 0000 Signed Impressions: Service Date/Time: Tuesday, March 14, 2017 12:11 - CONCLUSION: Uncomplicated CT-guided biopsy of right hepatic lobe mass. Campbell Jensen MD CT Angiography 03/13/17 0000 Signed Impressions: Service Date/Time: Monday, March 13, 2017 12:09 - CONCLUSION: There is no evidence for PE for technique. K. Saji Estevez MD Abdomen MRI 03/13/17 0000 Signed Impressions: Service Date/Time: Monday, March 13, 2017 12:34 - CONCLUSION: 1. Complex cystic mass within the anterior aspect of the right lobe of the liver measuring 2.7 x 2.0 cm. This lesion does NOT have the typical appearance of a hemangioma. Cystic metastasis or a complex cyst remain in the differential. 2. 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 Upper endoscopy would be helpful for further evaluation and possible biopsy of this lesion if not already performed. 3. Enlarged mesenteric lymph node within the midline measuring 3.1 x 2.3 cm. 4. A tiny complex cystic nodule within the inferior aspect of the right lobe of the liver measuring 11 mm. 5. Multiple bilateral renal cysts. Campbell Jensen MD Chest CT 03/11/17 0000 Signed Impressions: Service Date/Time: Saturday, March 11, 2017 10:40 - CONCLUSION: 1. Lung nodules are nonspecific in regards to metastatic disease. 2. There are lymph nodes within the mediastinum indeterminant, however could be benign. 3. Slight bibasilar atelectasis and/or infiltrate is seen. 4. Cystic lesion in the liver also not adequately characterized possibly a simple cyst. Robb Estevez MD Consultation 03/10/17 1330 Signed Impressions: Service Date/Time: Friday, March 10, 2017 13:30 - CONCLUSION: 1. Indeterminate mass within the right lobe of the liver. MRI of the abdomen with contrast using hemangioma protocol is suggested before core biopsy of this lesion is attempted. Campbell Jensen MD Abdomen X-Ray 03/10/17 0000 Signed Impressions: Service Date/Time: Friday, March 10, 2017 17:22 - CONCLUSION: NG tube should be advanced slightly. Carlos Kelsey MD Abdomen/Pelvis CT 03/09/17 194 Signed Impressions: Service Date/Time: February 20:56 - CONCLUSION: Heterogeneous mass encompassing the region of the pyloric antrum, proximal duodenum and pancreatic head. There does appear to be gastric outlet obstruction without evidence of biliary obstruction which would favor a GI location of origin. Low-density lesion in the liver and bilateral lung base nodules worrisome for metastatic disease. Carlos Kelsey MD Cardiovascular: Regular Lungs: Clear Abdomen: Other (lap sites c/d/i; abodmen soft ) Extremities: No edema A/P Problem List: (1) Gastric outlet obstruction (2) Duodenal cancer (3) S/P bypass gastrojejunostomy (4) Liver masses (5) Anemia (6) Weight loss (7) Thrombocytosis (8) Leukocytosis (9) GERD (gastroesophageal reflux disease) (10) HTN (hypertension) (11) Diabetes Assessment and Plan 72yo male s/p lap GJ bypass -Upper GI negative for leak -Advance to soft diet -Okay to shower from GS standpoint -OOB and mobilize -Updated and son at the bedside -Continues to have some AMS at night ---psych following Attending Statement NOTE FOR SURGICAL ATTENDING, DR. TARAS DE LA PAZ Discussed with at bedside Patient would like more to eat and would like to eat a chocolate chip cookie I agree with above assessment and plan. The exam, history, and the medical decision-making described in the above note were completed with the assistance of the mid-level provider. I reviewed and agree with the findings presented. I attest that I had a [id number] encounter with the patient on the same day, and personally performed and documented my assessment and findings in the medical record. The following services were provided during this hospital visit: Chart data review, vital sign assessments/reviewing monitor data Review of consultations notes if present. Medication orders/review and/or management Ordering and/or reviewing lab tests Ordering and/or interpreting/reviewing x-rays and/or diagnostic studies Care of the patient and discussion of the patient with the care team Documentation time To help prompt me to consider important information that might be impacting today's encounter and assessment, information from prior notes written by myself or my colleagues may have been "brought forward/copy and pasted" into today's note. Problem Qualifiers (1) Anemia: (2) Leukocytosis: Qualified Code: D72.829 - Leukocytosis, unspecified type (3) HTN (hypertension): Qualified Code: I10 - Essential hypertension (4) Diabetes: Qualified Code: E11.8 - Type 2 diabetes mellitus with complication, without long-term current use of insulin Rosario Max Mar 22, 2017 15:06 Taras De La Paz MD Mar 22, 2017 15:43
--- NOTE | 2017-03-22 15:57 | PD.ONC.PN ---
Subjective Subjective Remarks Afebrile overnight Seems more lucid today Pt's and son seen at bedside. Asking "What type of cancer?" Pain controlled. Objective Data Date Time Temp Pulse Resp B/P Pulse Ox O2 Delivery O2 Flow Rate FiO2 03/22/17 12:00 97.8 85 18 148/75 96 03/22/17 10:10 79 03/22/17 08:06 98.5 85 20 131/75 95 03/22/17 04:00 98.0 93 24 155/74 94 03/22/17 00:00 86 21 151/76 93 03/21/17 20:00 97.6 90 24 141/86 93 03/21/17 19:15 88 03/21/17 19:00 96 Room Air 03/21/17 16:48 98.7 22 136/75 03/21/17 15:52 Room Air 03/22/17 03/22/17 03/22/17 07:00 15:00 23:00 Intake Total 240 ml Output Total 600 ml 600 ml Balance -360 ml -600 ml Result Diagram: 03/22/17 0342 03/22/17 0342 Laboratory Results Laboratory Tests Test 03/21/17 03/22/17 16:35 03:42 Urine Color YELLOW Urine Turbidity CLEAR Urine pH 6.5 Urine Specific [place] 1.018 Urine Protein TRACE mg/dL Urine Glucose (UA) NEG mg/dL Urine Ketones 10 mg/dL Urine Occult Blood NEG Urine Nitrite NEG Urine Bilirubin NEG Urine Urobilinogen LESS THAN 2.0 MG/DL Urine Leukocyte Esterase NEG Urine RBC LESS THAN 1 /hpf Urine WBC 1 /hpf Urine Bacteria OCC /hpf Urine Hyaline Casts 2 /lpf Microscopic Urinalysis Comment CULT NOT INDICATED White Blood Count 15.4 TH/MM3 Red Blood Count 3.48 MIL/MM3 Hemoglobin 10.4 GM/DL Hematocrit 30.7 % Mean Corpuscular Volume 88.2 FL Mean Corpuscular Hemoglobin 29.8 PG Mean Corpuscular Hemoglobin 33.8 % Concent Red Cell Distribution Width 14.8 % Platelet Count 687 TH/MM3 Mean Platelet Volume 7.1 FL Neutrophils (%) (Auto) 76.4 % Lymphocytes (%) (Auto) 8.8 % Monocytes (%) (Auto) 9.1 % Eosinophils (%) (Auto) 4.8 % Basophils (%) (Auto) 0.9 % Neutrophils # (Auto) 11.8 TH/MM3 Lymphocytes # (Auto) 1.4 TH/MM3 Monocytes # (Auto) 1.4 TH/MM3 Eosinophils # (Auto) 0.7 TH/MM3 Basophils # (Auto) 0.1 TH/MM3 CBC Comment AUTO DIFF Differential Comment AUTO DIFF CONFIRMED Sodium Level 134 MEQ/L Potassium Level 3.9 MEQ/L Chloride Level 97 MEQ/L Carbon Dioxide Level 27.0 MEQ/L Anion Gap 10 MEQ/L Blood Urea Nitrogen 17 MG/DL Creatinine 0.81 MG/DL Estimat Glomerular Filtration 93 ML/MIN Rate Random Glucose 142 MG/DL Calcium Level 8.7 MG/DL Total Bilirubin 0.5 MG/DL Aspartate Amino Transf 33 U/L (AST/SGOT) Alanine Aminotransferase 57 U/L (ALT/SGPT) Alkaline Phosphatase 245 U/L Total Protein 7.0 GM/DL Albumin 2.0 GM/DL Imaging Studies Last 24 hours Impressions Chest X-Ray 03/22/17 0632 Signed Impressions: Service Date/Time: Wednesday, March 22, 2017 06:45 - CONCLUSION: No acute cardiopulmonary abnormality is identified. Carlos Aguilar MD Administered Medications Medications (Trade) Dose Ordered Sig/Burton Route PRN Reason Start Time Stop Time Status Last Admin Dose Admin Pantoprazole Sodium (Protonix Inj) 40 mg Q24H IV PUSH 03/09/17 23:00 03/21/17 00:01 Sodium Chloride (NS Flush) 2 ml BID IV FLUSH 03/10/17 09:00 03/22/17 08:50 Acetaminophen (Tylenol) 650 mg Q4H PRN PO TEMP > 100.4 03/09/17 22:30 03/22/17 02:30 Ondansetron HCl 4 mg 4 mg Q6H PRN IVP NAUSEA OR VOMITING 03/09/17 22:30 03/19/17 22:19 Multivitamins 10 ml/Folic Acid 1 mg/Amino Acids/ Electrolytes/ Dextrose 2,010.2 ml @ 80 mls/hr Q24H IV 03/11/17 20:00 03/20/17 20:25 Fat Emulsion Intravenous (Liposyn Iii 20% Inj) 250 ml @ 10 mls/hr Q24H IV 03/11/17 20:00 03/20/17 20:25 Insulin Detemir (Levemir Inj) 5 units Q12HR SQ 03/13/17 21:00 03/22/17 08:49 Enoxaparin Sodium (Lovenox Inj) 40 mg Q24H SQ 03/19/17 15:00 03/21/17 14:51 Metoprolol Tartrate (Lopressor) 50 mg Q8HR PO 03/21/17 14:00 03/22/17 14:25 Objective Remarks GENERAL: Elderly male lying in bed in nad with family present. SKIN: Warm and dry. Incisions from biopsy well approximated. HEAD: Normocephalic. EYES: No injection or drainage. NECK: Supple, trachea midline. CARDIOVASCULAR: Regular rate and rhythm. RESPIRATORY: Breath sounds equal bilaterally. No accessory muscle use. GASTROINTESTINAL: Abdomen soft, non-tender, nondistended. EXTREMITIES: No cyanosis. No edema. NEUROLOGICAL: Awake and alert. Moving all extremities. Assessment/Plan Problem List: (1) Gastric mass Status: Acute Plan: --CT liver biopsy done, pathology shows non-small cell cancer--awaiting stains to help determine primary site --CT chest shows multiple lung nodules --CA 19-9 WNL --will need a PET/CT scan outpatient. --fs faxed to new patient referrals (2) Altered mental status Status: Acute Plan: --CT brain on 03/19 WNL --likely ICU delirium --expose patient to light during day --try to impose normal date/night cycles --afebrile, unlikely d/t infection, will check U/A --psych consulted --may need to reduce dose of Elavil (3) Anemia Status: Acute Plan: --Keep hemoglobin greater than 8 --iron studies show low iron. iv venofer 200mg x 3 given --B12/folate WNL (4) SVT (supraventricular tachycardia) Status: Acute Plan: --cardiology following --on Lopressor Assessment 72y/o male with gastric outlet obstruction secondary to a mass in the pylorus / proximal duodenum and pancreatic head. h/o Osteoarthritis. Depression. Hyperlipidemia. Diabetes. Hearing loss. Gastroesophageal reflux disease (GERD). Hypertension. HPI: presented to the emergency department with right sided abdominal pain, nausea and anorexia +20 pounds of weight loss. CT ab/pelvis showed a heterogeneous conglomerate 80cm mass in the pyloric antrum, proximal duodenum and pancreatic head region causing the gastric outlet obstruction with pronounced dilation of the stomach.+ 2.4 cm low density mass in liver. s/p EGD with biopsy. Plan 1. Diet advanced to soft, regular. 2. He will transfer to medical psychiatry floor when a bed opens 3. Discussed with family about type of cancer. Discussed need for outpatient PET /CT. Unfortunately further staining was unable to identify primary. 4. Supportive care. Attending Statement The exam, history, and the medical decision-making described in the above note were completed with the assistance of the mid-level provider. I reviewed and agree with the findings presented. I attest that I had a [id number] encounter with the patient on the same day, and personally performed and documented my assessment and findings in the medical record Problem Qualifiers (1) Anemia: Aaliyah Rodriguez Mar 22, 2017 15:57 Reji Rios MD Mar 22, 2017 22:38
[2017-03-22] MEDS: ENOXAPARIN SODIUM 40 MG/0.4 ML SYRINGE SQ SCH (16:11)
[2017-03-22] MEDS: SERTRALINE HCL 50 MG TAB PO SCH (16:39)
[2017-03-22] MEDS: CLINIMIX E 4.25/5 2000 mL- >42 mls/hr IV SCH ×3 (20:00)
[2017-03-22] MEDS ORDERED: QUEtiapine FUMARATE 25 MG TAB PO SCH (21:00)
[2017-03-22] MEDS: PANTOPRAZOLE SODIUM 40 MG VIAL IV PUSH SCH (22:55)
[2017-03-23] VITALS: BP 139/76; PULSE 88; RESP 16; TEMP 96.4; O2SAT 94
[2017-03-23 04:00] VITALS: BP 121/62; PULSE 79; RESP 16; TEMP 97.5; O2SAT 96
[2017-03-23] MEDS: FAT EMULSION 20% INJ 250 ML (@10 mls/hr) IV SCH (04:43)
[2017-03-23] MEDS: METOPROLOL TARTRATE 50 MG TAB PO SCH (06:00)
[2017-03-23] MEDS: INSULIN ASPART SUPPLEMENTAL SCALE SQ SCH ×2 (06:00→11:00)
[2017-03-23 07:15] VITALS: PULSE 74
[2017-03-23 07:20] VITALS: BP 134/71; PULSE 82; RESP 20; TEMP 97.3; O2SAT 94
[2017-03-23] MEDS: INSULIN DETEMIR 100 UNITS/ML VIAL SQ SCH (07:39)
[2017-03-23] MEDS: SERTRALINE HCL 50 MG TAB PO SCH (07:40)
[2017-03-23] MEDS: SODIUM CHLORIDE 0.9% FLUSH 10 ML FLUSH IV FLUSH SCH (07:40)
--- NOTE | 2017-03-23 08:43 | HHI.PR ---
Subjective Remarks feeling much better, calmer, overnight- spoke with night nurse- slept very well this am- pleasant affect appropriate but still have allusions about the [place] war era- state veterans are not being treated well- which I agreed to tolerating po- regular diet Objective Vitals Vital Signs Date Time Temp Pulse Resp B/P Pulse Ox O2 Delivery O2 Flow Rate FiO2 03/23/17 07:20 97.3 82 20 134/71 94 03/23/17 04:00 97.5 79 16 121/62 96 03/23/17 00:00 96.4 88 16 139/76 94 03/22/17 23:00 Room Air 21 03/22/17 20:43 80 03/22/17 19:31 84 03/22/17 18:45 96.0 92 20 157/91 96 03/22/17 18:26 96.0 91 20 157/77 96 03/22/17 15:50 98.0 84 20 143/71 96 03/22/17 12:00 97.8 85 18 148/75 96 03/22/17 10:10 79 I/O 03/22/17 03/22/17 03/22/17 03/23/17 03/23/17 03/23/17 07:00 15:00 23:00 07:00 15:00 23:00 Intake Total 240 ml 240 ml Output Total 600 ml 600 ml Balance -360 ml -600 ml 240 ml Intake Oral 240 ml 240 ml TPN/PPN 0 ml Lipid 0 ml Output Urine Total 175 ml 600 ml Emesis 425 ml # Voids 1 1 # Bowel Movements 0 Result Diagram: 03/22/17 0342 03/22/17 0342 Imaging Last Impressions Chest X-Ray 03/22/17 0632 Signed Impressions: Service Date/Time: Wednesday, March 22, 2017 06:45 - CONCLUSION: No acute cardiopulmonary abnormality is identified. Carlos Aguilar MD Upper GI and Small Bowel X-Ray 03/20/17 0000 Signed Impressions: Service Date/Time: Monday, March 20, 2017 12:22 - CONCLUSION: 1. Status post gastrojejunostomy with no evidence of leakage or obstruction. 2. Unremarkable appearing small bowel follow-through. 3. Mild esophageal dysmotility. Edwin Silverio MD Head CT 03/18/17 2331 Signed Impressions: Service Date/Time: Saturday, March 18, 2017 23:53 - CONCLUSION: 1. No acute intracranial abnormality. 2. Chronic small vessel ischemic change. Davonte Ansari Jr., MD Liver Biopsy CT 03/14/17 0000 Signed Impressions: Service Date/Time: Tuesday, March 14, 2017 12:11 - CONCLUSION: Uncomplicated CT-guided biopsy of right hepatic lobe mass. Campbell Jensen MD CT Angiography 03/13/17 0000 Signed Impressions: Service Date/Time: Monday, March 13, 2017 12:09 - CONCLUSION: There is no evidence for PE for technique. Robb Estevez MD Abdomen MRI 03/13/17 0000 Signed Impressions: Service Date/Time: Monday, March 13, 2017 12:34 - CONCLUSION: 1. Complex cystic mass within the anterior aspect of the right lobe of the liver measuring 2.7 x 2.0 cm. This lesion does NOT have the typical appearance of a hemangioma. Cystic metastasis or a complex cyst remain in the differential. 2. 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 Upper endoscopy would be helpful for further evaluation and possible biopsy of this lesion if not already performed. 3. Enlarged mesenteric lymph node within the midline measuring 3.1 x 2.3 cm. 4. A tiny complex cystic nodule within the inferior aspect of the right lobe of the liver measuring 11 mm. 5. Multiple bilateral renal cysts. Campbell Jensen MD Chest CT 03/11/17 0000 Signed Impressions: Service Date/Time: Saturday, March 11, 2017 10:40 - CONCLUSION: 1. Lung nodules are nonspecific in regards to metastatic disease. 2. There are lymph nodes within the mediastinum indeterminant, however could be benign. 3. Slight bibasilar atelectasis and/or infiltrate is seen. 4. Cystic lesion in the liver also not adequately characterized possibly a simple cyst. Robb Estevez MD Consultation 03/10/17 1330 Signed Impressions: Service Date/Time: Friday, March 10, 2017 13:30 - CONCLUSION: 1. Indeterminate mass within the right lobe of the liver. MRI of the abdomen with contrast using hemangioma protocol is suggested before core biopsy of this lesion is attempted. Campbell Jensen MD Abdomen X-Ray 03/10/17 0000 Signed Impressions: Service Date/Time: Friday, March 10, 2017 17:22 - CONCLUSION: NG tube should be advanced slightly. Carlos Kelsey MD Abdomen/Pelvis CT 03/09/17 194 Signed Impressions: Service Date/Time: February 20:56 - CONCLUSION: Heterogeneous mass encompassing the region of the pyloric antrum, proximal duodenum and pancreatic head. There does appear to be gastric outlet obstruction without evidence of biliary obstruction which would favor a GI location of origin. Low-density lesion in the liver and bilateral lung base nodules worrisome for metastatic disease. Carlos Kelsey MD Objective Remarks awake and alert- oriented x 3 anicteric lungs clear regular rhythm abdomen soft, good bowel - incisions dry, extremities no edema Procedures EGD with biopsy on 03/10/17 - Duodenal bulb mass, gastritis, gastric polyps. 03/18- gastrojejunostomy A/P Problem List: (1) Gastric mass ICD Code: K31.9 Status: Acute (2) Gastric outlet obstruction ICD Code: K31.1 Status: Acute (3) Anemia ICD Code: D64.9 Status: Acute (4) Thrombocytosis ICD Code: D47.3 Status: Acute (5) Diabetes ICD Code: E11.9 Status: Chronic (6) HTN (hypertension) ICD Code: I10 Status: Chronic (7) GERD (gastroesophageal reflux disease) ICD Code: K21.9 Status: Chronic (8) Sepsis ICD Code: A41.9 Status: Acute (9) Leukocytosis ICD Code: D72.829 Status: Acute (10) PNA (pneumonia) ICD Code: J18.9 Status: Acute (11) Hypoxemia ICD Code: R09.02 Status: Acute Assessment and Plan Gastric outlet obstruction- with gastric mass S/P palliative gastric bypass surgery S/P gastrojejunostomy 03/18 Gastrojejunostomy performed 03/16/17 tolerating current regular diet- Recovering well from surgery GI, Surgery, Oncology following Anemia- low Iron stores ICD Code: D64.9 Assessment & Plan: S/P IV Venofer x 3 Home Health Clinical Supervisor H start Iron sulfate 325 mg po bid Liver masses ICD Code: R16.0 Assessment & Plan: 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 restart Lisinopril at 2.5 mg po daily Cardiology following - ASA ? will clear too with Dr. Rios Acute ICU psychosis- paranoia- relating events from [place] and RAE- number - improved but still with allusions regarding [place] era off Dilaudid . po prn pain meds. On Seroquel- appreciate Dr. Parish recommendations- transfer to med psychiatry floor [facility] will continue to ff him there PT daily deconditioning Problem Qualifiers (1) Anemia: (2) Diabetes: Qualified Code: E11.8 - Type 2 diabetes mellitus with complication, without long-term current use of insulin (3) HTN (hypertension): Qualified Code: I10 - Essential hypertension (4) Sepsis: Qualified Code: A41.9 - Sepsis, due to unspecified organism (5) Leukocytosis: Qualified Code: D72.829 - Leukocytosis, unspecified type (6) PNA (pneumonia): Qualified Code: J69.0 - Aspiration pneumonia of both lower lobes due to gastric secretions Amparo Bloom MD Mar 23, 2017 08:43
[2017-03-23] MEDS ORDERED: LISINOPRIL 5 MG TAB PO SCH (09:00)
[2017-03-23] MEDS ORDERED: AMITRIPTYLINE HCL 50 MG TAB PO SCH (09:00)
[2017-03-23] MEDS ORDERED: PANTOPRAZOLE SOD 40 MG DELAYED RELEASE TAB PO SCH (09:00)
--- NOTE | 2017-03-23 10:33 | PD.CARD.PN ---
Subjective Subjective Remarks No chest pain, no shortness of breath No tachyarrhythmias over night Mentally doing well Objective Medications Current Medications Medications (Trade) Dose Ordered Sig/Burton Route Start Time Stop Time Status Last Admin (NS Flush) 2 ml UNSCH PRN IV FLUSH 03/09/17 22:30 (NS Flush) 2 ml BID IV FLUSH 03/10/17 09:00 03/23/17 07:40 (Tylenol) 650 mg Q4H PRN PO 03/09/17 22:30 03/22/17 02:30 (Zofran Inj) 4 mg Q6H PRN IVP 03/09/17 22:30 03/19/17 22:19 (Dulcolax Supp) 10 mg DAILY PRN RECTAL 03/09/17 22:30 (Milk Of Magnesia Liq) 30 ml Q12H PRN PO 03/09/17 22:30 (D50w (Vial) Inj) 25 ml UNSCH PRN IV PUSH 03/09/17 22:45 Glucagon 1 mg 1 mg UNSCH PRN OTHER 03/09/17 22:45 (Cardizem Inj/NS Inj) 125 ml @ 0 mls/hr TITRATE IV 03/10/17 21:30 Hold (Levemir Inj) 5 units Q12HR SQ 03/13/17 21:00 03/23/17 07:39 (Catapres) 0.1 mg Q6H PRN PO 03/17/17 08:30 (Lovenox Inj) 40 mg Q24H SQ 03/19/17 15:00 03/22/17 16:11 (Morphine Inj) 1 mg Q4HR PRN IV PUSH 03/21/17 12:00 (Lopressor) 50 mg Q8HR PO 03/21/17 14:00 03/23/17 06:00 (Percocet 5-325 Mg) 1 tab Q6H PRN PO 03/21/17 14:45 (Elavil) 50 mg DAILY PO 03/23/17 09:00 03/23/17 07:39 (Zoloft) 25 mg DAILY PO 03/22/17 13:45 03/23/17 07:40 (SEROquel) 25 mg HS PO 03/22/17 21:00 03/22/17 22:57 (Pill Splitter) 1 ea UNSCH PRN OTHER 03/22/17 14:00 (Protonix) 40 mg DAILY PO 03/23/17 09:00 (Prinivil) 2.5 mg DAILY PO 03/23/17 09:00 Vital Signs / I&O Vital Signs Date Time Temp Pulse Resp B/P Pulse Ox O2 Delivery O2 Flow Rate FiO2 03/23/17 07:20 97.3 82 20 134/71 94 03/23/17 04:00 97.5 79 16 121/62 96 03/23/17 00:00 96.4 88 16 139/76 94 03/22/17 23:00 Room Air 21 03/22/17 20:43 80 03/22/17 19:31 84 03/22/17 18:45 96.0 92 20 157/91 96 03/22/17 18:26 96.0 91 20 157/77 96 03/22/17 15:50 98.0 84 20 143/71 96 03/22/17 12:00 97.8 85 18 148/75 96 I/O 03/22/17 03/22/17 03/22/17 03/23/17 03/23/17 03/23/17 07:00 15:00 23:00 07:00 15:00 23:00 Intake Total 240 ml 240 ml Output Total 600 ml 600 ml Balance -360 ml -600 ml 240 ml Intake Oral 240 ml 240 ml TPN/PPN 0 ml Lipid 0 ml Output Urine Total 175 ml 600 ml Emesis 425 ml # Voids 1 1 # Bowel Movements 0 Physical Exam GENERAL: NAD, AAOx3 SKIN: Warm and dry. HEAD: Atraumatic. Normocephalic. EYES: Pupils equal and round. No scleral icterus. No injection or drainage. ENT: No nasal bleeding or discharge. Mucous membranes pink and moist. NECK: Trachea midline. No JVD. CARDIOVASCULAR: Regular rate and rhythm. RESPIRATORY: No accessory muscle use. Clear to auscultation. Breath sounds equal bilaterally. GASTROINTESTINAL: Abdomen soft, non-tender, nondistended. Incisions clean/dry/ intact MUSCULOSKELETAL: Extremities without clubbing, cyanosis, or edema. No obvious deformities. NEUROLOGICAL: Awake and alert. No obvious cranial nerve deficits. Motor grossly within normal limits. Five out of 5 muscle strength in the arms and legs. Normal speech. PSYCHIATRIC: Appropriate mood and affect; insight and judgment normal. Assessment and Plan Problem List: (1) SVT (supraventricular tachycardia) (2) Duodenal cancer (3) Liver masses (4) Diabetes (5) HTN (hypertension) (6) S/P bypass gastrojejunostomy Assessment and Plan 1) SVT, appears to be atrial tachycardia 2) Lopressor to 50mg TID 3) EF 45% 4) Plan to move to Med/Psych 5) Add ASA if ok with surgery, agree with restarting CLARITA-I Problem Qualifiers (1) Diabetes: Qualified Code: E11.8 - Type 2 diabetes mellitus with complication, without long-term current use of insulin (2) HTN (hypertension): Qualified Code: I10 - Essential hypertension Neo Simons DO Mar 23, 2017 10:32
--- NOTE | 2017-03-23 12:04 | HHI.PR ---
Subjective Subjective Notes Resting in bed Family at bedside Head feels less "foggy" Ate some scrambled eggs and banana for breakfast Objective Vitals/I&O Vital Signs Date Time Temp Pulse Resp B/P Pulse Ox O2 Delivery O2 Flow Rate FiO2 03/23/17 10:32 Room Air 03/23/17 07:20 97.3 82 20 134/71 94 03/22/17 23:00 21 Radiology Last Impressions Chest X-Ray 03/22/17 0632 Signed Impressions: Service Date/Time: Wednesday, March 22, 2017 06:45 - CONCLUSION: No acute cardiopulmonary abnormality is identified. Carlos Aguilar MD Upper GI and Small Bowel X-Ray 03/20/17 0000 Signed Impressions: Service Date/Time: Monday, March 20, 2017 12:22 - CONCLUSION: 1. Status post gastrojejunostomy with no evidence of leakage or obstruction. 2. Unremarkable appearing small bowel follow-through. 3. Mild esophageal dysmotility. Edwin Silverio MD Head CT 03/18/17 2331 Signed Impressions: Service Date/Time: Saturday, March 18, 2017 23:53 - CONCLUSION: 1. No acute intracranial abnormality. 2. Chronic small vessel ischemic change. Davonte Ansari Jr., MD Liver Biopsy CT 03/14/17 0000 Signed Impressions: Service Date/Time: Tuesday, March 14, 2017 12:11 - CONCLUSION: Uncomplicated CT-guided biopsy of right hepatic lobe mass. Campbell Jensen MD CT Angiography 03/13/17 0000 Signed Impressions: Service Date/Time: Monday, March 13, 2017 12:09 - CONCLUSION: There is no evidence for PE for technique. K. Saji Estevez MD Abdomen MRI 03/13/17 0000 Signed Impressions: Service Date/Time: Monday, March 13, 2017 12:34 - CONCLUSION: 1. Complex cystic mass within the anterior aspect of the right lobe of the liver measuring 2.7 x 2.0 cm. This lesion does NOT have the typical appearance of a hemangioma. Cystic metastasis or a complex cyst remain in the differential. 2. 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 Upper endoscopy would be helpful for further evaluation and possible biopsy of this lesion if not already performed. 3. Enlarged mesenteric lymph node within the midline measuring 3.1 x 2.3 cm. 4. A tiny complex cystic nodule within the inferior aspect of the right lobe of the liver measuring 11 mm. 5. Multiple bilateral renal cysts. Campbell Jensen MD Chest CT 03/11/17 0000 Signed Impressions: Service Date/Time: Saturday, March 11, 2017 10:40 - CONCLUSION: 1. Lung nodules are nonspecific in regards to metastatic disease. 2. There are lymph nodes within the mediastinum indeterminant, however could be benign. 3. Slight bibasilar atelectasis and/or infiltrate is seen. 4. Cystic lesion in the liver also not adequately characterized possibly a simple cyst. Robb Estevez MD Consultation 03/10/17 1330 Signed Impressions: Service Date/Time: Friday, March 10, 2017 13:30 - CONCLUSION: 1. Indeterminate mass within the right lobe of the liver. MRI of the abdomen with contrast using hemangioma protocol is suggested before core biopsy of this lesion is attempted. Campbell Jensen MD Abdomen X-Ray 03/10/17 0000 Signed Impressions: Service Date/Time: Friday, March 10, 2017 17:22 - CONCLUSION: NG tube should be advanced slightly. Carlos Kelsey MD Abdomen/Pelvis CT 03/09/17 1941 Signed Impressions: Service Date/Time: February 20:56 - CONCLUSION: Heterogeneous mass encompassing the region of the pyloric antrum, proximal duodenum and pancreatic head. There does appear to be gastric outlet obstruction without evidence of biliary obstruction which would favor a GI location of origin. Low-density lesion in the liver and bilateral lung base nodules worrisome for metastatic disease. Carlos Kelsey MD Cardiovascular: Regular Lungs: Clear Abdomen: Other (incision sites c/d/i with Dermabond ) Extremities: No edema A/P Problem List: (1) Gastric outlet obstruction (2) Duodenal cancer (3) S/P bypass gastrojejunostomy (4) Liver masses (5) Anemia (6) Weight loss (7) Thrombocytosis (8) Leukocytosis (9) GERD (gastroesophageal reflux disease) (10) HTN (hypertension) (11) Diabetes Assessment and Plan 72yo male s/p lap GJ bypass -Upper GI negative for leak -Tolerating soft diet -Okay to shower from GS standpoint -OOB and mobilize -Updated and son at the bedside -Psych following--- currently less confused Attending Statement The exam, history, and the medical decision-making described in the above note were completed with the assistance of the mid-level provider. I reviewed and agree with the findings presented. I attest that I had a [id number] encounter with the patient on the same day, and personally performed and documented my assessment and findings in the medical record. Abdominal exam stable, tender to palpation without rebound tenderness or peritonitis no signs of postoperative complications, continue supportive care Problem Qualifiers (1) Anemia: (2) Leukocytosis: Qualified Code: D72.829 - Leukocytosis, unspecified type (3) HTN (hypertension): Qualified Code: I10 - Essential hypertension (4) Diabetes: Qualified Code: E11.8 - Type 2 diabetes mellitus with complication, without long-term current use of insulin Rosario Max Mar 23, 2017 12:04 Romeo King MD April 25, 2017 11:11
== END 2017-03-23 11:53 | DRG 326 ==
LOC: PHED 19:22 → OBSVTOIN 22:14 → INTOOBSV 22:14 → PHEDA 22:14 → PH3A 03-10 00:15 → HOCB 03-10 16:09 → N03A 03-18 21:47 → HOCA 03-22 18:26 → H4EA 03-23 11:20 → HOCA 03-23 11:52
PROVIDERS: ADMIT Internal Medicine; ATTEND Internal Medicine
PROC: 0DB98ZX Excision of Duodenum, Via Natural or Artificial Opening Endoscopic, Diagnostic (ICD-10-PCS; 2017-03-10)
PROC: 0DB68ZX Excision of Stomach, Via Natural or Artificial Opening Endoscopic, Diagnostic (ICD-10-PCS; 2017-03-10)
PROC: 0FB03ZX Excision of Liver, Percutaneous Approach, Diagnostic (ICD-10-PCS; 2017-03-14)
PROC: 30233N1 Transfusion of Nonautologous Red Blood Cells into Peripheral Vein, Percutaneous Approach (ICD-10-PCS; 2017-03-15)
PROC: 0D164ZA Bypass Stomach to Jejunum, Percutaneous Endoscopic Approach (ICD-10-PCS; principal; 2017-03-18)
DX: C17.0 Malignant neoplasm of duodenum (principal); J69.0 Pneumonitis due to inhalation of food and vomit; A41.9 Sepsis, unspecified organism; I47.2 Ventricular tachycardia; G93.41 Metabolic encephalopathy; E46 Unspecified protein-calorie malnutrition; C78.00 Secondary malignant neoplasm of unspecified lung; K31.5 Obstruction of duodenum; I47.1 Supraventricular tachycardia; C78.7 Secondary malignant neoplasm of liver and intrahepatic bile duct; I42.9 Cardiomyopathy, unspecified; D50.9 Iron deficiency anemia, unspecified; E11.9 Type 2 diabetes mellitus without complications; I10 Essential (primary) hypertension; D75.89 Other specified diseases of blood and blood-forming organs; K21.9 Gastro-esophageal reflux disease without esophagitis; R09.02 Hypoxemia; E78.5 Hyperlipidemia, unspecified; K29.70 Gastritis, unspecified, without bleeding; K31.7 Polyp of stomach and duodenum; D69.6 Thrombocytopenia, unspecified; G47.00 Insomnia, unspecified; K44.9 Diaphragmatic hernia without obstruction or gangrene; H91.93 Unspecified hearing loss, bilateral; M19.90 Unspecified osteoarthritis, unspecified site; F22 Delusional disorders; F28 Other psychotic disorder not due to a substance or known physiological condition; F32.9 Major depressive disorder, single episode, unspecified; Z68.24 Body mass index [BMI] 24.0-24.9, adult; Z79.84 Long term (current) use of oral hypoglycemic drugs
CPT/HCPCS: 36430; 47000; 70450; 71010; 71260; 71275; 74000; 74177; 74183; 74245; 77012; 80048; 80053; 80076; 81001; 82105; 82140; 82378; 82565; 82607; 82728; 82747; 82948; 83540; 83550; 83605; 83690; 83735; 84100; 84466; 84484; 85007; 85025; 85027; 85379; 85610; 85730; 86301; 86850; 86900; 86901; 86920; 87040; 88305; 88307; 88312; 88341; 88342; 93005; 93306; 95819; 96361; 96374; 96375; 96376; A9579; C9113; J0131; J0456; J1170; J1650; J1756; J1815; J2060; J2250; J2270; J2370; J2405; J2543; J2710; J3010; J7030; J7040; J7050; J7120; P9016; Q9963; Q9967

== ENCOUNTER 2017-03-23 11:58 | Inpatient (IN) | payer MEDICARE ==
[~2017-03-23 11:58] MED LIST: AMIT75TA2 PO; AMLO10TA2 PO; Amitriptyline PO; GLIP5TAB8 PO; LEVEMIR SQ; LISI-519 PO; LOVA40TA PO; METF1000 PO; METO-309 PO; NABU1TAB37 PO; OMEP20TA PO; OXYC1TAB63 PO; QUET1TAB7 PO; ZOLO50TA PO
[2017-03-23 12:20] VITALS: BP 134/62; PULSE 90; RESP 16; TEMP 97; O2SAT 97
[2017-03-23] MEDS ORDERED: MAGNESIUM HYDROXIDE SUSP 30 ML CUP PO PRN (12:45)
[2017-03-23] MEDS ORDERED: LORazepam 2 MG/ML VIAL - age > 65 yrs IM PRN (12:45)
[2017-03-23] MEDS ORDERED: LORazepam 0.5 MG TAB age > 65 yrs PO PRN (12:45)
[2017-03-23] MEDS ORDERED: ACETAMINOPHEN 325 MG TAB PO PRN (12:45)
[2017-03-23] MEDS: METOPROLOL TARTRATE 50 MG TAB PO SCH ×2 (14:00→22:00)
[2017-03-23] MEDS: SERTRALINE HCL 50 MG TAB PO SCH (14:00)
[2017-03-23] MEDS ORDERED: PILL SPLITTER OTHER PRN (14:00)
[2017-03-23] MEDS: PRAVASTATIN SOD 40 MG TAB PO SCH (14:00)
--- NOTE | 2017-03-23 14:00 | HHI.HP ---
Provisional Diagnosis Admission Date Mar 23, 2017 at 11:58 [place] I. Major depressive disorder, recurrent, severe, with psychosis, unspecified psycho [place] II. Deferred [place] III. Liver mass, gastrojejunal mass [place] IV. Reason diagnosed with cancer [place] V. 55 Certification of Person's Competence To Provide Express and Informed Consent I have personally examined Pieter James , a person being served at [facility] on, Mar 23, 2017 13:58. Express and informed consent means consent voluntarily given in writing, by a competent person, after sufficient explanation and disclosure of the subject matter involved to enable the person to make a knowing and willful decision without any element of force, fraud, deceit, duress, or other form of constraint or coercion. This person is 18 years of age or older, is not now known to be incompetent to consent to treatment with a guardian advocate, and does not have a health care surrogate or proxy currently making medical treatment decisions. I have found this person to be one of the following: [X] Competent to provide express and informed consent, as defined above, for voluntary admission to this facility and is competent to provide express and informed consent for treatment. He/she has the consistent capacity to make well reasoned, willful, and knowing decisions concerning his or her medical or mental health treatment. The person fully and consistently understands the purpose of the admission for examination/placement and is fully capable of personally exercising all rights assured [place] Incompetent to provide express and informed consent to voluntary admission, and this is incompetent to provide express and informed consent to treatment. The person must be transferred to involuntary status and a petition for a guardian advocate filed with the Circuit Court. [] Refusing to provide express and informed consent to voluntary admission but is competent to provide express and informed consent for treatment. The person must be discharged or transferred to involuntary status. Form shall be completed within 24 hours of a person's arrival at the receiving facility and filed in the clinical record of each person: 1. Admitted on a voluntary basis 2. Permitted to provide express and informed consent to his/her own treatment 3. Allowed to transfer from involuntary to voluntary status 4. Prior to permitting a person to consent to his or her own treatment after having been previously found incompetent to consent to treatment. History of Present Illness Capacity: Has Capacity HPI 03/22/2017 : The patient is a 72 years old man, domiciled in [facility] with his , he comes to [facility] for vacations, retired, [place] , with psychiatric history of depression, he is on amitriptyline 75 mg, no previous psychiatric hospitalizations, no previous suicidal attempts, hospitalized due to Gastric outlet obstruction- with gastric mass S/P palliative gastric bypass surgery S/P gastrojejunostomy 03/18, Gastrojejunostomy performed 03/16/17, Anemia, Liver masses, Leukocytosis, SVT, consulted to psychiatry due to Acute ICU psychosis- paranoia- relating events from [place] and [facility]. On psychiatric evaluation today patient is found in his bed, he is calm, cooperative but guarded. Patient seems to be distant, with visible neurovegetative symptoms of depression, psychomotor retardation, hypoactivity, poor appetite, melancholia, poor sleep at night. 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 He says that he feels very guilty because many of his friend in front of his eyes, and because many orphans after be bombarded by the [employer]. He says that after he came from [place] he donated money every month to the orphans there. So far he has been able to cope with the trauma that he received in the war, but in the last weeks , he says, he has been able to stop thinking about it. Patient says that he feels extremely depressed, "however, I know that my and my family are going to help me, I also know that [facility]". He denies suicidal or homicidal ideation, he denies visual and auditory hallucinations. Patient is oriented 3, no attention deficit, no fluctuation of consciousness, no gross cognitive impairment is observed. Patient denies the use of alcohol and illicit drugs. Collateral information from his Nakita James was obtained. She says that the patient never had any significant psychiatric history. She says that all of a sudden about a week ago patient develop "this preoccupation about what happened in [place] to him". She says that if he had any trauma during the [place] War he has been suppressing very good so far, because she hasn't noticed symptoms like this in the patient before. In the last days he has fixed about feeling guilty and talking about [place]. He has been tearful, also feeling very guilty. The nurse in charge, who had him yesterday and today, says that the patient yesterday was giving agitated thinking that people around him were people from [place] and he was thinking that the [facility] was following him. She says that today he is doing much better. the patient was seen today for evaluation in the med psych unit along with nurse in charge Massimo. Patient is alert, calm, cooperative and pleasant. Patient reports feeling better today, he says that he had a very nice and restful sleep last night. 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 While the patient is disclosing and talking about his memory, he broke into tears and becomes visibly sad. Patient says that he cannot avoid thinking often about this. He says that he feels "my defenses are completely down and I am very vulnerable an easy target of mistakes made in my past". He also reports decreased energy, decreased appetite, low energy level, but he denies suicidal and homicidal ideation, he denies visual and auditory hallucinations. Patient says that he is hopeful that he is going to feel better in the future, he expresses motivation about following medical recommendations and been compliant with psychotropics and medical medications. During this evaluation no paranoia, no delusions, no agitation or aggressive behavior observed. Review of Systems Constitutional: DENIES: Diaphoretic episodes, Fatigue, Fever, Weight gain, Weight loss, Chills, Dizziness, Change in appetite, Night Sweats Endocrine: DENIES: Heat/cold intolerance, Polydipsia, Polyuria, Polyphagia Eyes: DENIES: Blurred vision, Diplopia, Eye inflammation, Eye pain, Vision loss , Photosensitivity, Double Vision Ears, nose, mouth, throat: DENIES: Tinnitus, Hearing loss, Vertigo, Nasal discharge, Oral lesions, Throat pain, Hoarseness, Ear Pain, Running Nose, Epistaxis, Sinus Pain, Toothache, Odynophagia Respiratory: DENIES: Apneas, Cough, Snoring, Wheezing, Hemoptysis, Sputum production, Shortness of breath Cardiovascular: DENIES: Chest pain, Palpitations, Syncope, Dyspnea on Exertion , PND, Lower Extremity Edema, Orthopnea, Claudication Gastrointestinal: DENIES: Abdominal pain, Black stools, Bloody stools, Constipation, Diarrhea, Nausea, Vomiting, Difficulty Swallowing, Anorexia Genitourinary: DENIES: Sexual dysfunction, Urinary frequency, Urinary incontinence, Urgency, Hematuria, Dysuria, Nocturia, Penile Discharge, Testicular Pain, Testicular Swelling Integumentary: DENIES: Abnormal pigmentation, Nail changes, Pruritus, Rash Hematologic/lymphatic: DENIES: Bruising, Lymphadenopathy Neurologic: DENIES: Abnormal gait, Headache, Localized weakness, Paresthesias, Seizures, Speech Problems, Tremor, Poor Balance Psychiatric: COMPLAINS OF: Depression Past Psych History Violence risk - self (6 mos) Increased Substance Abuse History Drugs/Alcohol past 12 months Patient denies the use of alcohol and illicit drugs Past Family Social History Coded Allergies: No Known Allergies (Unverified , 03/09/17) Active Scripts Sertraline (Zoloft)50 Mg Tab25 Mg PO DAILY 30 Days Prov:Amparo Bloom MD 03/22/17 Quetiapine 25 Mg Tab25 Mg PO HS 30 Days Prov:Amparo Bloom MD 03/22/17 Oxycodone-Acetaminophen 5-325 mg Tab1 Tab PO Q6H PRN (BREAKTHROUGH PAIN) 7 Days Prov:Amparo Bloom MD 03/22/17 Metoprolol Tartrate (Lopressor)50 Mg Tab50 Mg PO Q8HR 30 Days Prov:Amparo Bloom MD 03/22/17 Insulin Detemir Inj (Levemir Inj)1,000 unit/ 10 ML Vial5 Units SQ Q12HR 30 Days Prov:Amparo Bloom MD 03/22/17 [Amitriptyline Hcl] (Elavil)50 MG TAB No Conflict Check50 Mg PO DAILY #30 TAB Prov:Amparo Bloom MD 03/22/17 Reported Medications Amlodipine 10 Mg Tab10 Mg PO DAILY #30 TAB Ref 0 03/09/17 Nabumetone 500 Mg [id number] Mg PO DAILY #60 TAB Ref 0 03/09/17 Lovastatin 40 Mg Tab40 Mg PO DAILY #30 TAB Ref 0 03/09/17 Omeprazole 20 Mg Tab20 Mg PO DAILY #30 TAB Ref 0 03/09/17 Lisinopril 5 Mg Tab5 Mg PO BID #30 TAB Ref 0 03/09/17 Amitriptyline 75 Mg Tab75 Mg PO DAILY #30 TAB Ref 0 03/09/17 Metformin 1,000 Mg Tab1,000 Mg PO BIDPC #60 TAB Ref 0 With meals 03/09/17 Glipizide 5 Mg Tab5 Mg PO BIDAC #60 TAB Ref 0 Take 30 minutes before a meal 03/09/17 Current Medications Medications (Trade) Dose Ordered Sig/Burton Route Start Time Stop Time Status Last Admin (Ativan) 0.5 mg Q12H PRN PO 03/23/17 12:45 (Ativan Inj) 0.5 mg Q12H PRN IM 03/23/17 12:45 (Tylenol) 650 mg Q4H PRN PO 03/23/17 12:45 (Milk Of Magnesia Liq) 30 ml DAILY PRN PO 03/23/17 12:45 (Mag-Al Plus Susp Liq) 30 ml Q6H PRN PO 03/23/17 12:45 (Habitrol 21 Mg Patch.24 Hr) 1 patch DAILY T-DERMAL 03/24/17 09:00 Miscellaneous Information 1 HS T-DERMAL 03/23/17 21:00 Family History He denies psychiatric family history Social History Patient was born and raised in [facility], he has been living between [facility] in the last 5 years, he is , has 2 kids, he is a retired constructor, highest level of education is high school Patient's Strengths (min. 2) Good insight, family support Physical Exam Physical examination no withdrawal, no stiffness, no EPS, no tremors, patient is hypoactive, with marked psychomotor retardation Vital Signs Vital Signs Date Time Temp Pulse Resp B/P Pulse Ox O2 Delivery O2 Flow Rate FiO2 03/23/17 12:20 97.0 90 16 134/62 97 Mental Status Examination Appearance man, age appearing, [facility], good hygiene, hypoactive, superficially cooperative Speech: Hesitant, Slow Orientation: x3 Memory: Unremarkable Thought Process: Logical, Goal Directed Thought Content: Obsessions Hallucination Type: None Suicidal Ideation: No Homicidal Ideation: No Insight: Good Affect: Sad Mood: Sad Motor Activity: Abnormal gait-specify Assessment & Plan Problem List: (1) Diabetes ICD Code: E11.9 (2) Altered mental status ICD Code: R41.82 (3) Major depressive disorder, recurrent episode, severe, with psychosis Assessment & Plan: On psychiatric evaluation patient reports about week with sudden onset of preoccupations about traumatic experiences in [place], extremely guiltiness, depressed mood, frequent crying spells, obsessive thoughts about not being done the right things, paranoia of been followed and monitored by [facility], periodic agitation and disorganized behavior. As per patient and this is the first time patient experienced this symptomatology. He denies suicidal and homicidal ideation, he denies visual and auditory hallucination at this moment. At the moment of this evaluation patient is fully oriented 3, without any attention deficit, no fluctuation of consciousness, no gross cognitive impairment observed. He denies hypervigilance , he denies nightmares, he denies avoidance. Current symptoms could be related with delirium related with underlying medical conditions, but the persistency and continuity of depression and preoccupation seems to be more secondary to a major psychiatric illness, most probably depression with psychotic feature or PTSD. More longitudinal observation will be important in order to define the real source of current symptoms. However, patient would benefit of antidepressants and medication to help with anxiety and insomnia. We will taper down amitriptyline to 50 mg daily, will start Zoloft 25 mg for depressive symptoms, we will start Seroquel 25 mg at bedtime to help with depression and insomnia. home mission worker intervention for psychosocial assessment, individual counseling, start discharge planning. We'll consult hospitalist to continue medical follow-ups.. ICD Code: F33.3 Assessment & Plan Estimated LOS: Ronni Chawla MD Mar 23, 2017 13:59
--- NOTE | 2017-03-23 15:20 | PD.CONS ---
[facility] By Reason for Consult Medical Management Primary Care Physician Unknown Diagnoses: (1) Altered mental status (2) Diabetes (3) SVT (supraventricular tachycardia) (4) Liver masses (5) Gastric outlet obstruction (6) Gastric mass Review of Systems Constitutional: DENIES: Fatigue, Fever Eyes: DENIES: Blurred vision Ears, nose, mouth, throat: DENIES: Hearing loss, Vertigo Respiratory: DENIES: Shortness of breath Cardiovascular: DENIES: Chest pain Gastrointestinal: DENIES: Black stools, Bloody stools Genitourinary: DENIES: Dysuria Musculoskeletal: DENIES: Stiffness Integumentary: DENIES: Abnormal pigmentation Hematologic/lymphatic: DENIES: Bruising Immunologic/allergic: DENIES: Eczema Neurologic: DENIES: Seizures Psychiatric: COMPLAINS OF: Confusion, DENIES: Anxiety, Hallucinations Past Family Social History Allergies: Coded Allergies: No Known Allergies (Unverified , 03/09/17) Past Medical History Recent Surgery for cancer (gastrojejunostomy) Chronic DM Past Surgical History gastrojejunostomy Reported Medications Reported Meds & Active Scripts Active Zoloft (Sertraline HCl) 50 Mg Tab 25 Mg PO DAILY 30 Days Quetiapine (Quetiapine Fumarate) 25 Mg Tab 25 Mg PO HS 30 Days Oxycodone-Acetaminophen 5-325 mg Tab 1 Tab PO Q6H PRN 7 Days Lopressor (Metoprolol Tartrate) 50 Mg Tab 50 Mg PO Q8HR 30 Days Levemir Inj (Insulin Detemir) 1,000 unit/ 10 ML Vial 5 Units SQ Q12HR 30 Days [Amitriptyline] 50 MG Tab 50 Mg PO DAILY Reported Amlodipine (Amlodipine Besylate) 10 Mg Tab 10 Mg PO DAILY Nabumetone 500 Mg Tab 500 Mg PO DAILY Lovastatin 40 Mg Tab 40 Mg PO DAILY Omeprazole 20 Mg Tab 20 Mg PO DAILY Lisinopril 5 Mg Tab 5 Mg PO BID Amitriptyline (Amitriptyline HCl) 75 Mg Tab 75 Mg PO DAILY Metformin (Metformin HCl) 1,000 Mg Tab 1,000 Mg PO BIDPC With meals Glipizide 5 Mg Tab 5 Mg PO BIDAC Take 30 minutes before a meal Family History none Social History none Physical Exam Vital Signs Vital Signs Date Time Temp Pulse Resp B/P Pulse Ox O2 Delivery O2 Flow Rate FiO2 4/27/17 12:20 97.0 90 16 134/62 97 Physical Exam GENERAL: NAD, A&Ox3 SKIN: Warm and dry. HEAD: Normocephalic. EYES: No scleral icterus. No injection or drainage. NECK: Supple, trachea midline. No JVD or lymphadenopathy. CARDIOVASCULAR: Regular rate and rhythm without murmurs, gallops, or rubs. RESPIRATORY: Breath sounds equal bilaterally. No accessory muscle use. GASTROINTESTINAL: Abdomen soft, non-tender, nondistended. MUSCULOSKELETAL: No cyanosis, or edema. BACK: Nontender without obvious deformity. No CVA tenderness. Assessment and Plan Problem List: (1) Altered mental status ICD Code: R41.82 Status: Acute (2) Diabetes ICD Code: E11.9 Status: Chronic (3) SVT (supraventricular tachycardia) ICD Code: I47.1 Status: Acute (4) Liver masses ICD Code: R16.0 Status: Acute (5) Gastric outlet obstruction ICD Code: K31.1 Status: Acute (6) Gastric mass ICD Code: K31.9 Status: Acute (7) HTN (hypertension) ICD Code: I10 Status: Chronic Assessment and Plan HTN Controlled with present management Follow BP Adjust BP treatments if needed Hyperglycemia DM2 Follow blood sugars Insulin Sliding Scale Diabetic Diet Gastric Outlet Obstruction Gastric Mass Liver Masses Post op gastrojejunostomy on 03/16/17 Doing well post op Tolerating diet Surgery and Oncology follow up as an outpatient 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
[2017-03-23] MEDS ORDERED: GLUCAGON 1 MG/ML VIAL OTHER PRN (15:30)
[2017-03-23] MEDS ORDERED: DEXTROSE 50% IN WATER 50 ML VIAL(D50) IV PUSH PRN (15:30)
[2017-03-23] MEDS: INSULIN ASPART SUPPLEMENTAL SCALE SQ SCH ×2 (16:00→21:00)
[2017-03-23] MEDS: metFORMIN HCL 500 MG TAB PO SCH (16:55)
--- NOTE | 2017-03-23 20:15 | RADRPT ---
EXAM DATE/TIME: 03/23/2017 18:58 [facility] COMPARISON: CHEST SINGLE AP, March 22, 2017, 6:45. INDICATIONS : Chest pain. MEDICAL HISTORY : None. SURGICAL HISTORY : None. ENCOUNTER: Initial ACUITY: 1 day PAIN SCORE: 0/10 LOCATION: Bilateral chest FINDINGS: The lungs are clear without infiltrate, nodule, or mass. There is no appreciable pleural effusion fo r technique. Heart and mediastinum are unremarkable. CONCLUSION: No acute cardiopulmonary disease. Robb Estevez MD on March 23, 2017 at 20:10 Board Certified Radiologist. This report was verified electronically.
[2017-03-23] MEDS: REMOVE OLD NICOTINE PATCH T-DERMAL SCH (21:00)
[2017-03-23] MEDS: traZODone HCL 50 MG TAB PO SCH (21:00)
[2017-03-23] MEDS ORDERED: QUEtiapine FUMARATE 25 MG TAB PO SCH (21:00)
[2017-03-23 21:14] VITALS: BP 138/78; PULSE 95; RESP 18; TEMP 98.6; O2SAT 98
[2017-03-24] MEDS: METOPROLOL TARTRATE 50 MG TAB PO SCH ×3 (06:00→21:10)
[2017-03-24 06:12] VITALS: BP 110/52; PULSE 89; RESP 16; TEMP 97.5; O2SAT 96
[2017-03-24] MEDS: INSULIN ASPART SUPPLEMENTAL SCALE SQ SCH ×4 (06:22→21:20)
[2017-03-24 08:21] LABS: HEMATOCRIT 30.8 % (39.0-51.0); MEAN CELL VOLUME 88.4 FL (80.0-100.0); MEAN CORPUSCULAR HEMOGLOBIN 29.5 PG (27.0-34.0); MEAN CORPUSCULAR HGB CONC 33.4 % (32.0-36.0); PLATELET COUNT 736 TH/MM3 (150-450); RED BLOOD COUNT 3.48 MIL/MM3 (4.50-5.90); RED CELL DISTRIBUTION WIDTH 15.3 % (11.6-17.2); REVIEW FLAG FINAL; WHITE BLOOD COUNT 17.4 TH/MM3 (4.0-11.0)
[2017-03-24 08:48] LABS: ANION GAP 10 MEQ/L (5-15); BICARBONATE 25.8 MEQ/L (21.0-32.0); BLOOD UREA NITROGEN 22 MG/DL (7-18); CHLORIDE 94 MEQ/L (98-107); GLOMERULAR FILTRATION RATE 79 ML/MIN (>89); HDL CHOLESTEROL 31.3 MG/DL (40.0-60.0); LDL CHOLESTEROL 71 MG/DL (0-99); POTASSIUM 4.4 MEQ/L (3.5-5.1); SODIUM (NA) 130 MEQ/L (136-145)
[2017-03-24] MEDS: NICOTINE 21 MG/24 HR PATCH T-DERMAL SCH (09:00)
[2017-03-24] MEDS: ENOXAPARIN SODIUM 40 MG/0.4 ML SYRINGE SQ SCH (09:00)
[2017-03-24] MEDS: PANTOPRAZOLE SOD 20 MG DELAYED RELEASE TAB PO SCH (09:00)
[2017-03-24] MEDS: SERTRALINE HCL 50 MG TAB PO SCH (09:28)
[2017-03-24] MEDS: PRAVASTATIN SOD 40 MG TAB PO SCH (09:28)
[2017-03-24] MEDS: AMITRIPTYLINE HCL 50 MG TAB PO SCH (09:29)
[2017-03-24] MEDS: metFORMIN HCL 500 MG TAB PO SCH ×2 (09:30→18:00)
--- NOTE | 2017-03-24 11:35 | HHI.PR ---
Subjective Remarks Follow up visit s/p gastric bypass outlet obstruction, HTN, DM. Pt. seen and examined today. Reports he is doing better. Coherent. States he had surgery done about 2 weeks ago and healing now. Denies any n/v/d, tolerating po intake. Denies chest pain, palpitations, SOB/ dyspnea. Denies fevers, chills. Deneis abd cramping, dysuria, hematochezia, melena. Objective Vitals Vital Signs Date Time Temp Pulse Resp B/P Pulse Ox O2 Delivery O2 Flow Rate FiO2 03/24/17 06:12 97.5 89 16 110/52 96 03/23/17 21:14 98.6 95 18 138/78 98 03/23/17 12:20 97.0 90 16 134/62 97 I/O 03/23/17 03/23/17 03/23/17 03/24/17 03/24/17 03/24/17 07:00 15:00 23:00 07:00 15:00 23:00 Intake Total 520 ml Output Total 0 ml Balance 520 ml Intake Oral 520 ml Output Urine Total 0 ml # Voids 1 Result Diagram: 03/24/17 0737 03/24/17 0737 Imaging Last Impressions Chest X-Ray 03/23/17 0000 Signed Impressions: Service Date/Time: February 18:58 - CONCLUSION: No acute cardiopulmonary disease. Robb Estevez MD Objective Remarks GENERAL: This is a well-nourished, well-developed patient, in no apparent distress. HEENT: GABRIEL, no scleral icterus. Throat without erythema. Dry oral mucosa. CARDIOVASCULAR: Regular rate and rhythm without murmurs, gallops, or rubs. RESPIRATORY: Clear to auscultation. Breath sounds equal bilaterally. No wheezes , rales, or rhonchi. GASTROINTESTINAL: Abdomen soft, non-tender, nondistended. Normal active bowel sounds. Ex lap incision sites CDI. MUSCULOSKELETAL: Extremities without clubbing, cyanosis, or edema. NEURO: Alert & Oriented to person, place, time, situation. Moves all ext x4. Speech is clear. A/P Problem List: (1) Altered mental status ICD Code: R41.82 Status: Acute (2) Diabetes ICD Code: E11.9 Status: Chronic (3) SVT (supraventricular tachycardia) ICD Code: I47.1 Status: Acute (4) Liver masses ICD Code: R16.0 Status: Acute (5) Gastric outlet obstruction ICD Code: K31.1 Status: Acute (6) Gastric mass ICD Code: K31.9 Status: Acute (7) HTN (hypertension) ICD Code: I10 Status: Chronic Assessment and Plan Mr. James is a 72 year old male. He was hospitalized for a gastric obstruction which ended up being from a mass at the stomach, liver, duodenum and Pancrease. He had a gastrojejunostomy (bypassing the mass). Post op he had transient concussion and SVT. He had been NPO most of his prior stay, thus did not have significant blood sugar problems. He is now admitted to med-psych unit for evaluation of his delirium/ confusion. Consulted for medical management. HTN Controlled with present management Follow BP Adjust BP treatments if needed Hyperglycemia DM2 Follow blood sugars. On Metformin. Improved. 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 pt. is coherent, oriented to place, situation, self, time. Stable from medical standpoint. [facility]. We will clear him for discharge. Discuss with patient, nursing, Dr. Palm. Berto Oden Mar 24, 2017 11:35
[2017-03-24 14:38] LABS: HEMOGLOBIN A1a 1.7 %; HEMOGLOBIN A1b 0.9 %; HEMOGLOBIN Ao 83.6 %; HEMOGLOBIN F 1.1 %; HEMOGLOBIN LA1C 1.9 %; HEMOGLOBIN P3 3.7 %
--- NOTE | 2017-03-24 15:47 | HHI.DS ---
Psychiatry Discharge Summary Inpatient Psychiatric care?: Yes Advance Directive: Yes Mental Health AdvanceDirective: No Health Care Proxy: Yes Admission Admission Date Mar 23, 2017 at 11:58 Admission Diagnosis: (1) Major depressive disorder, recurrent episode, severe, with psychosis ICD Code: F33.3 Brief History 03/22/2017 : The patient is a 72 years old man, domiciled in [facility] with his , he comes to [facility] for vacations, retired, [place] , with psychiatric history of depression, he is on amitriptyline 75 mg, no previous psychiatric hospitalizations, no previous suicidal attempts, hospitalized due to Gastric outlet obstruction- with gastric mass S/P palliative gastric bypass surgery S/P gastrojejunostomy 03/18, Gastrojejunostomy performed 03/16/17, Anemia, Liver masses, Leukocytosis, SVT, consulted to psychiatry due to Acute ICU psychosis- paranoia- relating events from [place] and [place]. On psychiatric evaluation today patient is found in his bed, he is calm, cooperative but guarded. Patient seems to be distant, with visible neurovegetative symptoms of depression, psychomotor retardation, hypoactivity, poor appetite, melancholia, poor sleep at night. 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 He says that he feels very guilty because many of his friend in front of his eyes, and because many orphans after be bombarded by the [employer]. He says that after he came from [place] he donated money every month to the orphans there. So far he has been able to cope with the trauma that he received in the war, but in the last weeks , he says, he has been able to stop thinking about it. Patient says that he feels extremely depressed, "however, I know that my and my family are going to help me, I also know that [facility]". He denies suicidal or homicidal ideation, he denies visual and auditory hallucinations. Patient is oriented 3, no attention deficit, no fluctuation of consciousness, no gross cognitive impairment is observed. Patient denies the use of alcohol and illicit drugs. Collateral information from his Nakita James was obtained. She says that the patient never had any significant psychiatric history. She says that all of a sudden about a week ago patient develop "this preoccupation about what happened in [place] to him". She says that if he had any trauma during the [place] War he has been suppressing very good so far, because she hasn't noticed symptoms like this in the patient before. In the last days he has fixed about feeling guilty and talking about [place]. He has been tearful, also feeling very guilty. The nurse in charge, who had him yesterday and today, says that the patient yesterday was giving agitated thinking that people around him were people from [place] and he was thinking that the [facility] was following him. She says that today he is doing much better. the patient was seen today for evaluation in the med psych unit along with nurse in charge Massimo. Patient is alert, calm, cooperative and pleasant. Patient reports feeling better today, he says that he had a very nice and restful sleep last night. 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 While the patient is disclosing and talking about his memory, he broke into tears and becomes visibly sad. Patient says that he cannot avoid thinking often about this. He says that he feels "my defenses are completely down and I am very vulnerable an easy target of mistakes made in my past". He also reports decreased energy, decreased appetite, low energy level, but he denies suicidal and homicidal ideation, he denies visual and auditory hallucinations. Patient says that he is hopeful that he is going to feel better in the future, he expresses motivation about following medical recommendations and been compliant with psychotropics and medical medications. During this evaluation no paranoia, no delusions, no agitation or aggressive behavior observed. Tobacco Use In Past 30 Days: 5 or More Cigarettes/Day Alcohol Use: Never Hospital Course Patient was admitted in the med psych unit, transferred from the medical floor due to symptomatology of depression and suspected PTSD. Once the patient arrived in the unit appropriate safety measure were taken. Immediate psychiatric and psycho social assessment performed. Patient was started in Zoloft and trazodone. Medication was titrated as needed and tolerated. Initially patient was very depressed, with obsessive thoughts about memory of his past in the [place] War. Patient was initiated in individual therapy and also in group activities. Patient showed a very good response to psychotropics and psychotherapy. Medicine follow-up in the floor his underlying medical conditions. Family meeting will perform in order to complete collateral information, and plan a safe discharge. On his psychiatric hospitalization no agitation, no aggressive behavior, no hostility, or major issues were reported. At the moment of the discharge the patient is to be stable, a baseline, still having thoughts of guiltiness, recurrent painful memories from the past, but seems to be coping okay. Results Blood Pressure 110 / 52 Vital Signs Date Time Temp Pulse Resp B/P Pulse Ox O2 Delivery O2 Flow Rate FiO2 03/24/17 06:12 97.5 89 16 110/52 96 Laboratory Tests Test 03/24/17 07:37 White Blood Count 17.4 TH/MM3 (4.0-11.0) Red Blood Count 3.48 MIL/MM3 (4.50-5.90) Hemoglobin 10.3 GM/DL (13.0-17.0) Hematocrit 30.8 % (39.0-51.0) Platelet Count 736 TH/MM3 (150-450) Mean Platelet Volume 6.8 FL (7.0-11.0) Sodium Level 130 MEQ/L (136-145) Chloride Level 94 MEQ/L (98-107) Blood Urea Nitrogen 22 MG/DL (7-18) Estimat Glomerular Filtration 79 ML/MIN (>89) Rate Random Glucose 123 MG/DL (74-106) Hemoglobin A1c 7.0 % (4.3-6.0) HDL Cholesterol 31.3 MG/DL (40.0-60.0) Laboratory Results Test 03/24/17 07:37 Hemoglobin A1c 7.0 % (4.3-6.0) Triglycerides Level 133 MG/DL (42-150) Cholesterol Level 129 MG/DL (120-200) LDL Cholesterol 71 MG/DL (0-99) HDL Cholesterol 31.3 MG/DL (40.0-60.0) Summary of Procedures No procedures Imaging Last Impressions Chest X-Ray 03/23/17 0000 Signed Impressions: Service Date/Time: February 18:58 - CONCLUSION: No acute cardiopulmonary disease. Robb Estevez MD Pending results at discharge: No Medications # of Antipsychotic meds at D/C: 0 Approp Antipsych med options 1 - Minimum of three failed multiple trials of monotherapy. 2 - Documented plan to taper to monotherapy due to previous use of multiple meds OR cross-taper in progress at D/C. 3 - Documentation of augmentation of Clozapine. 4 - Justification other than those listed in allowable values 1-3, document here : Discharge Discharge Date: Mar 25, 2017 Discharge Diagnosis: (1) Major depressive disorder, recurrent episode, severe, with psychosis ICD Code: F33.3 Mental Status Exam at Disch Elderly woman, age appearing, he appears chronically ill, good hygiene , [facility], he is calm and cooperative. Mood is euthymic, affect is congruent with mood. Speech is slow, low volume. Thought process is logical, coherent and relevant. Thought content is devoid of suicidal ideation, homicidal ideation, visual and auditory hallucinations, no paranoia, no delusions observed. Insight, impulse control, judgment are good. Memory is intact. Pt Condition on Discharge: Stable Discharge Disposition: Discharge Home Discharge Instructions Diet Instructions: Heart Healthy Diet, Diabetic Diet Activities you can perform: Weight Bearing as Wade Scheduled Appointment: MD outpatient Clinic Appointment Date: March 27, 2017 Appointment Time: 9:00an Discharge Time > 30 minutes Discharge/Advance Care Plan Health Problems: (1) Diabetes (2) Altered mental status (3) Major depressive disorder, recurrent episode, severe, with psychosis Goals to promote your health * To prevent worsening of your condition and complications * To maintain your health at the optimal level Directions to meet your goals Take your medications as prescribed Follow your dietary instruction Follow activity as directed Keep your appointments as scheduled Take your immunizations and boosters as scheduled If your symptoms worsen call your PCP, if no PCP go to Urgent Care Center or Emergency Room For 24/ questions related to your inpatient stay or results of tests pending at discharge, please contact Dr. Ronni Parish at Smoking is Dangerous to Your Health. Avoid second hand smoking Ronni Parish MD Mar 24, 2017 15:47
--- NOTE | 2017-03-24 15:49 | HHI.PYPN ---
Subjective Remarks On psychiatric evaluation today patient is seen along with his , patient reports feeling better mood-teresa, less intrusive thoughts about his past, he reports less concerned and preoccupation about issues of [place] war. However, he does report sad mood, low level of energy, hopelessness, helplessness. Patient denies suicidal or homicidal ideation, denies visual and auditory hallucinations. Patient is fully oriented 3, fully compliant with medications , no significant side effects. Patient denies flashbacks, nightmares, hypervigilance. Review of Systems Gastrointestinal: COMPLAINS OF: Abdominal pain, Nausea Objective Alert: Yes Norton: Person, Place, Date, Situation Mood: Depressed Affect: Restricted Memory Intact: Immediate, Recent, Remote Hallucinations: Other (he denies) Delusions: No Delusion Type: Other (none) Suicidal: Ideation (he denies suicidal ideation) Homicidal: Ideation (he denies visual and auditory hallucinations) Insight/Judgment Fair Labs Test 03/24/17 07:37 White Blood Count 17.4 TH/MM3 Red Blood Count 3.48 MIL/MM3 Hemoglobin 10.3 GM/DL Hematocrit 30.8 % Mean Corpuscular Volume 88.4 FL Mean Corpuscular Hemoglobin 29.5 PG Mean Corpuscular Hemoglobin 33.4 % Concent Red Cell Distribution Width 15.3 % Platelet Count 736 TH/MM3 Mean Platelet Volume 6.8 FL Sodium Level 130 MEQ/L Potassium Level 4.4 MEQ/L Chloride Level 94 MEQ/L Carbon Dioxide Level 25.8 MEQ/L Anion Gap 10 MEQ/L Blood Urea Nitrogen 22 MG/DL Creatinine 0.94 MG/DL Estimat Glomerular Filtration 79 ML/MIN Rate Random Glucose 123 MG/DL Hemoglobin A1c 7.0 % Calcium Level 8.7 MG/DL Triglycerides Level 133 MG/DL Cholesterol Level 129 MG/DL LDL Cholesterol 71 MG/DL HDL Cholesterol 31.3 MG/DL Cholesterol/HDL Ratio 4.12 RATIO Vitals/IOs Vital Signs Date Time Temp Pulse Resp B/P Pulse Ox O2 Delivery O2 Flow Rate FiO2 03/24/17 06:12 97.5 89 16 110/52 96 Intake and Output 03/23/17 03/23/17 03/24/17 08:00 16:00 00:00 Intake Total 260 ml Balance 260 ml Assessment & Plan Problem List: (1) Diabetes ICD Code: E11.9 (2) Altered mental status ICD Code: R41.82 (3) Major depressive disorder, recurrent episode, severe, with psychosis Assessment & Plan: Will increase Zoloft to 50 mg for depression, ICD Code: F33.3 Assessment & Plan Estimated LOS: days Justification for Cont. Inpt. Patient continues to show symptomatology of severe depression, intrusive memories of trauma was in the [place] War, he does continue psychiatric hospitalization for stabilization Ronni Parish MD Mar 24, 2017 15:49
[2017-03-24 19:55] VITALS: BP 130/68; PULSE 95; RESP 18; TEMP 98.2; O2SAT 95
[2017-03-24] MEDS: traZODone HCL 50 MG TAB PO SCH (20:58)
[2017-03-24] MEDS: REMOVE OLD NICOTINE PATCH T-DERMAL SCH (21:00)
[2017-03-24] MEDS: ALUMINUM/MAGNESIUM/SIMETH 30 ML CUP PO PRN (21:48)
[2017-03-25] MEDS: ALUMINUM/MAGNESIUM/SIMETH 30 ML CUP PO PRN (03:29)
[2017-03-25] MEDS: METOPROLOL TARTRATE 50 MG TAB PO SCH ×2 (05:33→12:49)
[2017-03-25 06:20] VITALS: BP 135/73; PULSE 93; RESP 16; TEMP 98; O2SAT 95
[2017-03-25] MEDS: INSULIN ASPART SUPPLEMENTAL SCALE SQ SCH ×3 (06:46→16:00)
[2017-03-25] MEDS: NICOTINE 21 MG/24 HR PATCH T-DERMAL SCH (09:00)
[2017-03-25] MEDS: ENOXAPARIN SODIUM 40 MG/0.4 ML SYRINGE SQ SCH (09:00)
[2017-03-25] MEDS ORDERED: SERTRALINE HCL 50 MG TAB PO SCH (09:00)
--- NOTE | 2017-03-25 09:34 | RADRPT ---
EXAM DATE/TIME: 03/25/2017 09:01 [facility] COMPARISON: No previous studies available for comparison. INDICATIONS : Abdomen Pain and Vomiting MEDICAL HISTORY : Gastroesophageal reflux disease. Diabetes mellitus type II. SURGICAL HISTORY : Appendectomy. loop gastrojejunostomy. ENCOUNTER: Initial ACUITY: 1 week PAIN SCORE: 10/10 LOCATION: Bilateral Abdomen FINDINGS: Examination of the abdomen demonstrates a normal bowel gas pattern. No free air is identified. No o rganomegaly is evident. Osseous structures are intact. CONCLUSION: No acute disease. Wilbur Lentz MD on March 25, 2017 at 9:32 Board Certified Radiologist. This report was verified electronically.
[2017-03-25] MEDS: metFORMIN HCL 500 MG TAB PO SCH (09:43)
[2017-03-25] MEDS: PANTOPRAZOLE SOD 20 MG DELAYED RELEASE TAB PO SCH (09:43)
[2017-03-25] MEDS: AMITRIPTYLINE HCL 50 MG TAB PO SCH (09:44)
[2017-03-25] MEDS: PRAVASTATIN SOD 40 MG TAB PO SCH (09:44)
[2017-03-25] MEDS ORDERED: METO5SOL PO (11:21)
--- NOTE | 2017-03-25 11:35 | HHI.PR ---
Subjective Remarks Follow up visit s/p gastric bypass outlet obstruction, HTN, DM. Pt. seen and examined today. Reports he had vomiting this morning. Vomiting is not projectile, slowly came out after he ate a bowl of cereal. States he had vomiting last night also after eating dinner. Denies any abdominal cramping abdominal pain. Patient had a bowel movement this morning. Denies pain and discomfort. Denies SOB/ dyspnea. Denies chest pain, palpitations, headaches, dizziness. Denies fevers, chills, diarrhea. Objective Vitals Vital Signs Date Time Temp Pulse Resp B/P Pulse Ox O2 Delivery O2 Flow Rate FiO2 03/25/17 06:20 98.0 93 16 135/73 95 03/24/17 19:55 98.2 95 18 130/68 95 I/O 03/24/17 03/24/17 03/24/17 03/25/17 03/25/17 03/25/17 07:00 15:00 23:00 07:00 15:00 23:00 Intake Total 520 ml 720 ml Output Total 0 ml Balance 520 ml 720 ml Intake Oral 520 ml 720 ml Output Urine Total 0 ml # Voids 1 2 Result Diagram: 03/24/17 0737 03/24/17 0737 Imaging Last Impressions Abdomen X-Ray 03/25/17 0000 Signed Impressions: Service Date/Time: Saturday, March 25, 2017 09:01 - CONCLUSION: No acute disease. Wilbur Lentz MD Chest X-Ray 03/23/17 0000 Signed Impressions: Service Date/Time: February 18:58 - CONCLUSION: No acute cardiopulmonary disease. Rbob Estevez MD Objective Remarks GENERAL: This is a well-nourished, well-developed patient, in no apparent distress. HEENT: GABRIEL, no scleral icterus. Throat without erythema. Dry oral mucosa. CARDIOVASCULAR: Regular rate and rhythm without murmurs, gallops, or rubs. RESPIRATORY: Clear to auscultation. Breath sounds equal bilaterally. No wheezes , rales, or rhonchi. GASTROINTESTINAL: Abdomen soft, non-tender, nondistended. Normal active bowel sounds. Ex lap incision sites CDI. MUSCULOSKELETAL: Extremities without clubbing, cyanosis, or edema. NEURO: Alert & Oriented to person, place, time, situation. Moves all ext x4. Speech is clear. A/P Problem List: (1) Altered mental status ICD Code: R41.82 Status: Acute (2) Diabetes ICD Code: E11.9 Status: Chronic (3) SVT (supraventricular tachycardia) ICD Code: I47.1 Status: Acute (4) Liver masses ICD Code: R16.0 Status: Acute (5) Gastric outlet obstruction ICD Code: K31.1 Status: Acute (6) Gastric mass ICD Code: K31.9 Status: Acute (7) HTN (hypertension) ICD Code: I10 Status: Chronic Assessment and Plan Mr. James is a 72 year old male. He was hospitalized for a gastric obstruction which ended up being from a mass at the stomach, liver, duodenum and Pancrease. He had a gastrojejunostomy (bypassing the mass). Post op he had transient concussion and SVT. He had been NPO most of his prior stay, thus did not have significant blood sugar problems. He is now admitted to med-psych unit for evaluation of his delirium/ confusion. Consulted for medical management. Episodes of nausea, vomiting - Abdominal KUB showed examination of the abdomen demonstrates a normal bowel gas pattern. No free air is identified. No organomegaly is evident. Nausea structures are intact. - Reglan 10 mg before meals and at bedtime now and when discharge - Full liquid diet for now, advance as tolerated - Discussed with patient to eat small frequent meals HTN Controlled with present management Follow BP Adjust BP treatments if needed Hyperglycemia DM2 Follow blood sugars. On Metformin. Improved. 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 pt. is coherent, oriented to place, situation, self, time. Stable from medical standpoint. [facility] need [facility], [facility] and oncology as outpatient. We will clear him for discharge. Discuss with patient, nursing Written by Berto Pena, on behalf of Dr. Palm on 03/25/17 at 11:34. This note was transcribed by scribe [Berto Pena]. I, Dr. Samir Palm personally performed the history, physical exam, and medical decision making; and confirmed the accuracy of the information in the transcribed note. Authenticated by Dr. Samir Palm on 03/25/17 at 12:06. Berto Oden Mar 25, 2017 11:35 am Samir Palm MD Mar 25, 2017 12:06 pm
[2017-03-25] MEDS ORDERED: TRAZ50TA12 PO (12:04)
[2017-03-25] MEDS ORDERED: ZOLO50TA PO (12:04)
[2017-03-25] MEDS ORDERED: METOCLOPRAMIDE HCL SYRUP 10 MG/10 ML UDC PO SCH (16:00)
[2017-03-25 17:06] VITALS: BP 120/61; PULSE 92; RESP 16; TEMP 97.4; O2SAT 97
== END 2017-03-25 18:45 | disposition home or self-care (01) | DRG 885 ==
LOC: H4EA 11:58
PROVIDERS: ADMIT Psychiatry & Neurology Psychiatry; ATTEND Psychiatry & Neurology Psychiatry
DX: F33.3 Major depressive disorder, recurrent, severe with psychotic symptoms (principal); E11.65 Type 2 diabetes mellitus with hyperglycemia; K31.1 Adult hypertrophic pyloric stenosis; D64.9 Anemia, unspecified; I47.1 Supraventricular tachycardia; R16.0 Hepatomegaly, not elsewhere classified; I10 Essential (primary) hypertension; F41.9 Anxiety disorder, unspecified; G47.00 Insomnia, unspecified; F43.10 Post-traumatic stress disorder, unspecified; Z79.4 Long term (current) use of insulin
CPT/HCPCS: 71010; 74000; 80048; 80061; 82948; 83036; 85027; J1815; J2060

== ENCOUNTER 2017-03-29 16:35 | Inpatient (IN) | payer MEDICARE ==
[2017-03-29] VITALS (10 sets, daily range): BP systolic 127–160; BP diastolic 66–91; PULSE 86–129; RESP 13–26; TEMP 97.5–98.3; O2SAT 98–100
[~2017-03-29] VITALS: Ht 170.2 cm; Wt 68.3 kg
[~2017-03-29 16:35] MED LIST changes: -LISI-519 PO; +METO5SOL PO; +TRAZ50TA12 PO
[2017-03-29] MEDS ORDERED: ONDANSETRON HCL 4 MG/2 ML VIAL IV PUSH ONE (17:30)
[2017-03-29] MEDS: SODIUM CHLOR 0.9% 1000 ML INJ 1,000 ML IV SCH ×2 (17:30→22:29)
--- NOTE | 2017-03-29 17:34 | PD ---
HPI Chief Complaint: Respiratory Symptoms Time Seen by Provider: 17:14 Travel History International Travel<30 days: No Contact w/Intl Traveler<30days: No Traveled to known affect area: No History of Present Illness HPI This 72-year-old male presents complaint of shortness of breath. He says that he's been short of breath the last couple of days. He does not have a history of lung disease and has never smoked. He is not aware of any heart disease. He was admitted to the hospital 2 weeks ago. He had presented here with a complaint of abdominal pain and was found to have a large mass in the duodenum. At surgery wasn't indicated epigastric jejunostomy. 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 He developed psychosis while in the hospital and was transferred to the [facility] for a few days. He was discharged a few days ago. He had a CTA done on 417 which was negative for pulmonary embolus. He has not been eating well. He has had sporadic vomiting. While hospitalized he had a run of SVT. He is supposed to be on a large number of medications including amlodipine metformin and glipizide and metoprolol but he has not been able to take his medication because of vomiting PFSH Past Medical History Arthritis: Yes Anxiety: No Depression: Yes Heart Rhythm Problems: No Cancer: No Cardiovascular Problems: Yes High Cholesterol: Yes Chest Pain: No Congestive Heart Failure: No Diabetes: Yes Patient Takes Glucophage: Yes Diminished Hearing: Yes ([place]IL[place]) Endocrine: Yes Gastrointestinal Disorders: Yes GERD: Yes Genitourinary: No Hiatal Hernia: No Hypertension: Yes Immune Disorder: No Musculoskeletal: Yes Neurologic: No Psychiatric: No Reproductive: No Respiratory: No Immunizations Current: Yes Sickle Cell Disease: No Thyroid Disease: No Ulcer: No Past Surgical History Abdominal Surgery: Yes (APPENDECTOMY) Appendectomy: Yes Cardiac Surgery: No Ear Surgery: No Endocrine Surgery: No Eye Surgery: No Genitourinary Surgery: No Oral Surgery: No Thoracic Surgery: No Other Surgery: Yes Social History Alcohol Use: No Tobacco Use: No Substance Use: No Allergies-Medications (Allergen,Severity, Reaction): Coded Allergies: No Known Allergies (Unverified , 03/29/17) Reported Meds & Prescriptions Reported Meds & Active Scripts Active Zoloft (Sertraline HCl) 50 Mg Tab 50 Mg PO DAILY Trazodone (Trazodone HCl) 50 Mg Tab 50 Mg PO HS Metoclopramide Liq (Metoclopramide HCl) 5 Mg/5 Ml Liq 10 Mg PO ACHS 5 Days Zoloft (Sertraline HCl) 50 Mg Tab 25 Mg PO DAILY 30 Days Quetiapine (Quetiapine Fumarate) 25 Mg Tab 25 Mg PO HS 30 Days Oxycodone-Acetaminophen 5-325 mg Tab 1 Tab PO Q6H PRN 7 Days Lopressor (Metoprolol Tartrate) 50 Mg Tab 50 Mg PO Q8HR 30 Days Levemir Inj (Insulin Detemir) 1,000 unit/ 10 ML Vial 5 Units SQ Q12HR 30 Days [Amitriptyline] 50 MG Tab 50 Mg PO DAILY Reported Amlodipine (Amlodipine Besylate) 10 Mg Tab 10 Mg PO DAILY Nabumetone 500 Mg Tab 500 Mg PO DAILY Lovastatin 40 Mg Tab 40 Mg PO DAILY Omeprazole 20 Mg Tab 20 Mg PO DAILY Amitriptyline (Amitriptyline HCl) 75 Mg Tab 75 Mg PO DAILY Metformin (Metformin HCl) 1,000 Mg Tab 1,000 Mg PO BIDPC With meals Glipizide 5 Mg Tab 5 Mg PO BIDAC Take 30 minutes before a meal Review of Systems General / Constitutional: No: Fever, Chills Eyes: No: Diploplia HENT: No: Headaches Cardiovascular: No: Chest Pain or Discomfort, Palpitations Respiratory: Positive: Shortness of Breath, No: Cough Gastrointestinal: Positive: Nausea, Vomiting Genitourinary: No: Urgency, Frequency Physical Exam Narrative GENERAL: Chronically ill-appearing male SKIN: Focused skin assessment warm/dry. HEAD: Atraumatic. Normocephalic. EYES: Pupils equal and round. No scleral icterus. No injection or drainage. ENT: No nasal bleeding or discharge. Mucous membranes pink and moist. NECK: Trachea midline. No JVD. CARDIOVASCULAR: Regular rate and rhythm. No murmur appreciated. RESPIRATORY: No accessory muscle use. Clear to auscultation. Breath sounds equal bilaterally. GASTROINTESTINAL: Abdomen soft, , nondistended. Hepatic and splenic margins not palpable. MUSCULOSKELETAL: No obvious deformities. No clubbing. No cyanosis. No edema. NEUROLOGICAL: Awake and alert. No obvious cranial nerve deficits. Motor grossly within normal limits. Normal speech. PSYCHIATRIC: Appropriate mood and affect; insight and judgment normal. Data Data Last Documented VS Vital Signs Date Time Temp Pulse Resp B/P Pulse Ox O2 Delivery O2 Flow Rate FiO2 03/29/17 18:11 119 20 160/80 100 Nasal Cannula 2 03/29/17 16:37 97.5 Orders Electrocardiogram (03/29/17 17:25) Complete Blood Count With Diff (03/29/17 17:25) Comprehensive Metabolic Panel (03/29/17 17:25) Troponin I (03/29/17 17:25) B-Type Natriuretic Peptide (03/29/17 17:25) Prothrombin Time / Inr (Pt) (03/29/17 17:25) Act Partial Throm Time (Ptt) (03/29/17 17:25) Lipase (03/29/17 17:25) Urinalysis - C+S If Indicated (03/29/17 17:25) Chest, Single Ap (03/29/17 17:25) Sodium Chlor 0.9% 1000 Ml Inj (Ns 1000 M (03/29/17 17:30) Ondansetron Inj (Zofran Inj) (03/29/17 17:30) Morphine Inj (Morphine Inj) (03/29/17 18:15) Ct Pulmonary Angiogram (03/29/17 18:03) Ct Abd/Pel W Iv Contrast(Rout) (03/29/17 18:11) Iohexol 350 Inj (Omnipaque 350 Inj) (03/29/17 18:39) Aspirin (Aspirin) (03/29/17 19:15) Metoprolol Tartrate Inj (Lopressor Inj) (03/29/17 19:15) Labs Laboratory Tests Test 03/29/17 03/29/17 17:30 18:25 White Blood Count 23.5 TH/MM3 Red Blood Count 3.76 MIL/MM3 Hemoglobin 10.8 GM/DL Hematocrit 33.2 % Mean Corpuscular Volume 88.2 FL Mean Corpuscular Hemoglobin 28.7 PG Mean Corpuscular Hemoglobin 32.5 % Concent Red Cell Distribution Width 14.9 % Platelet Count 876 TH/MM3 Mean Platelet Volume 7.4 FL Neutrophils (%) (Auto) 81.9 % Lymphocytes (%) (Auto) 6.6 % Monocytes (%) (Auto) 6.7 % Eosinophils (%) (Auto) 2.8 % Basophils (%) (Auto) 2.0 % Neutrophils # (Auto) 19.1 TH/MM3 Lymphocytes # (Auto) 1.6 TH/MM3 Monocytes # (Auto) 1.6 TH/MM3 Eosinophils # (Auto) 0.7 TH/MM3 Basophils # (Auto) 0.5 TH/MM3 CBC Comment AUTO DIFF Differential Comment AUTO DIFF CONFIRMED Platelet Estimate HIGH Prothrombin Time 12.0 SEC Prothromb Time International 1.1 RATIO Ratio Activated Partial 26.2 SEC Thromboplast Time Sodium Level 130 MEQ/L Potassium Level 4.4 MEQ/L Chloride Level 91 MEQ/L Carbon Dioxide Level 25.2 MEQ/L Anion Gap 14 MEQ/L Blood Urea Nitrogen 15 MG/DL Creatinine 0.97 MG/DL Estimat Glomerular Filtration 76 ML/MIN Rate Random Glucose 217 MG/DL Calcium Level 9.3 MG/DL Total Bilirubin 0.5 MG/DL Aspartate Amino Transf 16 U/L (AST/SGOT) Alanine Aminotransferase 28 U/L (ALT/SGPT) Alkaline Phosphatase 151 U/L Troponin I 0.13 NG/ML B-Type Natriuretic Peptide 135 PG/ML Total Protein 8.0 GM/DL Albumin 2.4 GM/DL Lipase 245 U/L Urine Color YELLOW Urine Turbidity CLEAR Urine pH 6.5 Urine Specific [place] 1.010 Urine Protein NEG mg/dL Urine Glucose (UA) NEG mg/dL Urine Ketones NEG mg/dL Urine Occult Blood NEG Urine Nitrite NEG Urine Bilirubin NEG Urine Leukocyte Esterase NEG Urine RBC 0-3 /hpf Urine WBC 0-2 /hpf Urine Squamous Epithelial 0-5 /hpf Cells Microscopic Urinalysis Comment CULT NOT INDICATED MDM Medical Decision Making Medical Screen Exam Complete: Yes Emergency Medical Condition: Yes Medical Record Reviewed: Yes Differential Diagnosis Differential includes COPD, pneumonia, PE Narrative Course EKGs shows sinus tachycardia at a rate of 113. Chest x-ray is negative. His troponin is elevated at 0.13. A CT scan of the chest was obtained. There is no pulmonary embolus. There are multiple right-sided pulmonary nodules which have increased in size with metastatic disease CT scan of the abdomen was also done because of the vomiting and high white count. There is a large mass in the right upper quadrant which has increased in size may be necrotic. There are hepatic metastases which have increased in size. There is no retroperitoneal adenopathy. Patient does have sustained tachycardia and has not been able to take his beta preston. I have ordered Lopressor and aspirin. Diagnosis Primary Impression: Dyspnea Qualified Code: R06.02 - Shortness of breath Additional Impression: Elevated troponin I level Saji Moody MD March 29, 2017 17:34
--- NOTE | 2017-03-29 17:55 | RADHPO ---
EXAM DATE/TIME: 03/29/2017 17:41 [facility] COMPARISON: CHEST SINGLE AP, March 23, 2017, 18:58. INDICATIONS : Shortness of breath, difficulty breathing for 24 hours MEDICAL HISTORY : None. SURGICAL HISTORY : None. ENCOUNTER: Initial ACUITY: 1 day PAIN SCORE: 0/10 LOCATION: Bilateral chest FINDINGS: A single view of the chest demonstrates the lungs to be symmetrically aerated without evidence of mas s, infiltrate or effusion. The cardiomediastinal contours are unremarkable. Osseous structures are intact. CONCLUSION: No acute disease. Davonte Ansari Jr., MD on March 29, 2017 at 17:53 Board Certified Radiologist. This report was verified electronically.
[2017-03-29 17:56] LABS: AUTOMATED NEUTROPHIL # 19.1 TH/MM3 (1.8-7.7); BASOPHIL # 0.5 TH/MM3 (0-0.2); EOSINOPHIL # 0.7 TH/MM3 (0-0.4); EOSINOPHIL % 2.8 % (0.0-4.0); HEMATOCRIT 33.2 % (39.0-51.0); LYMPH % 6.6 % (9.0-44.0); LYMPHOCYTE # 1.6 TH/MM3 (1.0-4.8); MEAN CELL VOLUME 88.2 FL (80.0-100.0); MEAN CORPUSCULAR HEMOGLOBIN 28.7 PG (27.0-34.0); MEAN CORPUSCULAR HGB CONC 32.5 % (32.0-36.0); MONO % 6.7 % (0.0-8.0); NEUT % 81.9 % (16.0-70.0); PLATELET COUNT 876 TH/MM3 (150-450); RED BLOOD COUNT 3.76 MIL/MM3 (4.50-5.90); RED CELL DISTRIBUTION WIDTH 14.9 % (11.6-17.2); WHITE BLOOD COUNT 23.5 TH/MM3 (4.0-11.0)
[2017-03-29 17:57] LABS: CHLORIDE 91 MEQ/L (98-107); POTASSIUM 4.4 MEQ/L (3.5-5.1); SODIUM (NA) 130 MEQ/L (136-145)
[2017-03-29 17:58] LABS: HEMO FLAGS AUTO DIFF
[2017-03-29 18:01] LABS: ANION GAP 14 MEQ/L (5-15); APTT (PATIENT) 26.2 SEC (24.3-30.1); BICARBONATE 25.2 MEQ/L (21.0-32.0); BLOOD UREA NITROGEN 15 MG/DL (7-18); INTERNATIONAL NORMALIZED RATIO 1.1 RATIO
[2017-03-29 18:04] LABS: ALT (GPT) 28 U/L (12-78); AST (GOT) 16 U/L (15-37); GLOMERULAR FILTRATION RATE 76 ML/MIN (>89)
[2017-03-29 18:05] LABS: TOTAL BILIRUBIN ADULT 0.5 MG/DL (0.2-1.0)
[2017-03-29 18:07] LABS: ALKALINE PHOSPHATASE 151 U/L (45-117)
[2017-03-29] MEDS ORDERED: MORPHINE SULFATE 4 MG/ML INJ IV PUSH ONE (18:15)
[2017-03-29 18:33] LABS: PLATELET ESTIMATE SMEAR HIGH (NORMAL); SCAN/DIFF AUTO DIFF CONFIRMED
[2017-03-29 18:37] LABS: BLOOD, URINE NEG (NEG); GLUCOSE,URINE NEG (NEG); KETONE, URINE NEG (NEG); NITRITE,URINE NEG (NEG); PH, URINE 6.5 (5.0-8.5)
[2017-03-29] MEDS ORDERED: IOHEXOL 350 MG/ML 10 ML VIAL (for RAD DIAG) IV ONE (18:39)
[2017-03-29 18:42] LABS: URINE COLOR YELLOW (YELLW/STRAW)
[2017-03-29 18:43] LABS: COMMENT (UR) CULT NOT INDICATED; CULTURE IF INDICATED CULT NOT INDICATED; RBC, URINE 0-3 /hpf (0-3); SQUAMOUS EPITHELIAL CELL URINE 0-5 /hpf (0-5); WBC, URINE 0-2 /hpf (0-5)
--- NOTE | 2017-03-29 18:46 | RADHPO ---
EXAM DATE/TIME: 03/29/2017 18:18 [facility] COMPARISON: CT PULMONARY ANGIOGRAM, March 13, 2017, 12:09. INDICATIONS : Shortness of breath. IV CONTRAST: 100 cc Omnipaque 350 (iohexol) IV ; Cumulative dose for multiple exams. RADIATION DOSE: 13.35 CTDIvol (mGy) MEDICAL HISTORY : Cardiovascular disease. Hypertension. Diabetes mellitus type 2. SURGICAL HISTORY : None. ENCOUNTER: Initial ACUITY: 1 day PAIN SCALE: 0/10 LOCATION: chest TECHNIQUE: Volumetric scanning of the chest was performed using a pulmonary embolism protocol MIP images were re constructed. Using automated exposure control and adjustment of the mA and/or kV according to patien t size, radiation dose was kept as low as reasonably achievable to obtain optimal diagnostic quality images. FINDINGS: PULMONARY ARTERIES: No filling defects are seen in the pulmonary arteries through the segmental level. LUNGS: There is no consolidation or pneumothorax . The previously noted pulmonary nodules all increased in s ize. The largest now measures 1.5 a 1.4 cm in diameter compared to 0.9 x 0.8 cm. There is a new appar ent nodule in the posterior lower lobe on the right. The left lung is clear. PLEURAE: There is no pleural thickening or pleural effusion. MEDIASTINUM: There is good visualization of the great vessels of the middle mediastinum. No evidence of mediastin al or hilar adenopathy/mass. There is circumferential thickening of portions the esophagus and fluid is present. There is a small hiatal hernia. MUSCULOSKELETAL: Within normal limits for patient age. MISCELLANEOUS: The visualized upper abdominal organs demonstrate no acute abnormality. CONCLUSION: 1. No evidence of pulmonary embolism. 2. Multiple right-sided pulmonary nodules which have increased in size and are most consistent with m etastatic disease. 3. There is apparent circumferential thickening of the esophagus and there is fluid present. There is a small apparent hiatal hernia. Edwin Silverio MD on March 29, 2017 at 18:40 Board Certified Radiologist. This report was verified electronically.
--- NOTE | 2017-03-29 18:56 | RADHPO ---
EXAM DATE/TIME: 03/29/2017 18:18 [facility] COMPARISON: CT ABDOMEN & PELVIS W CONTRAST, March 09, 2017, 20:56. 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 IV CONTRAST: 100 cc Omnipaque 350 (iohexol) IV ; Cumulative dose for multiple exams. ORAL CONTRAST: No oral contrast ingested. RADIATION DOSE: 9.02 CTDIvol (mGy) MEDICAL HISTORY : Hypertension. Gastroesophageal reflux disease. Diabetes mellitus type 2. SURGICAL HISTORY : Appendectomy. GJ tube. ENCOUNTER: Initial ACUITY: 1 day PAIN SCALE: 8/10 LOCATION: abdomen TECHNIQUE: Volumetric scanning of the abdomen and pelvis was performed. Using automated exposure control and ad justment of the mA and/or kV according to patient size, radiation dose was kept as low as reasonably achievable to obtain optimal diagnostic quality images. FINDINGS: LOWER LUNGS: Multiple pulmonary nodules are again noted a right lower lobe which have increased in size consistent with metastatic disease. LIVER: Normal in size and shape. The previously noted hepatic metastasis is increased in size now measures 4 .4 x 2.4 cm. There are R. several new smaller masses. There is apparent cyst.. There is no dilation of the biliary tree. No calcified gallstones. SPLEEN: Normal size without lesion. PANCREAS: Within normal limits. KIDNEYS: Normal in size and shape. There is no solid mass, stone or hydronephrosis. There are bilateral small cysts. ADRENAL GLANDS: Within normal limits. VASCULAR: There is no aortic aneurysm. BOWEL/MESENTERY: There are postsurgical changes status post gastrojejunostomy. The stomach is mildly distended. There is a large ill-defined mass noted in the right upper quadrant along the antrum of the stomach. This i s increased in size and now measures up to approximately 8.2 x 8.5 x 8.3 cm in diameter. There is low attenuation centrally with a small gas bubble which may indicate necrosis. There are no masses in th e central mesentery which increased in size. The largest now measures approximately 3.6 x 2.4 cm in d iameter. Distal esophagus is dilated with appearance small hiatal hernia. There are scattered diverti culi. The small bowel and colon are unremarkable. ABDOMINAL WALL: Within normal limits. RETROPERITONEUM: There is new retroperitoneal adenopathy multiple small nodes are noted. BLADDER: No wall thickening or mass. REPRODUCTIVE: Within normal limits. INGUINAL: There is no lymphadenopathy or hernia. MUSCULOSKELETAL: Within normal limits for patient age. CONCLUSION: 1. Large mass in the right upper quadrant in the region of the antrum of the stomach which is increas ed in size and may be necrotic. No increase in adenopathy in the central mesentery. 2. Hepatic metastasis which increased in size. 3. New retroperitoneal adenopathy. 4. Pulmonary metastasis which have increased in size. 5. Status post gastrojejunostomy. Edwin Silverio MD on March 29, 2017 at 18:47 Board Certified Radiologist. This report was verified electronically.
[2017-03-29] MEDS ORDERED: ASPIRIN 325 MG TAB PO ONE (19:15)
[2017-03-29] MEDS ORDERED: METOPROLOL TARTRATE 5 MG/5 ML VIAL IV PUSH PRN (19:15)
[2017-03-29] MEDS ORDERED: SODIUM CHLORIDE 0.9% FLUSH 10 ML FLUSH IV FLUSH PRN (20:00)
[2017-03-29] MEDS ORDERED: NALOXONE HCL 0.4 MG/ML AMP IV PRN (20:00)
[2017-03-29] MEDS ORDERED: GLUCAGON 1 MG/ML VIAL OTHER PRN (20:30)
[2017-03-29] MEDS ORDERED: DEXTROSE 50% IN WATER 50 ML VIAL(D50) IV PUSH PRN (20:30)
[2017-03-29] MEDS: SODIUM CHLORIDE 0.9% FLUSH 10 ML FLUSH IV FLUSH SCH (20:51)
[2017-03-29] MEDS: INSULIN ASPART SUPPLEMENTAL SCALE SQ SCH (21:17)
[2017-03-29] MEDS: METOPROLOL TARTRATE 50 MG TAB PO SCH (22:28)
[2017-03-29] MEDS ORDERED: MORPHINE SULFATE 4 MG/ML INJ IV PUSH PRN (22:30)
[2017-03-29] MEDS: oxyCODONE/ACETAMINOPHEN 5 MG/325 MG TAB PO PRN (22:48)
[2017-03-30] VITALS (12 sets, daily range): BP systolic 95–136; BP diastolic 63–73; PULSE 75–96; RESP 14–23; TEMP 97.8–98.9; O2SAT 95–99
[2017-03-30] MEDS: SODIUM CHLOR 0.9% 1000 ML INJ 1,000 ML IV SCH ×2 (03:13→09:32)
[2017-03-30] MEDS: METOPROLOL TARTRATE 50 MG TAB PO SCH ×3 (06:05→21:24)
[2017-03-30] MEDS: INSULIN ASPART SUPPLEMENTAL SCALE SQ SCH ×4 (06:05→21:24)
[2017-03-30] MEDS ORDERED: DOCUSATE SODIUM 50 MG/SENNA 8.6 MG TAB PO PRN (09:00)
[2017-03-30] MEDS ORDERED: ACETAMINOPHEN 325 MG TAB PO PRN (09:00)
[2017-03-30] MEDS: SODIUM CHLORIDE 0.9% FLUSH 10 ML FLUSH IV FLUSH SCH ×2 (09:32→21:25)
[2017-03-30] MEDS: PRAVASTATIN SOD 40 MG TAB PO SCH (09:35)
[2017-03-30] MEDS: PANTOPRAZOLE SOD 20 MG DELAYED RELEASE TAB PO SCH (09:35)
[2017-03-30] MEDS: NABUMETONE 500 MG TAB PO SCH (09:35)
[2017-03-30] MEDS: SERTRALINE HCL 50 MG TAB PO SCH (09:36)
[2017-03-30] MEDS ORDERED: AMITRIPTYLINE HCL 50 MG TAB PO SCH (10:00)
[2017-03-30] MEDS ORDERED: MAGNESIUM HYDROXIDE SUSP 30 ML CUP PO PRN (11:15)
--- NOTE | 2017-03-30 11:27 | HHI.HP ---
[facility] Non-Staff Admission Diagnosis DYSPNEA, ELEVATED TROPONIN Diagnoses: (1) Metastatic cancer Diagnosis: Principal (2) Dyspnea Diagnosis: Principal (3) Vomiting Diagnosis: Principal (4) Leukocytosis Diagnosis: Principal (5) Elevated troponin I level Diagnosis: Principal (6) Constipation Diagnosis: Principal Chief Complaint: vomiting, sob Travel History International Travel<30 Days: No Contact w/Intl Traveler <30 Da: No Traveled to Known Affected Are: No History of Present Illness 72-year-old male with metastatic cancer and history of diabetes, hyperlipidemia, hypertension, GERD, depression presents with complaint of shortness of breath or vomiting. Patient was recently admitted on 03/23/17 for psychosis and had hospitalist consultation at that time. He was discharged on . He returned to the ED yesterday stating that he had been vomiting a couple times yesterday. He states he then one in the toe that to relax and states he couldn't breathe. He states this happened twice within a couple of minutes. He denies any chest pain, wheezing, or cough. Denies any fevers or chills. His states he did not actually become short of breath when vomiting. He denies any vomiting now on his hungry. States his emesis was dark but no obvious blood reported. Admits some abdominal tenderness but states it is improved. States his last bowel movement was 5-6 days ago and was diarrhea at that time. He has not had a bowel movement since that time but does have flatus. He denies any increased abdominal distention. He states he is taking a stool softener but it is not helping. Review of Systems Except as stated in HPI: all other systems reviewed are Neg Past Family Social History Past Medical History Depression Hyperlipidemia Hypertension Diabetes GERD Past Surgical History Gastrojejunostomy on 03/16 per EMR Appendectomy Reported Medications Reported Meds & Active Scripts Active Zoloft (Sertraline HCl) 50 Mg Tab 50 Mg PO DAILY Metoclopramide Liq (Metoclopramide HCl) 5 Mg/5 Ml Liq 10 Mg PO ACHS 5 Days Oxycodone-Acetaminophen 5-325 mg Tab 1 Tab PO Q6H PRN 7 Days Lopressor (Metoprolol Tartrate) 50 Mg Tab 50 Mg PO Q8HR 30 Days Levemir Inj (Insulin Detemir) 1,000 unit/ 10 ML Vial 5 Units SQ Q12HR 30 Days Amlodipine (Amlodipine Besylate) 10 Mg Tab 10 Mg PO DAILY Nabumetone 500 Mg Tab 500 Mg PO DAILY Lovastatin 40 Mg Tab 40 Mg PO DAILY Omeprazole 20 Mg Tab 20 Mg PO DAILY Amitriptyline (Amitriptyline HCl) 75 Mg Tab 75 Mg HS Metformin (Metformin HCl) 1,000 Mg Tab 1,000 Mg PO BIDPC With meals Glipizide 5 Mg Tab 5 Mg PO BIDAC Take 30 minutes before a meal Allergies: Coded Allergies: No Known Allergies (Unverified , 03/29/17) Family History Denies family history of [place], CVA, or cancer. Social History Denies alcohol use. Denies history of heavy drinking. Denies history of tobacco use. Denies history of illicit drug use. Physical Exam Vital Signs Vital Signs Date Time Temp Pulse Resp B/P Pulse Ox O2 Delivery O2 Flow Rate FiO2 03/30/17 11:06 96 21 03/30/17 04:00 98.3 81 14 133/65 99 03/30/17 02:00 99 Nasal Cannula 2.00 03/30/17 00:00 98.2 84 23 127/73 99 03/29/17 23:48 20 03/29/17 22:15 98.3 108 16 144/66 100 03/29/17 22:15 110 18 99 Nasal Cannula 2 03/29/17 21:40 109 18 142/74 99 03/29/17 20:39 110 18 140/77 99 03/29/17 19:10 120 18 137/81 100 Nasal Cannula 2 03/29/17 18:11 119 20 160/80 100 Nasal Cannula 2 03/29/17 17:28 103 20 144/91 98 Nasal Cannula 2 03/29/17 16:37 97.5 129 20 132/66 99 Physical Exam GENERAL: This is a pleasant well-nourished, well-developed patient, in no apparent distress. SKIN: No rashes, ecchymoses or lesions. Pale, but warm and dry. HEAD: Atraumatic. Normocephalic. EYES: No scleral icterus. No injection or drainage. ENT: Mildly dry mucous membranes. Uvula midline. Airway patent. NECK: Trachea midline. CARDIOVASCULAR: Regular rate and rhythm without murmurs, gallops, or rubs. RESPIRATORY: Clear to auscultation. Breath sounds equal bilaterally. No wheezes , rales, or rhonchi. GASTROINTESTINAL: Normoactive bowel sounds. Abdomen soft, non-tender, nondistended. No guarding. MUSCULOSKELETAL: No lower extremity edema bilaterally. NEUROLOGICAL: Awake and alert. Motor grossly within normal limits. Normal speech. PSYCHIATRIC: Normal mood and affect. Normal insight and judgement. Laboratory Laboratory Tests Test 03/29/17 03/29/17 17:30 18:25 White Blood Count 23.5 Red Blood Count 3.76 Hemoglobin 10.8 Hematocrit 33.2 Mean Corpuscular Volume 88.2 Mean Corpuscular Hemoglobin 28.7 Mean Corpuscular Hemoglobin 32.5 Concent Red Cell Distribution Width 14.9 Platelet Count 876 Mean Platelet Volume 7.4 Neutrophils (%) (Auto) 81.9 Lymphocytes (%) (Auto) 6.6 Monocytes (%) (Auto) 6.7 Eosinophils (%) (Auto) 2.8 Basophils (%) (Auto) 2.0 Neutrophils # (Auto) 19.1 Lymphocytes # (Auto) 1.6 Monocytes # (Auto) 1.6 Eosinophils # (Auto) 0.7 Basophils # (Auto) 0.5 CBC Comment AUTO DIFF Differential Comment AUTO DIFF CONFIRMED Platelet Estimate HIGH Prothrombin Time 12.0 Prothromb Time International 1.1 Ratio Activated Partial 26.2 Thromboplast Time Sodium Level 130 Potassium Level 4.4 Chloride Level 91 Carbon Dioxide Level 25.2 Anion Gap 14 Blood Urea Nitrogen 15 Creatinine 0.97 Estimat Glomerular Filtration 76 Rate Random Glucose 217 Calcium Level 9.3 Total Bilirubin 0.5 Aspartate Amino Transf 16 (AST/SGOT) Alanine Aminotransferase 28 (ALT/SGPT) Alkaline Phosphatase 151 Troponin I 0.13 B-Type Natriuretic Peptide 135 Total Protein 8.0 Albumin 2.4 Lipase 245 Urine Color YELLOW Urine Turbidity CLEAR Urine pH 6.5 Urine Specific Vendor 1.010 Urine Protein NEG Urine Glucose (UA) NEG Urine Ketones NEG Urine Occult Blood NEG Urine Nitrite NEG Urine Bilirubin NEG Urine Leukocyte Esterase NEG Urine RBC 0-3 Urine WBC 0-2 Urine Squamous Epithelial 0-5 Cells Microscopic Urinalysis Comment CULT NOT INDICATED Result Diagram: 03/29/17 1730 03/29/17 1730 Imaging Last Impressions Abdomen/Pelvis CT 03/29/17 1811 Signed Impressions: Service Date/Time: Wednesday, March 29, 2017 18:18 - CONCLUSION: 1. Large mass in the right upper quadrant in the region of the antrum of the stomach which is increased in size and may be necrotic. No increase in adenopathy in the central mesentery. 2. Hepatic metastasis which increased in size. 3. New retroperitoneal adenopathy. 4. Pulmonary metastasis which have increased in size. 5. Status post gastrojejunostomy. Edwin Silverio MD CT Angiography 03/29/17 1803 Signed Impressions: Service Date/Time: Wednesday, March 29, 2017 18:18 - CONCLUSION: 1. No evidence of pulmonary embolism. 2. Multiple right-sided pulmonary nodules which have increased in size and are most consistent with metastatic disease. 3. There is apparent circumferential thickening of the esophagus and there is fluid present. There is a small apparent hiatal hernia. Edwin Silverio MD Chest X-Ray 03/29/175 Signed Impressions: Service Date/Time: Wednesday, March 29, 2017 17:41 - CONCLUSION: No acute disease. Davonte Ansari Jr., MD Assessment and Plan Assessment and Plan 72-year-old male with: Metastatic cancer: Abdominal CT with large mass in the right upper quadrant in the region of the antrum of stomach which is increased in size may be necrotic. Hepatic metastasis with increased size. New retroperitoneal adenopathy. Pulmonary metastasis have increased in size. CTA chest with multiple right sided pulmonary nodules which is increased in size consistent with metastatic disease. There is circumferential thickening of the esophagus and fluid present. -Patient has outpatient follow appointments set up at the [place] Dyspnea: Resolved. Likely attributed to cancer. CTA as above. No PE evident. O2 saturation normal on RA. Chest x-ray personally interpreted without pneumonia. BNP only 135. -Monitor clinically -PT eval Vomiting: Resolved. Likely attributed to constipation. -Continue IVF until patient tolerating po diet Elevated troponin level: Troponin 0.13. Likely attributed to critical illness. Patient has no chest pain. EKG personally interpreted with sinus tachycardia 113 with q waves in lead III and aVF similar to EKG on 03/09/17. No new ischemic changes. Patient denies h/o CAD but has risk factors. Trend cadiac enzymes. Received as. Ct BB. Leukocytosis: Blood cell count elevated at 23.5. Appears to be chronically high as his WBC count was 17.4 on 03/24/19. Acute increase may be attributed to vomiting. -Monitor CBC Constipation: No BM in 5-[address] abdomen with stool evident. -Start bowel regimen including Ann-colace bid, MOM prn Hyponatremia and hypochloremia: Chronic. Sodium 130 today same as on 03/24/17. Chloride 91 compared to 94 on 03/24. -Monitor BMP Thrombocytosis: Chronic. 736 on 03/24, acutely worse at 876 on 03/29. -Monitor CBC Diabetes mellitus: -Hold oral medications as patient is currently hypoglycemic. -Regular diet for now - Bedside Accu-checks with low dose SSI. HTN: states patient was not given Lopressor prescription on discharge last time. -Continue Lopressor and Amlodipine DVT prevention: TEDs and SCDs, Lovenox. Written by Rosario Conley PA-C acting as scribe for Dr. Guerra on 03/30/17 at 1018. This note was transcribed by scribe Rosario Conley PA-C. I, Dr. Ryan Guerra personally performed the history, physical exam, and medical decision making; and confirmed the accuracy of the information in the transcribed note. Authenticated by Dr. Ryan Guerra on 03/30/17 at 15:21. Code Status FULL CODE. Discussed Condition With patient Physician Certification 2 Midnight Certification Type: Admission for Inpatient Services Order for Inpatient Services The services are ordered in accordance with Medicare regulations or non- Medicare payer requirements, as applicable. In the case of services not specified as inpatient-only, they are appropriately provided as inpatient services in accordance with the 2-midnight benchmark. Estimated LOS (days): 2 days is the estimated time the patient will need to remain in the hospital, assuming treatment plan goals are met and no additional complications. Post-Hospital Plan: Home Problem Qualifiers (1) Dyspnea: Qualified Code: R06.02 - Shortness of breath Rosario Conley March 30, 2017 11:26 Ryan Guerra MD March 30, 2017 15:21
[2017-03-30] MEDS ORDERED: Amitriptyline PO (12:51)
--- NOTE | 2017-03-30 12:52 | HHI.FF ---
Face to Face Verification Diagnosis: (1) Metastatic cancer Physical Therapy Order: Evaluate and Treat, Improve ambulation, Strength and gait training I have seen patient Pieter James on 03/30/17. My clinical findings support the need for the requested home health care services because: Deconditioned w/ increased weakness I certify that my clinical findings support that this patient is homebound because: Unsafe to leave home unassisted Ryan Guerra MD March 30, 2017 12:52
--- NOTE | 2017-03-30 12:52 | HHI.DCPOC ---
Discharge Care Plan Diagnosis: (1) Metastatic cancer Your Health Problems Are: Difficulty with ADL Exercise Tolerance Goals to Promote Your Health * To prevent worsening of your condition and complications * To maintain your health at the optimal level Directions to Meet Your Goals Take your medications as prescribed Follow your dietary instruction Follow activity as directed Keep your appointments as scheduled Take your immunizations and boosters as scheduled If your symptoms worsen call your PCP, if no PCP go to Urgent Care Center or Emergency Room Smoking is Dangerous to Your Health. Avoid second hand smoke Call the 24-hour hour crisis hotline for domestic abuse at Ryan Guerra MD March 30, 2017 12:52
[2017-03-30] MEDS: ENOXAPARIN SODIUM 40 MG/0.4 ML SYRINGE SQ SCH (14:39)
[2017-03-30] MEDS: DOCUSATE SODIUM 50 MG/SENNA 8.6 MG TAB PO SCH ×2 (14:39→21:24)
--- NOTE | 2017-03-30 18:33 | EKG ---
Date Performed: 03/29/2017 Time Performed: 16:38:38 PTAGE: 72 years EKG: Sinus tachycardia with PAC(s). Anterior infarct - age undetermined Inferior infarct - age u ndetermined Abnormal ECG Compared to prior tracing no significant change PREVIOUS TRACING : 03/18/2017 19.43 DOCTOR: Guy Fitzgerald Interpretating Date/Time 03/30/2017 18:30:15
[2017-03-30] MEDS ORDERED: QUEtiapine FUMARATE 25 MG TAB PO SCH (21:00)
[2017-03-30] MEDS ORDERED: traZODone HCL 50 MG TAB PO SCH (21:00)
[2017-03-30] MEDS: AMITRIPTYLINE HCL 75 MG TAB PO SCH (21:24)
[2017-03-30] MEDS: oxyCODONE/ACETAMINOPHEN 5 MG/325 MG TAB PO PRN (21:31)
[2017-03-31] VITALS (12 sets, daily range): BP systolic 101–134; BP diastolic 46–72; PULSE 76–92; RESP 15–28; TEMP 97.6–99.1; O2SAT 94–97
[2017-03-31] MEDS: SODIUM CHLOR 0.9% 1000 ML INJ 1,000 ML IV SCH ×2 (04:18→16:23)
[2017-03-31 04:46] LABS: AUTOMATED NEUTROPHIL # 12.1 TH/MM3 (1.8-7.7); BASOPHIL # 0.1 TH/MM3 (0-0.2); BASOPHIL % 0.9 % (0.0-2.0); EOSINOPHIL % 6.2 % (0.0-4.0); HEMATOCRIT 28.8 % (39.0-51.0); HEMO FLAGS DIFF FINAL; LYMPH % 9.7 % (9.0-44.0); LYMPHOCYTE # 1.5 TH/MM3 (1.0-4.8); MEAN CORPUSCULAR HEMOGLOBIN 29.4 PG (27.0-34.0); MEAN CORPUSCULAR HGB CONC 33.3 % (32.0-36.0); MONO % 7.7 % (0.0-8.0); NEUT % 75.5 % (16.0-70.0); PLATELET COUNT 728 TH/MM3 (150-450); RED BLOOD COUNT 3.28 MIL/MM3 (4.50-5.90); RED CELL DISTRIBUTION WIDTH 14.6 % (11.6-17.2); WHITE BLOOD COUNT 15.9 TH/MM3 (4.0-11.0)
[2017-03-31 05:05] LABS: BICARBONATE 26.8 MEQ/L (21.0-32.0); MAGNESIUM 1.6 MG/DL (1.5-2.5); POTASSIUM 4.2 MEQ/L (3.5-5.1)
[2017-03-31] MEDS: METOPROLOL TARTRATE 50 MG TAB PO SCH ×3 (06:09→21:32)
[2017-03-31] MEDS: INSULIN ASPART SUPPLEMENTAL SCALE SQ SCH ×4 (06:10→21:33)
--- NOTE | 2017-03-31 07:47 | PD.CONS ---
HPI Service Cv Consult Requested By Reason for Consult elevated troponin Primary Care Physician Non-Staff History of Present Illness Here with metastatic cancer, diabetes, hyperlipidemia, hypertension admitted for shortness of breath or vomiting. Patient was recently admitted on 03/23/17 for psychosis. He was discharged on 03/24/17. He returned to the ED two days ago stating that he had been vomiting and shortness of breath. He states this happened two times over a 5 minute period. He denies any chest pain or palpitations. (Miguel Macedo) Review of Systems Consitutional: DENIES: Fatigue, Fever, Chills, Weight gain, Weight loss Eyes: DENIES: Amaurosis Fugax, Change in vision HEENT: DENIES: Lightheadedness, Change in hearing Respiratory: DENIES: See HPI, Cough, Snoring, Shortness of breath, Wheezing, Sputum production Cardiovascular: COMPLAINS OF: See HPI Gastrointestinal: DENIES: Nausea, Vomiting, Change in bowel habits, Reflux, Bloody stools, Melena Genitourinary: DENIES: Urinary incontinence, Difficulty voiding Integumentary: DENIES: Rash Neurologic: DENIES: Tingling or numbness, Memory problems, Poor Balance, Stroke symptoms Musculoskeletal: DENIES: Joint pain, Muscle pain, Limited range of motion, Back pain Psychiatric: DENIES: Anxiety, Depression, Sleep disturbances Hematologic: DENIES: Bruising tendencies, Bleeding tendencies Endocrine: DENIES: Weight gain, Weight loss, Thyroid disease (Miguel Macedo ) Past Family Social History Allergies: Coded Allergies: No Known Allergies (Unverified , 03/29/17) Past Medical History see HPI GERD depression Past Surgical History Gastrojejunostomy on 03/16 per EMR Appendectomy Reported Medications Reported Meds & Active Scripts Active [Amitriptyline] 75 MG Tab 75 Mg PO HS Zoloft (Sertraline HCl) 50 Mg Tab 50 Mg PO DAILY Trazodone (Trazodone HCl) 50 Mg Tab 50 Mg PO HS Metoclopramide Liq (Metoclopramide HCl) 5 Mg/5 Ml Liq 10 Mg PO ACHS 5 Days Zoloft (Sertraline HCl) 50 Mg Tab 25 Mg PO DAILY 30 Days Quetiapine (Quetiapine Fumarate) 25 Mg Tab 25 Mg PO HS 30 Days Oxycodone-Acetaminophen 5-325 mg Tab 1 Tab PO Q6H PRN 7 Days Lopressor (Metoprolol Tartrate) 50 Mg Tab 50 Mg PO Q8HR 30 Days Levemir Inj (Insulin Detemir) 1,000 unit/ 10 ML Vial 5 Units SQ Q12HR 30 Days [Amitriptyline] 50 MG Tab 50 Mg PO DAILY Reported Amlodipine (Amlodipine Besylate) 10 Mg Tab 10 Mg PO DAILY Nabumetone 500 Mg Tab 500 Mg PO DAILY Lovastatin 40 Mg Tab 40 Mg PO DAILY Omeprazole 20 Mg Tab 20 Mg PO DAILY Amitriptyline (Amitriptyline HCl) 75 Mg Tab 75 Mg PO DAILY Metformin (Metformin HCl) 1,000 Mg Tab 1,000 Mg PO BIDPC With meals Glipizide 5 Mg Tab 5 Mg PO BIDAC Take 30 minutes before a meal Active Ordered Medications Current Medications Medications (Trade) Dose Ordered Sig/Burton Route Start Time Stop Time Status Last Admin (NS 1000 ml Inj) 1,000 ml @ 60 mls/hr [id number] IV 03/29/17 17:30 03/31/17 04:18 (Lopressor Inj) 5 mg Q5M PRN IV PUSH 03/29/17 19:15 03/29/17 19:23 (NS Flush) 2 ml UNSCH PRN IV FLUSH 03/29/17 20:00 (NS Flush) 2 ml BID IV FLUSH 03/29/17 21:00 03/30/17 21:25 (Narcan Inj) 0.4 mg UNSCH PRN IV 03/29/17 20:00 (Norvasc) 10 mg DAILY PO 03/30/17 09:00 03/30/17 09:35 (Pravachol) 40 mg DAILY PO 03/30/17 09:00 03/30/17 09:35 (Lopressor) 50 mg Q8HR PO 03/29/17 22:00 03/31/17 06:09 (Relafen) 500 mg DAILY PO 03/30/17 09:00 03/30/17 09:35 (Protonix) 20 mg DAILY PO 03/30/17 09:00 03/30/17 09:35 (D50w (Vial) Inj) 25 ml UNSCH PRN IV PUSH 03/29/17 20:30 (Glucagon Inj) 1 mg UNSCH PRN OTHER 03/29/17 20:30 (Percocet 5-325 Mg) 1 tab Q6H PRN PO 03/29/17 22:30 03/30/17 21:31 (Morphine Inj) 2 mg Q3H PRN IV PUSH 03/29/17 22:30 (Tylenol) 650 mg Q4H PRN PO 03/30/17 09:00 (Zofran Inj) 4 mg Q6H PRN IV 03/30/17 09:00 (Tums Chew) 1,000 mg TID PRN CHEW 03/30/17 09:00 (Zoloft) 50 mg DAILY PO 03/30/17 09:00 03/30/17 09:36 (Elavil) 75 mg HS PO 03/30/17 21:00 03/30/17 21:24 (Ann-Colace) 2 tab BID PO 03/30/17 12:00 03/30/17 21:24 (Milk Of Magnesia Liq) 30 ml Q6H PRN PO 03/30/17 11:15 (Lovenox Inj) 40 mg Q24H SQ 03/30/17 14:00 03/30/17 14:39 Family History noncontributory Social History Denies alcohol use. Denies tobacco use. Denies illicit drug use. (Miguel Macedo) Physical Exam Vital Signs Vital Signs Date Time Temp Pulse Resp B/P Pulse Ox O2 Delivery O2 Flow Rate FiO2 03/31/17 06:00 91 03/31/17 04:00 87 03/31/17 04:00 99.1 78 26 112/46 94 03/31/17 02:00 76 03/31/17 00:00 98.7 78 25 128/65 94 03/31/17 00:00 80 03/30/17 22:00 75 03/30/17 20:00 98.9 84 18 121/69 96 03/30/17 20:00 85 03/30/17 18:00 84 03/30/17 16:00 97.8 86 14 124/64 95 03/30/17 16:00 90 03/30/17 14:00 94 03/30/17 14:00 90 19 136/66 95 03/30/17 12:00 98.2 92 23 95/63 95 03/30/17 12:00 96 03/30/17 11:06 96 21 03/30/17 10:00 82 03/30/17 08:00 98.4 82 23 125/66 03/30/17 08:00 82 Physical Exam GENERAL: Well-nourished, well-developed patient in no apparent distress. NECK: No JVD. No carotid bruit. CARDIOVASCULAR: Regular rate and rhythm. S1/S2 no murmur, rub, or gallop. RESPIRATORY: No accessory muscle use. Clear to auscultation. Breath sounds equal bilaterally. GASTROINTESTINAL: Abdomen soft, non-tender, nondistended. MUSCULOSKELETAL: Extremities without clubbing, cyanosis, or edema. Laboratory Laboratory Tests Test 03/30/17 03/30/17 03/31/17 13:45 20:35 04:22 Total Creatine Kinase 67 61 Troponin I 1.34 1.30 White Blood Count 15.9 Red Blood Count 3.28 Hemoglobin 9.6 Hematocrit 28.8 Mean Corpuscular Volume 88.0 Mean Corpuscular Hemoglobin 29.4 Mean Corpuscular Hemoglobin 33.3 Concent Red Cell Distribution Width 14.6 Platelet Count 728 Mean Platelet Volume 6.6 Neutrophils (%) (Auto) 75.5 Lymphocytes (%) (Auto) 9.7 Monocytes (%) (Auto) 7.7 Eosinophils (%) (Auto) 6.2 Basophils (%) (Auto) 0.9 Neutrophils # (Auto) 12.1 Lymphocytes # (Auto) 1.5 Monocytes # (Auto) 1.2 Eosinophils # (Auto) 1.0 Basophils # (Auto) 0.1 CBC Comment DIFF FINAL Differential Comment Sodium Level 135 Potassium Level 4.2 Chloride Level 100 Carbon Dioxide Level 26.8 Anion Gap 8 Blood Urea Nitrogen 10 Creatinine 0.67 Estimat Glomerular Filtration 116 Rate Random Glucose 159 Calcium Level 8.0 Magnesium Level 1.6 (Miguel Macedo) Result Diagram: 03/31/17 0422 03/31/17 0422 Assessment and Plan Problem List: (1) HTN (hypertension) (2) NSTEMI (non-ST elevated myocardial infarction) Assessment and Plan His shortness of breath could be an anginal equivalent. With troponin rise and thrombocytosis he should undergo left heart cath. However he seems upset and does not believe he had SD. Further recommendations per Dr. Flores (Miguel Macedo) Assessment and Plan NSTEMI - asa statin bb. Refusing LHC. continue med mgt. 2d echo. (Randy Flores MD) Miguel Macedo March 31, 2017 07:47 Randy Flores MD March 31, 2017 08:47
[2017-03-31] MEDS: DOCUSATE SODIUM 50 MG/SENNA 8.6 MG TAB PO SCH ×2 (08:59→21:32)
[2017-03-31] MEDS: NABUMETONE 500 MG TAB PO SCH (09:00)
[2017-03-31] MEDS: PANTOPRAZOLE SOD 20 MG DELAYED RELEASE TAB PO SCH (09:00)
[2017-03-31] MEDS: SERTRALINE HCL 50 MG TAB PO SCH (09:00)
[2017-03-31] MEDS: SODIUM CHLORIDE 0.9% FLUSH 10 ML FLUSH IV FLUSH SCH ×2 (09:01→21:33)
[2017-03-31] MEDS: PRAVASTATIN SOD 40 MG TAB PO SCH (09:01)
[2017-03-31] MEDS: ASPIRIN EC 81 MG TABEC PO SCH (09:03)
--- NOTE | 2017-03-31 11:11 | HHI.PR ---
Subjective Remarks Follow up nausea, vomiting and shortness of breath. No recurrence of symptoms. Small bowel movement yesterday. States he felt good and wants to go home. Patient made aware of positive troponin and refused further workup by cardiology when he was seen earlier. At this time, he agrees to undergo left heart catheterization but patient already had breakfast. Discussed with cardiology, transfer to [facility] and perform cardiac catheterization on Monday if patient agreeable otherwise patient can be discharged and follow-up outpatient. Patient wants to talk to his first before making a decision. Case discussed with RN and cardiology. Objective Vitals Vital Signs Date Time Temp Pulse Resp B/P Pulse Ox O2 Delivery O2 Flow Rate FiO2 03/31/17 08:00 97.9 90 28 101/61 96 03/31/17 06:00 91 03/31/17 04:00 87 03/31/17 04:00 99.1 78 26 112/46 94 03/31/17 02:00 76 03/31/17 00:00 98.7 78 25 128/65 94 03/31/17 00:00 80 03/30/17 22:00 75 03/30/17 20:00 98.9 84 18 121/69 96 03/30/17 20:00 85 03/30/17 18:00 84 03/30/17 16:00 97.8 86 14 124/64 95 03/30/17 16:00 90 03/30/17 14:00 94 03/30/17 14:00 90 19 136/66 95 03/30/17 12:00 98.2 92 23 95/63 95 03/30/17 12:00 96 I/O 03/30/17 03/30/17 03/30/17 03/31/17 03/31/17 03/31/17 07:00 15:00 23:00 07:00 15:00 23:00 Intake Total 1496 ml 1779 ml 787 ml 532 ml Output Total 500 ml 500 ml 350 ml 400 ml Balance 996 ml 1279 ml 437 ml 132 ml Intake Oral 240 ml 720 ml 600 ml 100 ml IV Total 1256 ml 1059 ml 187 ml 432 ml Output Urine Total 500 ml 500 ml 350 ml 400 ml Stool Total 0 ml # Voids 1 1 # Bowel Movements 0 0 1 Result Diagram: 03/31/17 04203/31/17 042 Imaging Last Impressions Abdomen/Pelvis CT 03/29/17 181 Signed Impressions: Service Date/Time: Wednesday, March 29, 2017 18:18 - CONCLUSION: 1. Large mass in the right upper quadrant in the region of the antrum of the stomach which is increased in size and may be necrotic. No increase in adenopathy in the central mesentery. 2. Hepatic metastasis which increased in size. 3. New retroperitoneal adenopathy. 4. Pulmonary metastasis which have increased in size. 5. Status post gastrojejunostomy. Edwin Silverio MD CT Angiography 03/29/17 1803 Signed Impressions: Service Date/Time: Wednesday, March 29, 2017 18:18 - CONCLUSION: 1. No evidence of pulmonary embolism. 2. Multiple right-sided pulmonary nodules which have increased in size and are most consistent with metastatic disease. 3. There is apparent circumferential thickening of the esophagus and there is fluid present. There is a small apparent hiatal hernia. Edwin Silverio MD Chest X-Ray 03/29/17 1725 Signed Impressions: Service Date/Time: Wednesday, March 29, 2017 17:41 - CONCLUSION: No acute disease. Davonte Ansari Jr., MD Objective Remarks GENERAL: This is a pleasant well-nourished, well-developed patient, in no apparent distress. SKIN: No rashes, ecchymoses or lesions. Pale, but warm and dry. HEAD: Atraumatic. Normocephalic. EYES: No scleral icterus. No injection or drainage. ENT: Mildly dry mucous membranes. Uvula midline. Airway patent. NECK: Trachea midline. CARDIOVASCULAR: Regular rate and rhythm without murmurs, gallops, or rubs. RESPIRATORY: Clear to auscultation. Breath sounds equal bilaterally. No wheezes , rales, or rhonchi. GASTROINTESTINAL: Normoactive bowel sounds. Abdomen soft, non-tender, nondistended. No guarding. MUSCULOSKELETAL: No lower extremity edema bilaterally. NEUROLOGICAL: Awake and alert. Motor grossly within normal limits. Normal speech. PSYCHIATRIC: Normal mood and affect. Normal insight and judgement. Procedures none A/P Problem List: (1) Metastatic cancer ICD Code: C79.9 Status: Acute (2) Dyspnea ICD Code: R06.00 Status: Resolved (3) Vomiting ICD Code: R11.10 Status: Resolved (4) Leukocytosis ICD Code: D72.829 Status: Acute (5) Elevated troponin I level ICD Code: R74.8 Status: Acute (6) Constipation ICD Code: K59.00 Status: Chronic Assessment and Plan 72-year-old male with: Metastatic cancer: Abdominal CT with large mass in the right upper quadrant in the region of the antrum of stomach which is increased in size may be necrotic. Hepatic metastasis with increased size. New retroperitoneal adenopathy. Pulmonary metastasis have increased in size. CTA chest with multiple right sided pulmonary nodules which is increased in size consistent with metastatic disease. There is circumferential thickening of the esophagus and fluid present. -Patient has outpatient follow appointments set up at the [place] Dyspnea: Resolved. Likely attributed to cancer. CTA as above. No PE evident. O2 saturation normal on RA. Chest x-ray personally interpreted without pneumonia. BNP only 135. -Monitor clinically -PT eval -This could be anginal equivalent. Please see below Vomiting: Resolved. Likely attributed to constipation. -Continue IVF until patient tolerating po diet NSTEMI. Patient has no chest pain. EKG personally interpreted with sinus tachycardia 113 with q waves in lead III and aVF similar to EKG on 03/09/17. No new ischemic changes. Patient denies h/o CAD but has risk factors. Ct BB and aspirin. Cardiology recommended left heart catheterization patient to decide after discussion with Leukocytosis: Blood cell count elevated at 23.5. Appears to be chronically high as his WBC count was 17.4 on 03/24/19. Acute increase may be attributed to vomiting. Improving -Monitor CBC Constipation: No BM in 5-[address] abdomen with stool evident. -Start bowel regimen including Ann-colace bid, MOM prn. Small bowel movement yesterday. Hyponatremia and hypochloremia: Chronic. Improving -Monitor BMP Thrombocytosis: Chronic. 736 on 03/24, acutely worse at 876 on 03/29. Improving -Monitor CBC Diabetes mellitus: -Hold oral medications as patient was hypoglycemic. Improving -Switch to diabetic bed - Bedside Accu-checks with low dose SSI. HTN: states patient was not given Lopressor prescription on discharge last time. -Continue Lopressor and Amlodipine DVT prevention: TEDs and SCDs, Lovenox. Discharge Planning Discharge patient to home. Patient has significantly improved earlier than expected Condition on discharge: Improved Diabetic Diet as tolerated Ad Suyapa activity no strenuous activities Rx written: Lopressor Follow-up with primary care physician and cardiology in 1 week Problem Qualifiers (1) Dyspnea: Qualified Code: R06.02 - Shortness of breath Ryan Guerra MD March 31, 2017 11:11
--- NOTE | 2017-03-31 11:24 | EC ---
Study Study Date:03/31/2017 STUDY CONCLUSIONS SUMMARY - Left ventricle: The cavity size was normal. Wall thickness was normal. Systolic function was normal. The estimated ejection fraction was in the range of 55% to 60%. Wall motion was normal; there were no regional wall motion abnormalities. - Aortic valve: Transvalvular velocity was increased less than expected. There was mild to moderate stenosis. Valve area: 1.03cm^2 (Vmax). - Mitral valve: Mild regurgitation. - Left atrium: The atrium was mildly dilated. - Right ventricle: The cavity size was mildly dilated. Wall thickness was normal. - Tricuspid valve: Mild regurgitation. If LV function is below 40, please consider prescribing an ACEI or ARB or document rationale for non-use. PROCEDURE DATA STUDY STATUS: Elective. Procedure: Transthoracic echocardiography. Image quality was suboptimal. The study was technically limited due to poor acoustic window availability. Scanning was performed from the parasternal, apical, and subcostal acoustic windows. Study completion: The patient tolerated the procedure well. Transthoracic echocardiography. M-mode, complete 2D, complete spectral Doppler, and color Doppler. Height: Height: 67in. Weight: Weight: 141.7lb. Body mass index: BMI: 22.2kg/m^2. Body surface area: BSA: 1.75m^2. Patient status: Inpatient. CARDIAC ANATOMY LEFT VENTRICLE: The cavity size was normal. Wall thickness was normal. Systolic function was normal. The estimated ejection fraction was in the range of 55% to 60%. Wall motion was normal; there were no regional wall motion abnormalities. AORTIC VALVE: Probably trileaflet; mildly thickened, mildly calcified leaflets. Doppler: Transvalvular velocity was increased less than expected. There was mild to moderate stenosis. No regurgitation. Valve area: 1.03cm^2 (Vmax). Indexed valve area: 0.59cm^2/m^2 (Vmax). Mean gradient: 11mm Hg (S). Peak gradient: 18mm Hg (S). AORTA: Aortic root: The aortic root was poorly visualized and normal in size. MITRAL VALVE: Structurally normal valve. Doppler: Transvalvular velocity was within the normal range. There was no evidence for stenosis. Mild regurgitation. Peak gradient: 4mm Hg (D). LEFT ATRIUM: The atrium was mildly dilated. RIGHT VENTRICLE: The cavity size was mildly dilated. Wall thickness was normal. PULMONIC VALVE: Doppler: Transvalvular velocity was within the normal range. There was no evidence for stenosis. No regurgitation. TRICUSPID VALVE: Structurally normal valve. Doppler: Transvalvular velocity was within the normal range. Mild regurgitation. PULMONARY ARTERY: The main pulmonary artery was normal-sized. Systolic pressure was within the normal range. RIGHT ATRIUM: The atrium was normal in size. PERICARDIUM: There was no pericardial effusion. SYSTEMIC VEINS: Inferior vena cava: The vessel was normal in size. Patient weight: 141.7lb _Ejection fraction:_ 65-75% _Fractional shortening:_ 32% up to 5Kg 5-11.5Kg 11.6-22.9Kg 23-45Kg 45-57Kg Aortic Root 7-13 <17 13-22 17-27 17-27 LA diam 6-13 <23 24-38 33-47 37-40 RVID 10-17 7-15 7-15 7-18 8-17 LVIDd 12-22 <32 24-38 33-47 37-40 LVPW 2-4 3-6 5-7 6-8 7-8 IVS 2-4 3-6 5-7 6-8 7-8 BASIC MEASUREMENTS ADULT NORMAL Left ventricle LV internal dimension, ED, chordal *42.1 mm 43-52 level, PLAX LV internal dimension, ES, chordal 30.7 mm 23-38 level, PLAX Fractional shortening, chordal level, *27 % >29 PLAX LV posterior wall thickness, ED 11.4 mm IVS/LVPW ratio, ED 0.99 <1.3 Ventricular septum Septal thickness, ED 11.3 mm Aortic valve Leaflet separation 16 mm 15-26 BASIC MEASUREMENTS ADULT NORMAL Aortic valve Leaflet separation 16 mm 15-26 Aorta Root diameter, ED 22 mm 20-37 Left atrium Anterior-posterior dimension, ES 36 mm 19-40 Anterior-posterior dimension index, ES 2.06 cm/m^2 <2.2 LA/aortic root ratio 1.64 DOPPLER MEASUREMENTS ADULT NORMAL Main pulmonary artery Pressure, S 22 mm Hg =30 Aortic valve Peak velocity, S 210 cm/s Mean velocity, S 153 cm/s VTI, S 39.1 cm Mean gradient, S 11 mm Hg Peak gradient, S 18 mm Hg Valve area, Vmax 1.03 cm^2 Valve area index, Vmax 0.59 cm^2/m^2 Mitral valve Peak E-wave velocity 105 cm/s Peak A-wave velocity 127 cm/s Deceleration time 176 ms 150-230 Peak gradient, D 4 mm Hg Peak E/A ratio 0.8 Maximal regurgitant velocity 373 cm/s Tricuspid valve Regurgitant peak velocity 198 cm/s Peak RV-RA gradient, S 16 mm Hg Maximal regurgitant velocity 198 cm/s Systemic veins Estimated CVP 10 mm Hg Right ventricle RV pressure, S 26 mm Hg <30 Pulmonic valve Peak velocity, S 100 cm/s LEGEND: Mean values are shown as u=mean value. Asterisk (*) whitney values outside specified normal range. Prepared and signed by Randy Flores [id number]
[2017-03-31] MEDS ORDERED: ASPI81TA11 PO (11:45)
[2017-03-31] MEDS ORDERED: METO-309 PO (11:45)
[2017-03-31] MEDS ORDERED: AMIT75TA2 PO (11:45)
[2017-03-31] MEDS ORDERED: SENN1TAB PO (11:45)
[2017-03-31] MEDS: ENOXAPARIN SODIUM 40 MG/0.4 ML SYRINGE SQ SCH (14:22)
--- NOTE | 2017-03-31 15:41 | EKG ---
Date Performed: 03/30/2017 Time Performed: 15:32:14 PTAGE: 72 years EKG: Sinus rhythm , RATE 93 BPM POSSIBLE INFERIOR INFARCT -AGE UNDETERMINED POSSIBLE ANTEROSEPTAL INFACRT - AGE UNDETER MINED LOW QRS VOLTAGES IN PRECORDIAL LEADS Compared to PREVIOUS TRACING , previously noted supraventricular tachycardia is no longer present AMM ENDED COPY PREVIOUS TRACIN03/29/2017 16.38 DOCTOR: Enrico Bedolla Interpretating Date/Time 04/04/2017 16:44:47
[2017-03-31] MEDS: AMITRIPTYLINE HCL 75 MG TAB PO SCH (21:32)
[2017-03-31] MEDS: CALCIUM CARBONATE 500 MG CHEWABLE TAB CHEW PRN (22:46)
[2017-04-01] VITALS (26 sets, daily range): BP systolic 122–175; BP diastolic 65–90; PULSE 77–102; RESP 16–20; TEMP 97.5–98.3; O2SAT 96–99
[2017-04-01] MEDS: oxyCODONE/ACETAMINOPHEN 5 MG/325 MG TAB PO PRN (02:39)
[2017-04-01] MEDS: METOPROLOL TARTRATE 50 MG TAB PO SCH ×3 (06:09→21:47)
[2017-04-01] MEDS: INSULIN ASPART SUPPLEMENTAL SCALE SQ SCH ×4 (06:15→21:49)
--- NOTE | 2017-04-01 07:42 | HHI.PR ---
Subjective Remarks Patient in bed. Says he had left shoulder pain, better now with morphine. No chest pain or sob. No palpitations. Feels tired. Says he was not able to sleep overnight. Asking for sleeping aid. Objective Vitals Vital Signs Date Time Temp Pulse Resp B/P Pulse Ox O2 Delivery O2 Flow Rate FiO2 04/01/17 06:30 97 04/01/17 05:10 98 04/01/17 04:16 86 04/01/17 03:10 97.7 102 20 175/90 98 04/01/17 03:10 93 04/01/17 03:04 18 04/01/17 02:11 86 04/01/17 01:27 85 04/01/17 00:07 80 03/31/17 23:47 98.3 84 18 130/68 97 03/31/17 23:47 81 03/31/17 20:00 84 03/31/17 20:00 98.3 86 15 129/65 95 03/31/17 18:00 86 03/31/17 16:00 97.6 92 23 117/64 96 03/31/17 16:00 92 03/31/17 14:00 88 03/31/17 12:00 82 03/31/17 12:00 98.8 82 22 134/72 95 03/31/17 10:00 82 03/31/17 08:00 97.9 90 28 101/61 96 03/31/17 08:00 84 I/O 03/31/17 03/31/17 03/31/17 04/01/17 04/01/17 04/01/17 07:00 15:00 23:00 07:00 15:00 23:00 Intake Total 532 ml 350 ml 295 ml 584 ml Output Total 400 ml 400 ml 1 ml 600 ml Balance 132 ml -50 ml 294 ml -16 ml Intake Oral 100 ml 240 ml 250 ml 480 ml IV Total 432 ml 110 ml 45 ml 104 ml Output Urine Total 400 ml 400 ml 600 ml Stool Total 1 ml # Voids 1 1 2 # Bowel Movements 0 0 Result Diagram: 03/31/17 0422 03/31/17 0422 Imaging Last Impressions Abdomen/Pelvis CT 03/29/171810 Signed Impressions: Service Date/Time: Wednesday, March 29, 2017 18:18 - CONCLUSION: 1. Large mass in the right upper quadrant in the region of the antrum of the stomach which is increased in size and may be necrotic. No increase in adenopathy in the central mesentery. 2. Hepatic metastasis which increased in size. 3. New retroperitoneal adenopathy. 4. Pulmonary metastasis which have increased in size. 5. Status post gastrojejunostomy. Edwin Silverio MD CT Angiography 03/29/17 1803 Signed Impressions: Service Date/Time: Wednesday, March 29, 2017 18:18 - CONCLUSION: 1. No evidence of pulmonary embolism. 2. Multiple right-sided pulmonary nodules which have increased in size and are most consistent with metastatic disease. 3. There is apparent circumferential thickening of the esophagus and there is fluid present. There is a small apparent hiatal hernia. Edwin Silverio MD Chest X-Ray 03/29/17 1725 Signed Impressions: Service Date/Time: Wednesday, March 29, 2017 17:41 - CONCLUSION: No acute disease. Davonte Ansari Jr., MD Objective Remarks GENERAL: This is a pleasant well-nourished, well-developed patient, in no apparent distress. SKIN: No rashes, ecchymoses or lesions. Pale, but warm and dry. HEAD: Atraumatic. Normocephalic. EYES: No scleral icterus. No injection or drainage. ENT: Mildly dry mucous membranes. Uvula midline. Airway patent. NECK: Trachea midline. CARDIOVASCULAR: Regular rate and rhythm without murmurs, gallops, or rubs. RESPIRATORY: Clear to auscultation. Breath sounds equal bilaterally. No wheezes , rales, or rhonchi. GASTROINTESTINAL: Normoactive bowel sounds. Abdomen soft, non-tender, nondistended. No guarding. MUSCULOSKELETAL: No lower extremity edema bilaterally. NEUROLOGICAL: Awake and alert. Motor grossly within normal limits. Normal speech. PSYCHIATRIC: Normal mood and affect. Normal insight and judgement. Procedures none A/P Problem List: (1) Metastatic cancer ICD Code: C79.9 Status: Acute (2) Dyspnea ICD Code: R06.00 Status: Resolved (3) Vomiting ICD Code: R11.10 Status: Resolved (4) Leukocytosis ICD Code: D72.829 Status: Acute (5) Elevated troponin I level ICD Code: R74.8 Status: Acute (6) Constipation ICD Code: K59.00 Status: Chronic Assessment and Plan 72-year-old male with: Metastatic cancer: Abdominal CT with large mass in the right upper quadrant in the region of the antrum of stomach which is increased in size may be necrotic. Hepatic metastasis with increased size. New retroperitoneal adenopathy. Pulmonary metastasis have increased in size. CTA chest with multiple right sided pulmonary nodules which is increased in size consistent with metastatic disease. There is circumferential thickening of the esophagus and fluid present. -Patient has outpatient follow appointments set up at the [place] Dyspnea: Resolved. Likely attributed to cancer. CTA as above. No PE evident. O2 saturation normal on RA. Chest x-ray personally interpreted without pneumonia. BNP only 135. -Monitor clinically -PT eval -This could be anginal equivalent. Please see below Vomiting: Resolved. Likely attributed to constipation. -Continue IVF until patient tolerating po diet NSTEMI. Patient has no chest pain. EKG personally interpreted with sinus tachycardia 113 with q waves in lead III and aVF similar to EKG on 03/09/17. No new ischemic changes. Patient denies h/o CAD but has risk factors. Ct BB and aspirin. Also has prescriptions written for aspirin, Elavil at [place]. Cardiology recommended left heart catheterization, patient refused initially, however after he discussed with his , he agreed for cath . Plan for cath on Monday. LDL 70. Leukocytosis: Blood cell count elevated at 23.5 on admission. Appears to be chronically high as his WBC count was 17.4 on 03/24/19. Acute increase may be attributed to vomiting. Continue to monitor. Improving -Monitor CBC Constipation: No BM in 5-[address] abdomen with stool evident. -Start bowel regimen including Ann-colace bid, MOM prn. Hyponatremia and hypochloremia: Chronic. Improving -Monitor BMP Thrombocytosis: Chronic. 736 on 03/24, acutely worse at 876 on 03/29. Improving -Monitor CBC Diabetes mellitus: A1c 7 -Hold oral medications as patient was hypoglycemic. Improving -Switch to diabetic bed - Bedside Accu-checks with low dose SSI. HTN: -Continue Lopressor and Amlodipine DVT prevention: TEDs and SCDs, Lovenox. Discussed with the patient, nurse Problem Qualifiers (1) Dyspnea: Qualified Code: R06.02 - Shortness of breath Josie Sellers MD April 01, 2017 07:42
[2017-04-01 08:17] LABS: AUTOMATED NEUTROPHIL # 16.5 TH/MM3 (1.8-7.7); BASOPHIL # 0.1 TH/MM3 (0-0.2); BASOPHIL % 0.3 % (0.0-2.0); EOSINOPHIL # 0.5 TH/MM3 (0-0.4); EOSINOPHIL % 2.3 % (0.0-4.0); HEMATOCRIT 26.7 % (39.0-51.0); HEMO FLAGS DIFF FINAL; LYMPH % 6.4 % (9.0-44.0); LYMPHOCYTE # 1.2 TH/MM3 (1.0-4.8); MEAN CELL VOLUME 86.6 FL (80.0-100.0); MEAN CORPUSCULAR HGB CONC 33.5 % (32.0-36.0); MONO % 6.1 % (0.0-8.0); NEUT % 84.9 % (16.0-70.0); PLATELET COUNT 677 TH/MM3 (150-450); RED BLOOD COUNT 3.08 MIL/MM3 (4.50-5.90); RED CELL DISTRIBUTION WIDTH 15.6 % (11.6-17.2); WHITE BLOOD COUNT 19.4 TH/MM3 (4.0-11.0)
[2017-04-01] MEDS: SODIUM CHLORIDE 0.9% FLUSH 10 ML FLUSH IV FLUSH SCH ×2 (09:00→21:48)
[2017-04-01] MEDS: PANTOPRAZOLE SOD 20 MG DELAYED RELEASE TAB PO SCH (09:30)
[2017-04-01] MEDS: SERTRALINE HCL 50 MG TAB PO SCH (09:30)
[2017-04-01] MEDS: PRAVASTATIN SOD 40 MG TAB PO SCH (09:30)
[2017-04-01] MEDS: DOCUSATE SODIUM 50 MG/SENNA 8.6 MG TAB PO SCH ×2 (09:30→21:47)
[2017-04-01] MEDS: ASPIRIN EC 81 MG TABEC PO SCH (09:30)
[2017-04-01] MEDS: NABUMETONE 500 MG TAB PO SCH (10:25)
[2017-04-01] MEDS: ENOXAPARIN SODIUM 40 MG/0.4 ML SYRINGE SQ SCH (14:07)
[2017-04-01] MEDS: CALCIUM CARBONATE 500 MG CHEWABLE TAB CHEW PRN (20:22)
[2017-04-01] MEDS: ONDANSETRON HCL 4 MG/2 ML VIAL IV PRN (21:16)
[2017-04-01] MEDS: AMITRIPTYLINE HCL 75 MG TAB PO SCH (21:47)
[2017-04-01] MEDS: SODIUM CHLOR 0.9% 1000 ML INJ 1,000 ML IV SCH (21:51)
[2017-04-02] VITALS (27 sets, daily range): BP systolic 114–127; BP diastolic 65–72; PULSE 78–98; RESP 18–20; TEMP 97.9–98.6; O2SAT 96–98
[2017-04-02] MEDS: SODIUM CHLOR 0.9% 1000 ML INJ 1,000 ML IV SCH ×2 (00:12→17:45)
[2017-04-02 05:37] LABS: AUTOMATED NEUTROPHIL # 15.8 TH/MM3 (1.8-7.7); BASOPHIL # 0.1 TH/MM3 (0-0.2); BASOPHIL % 0.7 % (0.0-2.0); HEMATOCRIT 26.3 % (39.0-51.0); HEMO FLAGS DIFF FINAL; LYMPH % 7.1 % (9.0-44.0); LYMPHOCYTE # 1.4 TH/MM3 (1.0-4.8); MEAN CELL VOLUME 87.7 FL (80.0-100.0); MEAN CORPUSCULAR HEMOGLOBIN 28.4 PG (27.0-34.0); MEAN CORPUSCULAR HGB CONC 32.4 % (32.0-36.0); MONO % 7.8 % (0.0-8.0); NEUT % 79.4 % (16.0-70.0); PLATELET COUNT 658 TH/MM3 (150-450); RED CELL DISTRIBUTION WIDTH 15.7 % (11.6-17.2); WHITE BLOOD COUNT 19.9 TH/MM3 (4.0-11.0)
[2017-04-02 05:58] LABS: BICARBONATE 27.3 MEQ/L (21.0-32.0)
[2017-04-02] MEDS: INSULIN ASPART SUPPLEMENTAL SCALE SQ SCH ×4 (06:03→21:36)
[2017-04-02] MEDS: METOPROLOL TARTRATE 50 MG TAB PO SCH ×3 (06:03→21:35)
--- NOTE | 2017-04-02 07:16 | HHI.PR ---
Subjective Remarks Sleepy./ Says he did sleep better last night and sleeping aid is helping. No chest pain at this time. Left shoulder pain is better. No lightheadedness, palpitations. No n/v/d/c. BM was 2 days ago but says he is going usually q2 days Objective Vitals Vital Signs Date Time Temp Pulse Resp B/P Pulse Ox O2 Delivery O2 Flow Rate FiO2 04/02/17 06:00 94 04/02/17 05:00 98 04/02/17 04:46 95 18 127/69 97 04/02/17 04:00 90 04/02/17 03:00 91 04/02/17 02:00 84 04/02/17 01:00 86 04/02/17 00:00 86 04/01/17 23:49 97 16 132/77 97 04/01/17 23:00 91 04/01/17 22:00 92 04/01/17 21:00 90 04/01/17 20:00 90 04/01/17 19:30 97.7 90 16 135/67 97 04/01/17 19:00 91 04/01/17 18:00 90 04/01/17 17:00 89 04/01/17 16:00 83 04/01/17 15:00 92 04/01/17 15:00 98.3 95 18 138/71 99 04/01/17 14:00 91 04/01/17 13:00 91 04/01/17 12:00 90 04/01/17 11:00 90 04/01/17 11:00 98.1 86 18 122/65 96 04/01/17 10:00 83 04/01/17 09:00 78 04/01/17 08:00 77 I/O 04/01/17 04/01/17 04/01/17 04/02/17 04/02/17 04/02/17 07:00 15:00 23:00 07:00 15:00 23:00 Intake Total 584 ml 1119 ml 780 ml Output Total 600 ml 950 ml 600 ml Balance -16 ml 169 ml 180 ml Intake Oral 480 ml 480 ml 600 ml IV Total 104 ml 639 ml 180 ml Output Urine Total 600 ml 950 ml 600 ml # Voids 2 # Bowel Movements 0 0 Result Diagram: 04/02/17 0436 04/02/17 0436 Imaging Last Impressions Abdomen/Pelvis CT 03/29/17 1811 Signed Impressions: Service Date/Time: Wednesday, March 29, 2017 18:18 - CONCLUSION: 1. Large mass in the right upper quadrant in the region of the antrum of the stomach which is increased in size and may be necrotic. No increase in adenopathy in the central mesentery. 2. Hepatic metastasis which increased in size. 3. New retroperitoneal adenopathy. 4. Pulmonary metastasis which have increased in size. 5. Status post gastrojejunostomy. Edwin Silverio MD CT Angiography 03/29/17 1803 Signed Impressions: Service Date/Time: Wednesday, March 29, 2017 18:18 - CONCLUSION: 1. No evidence of pulmonary embolism. 2. Multiple right-sided pulmonary nodules which have increased in size and are most consistent with metastatic disease. 3. There is apparent circumferential thickening of the esophagus and there is fluid present. There is a small apparent hiatal hernia. Edwin Silverio MD Chest X-Ray 03/29/17 1725 Signed Impressions: Service Date/Time: Wednesday, March 29, 2017 17:41 - CONCLUSION: No acute disease. Davonte Ansari Jr., MD Objective Remarks GENERAL: This is a pleasant well-nourished, well-developed patient, in no apparent distress. SKIN: No rashes, ecchymoses or lesions. Pale, but warm and dry. HEAD: Atraumatic. Normocephalic. EYES: No scleral icterus. No injection or drainage. ENT: Mildly dry mucous membranes. Uvula midline. Airway patent. NECK: Trachea midline. CARDIOVASCULAR: Regular rate and rhythm without murmurs, gallops, or rubs. RESPIRATORY: Clear to auscultation. Breath sounds equal bilaterally. No wheezes , rales, or rhonchi. GASTROINTESTINAL: Normoactive bowel sounds. Abdomen soft, non-tender, nondistended. No guarding. MUSCULOSKELETAL: No lower extremity edema bilaterally. NEUROLOGICAL: Awake and alert. Motor grossly within normal limits. Normal speech. PSYCHIATRIC: Normal mood and affect. Normal insight and judgement. Procedures none A/P Problem List: (1) Metastatic cancer ICD Code: C79.9 Status: Acute (2) Dyspnea ICD Code: R06.00 Status: Resolved (3) Vomiting ICD Code: R11.10 Status: Resolved (4) Leukocytosis ICD Code: D72.829 Status: Acute (5) Elevated troponin I level ICD Code: R74.8 Status: Acute (6) Constipation ICD Code: K59.00 Status: Chronic Assessment and Plan 72-year-old male with: Metastatic cancer: Abdominal CT with large mass in the right upper quadrant in the region of the antrum of stomach which is increased in size may be necrotic. Hepatic metastasis with increased size. New retroperitoneal adenopathy. Pulmonary metastasis have increased in size. CTA chest with multiple right sided pulmonary nodules which is increased in size consistent with metastatic disease. There is circumferential thickening of the esophagus and fluid present. -Patient has outpatient follow appointments set up at the [place] Patient with thrombocytemia and anemia.Will consult hem/onc for clearance for cath Dyspnea: Resolved. Likely attributed to cancer. CTA as above. No PE evident. O2 saturation normal on RA. Chest x-ray personally interpreted without pneumonia. BNP only 135. -Monitor clinically -PT eval -This could be anginal equivalent. Please see below Vomiting: Resolved. Likely attributed to constipation. -Continue IVF until patient tolerating po diet NSTEMI. Patient has no chest pain. EKG personally interpreted with sinus tachycardia 113 with q waves in lead III and aVF similar to EKG on 03/09/17. No new ischemic changes. Patient denies h/o CAD but has risk factors. Ct BB and aspirin. Also has prescriptions written for aspirin, Elavil at [place]. Cardiology recommended left heart catheterization, patient refused initially, however after he discussed with his , he agreed for cath . Plan for cath on Monday. LDL 70. Leukocytosis: Blood cell count elevated at 23.5 on admission. Appears to be chronically high as his WBC count was 17.4 on 03/24/19. Acute increase may be attributed to vomiting. Continue to monitor. Improving -Monitor CBC Constipation: No BM in 5-[address] abdomen with stool evident. -Start bowel regimen including Ann-colace bid, MOM prn. Hyponatremia and hypochloremia: Chronic. Improving -Monitor BMP Thrombocytosis: Chronic. 736 on 03/24, acutely worse at 876 on 03/29. Improving -Monitor CBC Diabetes mellitus: A1c 7 -Hold oral medications as patient was hypoglycemic. Improving -Switch to diabetic bed - Bedside Accu-checks with low dose SSI. HTN: -Continue Lopressor and Amlodipine DVT prevention: TEDs and SCDs, Lovenox. Discussed with the patient, nurse Problem Qualifiers (1) Dyspnea: Qualified Code: R06.02 - Shortness of breath Josie Sellers MD April 02, 2017 07:16
[2017-04-02] MEDS: SERTRALINE HCL 50 MG TAB PO SCH (10:06)
[2017-04-02] MEDS: DOCUSATE SODIUM 50 MG/SENNA 8.6 MG TAB PO SCH ×2 (10:06→21:35)
[2017-04-02] MEDS: SODIUM CHLORIDE 0.9% FLUSH 10 ML FLUSH IV FLUSH SCH ×2 (10:06→21:37)
[2017-04-02] MEDS: NABUMETONE 500 MG TAB PO SCH (10:07)
[2017-04-02] MEDS: ASPIRIN EC 81 MG TABEC PO SCH (10:07)
[2017-04-02] MEDS: PRAVASTATIN SOD 40 MG TAB PO SCH (10:07)
[2017-04-02] MEDS: PANTOPRAZOLE SOD 20 MG DELAYED RELEASE TAB PO SCH (10:07)
[2017-04-02] MEDS: ENOXAPARIN SODIUM 40 MG/0.4 ML SYRINGE SQ SCH (14:09)
--- NOTE | 2017-04-02 15:30 | HHI.PR ---
Subjective Remarks Feeling ok. Anxious Objective Vital Signs Date Time Temp Pulse Resp B/P Pulse Ox O2 Delivery O2 Flow Rate FiO2 04/02/17 15:00 98.5 89 20 123/68 97 04/02/17 15:00 90 04/02/17 14:00 92 04/02/17 13:00 92 04/02/17 12:00 91 04/02/17 11:00 89 04/02/17 11:00 97.9 86 18 114/67 98 04/02/17 10:00 88 04/02/17 09:00 86 04/02/17 08:00 78 04/02/17 07:00 96 04/02/17 07:00 98.6 85 18 127/71 97 04/02/17 06:00 94 04/02/17 05:00 98 04/02/17 04:46 95 18 127/69 97 04/02/17 04:00 90 04/02/17 03:00 91 04/02/17 02:00 84 04/02/17 01:00 86 04/02/17 00:00 86 04/01/17 23:49 97 16 132/77 97 04/01/17 23:00 91 04/01/17 22:00 92 04/01/17 21:00 90 04/01/17 20:00 90 04/01/17 19:30 97.7 90 16 135/67 97 04/01/17 19:00 91 04/01/17 18:00 90 04/01/17 17:00 89 04/01/17 16:00 83 I/O 04/01/17 04/01/17 04/01/17 04/02/17 04/02/17 04/02/17 07:00 15:00 23:00 07:00 15:00 23:00 Intake Total 584 ml 1119 ml 780 ml Output Total 600 ml 950 ml 600 ml Balance -16 ml 169 ml 180 ml Intake Oral 480 ml 480 ml 600 ml IV Total 104 ml 639 ml 180 ml Output Urine Total 600 ml 950 ml 600 ml # Voids 2 # Bowel Movements 0 0 Result Diagram: 04/02/17 0436 04/02/17 0436 Imaging Alert, fully oriented lungs: ventilated Heart: S1, S2 regular, no gallop Abdomen: soft, no mass Ext: no edema Current Medications Medications (Trade) Dose Ordered Sig/Burton Route Start Time Stop Time Status Last Admin (NS 1000 ml Inj) 1,000 ml @ 60 mls/hr [id number] IV 03/29/17 17:30 03/31/17 04:18 (Lopressor Inj) 5 mg Q5M PRN IV PUSH 03/29/17 19:15 03/29/17 19:23 (NS Flush) 2 ml UNSCH PRN IV FLUSH 03/29/17 20:00 (NS Flush) 2 ml BID IV FLUSH 03/29/17 21:00 04/02/17 10:06 (Narcan Inj) 0.4 mg UNSCH PRN IV 03/29/17 20:00 (Norvasc) 10 mg DAILY PO 03/30/17 09:00 04/02/17 10:07 (Pravachol) 40 mg DAILY PO 03/30/17 09:00 04/02/17 10:07 (Lopressor) 50 mg Q8HR PO 03/29/17 22:00 04/02/17 14:09 (Relafen) 500 mg DAILY PO 03/30/17 09:00 04/02/17 10:07 (Protonix) 20 mg DAILY PO 03/30/17 09:00 04/02/17 10:07 (D50w (Vial) Inj) 25 ml UNSCH PRN IV PUSH 03/29/17 20:30 (Glucagon Inj) 1 mg UNSCH PRN OTHER 03/29/17 20:30 (Percocet 5-325 Mg) 1 tab Q6H PRN PO 03/29/17 22:30 04/01/17 02:39 (Morphine Inj) 2 mg Q3H PRN IV PUSH 03/29/17 22:30 04/01/17 02:59 (Tylenol) 650 mg Q4H PRN PO 03/30/17 09:00 (Zofran Inj) 4 mg Q6H PRN IV 03/30/17 09:00 04/01/17 21:16 (Tums Chew) 1,000 mg TID PRN CHEW 03/30/17 09:00 04/01/17 20:22 (Zoloft) 50 mg DAILY PO 03/30/17 09:00 04/02/17 10:06 (Elavil) 75 mg HS PO 03/30/17 21:00 04/01/17 21:47 (Ann-Colace) 2 tab BID PO 03/30/17 12:00 04/02/17 10:06 (Milk Of Magnesia Liq) 30 ml Q6H PRN PO 03/30/17 11:15 (Lovenox Inj) 40 mg Q24H SQ 03/30/17 14:00 04/02/17 14:09 (Ecotrin Ec) 81 mg DAILY PO 03/31/17 09:00 04/02/17 10:07 Assessment and Plan Problem List: (1) NSTEMI (non-ST elevated myocardial infarction) Status: Acute Plan: Troponin 1.30 No chest pain now. Anxious Had a lot of question. Patient and will follow Dr Flores recommendation for [facility] (2) HTN (hypertension) Status: Chronic Plan: SBP 114 (3) Metastatic cancer Status: Acute Plan: Retroperineal mass and new affected lymph node reported in new abdominal CT scan. Metastatic cancer. Not sure about prognosis. Hb 8.5. Platelets 855. Not sure if Dr Flores wants to bring him to the cathead operator Sharlene Méndez MD April 02, 2017 15:30
[2017-04-02] MEDS: AMITRIPTYLINE HCL 75 MG TAB PO SCH (21:35)
[2017-04-02] MEDS: CALCIUM CARBONATE 500 MG CHEWABLE TAB CHEW PRN (22:39)
[2017-04-02] MEDS: oxyCODONE/ACETAMINOPHEN 5 MG/325 MG TAB PO PRN (22:39)
[2017-04-03] VITALS (17 sets, daily range): BP systolic 122–135; BP diastolic 66–73; PULSE 70–95; RESP 18; TEMP 97.1–97.9; O2SAT 96–98
[2017-04-03] MEDS: ONDANSETRON HCL 4 MG/2 ML VIAL IV PRN (03:58)
[2017-04-03] MEDS: INSULIN ASPART SUPPLEMENTAL SCALE SQ SCH ×2 (05:37→11:57)
[2017-04-03] MEDS: METOPROLOL TARTRATE 50 MG TAB PO SCH ×2 (05:37→14:20)
[2017-04-03 06:24] LABS: BASOPHIL # 0.1 TH/MM3 (0-0.2); BASOPHIL % 0.9 % (0.0-2.0); EOSINOPHIL # 0.8 TH/MM3 (0-0.4); EOSINOPHIL % 4.9 % (0.0-4.0); HEMATOCRIT 23.2 % (39.0-51.0); HEMO FLAGS DIFF FINAL; LYMPH % 7.8 % (9.0-44.0); LYMPHOCYTE # 1.3 TH/MM3 (1.0-4.8); MEAN CELL VOLUME 86.7 FL (80.0-100.0); MEAN CORPUSCULAR HEMOGLOBIN 29.1 PG (27.0-34.0); MEAN CORPUSCULAR HGB CONC 33.6 % (32.0-36.0); MONO % 7.9 % (0.0-8.0); NEUT % 78.5 % (16.0-70.0); PLATELET COUNT 636 TH/MM3 (150-450); RED BLOOD COUNT 2.67 MIL/MM3 (4.50-5.90); RED CELL DISTRIBUTION WIDTH 15.3 % (11.6-17.2); WHITE BLOOD COUNT 16.6 TH/MM3 (4.0-11.0)
[2017-04-03 06:32] LABS: APTT (PATIENT) 33.8 SEC (24.3-30.1); INTERNATIONAL NORMALIZED RATIO 1.2 RATIO; PROTHROMBIN TIME - PATIENT 12.9 SEC (9.8-11.6)
[2017-04-03 06:38] LABS: BICARBONATE 28.6 MEQ/L (21.0-32.0); POTASSIUM 3.9 MEQ/L (3.5-5.1)
--- NOTE | 2017-04-03 08:09 | HHI.PR ---
Subjective Remarks Says he dod not sleep at night because he feels anxious. Had some chest pain and left shoulder pain last night improved with morphine. Has also a sleeping aid and was not able to sleep. No chest pain or left shoulder now. No palpitations. No n/v/d/c. denies sob, lightheadedness. No n/v/d. Has constipation x 3 days. Objective Vitals Vital Signs Date Time Temp Pulse Resp B/P Pulse Ox O2 Delivery O2 Flow Rate FiO2 04/03/17 06:00 88 04/03/17 05:00 90 04/03/17 04:17 86 18 122/66 98 04/03/17 04:00 84 04/03/17 03:00 83 04/03/17 02:00 82 04/03/17 01:00 82 04/03/17 00:00 84 04/02/17 23:31 86 18 117/65 96 04/02/17 23:00 85 04/02/17 22:00 94 04/02/17 21:00 94 04/02/17 20:00 86 04/02/17 19:30 98.2 89 18 127/72 98 04/02/17 19:13 91 04/02/17 18:00 87 04/02/17 17:00 80 04/02/17 16:00 83 04/02/17 15:00 98.5 89 20 123/68 97 04/02/17 15:00 90 04/02/17 14:00 92 04/02/17 13:00 92 04/02/17 12:00 91 04/02/17 11:00 89 04/02/17 11:00 97.9 86 18 114/67 98 04/02/17 10:00 88 04/02/17 09:00 86 I/O 04/02/17 04/02/17 04/02/17 04/03/17 04/03/17 04/03/17 07:00 15:00 23:00 07:00 15:00 23:00 Intake Total 780 ml 720 ml 400 ml Output Total 600 ml 500 ml Balance 180 ml 720 ml -100 ml Intake Oral 600 ml 720 ml 400 ml IV Total 180 ml Output Urine Total 600 ml 500 ml # Voids 3 # Bowel Movements 0 0 Result Diagram: 04/03/17 0502 04/03/17 0502 Imaging Last Impressions Abdomen/Pelvis CT 03/29/17 1811 Signed Impressions: Service Date/Time: Wednesday, March 29, 2017 18:18 - CONCLUSION: 1. Large mass in the right upper quadrant in the region of the antrum of the stomach which is increased in size and may be necrotic. No increase in adenopathy in the central mesentery. 2. Hepatic metastasis which increased in size. 3. New retroperitoneal adenopathy. 4. Pulmonary metastasis which have increased in size. 5. Status post gastrojejunostomy. Edwin Silverio MD CT Angiography 03/29/17 1803 Signed Impressions: Service Date/Time: Wednesday, March 29, 2017 18:18 - CONCLUSION: 1. No evidence of pulmonary embolism. 2. Multiple right-sided pulmonary nodules which have increased in size and are most consistent with metastatic disease. 3. There is apparent circumferential thickening of the esophagus and there is fluid present. There is a small apparent hiatal hernia. Edwin Silverio MD Chest X-Ray 03/29/17 1725 Signed Impressions: Service Date/Time: Wednesday, March 29, 2017 17:41 - CONCLUSION: No acute disease. Davonte Ansari Jr., MD Objective Remarks GENERAL: This is a pleasant well-nourished, well-developed patient, in no apparent distress. SKIN: No rashes, ecchymoses or lesions. Pale, but warm and dry. HEAD: Atraumatic. Normocephalic. EYES: No scleral icterus. No injection or drainage. ENT: Mildly dry mucous membranes. Uvula midline. Airway patent. NECK: Trachea midline. CARDIOVASCULAR: Regular rate and rhythm without murmurs, gallops, or rubs. RESPIRATORY: Clear to auscultation. Breath sounds equal bilaterally. No wheezes , rales, or rhonchi. GASTROINTESTINAL: Normoactive bowel sounds. Abdomen soft, non-tender, nondistended. No guarding. MUSCULOSKELETAL: No lower extremity edema bilaterally. NEUROLOGICAL: Awake and alert. Motor grossly within normal limits. Normal speech. PSYCHIATRIC: Normal mood and affect. Normal insight and judgement. Procedures none A/P Problem List: (1) Metastatic cancer ICD Code: C79.9 Status: Acute (2) Dyspnea ICD Code: R06.00 Status: Resolved (3) Vomiting ICD Code: R11.10 Status: Resolved (4) Leukocytosis ICD Code: D72.829 Status: Acute (5) Elevated troponin I level ICD Code: R74.8 Status: Acute (6) Constipation ICD Code: K59.00 Status: Chronic Assessment and Plan 72-year-old male with: Metastatic cancer: Abdominal CT with large mass in the right upper quadrant in the region of the antrum of stomach which is increased in size may be necrotic. Hepatic metastasis with increased size. New retroperitoneal adenopathy. Pulmonary metastasis have increased in size. CTA chest with multiple right sided pulmonary nodules which is increased in size consistent with metastatic disease. There is circumferential thickening of the esophagus and fluid present. -Patient has outpatient follow appointments set up at the [facility] Patient with thrombocythemia and anemia.Will consult hem/onc for clearance for cath Dyspnea: Resolved. Likely attributed to cancer. CTA as above. No PE evident. O2 saturation normal on RA. Chest x-ray personally interpreted without pneumonia. BNP only 135. -Monitor clinically -PT eval -This could be anginal equivalent. Please see below Vomiting: Resolved. Likely attributed to constipation. -Continue IVF until patient tolerating po diet NSTEMI. Patient has no chest pain. EKG personally interpreted with sinus tachycardia 113 with q waves in lead III and aVF similar to EKG on 03/09/17. No new ischemic changes. Patient denies h/o CAD but has risk factors. Ct BB and aspirin. Also has prescriptions written for aspirin, Elavil at [place]. Cardiology recommended left heart catheterization, patient refused initially, however after he discussed with his , he agreed for cath . Plan for cath on Monday04/03/17. However patient with anemia and thrombocythemia. Hem/onc is also consulted. Cardiology following, Dr Mark mitchell cath today. Patient is NPO after breakfast. LDL 70. Leukocytosis: Blood cell count elevated at 23.5 on admission. Appears to be chronically high as his WBC count was 17.4 on 03/24/19. Acute increase may be attributed to vomiting. Continue to monitor. Improving -Monitor CBC Constipation: No BM in 5-[address] abdomen with stool evident. -Start bowel regimen including Ann-colace bid, MOM prn. Hyponatremia and hypochloremia: Chronic. Improving -Monitor BMP Thrombocytosis: Chronic. 736 on 03/24, acutely worse at 876 on 03/29. Improving -Monitor CBC Diabetes mellitus: A1c 7 -Hold oral medications as patient was hypoglycemic. Improving -Switch to diabetic bed - Bedside Accu-checks with low dose SSI. HTN: -Continue Lopressor and Amlodipine Constipation: Laxatives/stool softeners. DVT prevention: TEDs and SCDs, Lovenox. Discussed with the patient, nurse Problem Qualifiers (1) Dyspnea: Qualified Code: R06.02 - Shortness of breath Josie Sellers MD April 03, 2017 08:09
--- NOTE | 2017-04-03 08:29 | PD.CARD.PN ---
Subjective Subjective Remarks no cardiac compaints Objective Medications Active Medications Lorazepam (Ativan) 0.5 mg Q8H PRN PO; Start 04/03/17 at 09:00 Vital Signs / I&O Vital Signs Date Time Temp Pulse Resp B/P Pulse Ox O2 Delivery O2 Flow Rate FiO2 04/03/17 06:00 88 04/03/17 05:00 90 04/03/17 04:17 86 18 122/66 98 04/03/17 04:00 84 04/03/17 03:00 83 04/03/17 02:00 82 04/03/17 01:00 82 04/03/17 00:00 84 04/02/17 23:31 86 18 117/65 96 04/02/17 23:00 85 04/02/17 22:00 94 04/02/17 21:00 94 04/02/17 20:00 86 04/02/17 19:30 98.2 89 18 127/72 98 04/02/17 19:13 91 04/02/17 18:00 87 04/02/17 17:00 80 04/02/17 16:00 83 04/02/17 15:00 98.5 89 20 123/68 97 04/02/17 15:00 90 04/02/17 14:00 92 04/02/17 13:00 92 04/02/17 12:00 91 04/02/17 11:00 89 04/02/17 11:00 97.9 86 18 114/67 98 04/02/17 10:00 88 04/02/17 09:00 86 I/O 04/02/17 04/02/17 04/02/17 04/03/17 04/03/17 04/03/17 07:00 15:00 23:00 07:00 15:00 23:00 Intake Total 780 ml 720 ml 400 ml Output Total 600 ml 500 ml Balance 180 ml 720 ml -100 ml Intake Oral 600 ml 720 ml 400 ml IV Total 180 ml Output Urine Total 600 ml 500 ml # Voids 3 # Bowel Movements 0 0 Physical Exam GENERAL: SKIN: Warm and dry. HEAD: Normocephalic. EYES: No scleral icterus. No injection or drainage. NECK: Supple, trachea midline. No JVD or lymphadenopathy. CARDIOVASCULAR: Regular rate and rhythm without murmurs, gallops, or rubs. RESPIRATORY: Breath sounds equal bilaterally. No accessory muscle use. GASTROINTESTINAL: Abdomen soft, non-tender, nondistended. MUSCULOSKELETAL: No cyanosis, or edema. BACK: Nontender without obvious deformity. No CVA tenderness. Laboratory Laboratory Tests Test 04/03/17 05:02 White Blood Count 16.6 TH/MM3 Red Blood Count 2.67 MIL/MM3 Hemoglobin 7.8 GM/DL Hematocrit 23.2 % Mean Corpuscular Volume 86.7 FL Mean Corpuscular Hemoglobin 29.1 PG Mean Corpuscular Hemoglobin 33.6 % Concent Red Cell Distribution Width 15.3 % Platelet Count 636 TH/MM3 Mean Platelet Volume 7.2 FL Neutrophils (%) (Auto) 78.5 % Lymphocytes (%) (Auto) 7.8 % Monocytes (%) (Auto) 7.9 % Eosinophils (%) (Auto) 4.9 % Basophils (%) (Auto) 0.9 % Neutrophils # (Auto) 13.0 TH/MM3 Lymphocytes # (Auto) 1.3 TH/MM3 Monocytes # (Auto) 1.3 TH/MM3 Eosinophils # (Auto) 0.8 TH/MM3 Basophils # (Auto) 0.1 TH/MM3 CBC Comment DIFF FINAL Differential Comment Prothrombin Time 12.9 SEC Prothromb Time International 1.2 RATIO Ratio Activated Partial 33.8 SEC Thromboplast Time Sodium Level 132 MEQ/L Potassium Level 3.9 MEQ/L Chloride Level 93 MEQ/L Carbon Dioxide Level 28.6 MEQ/L Anion Gap 10 MEQ/L Blood Urea Nitrogen 14 MG/DL Creatinine 0.66 MG/DL Estimat Glomerular Filtration 118 ML/MIN Rate Random Glucose 197 MG/DL Calcium Level 8.6 MG/DL Imaging Last Impressions Abdomen/Pelvis CT 03/29/171810 Signed Impressions: Service Date/Time: Wednesday, March 29, 2017 18:18 - CONCLUSION: 1. Large mass in the right upper quadrant in the region of the antrum of the stomach which is increased in size and may be necrotic. No increase in adenopathy in the central mesentery. 2. Hepatic metastasis which increased in size. 3. New retroperitoneal adenopathy. 4. Pulmonary metastasis which have increased in size. 5. Status post gastrojejunostomy. Edwin Silverio MD CT Angiography 03/29/17 180 Signed Impressions: Service Date/Time: Wednesday, March 29, 2017 18:18 - CONCLUSION: 1. No evidence of pulmonary embolism. 2. Multiple right-sided pulmonary nodules which have increased in size and are most consistent with metastatic disease. 3. There is apparent circumferential thickening of the esophagus and there is fluid present. There is a small apparent hiatal hernia. Edwin Silverio MD Chest X-Ray 03/29/17 2664 Signed Impressions: Service Date/Time: Wednesday, March 29, 2017 17:41 - CONCLUSION: No acute disease. Davonte Ansari Jr., MD Assessment and Plan Problem List: (1) HTN (hypertension) (2) NSTEMI (non-ST elevated myocardial infarction) Assessment and Plan NSTEMI - suspect it is demand mediated. With stage IV cancer and progressive anemia, in addition to his other comorbidities and life expectancy, I believe we should proceed with medical mgt. I had a lengthy discussion with the patient. We can start isosorbide and see how he does clinically. He is at high risk for complication with any invasive strategy. OK for DC today from cardio standpoint . FU with PCP. Randy Flores MD April 03, 2017 08:29
[2017-04-03] MEDS: ASPIRIN EC 81 MG TABEC PO SCH (08:57)
[2017-04-03] MEDS: SERTRALINE HCL 50 MG TAB PO SCH (08:57)
[2017-04-03] MEDS: PANTOPRAZOLE SOD 20 MG DELAYED RELEASE TAB PO SCH (08:57)
[2017-04-03] MEDS: NABUMETONE 500 MG TAB PO SCH (08:57)
[2017-04-03] MEDS: DOCUSATE SODIUM 50 MG/SENNA 8.6 MG TAB PO SCH (08:57)
[2017-04-03] MEDS: PRAVASTATIN SOD 40 MG TAB PO SCH (08:57)
[2017-04-03] MEDS: SODIUM CHLORIDE 0.9% FLUSH 10 ML FLUSH IV FLUSH SCH (08:58)
[2017-04-03] MEDS ORDERED: LORazepam 0.5 MG TAB PO PRN (09:00)
[2017-04-03] MEDS: SODIUM CHLOR 0.9% 1000 ML INJ 1,000 ML IV SCH (11:03)
[2017-04-03] MEDS ORDERED: TEMA15CA PO (12:45)
[2017-04-03] MEDS ORDERED: OXYC1TAB63 PO (12:45)
[2017-04-03] MEDS ORDERED: LORA-392 PO (12:45)
[2017-04-03] MEDS ORDERED: ISOS30TA3 PO (12:45)
--- NOTE | 2017-04-03 12:48 | HHI.FF ---
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 My clinical findings support the need for the requested home health care services because: Ltd mobility - disease progression Deconditioned w/ increased weakness I certify that my clinical findings support that this patient is homebound because: Post-op weakness Unsteady gait/balance Josie Sellers MD April 03, 2017 12:48
--- NOTE | 2017-04-03 12:54 | HHI.DS ---
Discharge Summary Admission Date March 29, 2017 at 19:48 Discharge Date: April 03, 2017 Admitting Diagnosis DYSPNEA, ELEVATED TROPONIN (1) Metastatic cancer ICD Code: C79.9 Diagnosis: Principal (2) Dyspnea ICD Code: R06.00 Diagnosis: Principal (3) Vomiting ICD Code: R11.10 Diagnosis: Principal (4) Leukocytosis ICD Code: D72.829 Diagnosis: Principal (5) Elevated troponin I level ICD Code: R74.8 Diagnosis: Principal (6) Constipation ICD Code: K59.00 Diagnosis: Principal Procedures none Brief History - From Admission 72-year-old male with metastatic cancer and history of diabetes, hyperlipidemia, hypertension, GERD, depression presents with complaint of shortness of breath or vomiting. Patient was recently admitted on 03/23/17 for psychosis and had hospitalist consultation at that time. He was discharged on . He returned to the ED yesterday stating that he had been vomiting a couple times yesterday. He states he then one in the toe that to relax and states he couldn't breathe. He states this happened twice within a couple of minutes. He denies any chest pain, wheezing, or cough. Denies any fevers or chills. His states he did not actually become short of breath when vomiting. He denies any vomiting now on his hungry. States his emesis was dark but no obvious blood reported. Admits some abdominal tenderness but states it is improved. States his last bowel movement was 5-6 days ago and was diarrhea at that time. He has not had a bowel movement since that time but does have flatus. He denies any increased abdominal distention. He states he is taking a stool softener but it is not helping. CBC/BMP: 04/03/17 0502 04/03/17 0502 Significant Findings Laboratory Tests Test 04/01/17 04/02/17 04/03/17 07:44 04:36 05:02 White Blood Count 19.4 TH/MM3 19.9 TH/MM3 16.6 TH/MM3 (4.0-11.0) (4.0-11.0) (4.0-11.0) Red Blood Count 3.08 MIL/MM3 3.00 MIL/MM3 2.67 MIL/MM3 (4.50-5.90) (4.50-5.90) (4.50-5.90) Hemoglobin 8.9 GM/DL 8.5 GM/DL 7.8 GM/DL (13.0-17.0) (13.0-17.0) (13.0-17.0) Hematocrit 26.7 % 26.3 % 23.2 % (39.0-51.0) (39.0-51.0) (39.0-51.0) Platelet Count 677 TH/MM3 658 TH/MM3 636 TH/MM3 (150-450) (150-450) (150-450) Mean Platelet Volume 6.8 FL 6.9 FL (7.0-11.0) (7.0-11.0) Neutrophils (%) (Auto) 84.9 % 79.4 % 78.5 % (16.0-70.0) (16.0-70.0) (16.0-70.0) Lymphocytes (%) (Auto) 6.4 % 7.1 % 7.8 % (9.0-44.0) (9.0-44.0) (9.0-44.0) Neutrophils # (Auto) 16.5 TH/MM3 15.8 TH/MM3 13.0 TH/MM3 (1.8-7.7) (1.8-7.7) (1.8-7.7) Monocytes # (Auto) 1.2 TH/MM3 1.5 TH/MM3 1.3 TH/MM3 (0-0.9) (0-0.9) (0-0.9) Eosinophils # (Auto) 0.5 TH/MM3 1.0 TH/MM3 0.8 TH/MM3 (0-0.4) (0-0.4) (0-0.4) Eosinophils (%) (Auto) 5.0 % (0.0-4.0) 4.9 % (0.0-4.0) Sodium Level 134 MEQ/L 132 MEQ/L (136-145) (136-145) Chloride Level 96 MEQ/L 93 MEQ/L (98-107) (98-107) Random Glucose 183 MG/DL 197 MG/DL (74-106) (74-106) Prothrombin Time 12.9 SEC (9.8-11.6) Activated Partial 33.8 SEC Thromboplast Time (24.3-30.1) Imaging Last Impressions Abdomen/Pelvis CT 03/29/17 181 Signed Impressions: Service Date/Time: Wednesday, March 29, 2017 18:18 - CONCLUSION: 1. Large mass in the right upper quadrant in the region of the antrum of the stomach which is increased in size and may be necrotic. No increase in adenopathy in the central mesentery. 2. Hepatic metastasis which increased in size. 3. New retroperitoneal adenopathy. 4. Pulmonary metastasis which have increased in size. 5. Status post gastrojejunostomy. Edwin Silverio MD CT Angiography 03/29/17 1803 Signed Impressions: Service Date/Time: Wednesday, March 29, 2017 18:18 - CONCLUSION: 1. No evidence of pulmonary embolism. 2. Multiple right-sided pulmonary nodules which have increased in size and are most consistent with metastatic disease. 3. There is apparent circumferential thickening of the esophagus and there is fluid present. There is a small apparent hiatal hernia. Edwin Silverio MD Chest X-Ray 03/29/17 1725 Signed Impressions: Service Date/Time: Wednesday, March 29, 2017 17:41 - CONCLUSION: No acute disease. Davonte Ansari Jr., MD PE at Discharge GENERAL: This is a pleasant well-nourished, well-developed patient, in no apparent distress. SKIN: No rashes, ecchymoses or lesions. Pale, but warm and dry. HEAD: Atraumatic. Normocephalic. EYES: No scleral icterus. No injection or drainage. ENT: Mildly dry mucous membranes. Uvula midline. Airway patent. NECK: Trachea midline. CARDIOVASCULAR: Regular rate and rhythm without murmurs, gallops, or rubs. RESPIRATORY: Clear to auscultation. Breath sounds equal bilaterally. No wheezes , rales, or rhonchi. GASTROINTESTINAL: Normoactive bowel sounds. Abdomen soft, non-tender, nondistended. No guarding. MUSCULOSKELETAL: No lower extremity edema bilaterally. NEUROLOGICAL: Awake and alert. Motor grossly within normal limits. Normal speech. PSYCHIATRIC: Normal mood and affect. Normal insight and judgement. Hospital Course 72-year-old male with: Metastatic cancer: Abdominal CT with large mass in the right upper quadrant in the region of the antrum of stomach which is increased in size may be necrotic. Hepatic metastasis with increased size. New retroperitoneal adenopathy. Pulmonary metastasis have increased in size. CTA chest with multiple right sided pulmonary nodules which is increased in size consistent with metastatic disease. There is circumferential thickening of the esophagus and fluid present. -Patient has outpatient follow appointments set up at the [facility] Patient with thrombocythemia and anemia.Will consult hem/onc for clearance for cath Anxiety: add ativan prn. Says improves symptoms. Depression: continue home meds. Dyspnea: Resolved. Likely attributed to cancer. CTA as above. No PE evident. O2 saturation normal on RA. Chest x-ray personally interpreted without pneumonia. BNP only 135. -Monitor clinically -PT eval -This could be anginal equivalent. Please see below Vomiting: Resolved. Likely attributed to constipation. -Continue IVF until patient tolerating po diet NSTEMI. Patient has no chest pain. EKG personally interpreted with sinus tachycardia 113 with q waves in lead III and aVF similar to EKG on 03/09/17. No new ischemic changes. Patient denies h/o CAD but has risk factors. Ct BB and aspirin. Also has prescriptions written for aspirin, Elavil at [place]. Cardiology recommended left heart catheterization, patient refused initially, however after he discussed with his , he agreed for cath . Plan for cath on Monday04/03/17. However patient with anemia and thrombocythemia. Hem/onc is also consulted. Cardiology following, Dr Flores however recommends medical management and considering hospice. Patient was cleared by cardiology for DC. LDL 70. Leukocytosis: Blood cell count elevated at 23.5 on admission. Appears to be chronically high as his WBC count was 17.4 on 03/24/19. Acute increase may be attributed to vomiting. Continue to monitor. Improving -Monitor CBC Constipation: No BM in 5-[address] abdomen with stool evident. -Start bowel regimen including Ann-colace bid, MOM prn. Hyponatremia and hypochloremia: Chronic. Improving -Monitor BMP Thrombocytosis: Chronic. 736 on 03/24, acutely worse at 876 on 03/29. Improving -Monitor CBC Diabetes mellitus: A1c 7 -Hold oral medications as patient was hypoglycemic. Improving -Switch to diabetic bed - Bedside Accu-checks with low dose SSI. HTN: -Continue Lopressor and Amlodipine Constipation: Laxatives/stool softeners. DVT prevention: TEDs and SCDs, Lovenox. Patient improving. Cardiology recommends medical management, to consider hospice. however patient wants to go home and follwo up with his PCP and hem/ onc cardio as OP at [facility]. Patient is discharge home with home health in fairly stable condition. Pt Condition on Discharge: Stable Discharge Disposition: Disch w/ Home Health Serv Discharge Time: > 30 minutes Discharge Instructions DIET: Follow Instructions for: Heart Healthy Diet, Diabetic Diet Activities you can perform: Regular-No Restrictions Follow up Referrals: Cardiology - 1 Week Oncology - 1 Week PCP Follow-up - 1 Week New Medications: Amitriptyline (Amitriptyline) 75 Mg Tab 75 MG PO HS Control Depression #30 Ref 0 TAB Lorazepam (Ativan) 0.5 Mg Tab 0.5 MG PO BID PRN ANXIETY AND/OR AGITATION #14 Ref 0 TAB Temazepam (Temazepam) 15 Mg Cap 15 MG PO HS PRN INSOMNIA #30 Ref [address] (Aspirin EC) 81 Mg Tabdr 81 MG PO DAILY Prevent Blood Clot #30 TAB Isosorbide Mononitrate ER (Isosorbide Mononitrate ER) 30 Mg Bertha 30 MG PO DAILY@07 angina/chest pain #30 TAB Sennosides-Docusate Sodium (Senna Plus 8.6-50 mg) 1 Tab Tab 2 TAB PO BID Prevent Constipation #60 TAB Continued Medications: Amitriptyline (Amitriptyline) 75 Mg Tab 75 MG PO DAILY Control Depression #30 Ref 0 TAB Amlodipine (Amlodipine) 10 Mg Tab 10 MG PO DAILY Blood Pressure Management #30 Ref 0 TAB Glipizide (Glipizide) 5 Mg Tab 5 MG PO BIDAC Take 30 minutes before a meal Blood Sugar Management #60 Ref 0 TAB Insulin Detemir Inj (Levemir Inj) 1,000 unit/ 10 ML Vial 5 UNITS SQ Q12HR dm Days 30 INJECTION Lovastatin (Lovastatin) 40 Mg Tab 40 MG PO DAILY Cholesterol Management #30 Ref 0 TAB Metformin (Metformin) 1,000 Mg Tab 1000 MG PO BIDPC With meals Blood Sugar Management #60 Ref 0 TAB Metoclopramide Liq (Metoclopramide Liq) 5 Mg/5 Ml Liq 10 MG PO ACHS Nausea Days 5 ML Metoprolol Tartrate (Lopressor) 50 Mg Tab 50 MG PO Q8HR htn #90 TAB (This prescription has been renewed) Nabumetone (Nabumetone) 500 Mg Tab 500 MG PO DAILY Pain-Inflammation #60 Ref 0 TAB Omeprazole (Omeprazole) 20 Mg Tab 20 MG PO DAILY #30 Ref 0 TAB Oxycodone-Acetaminophen (Oxycodone-Acetaminophen) 5-325 mg Tab 1 TAB PO Q6H PRN BREAKTHROUGH PAIN #20 TAB (This prescription has been renewed) Quetiapine (Quetiapine) 25 Mg Tab 25 MG PO HS PSYCH Days 30 TAB Sertraline (Zoloft) 50 Mg Tab 25 MG PO DAILY PSYCH Days 30 TAB Sertraline (Zoloft) 50 Mg Tab 50 MG PO DAILY health #30 TAB Trazodone (Trazodone) 50 Mg Tab 50 MG PO HS Health #30 TAB ([Amitriptyline]) 50 MG TAB 50 MG PO DAILY PSYCH #30 TAB Josie Sellers MD April 03, 2017 12:54
[2017-04-03] MEDS: ENOXAPARIN SODIUM 40 MG/0.4 ML SYRINGE SQ SCH (14:20)
[2017-04-04] MEDS ORDERED: ISOSORBIDE MONONITRATE 30 MG TAB PO SCH (07:00)
== END 2017-04-03 15:19 | disposition home health service (06) | DRG 180 ==
LOC: PHED 16:35 → PHEDA 19:48 → UNDODISIN 19:50 → PHICU 21:50 → HCIN 03-31 22:30
PROVIDERS: ADMIT Hospitalist; ATTEND Hospitalist
DX: C78.00 Secondary malignant neoplasm of unspecified lung (principal); I21.4 Non-ST elevation (NSTEMI) myocardial infarction; C78.7 Secondary malignant neoplasm of liver and intrahepatic bile duct; C80.1 Malignant (primary) neoplasm, unspecified; E11.9 Type 2 diabetes mellitus without complications; E87.8 Other disorders of electrolyte and fluid balance, not elsewhere classified; I10 Essential (primary) hypertension; D47.3 Essential (hemorrhagic) thrombocythemia; E87.1 Hypo-osmolality and hyponatremia; D64.9 Anemia, unspecified; D75.89 Other specified diseases of blood and blood-forming organs; R11.2 Nausea with vomiting, unspecified; D72.829 Elevated white blood cell count, unspecified; K59.00 Constipation, unspecified; Z79.84 Long term (current) use of oral hypoglycemic drugs; M19.90 Unspecified osteoarthritis, unspecified site; F32.9 Major depressive disorder, single episode, unspecified; E78.00 Pure hypercholesterolemia, unspecified; H91.93 Unspecified hearing loss, bilateral; K21.9 Gastro-esophageal reflux disease without esophagitis; R59.0 Localized enlarged lymph nodes; F41.9 Anxiety disorder, unspecified; E78.5 Hyperlipidemia, unspecified
CPT/HCPCS: 71010; 71275; 74177; 76937; 80048; 80053; 81001; 82550; 82948; 83690; 83735; 83880; 84484; 85025; 85610; 85730; 93005; 93306; 96361; 96374; 96375; J1650; J1815; J2270; J2405; J7030; Q9967

== ENCOUNTER 2017-04-06 09:35 | Emergency (ER) | payer MEDICARE ==
[~2017-04-06] VITALS: Ht 165.1 cm; Wt 65.0 kg
[~2017-04-06 09:35] MED LIST changes: +ASPI81TA11 PO; +ISOS30TA3 PO; +LORA-392 PO; +SENN1TAB PO; +TEMA15CA PO
[2017-04-06 09:45] VITALS: BP 112/63; PULSE 93; RESP 22; TEMP 97.9; O2SAT 99
--- NOTE | 2017-04-06 10:18 | PD ---
HPI Chief Complaint: Chest Pain Time Seen by Provider: 10:03 Travel History International Travel<30 days: No Contact w/Intl Traveler<30days: No Traveled to known affect area: No History of Present Illness HPI This is a 72 year old male who has a history of htn, hld and recent diagnosis of cancer presenting today with chest pain. Pain is sharp, 9/10 , starting in the axilla and radiating to the chest, constant, moderate severity. Pt. received aspirin and nitroglycerin with EMS and currently his symptoms have resolved. He does report some residual abdominal pain which is subacute and related to surgery he had several weeks ago. Pt. reports some associated shortness of breath with the chest pain. PFSH Past Medical History Hx Anticoagulant Therapy: Yes (BABY ASPIRIN DAILY ) Arthritis: Yes Anxiety: No Depression: Yes Heart Rhythm Problems: No Cancer: Yes Cardiovascular Problems: Yes High Cholesterol: Yes Chest Pain: No Congestive Heart Failure: No Diabetes: Yes Patient Takes Glucophage: Yes (METFORMIN ) Diminished Hearing: Yes ([place]) Endocrine: Yes Gastrointestinal Disorders: Yes GERD: Yes Genitourinary: No Hiatal Hernia: No Hypertension: Yes Immune Disorder: No Musculoskeletal: Yes Neurologic: No Psychiatric: No Reproductive: No Respiratory: No Immunizations Current: Yes Sickle Cell Disease: No Thyroid Disease: No Ulcer: No Past Surgical History Abdominal Surgery: Yes (APPENDECTOMY) Appendectomy: Yes Cardiac Surgery: No Ear Surgery: No Endocrine Surgery: No Eye Surgery: No Genitourinary Surgery: No Oral Surgery: No Thoracic Surgery: No Other Surgery: Yes Social History Alcohol Use: No Tobacco Use: No Substance Use: No Allergies-Medications (Allergen,Severity, Reaction): Coded Allergies: No Known Allergies (Unverified , 04/06/17) Reported Meds & Prescriptions Reported Meds & Active Scripts Active Temazepam 15 Mg Cap 15 Mg PO HS PRN Isosorbide Mononitrate ER (Isosorbide Mononitrate) 30 Mg Bertha 30 Mg PO DAILY@07 Ativan (Lorazepam) 0.5 Mg Tab 0.5 Mg PO BID PRN Oxycodone-Acetaminophen 5-325 mg Tab 1 Tab PO Q6H PRN Amitriptyline (Amitriptyline HCl) 75 Mg Tab 75 Mg PO HS Senna Plus 8.6-50 mg (Sennosides-Docusate Sodium) 1 Tab Tab 2 Tab PO BID Aspirin EC (Aspirin) 81 Mg Tabdr 81 Mg PO DAILY Lopressor (Metoprolol Tartrate) 50 Mg Tab 50 Mg PO Q8HR Zoloft (Sertraline HCl) 50 Mg Tab 50 Mg PO DAILY Trazodone (Trazodone HCl) 50 Mg Tab 50 Mg PO HS Metoclopramide Liq (Metoclopramide HCl) 5 Mg/5 Ml Liq 10 Mg PO ACHS 5 Days Zoloft (Sertraline HCl) 50 Mg Tab 25 Mg PO DAILY 30 Days Quetiapine (Quetiapine Fumarate) 25 Mg Tab 25 Mg PO HS 30 Days Levemir Inj (Insulin Detemir) 1,000 unit/ 10 ML Vial 5 Units SQ Q12HR 30 Days [Amitriptyline] 50 MG Tab 50 Mg PO DAILY Reported Amlodipine (Amlodipine Besylate) 10 Mg Tab 10 Mg PO DAILY Nabumetone 500 Mg Tab 500 Mg PO DAILY Lovastatin 40 Mg Tab 40 Mg PO DAILY Omeprazole 20 Mg Tab 20 Mg PO DAILY Amitriptyline (Amitriptyline HCl) 75 Mg Tab 75 Mg PO DAILY Metformin (Metformin HCl) 1,000 Mg Tab 1,000 Mg PO BIDPC With meals Glipizide 5 Mg Tab 5 Mg PO BIDAC Take 30 minutes before a meal Review of Systems Except as stated in HPI: all other systems reviewed are Neg Physical Exam Narrative GENERAL:Well appearing, no acute distress SKIN: Focused skin assessment warm and dry. HEAD: Atraumatic. Normocephalic. EYES: Pupils equal and round. No injection or drainage. ENT: Moist mucous membranes NECK: Trachea midline. CARDIOVASCULAR: Regular rate and rhythm. No murmur appreciated. RESPIRATORY: Clear to auscultation. Breath sounds equal bilaterally. GASTROINTESTINAL: Abdomen soft, diffusely tender to palpation, no rebound/ guarding. MUSCULOSKELETAL: No obvious deformities. NEUROLOGICAL: Awake and alert. No obvious cranial nerve deficits. PSYCHIATRIC: Appropriate mood and affect; insight and judgment normal. Data Data Last Documented VS Vital Signs Date Time Temp Pulse Resp B/P Pulse Ox O2 Delivery O2 Flow Rate FiO2 04/06/17 09:51 94 100 Room Air 04/06/17 09:45 97.9 22 112/63 Orders Electrocardiogram (04/06/17 ) Complete Blood Count With Diff (04/06/17 10:22) Comprehensive Metabolic Panel (04/06/17 10:22) Troponin I (04/06/17 10:22) ^ Insert Iv (04/06/17 10:22) D-Dimer (04/06/17 10:25) Chest, Single Ap (04/06/17 ) Ct Pulmonary Angiogram (04/06/17 ) Iohexol 350 Inj (Omnipaque 350 Inj) (04/06/17 13:13) Labs Laboratory Tests Test 04/06/17 10:15 White Blood Count 20.1 TH/MM3 Red Blood Count 2.59 MIL/MM3 Hemoglobin 7.3 GM/DL Hematocrit 22.7 % Mean Corpuscular Volume 87.9 FL Mean Corpuscular Hemoglobin 28.4 PG Mean Corpuscular Hemoglobin 32.3 % Concent Red Cell Distribution Width 16.4 % Platelet Count 714 TH/MM3 Mean Platelet Volume 7.2 FL Neutrophils (%) (Auto) 87.1 % Lymphocytes (%) (Auto) 4.0 % Monocytes (%) (Auto) 4.9 % Eosinophils (%) (Auto) 2.9 % Basophils (%) (Auto) 1.1 % Neutrophils # (Auto) 17.5 TH/MM3 Lymphocytes # (Auto) 0.8 TH/MM3 Monocytes # (Auto) 1.0 TH/MM3 Eosinophils # (Auto) 0.6 TH/MM3 Basophils # (Auto) 0.2 TH/MM3 CBC Comment AUTO DIFF Differential Total Cells 100 Counted Neutrophils % (Manual) 82 % Band Neutrophils % 9 % Lymphocytes % 2 % Monocytes % 3 % Eosinophils % 3 % Basophils % 1 % Neutrophils # (Manual) 18.3 TH/MM3 Differential Comment FINAL DIFF MANUAL Platelet Estimate HIGH Platelet Morphology Comment NORMAL D-Dimer Quantitative (PE/DVT) 2.05 MG/L FEU Sodium Level 130 MEQ/L Potassium Level 3.9 MEQ/L Chloride Level 95 MEQ/L Carbon Dioxide Level 22.0 MEQ/L Anion Gap 13 MEQ/L Blood Urea Nitrogen 13 MG/DL Creatinine 0.85 MG/DL Estimat Glomerular Filtration 88 ML/MIN Rate Random Glucose 233 MG/DL Calcium Level 8.7 MG/DL Total Bilirubin 0.3 MG/DL Aspartate Amino Transf 15 U/L (AST/SGOT) Alanine Aminotransferase 22 U/L (ALT/SGPT) Alkaline Phosphatase 123 U/L Troponin I 0.38 NG/ML Total Protein 6.3 GM/DL Albumin 1.9 GM/DL MDM Medical Decision Making Medical Screen Exam Complete: Yes Emergency Medical Condition: Yes Interpretation(s) Afebrile, mild tachycardia leukocytosis similar to prior mild hyponatremia troponin .38 down trending from prior ekg: nsr, q waves inferior leads Differential Diagnosis Pneumonia, pleural effusion, pulmonary embolism, metastatic cancer Narrative Course This is a 72-year-old male who has a history of stage IV cancer who presents to the emergency department with increasing shortness of breath and chest discomfort this morning. He was here very similar symptoms one week ago. The patient at that time had a markedly elevated troponin which was attributed to demand. He's had multiple evaluations and he has a known large mass in the stomach and has known metastasis in the liver and likely the lung. Patient has not followed up with an oncologist yet but [facility] He was placed in a monitor and an IV was established. He was not hypoxic. Labs demonstrate a leukocytosis which is chronic for him. Troponin is decreased from prior. Chest x-ray demonstrates no pleural effusion. A CT pulmonary angiogram was performed given his history of malignancy which just demonstrates increasing likely metastatic lesions. I think his symptoms are secondary to disseminated cancer. I had a long conversation with his and him. They say that they have never heard he has stage IV cancer before. I explained to them the urgency of following up with their outpatient oncologist. I told them they would likely have a conversation regarding the benefits of palliative chemotherapy versus hospice care. They say that no one has ever mentioned hospice care to them either. I gave him a printout of the patient's biopsies as well as his CT imaging. I don't think any further treatment is warranted. I do think this patient is getting more symptomatic from his metastatic cancer but I don't think he meets any criteria for admission at this time. Patient was discharged home. Diagnosis Primary Impression: Metastatic cancer Patient Instructions: General Instructions Additional Instructions: If you develop severe chest pain, shortness of breath, sweating, lightheadedness , dizziness or difficulty breathing return to the emergency department immediately. It is very important to follow up with your oncologist. Med/Other Pt SpecificInfo: No Change to Meds Disposition: 01 DISCHARGE HOME Condition: Stable Ping Corbin MD April 06, 2017 10:18
[2017-04-06 10:46] LABS: AUTOMATED NEUTROPHIL # 17.5 TH/MM3 (1.8-7.7); BASOPHIL # 0.2 TH/MM3 (0-0.2); BASOPHIL % 1.1 % (0.0-2.0); EOSINOPHIL # 0.6 TH/MM3 (0-0.4); EOSINOPHIL % 2.9 % (0.0-4.0); HEMATOCRIT 22.7 % (39.0-51.0); LYMPHOCYTE # 0.8 TH/MM3 (1.0-4.8); MEAN CELL VOLUME 87.9 FL (80.0-100.0); MEAN CORPUSCULAR HEMOGLOBIN 28.4 PG (27.0-34.0); MEAN CORPUSCULAR HGB CONC 32.3 % (32.0-36.0); MONO % 4.9 % (0.0-8.0); NEUT % 87.1 % (16.0-70.0); PLATELET COUNT 714 TH/MM3 (150-450); RED BLOOD COUNT 2.59 MIL/MM3 (4.50-5.90); RED CELL DISTRIBUTION WIDTH 16.4 % (11.6-17.2); WHITE BLOOD COUNT 20.1 TH/MM3 (4.0-11.0)
[2017-04-06 10:51] LABS: HEMO FLAGS AUTO DIFF
--- NOTE | 2017-04-06 10:52 | RADRPT ---
EXAM DATE/TIME: 04/06/2017 10:28 [facility] COMPARISON: CHEST SINGLE AP, March 29, 2017, 17:41. INDICATIONS : Chest pain. MEDICAL HISTORY : Cardiovascular disease. Hypertension. Diabetes mellitus type 2. SURGICAL HISTORY : None. ENCOUNTER: Initial ACUITY: 2 days PAIN SCORE: 3/10 LOCATION: Bilateral chest FINDINGS: A single view of the chest demonstrates the lungs to be symmetrically aerated without evidence of mas s, infiltrate or effusion. The cardiomediastinal contours are unremarkable. Osseous structures are intact. CONCLUSION: No acute disease. Matthew Mckinley MD on April 06, 2017 at 10:49 Board Certified Radiologist. This report was verified electronically.
[2017-04-06 11:00] LABS: ALT (GPT) 22 U/L (12-78); ANION GAP 13 MEQ/L (5-15); AST (GOT) 15 U/L (15-37); BLOOD UREA NITROGEN 13 MG/DL (7-18); CHLORIDE 95 MEQ/L (98-107); GLOMERULAR FILTRATION RATE 88 ML/MIN (>89); POTASSIUM 3.9 MEQ/L (3.5-5.1); SODIUM (NA) 130 MEQ/L (136-145)
[2017-04-06 11:04] LABS: ALKALINE PHOSPHATASE 123 U/L (45-117); TOTAL BILIRUBIN ADULT 0.3 MG/DL (0.2-1.0)
[2017-04-06 11:36] LABS: BANDS 9 % (0-6); BASOPHILS 1 % (0-2); EOSINOPHILS 3 % (0-4); NEUTROPHIL # MANUAL DIFF 18.3 TH/MM3 (1.8-7.7); PLATELET ESTIMATE SMEAR HIGH (NORMAL); PLATELET MORPHOLOGY NORMAL (NORMAL); POLYS (SEG NEUTROPHILS) 82 % (16-70); SCAN/DIFF FINAL DIFF MANUAL; WBC DIFF SAMPLE 100
[2017-04-06] MEDS ORDERED: IOHEXOL 350 MG/ML 10 ML VIAL (for RAD DIAG) IV ONE (13:13)
--- NOTE | 2017-04-06 13:39 | RADRPT ---
EXAM DATE/TIME: 04/06/2017 13:09 [facility] COMPARISON: CT ABDOMEN & PELVIS W CONTRAST, March 29, 2017, 18:18. INDICATIONS : Chest pain today IV CONTRAST: 50 cc Omnipaque 350 (iohexol) IV RADIATION DOSE: 23.95 CTDIvol (mGy) MEDICAL HISTORY : Hypertension. Diabetes mellitus type 1. SURGICAL HISTORY : Appendectomy. ENCOUNTER: Initial ACUITY: 1 day PAIN SCALE: 9/10 LOCATION: upper chest TECHNIQUE: Volumetric scanning of the chest was performed using a pulmonary embolism protocol MIP images were re constructed. Using automated exposure control and adjustment of the mA and/or kV according to patien t size, radiation dose was kept as low as reasonably achievable to obtain optimal diagnostic quality images. FINDINGS: PULMONARY ARTERIES: No filling defects are seen in the pulmonary arteries through the segmental level. LUNGS: There is a increase in number of pulmonary metastatic nodules. The largest nodules in the right middl e lobe measuring 1.5 x 1.4 cm. Multiple other enlarging nodules. PLEURAE: There is no pleural thickening or pleural effusion. MEDIASTINUM: There is good visualization of the great vessels of the middle mediastinum. No evidence of mediastin al or hilar adenopathy/mass. Coronary artery calcifications. MUSCULOSKELETAL: Within normal limits for patient age. MISCELLANEOUS: Low-density metastatic hepatic lesions. Extensive wall thickening within the proximal duodenum and th e region of the gastric bulb. CONCLUSION: 1. No evidence for pulmonary embolism. 2. Worsening metastatic disease with numerous bilateral pulmonary nodules increased in number and siz e. 3. Metastatic lesion to the liver with mass in the gastric bulb/duodenum. Matthew Mckinley MD on April 06, 2017 at 13:28 Board Certified Radiologist. This report was verified electronically.
[2017-04-06 13:52] VITALS: BP 118/62; PULSE 96; RESP 20; O2SAT 97
[2017-04-06] MEDS ORDERED: METF500T PO (15:02)
[2017-04-06] MEDS ORDERED: ASPI81TA5 PO (15:04)
[2017-04-06] MEDS ORDERED: MULTTAB67 PO (15:04)
[2017-04-06] MEDS ORDERED: COLA100C3 PO (15:04)
--- NOTE | 2017-04-06 16:12 | EKG ---
Date Performed: 04/06/2017 Time Performed: 10:02:44 PTAGE: 72 years EKG: Sinus rhythm CONSIDER SEPTAL MYOCARDIAL INFARCTION, AGE INDETERMINATE CONSIDER INFERIOR MYOCARDIAL INFARCTION, AG E INDETERMINATE ABNORMAL ECG PREVIOUS TRACING : 03/30/2017 15.32 DOCTOR: Matthew Nix Interpretating Date/Time 04/06/2017 16:10:51
== END 2017-04-06 15:37 | disposition home or self-care (01) ==
LOC: NEPC 09:35
DX: C78.7 Secondary malignant neoplasm of liver and intrahepatic bile duct (principal); C16.9 Malignant neoplasm of stomach, unspecified; I10 Essential (primary) hypertension; E11.9 Type 2 diabetes mellitus without complications; R94.31 Abnormal electrocardiogram [ECG] [EKG]; Z79.01 Long term (current) use of anticoagulants; R06.02 Shortness of breath
CPT/HCPCS: 71010; 71275; 80053; 84484; 85007; 85027; 85379; 93005; 99285; Q9967

== ENCOUNTER 2017-04-06 21:42 | Inpatient (IN) | payer MEDICARE ==
[~2017-04-06] VITALS: Ht 165.1 cm; Wt 66.0 kg
[~2017-04-06 21:42] MED LIST changes: +ASPI81TA5 PO; +COLA100C3 PO; +METF500T PO; +MULTTAB67 PO
[2017-04-06 21:46] VITALS: BP 120/59; PULSE 100; RESP 16; TEMP 98.9; O2SAT 98
[2017-04-07] VITALS (8 sets, daily range): BP systolic 114–130; BP diastolic 56–68; PULSE 80–98; RESP 16–17; TEMP 96.4–97.7; O2SAT 98–100
--- NOTE | 2017-04-07 00:13 | PD ---
HPI Chief Complaint: Pain: Acute or Chronic Time Seen by Provider: 00:00 Travel History International Travel<30 days: No Contact w/Intl Traveler<30days: No Traveled to known affect area: No History of Present Illness HPI This is a 72-year-old male with a history of metastatic cancer involving the lungs liver and stomach, who presents today with complaints of worsening pain. The patient was seen earlier yesterday for pain related symptoms. The patient was reportedly chest pain with radiation to his back. At that time the pain was thought to be secondary to his cancer. According to his , he went home and took OxyContin 2 tablets which is not relieved his pain. He is here for pain relief. There is no change in the character or quality of the pain that he was seen for previously. PFSH Past Medical History Hx Anticoagulant Therapy: Yes (BABY ASPIRIN DAILY ) Arthritis: Yes Anxiety: No Depression: Yes Heart Rhythm Problems: No Cancer: Yes Cardiovascular Problems: Yes High Cholesterol: Yes Chest Pain: No Congestive Heart Failure: No Diabetes: Yes Patient Takes Glucophage: Yes Diminished Hearing: Yes ([place] BILAT) Endocrine: Yes Gastrointestinal Disorders: Yes GERD: Yes Genitourinary: No Hiatal Hernia: No Hypertension: Yes Immune Disorder: No Musculoskeletal: Yes Neurologic: No Psychiatric: No Reproductive: No Respiratory: No Immunizations Current: Yes Sickle Cell Disease: No Thyroid Disease: No Ulcer: No Past Surgical History Abdominal Surgery: Yes (APPENDECTOMY) Appendectomy: Yes Cardiac Surgery: No Ear Surgery: No Endocrine Surgery: No Eye Surgery: No Genitourinary Surgery: No Oral Surgery: No Thoracic Surgery: No Other Surgery: Yes Social History Alcohol Use: No Tobacco Use: No Substance Use: No Allergies-Medications (Allergen,Severity, Reaction): Coded Allergies: No Known Allergies (Unverified , 04/06/17) Reported Meds & Prescriptions Reported Meds & Active Scripts Active Isosorbide Mononitrate ER (Isosorbide Mononitrate) 30 Mg Bertha 30 Mg PO DAILY@07 Ativan (Lorazepam) 0.5 Mg Tab 0.5 Mg PO BID PRN Oxycodone-Acetaminophen 5-325 mg Tab 1 Tab PO Q6H PRN Amitriptyline (Amitriptyline HCl) 75 Mg Tab 75 Mg PO HS Lopressor (Metoprolol Tartrate) 50 Mg Tab 50 Mg PO Q8HR Reported Colace (Docusate Sodium) 100 Mg Cap 100 Mg PO DAILY PRN Multiple Vitamin 1 Tab 1 Tab PO DAILY Aspirin DR (Aspirin) 81 Mg Tabdr 81 Mg PO HS Metformin (Metformin HCl) 500 Mg Tab 500 Mg PO BIDPC With meals Amlodipine (Amlodipine Besylate) 10 Mg Tab 10 Mg PO DAILY Nabumetone 500 Mg Tab 500 Mg PO DAILY Lovastatin 40 Mg Tab 40 Mg PO HS Omeprazole 20 Mg Tab 20 Mg PO DAILY Glipizide 5 Mg Tab 5 Mg PO AC DINNER Take 30 minutes before a meal Review of Systems Except as stated in HPI: all other systems reviewed are Neg General / Constitutional: No: Chills HENT: No: Headaches, Lightheadedness Cardiovascular: Positive: Chest Pain or Discomfort (left sided around the back. ), No: Irregular Rhythm, Syncope Respiratory: Positive: Shortness of Breath (chronic not new), No: Cough Gastrointestinal: Positive: Abdominal Pain (mild compared to the chest pain), No: Nausea, Vomiting Genitourinary: No: Dysuria, Decreased Urinary Output Musculoskeletal: Positive: Weakness, Pain (and in chest around to the back.) Neurologic: Positive: Weakness, No: Headache Physical Exam Narrative GENERAL: Elderly ill appearing male in no acute respiratory distress. SKIN: Focused skin assessment warm/dry. HEAD: Atraumatic. Normocephalic. EYES: Pupils equal and round. nasal bleeding or discharge. Mucous membranes pink and moist. NECK: Trachea midline. Supple. No JVD. CARDIOVASCULAR: Regular rate and rhythm. No murmur appreciated. RESPIRATORY: No accessory muscle use. Decreased breath sounds at the bilateral bases. No Rales appreciated GASTROINTESTINAL: Abdomen soft, non-tender, nondistended. Hepatic and splenic margins not palpable. MUSCULOSKELETAL: No obvious deformities. No clubbing. No cyanosis. No edema. NEUROLOGICAL: Awake and alert but weak. No obvious cranial nerve deficits. Motor grossly within normal limits. Normal speech. Data Data Last Documented VS Vital Signs Date Time Temp Pulse Resp B/P Pulse Ox O2 Delivery O2 Flow Rate FiO2 04/07/17 00:15 88 16 125/66 100 Nasal Cannula 2 04/06/17 21:46 98.9 Orders Ondansetron Inj (Zofran Inj) (04/07/17 00:15) Hydromorphone Pf Inj (Dilaudid Pf Inj) (04/07/17 00:15) Admit Order (Ed Use Only) (04/07/17 02:05) MDM Medical Decision Making Medical Screen Exam Complete: Yes Emergency Medical Condition: Yes Differential Diagnosis ACS versus pleuritic pain versus PE versus intractable pulmonary pain. Narrative Course 72-year-old male with a history of metastatic stage IV cancer, presents here with complaints of intractable pain. The patient was seen earlier yesterday and had an evaluation. He returns less than 12 hours with complaints of pain that is not controlled with his oral pain medication. No labs were sent on this patient secondary to him having them within 12 hours. He'll be admitted under observation for pain control. The case was discussed with Dr. Cottrell, [facility], who will be the admitting physician. Diagnosis Primary Impression: Intractable pain Additional Impressions: Metastatic cancer Diabetes Admitting Information Admitting Physician Requests: Observation Dipak Martin MD April 07, 2017 00:12
[2017-04-07] MEDS ORDERED: HYDROmorphone HCL PF 1 MG/ML VIAL IVS ONE (00:15)
[2017-04-07] MEDS ORDERED: ONDANSETRON HCL 4 MG/2 ML VIAL IVP ONE (00:15)
[2017-04-07] MEDS ORDERED: NALOXONE HCL 0.4 MG/ML AMP IV PRN (02:15)
[2017-04-07] MEDS ORDERED: ONDANSETRON HCL 4 MG/2 ML VIAL IVP PRN (02:15)
[2017-04-07] MEDS ORDERED: SODIUM CHLORIDE 0.9% FLUSH 10 ML FLUSH IV FLUSH PRN (02:15)
[2017-04-07] MEDS ORDERED: DEXTROSE 50% IN WATER 50 ML VIAL(D50) IV PUSH PRN ×2 (02:45→03:15)
[2017-04-07] MEDS ORDERED: GLUCAGON 1 MG/ML VIAL OTHER PRN ×2 (02:45→03:15)
[2017-04-07] MEDS ORDERED: DEXT 5%-NACL 0.45% 1000 ML INJ 1,000 ML IV SCH (02:45)
[2017-04-07] MEDS ORDERED: DOCUSATE SODIUM 100 MG CAP PO PRN (03:15)
[2017-04-07] MEDS ORDERED: LORazepam 0.5 MG TAB PO PRN (03:15)
--- NOTE | 2017-04-07 03:20 | HHI.HP ---
[facility] Service [facility] Primary Care Physician Non-Staff Admission Diagnosis Intractable pain, stage 4 metastatic cancer. 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 Patient presents to the emergency department today because of uncontrolled pain. Patient was seen earlier in emergency department discharged with prescription for OxyContin which he took with no pain relief. Patient returns to the emergency department this evening again with uncontrolled pain. Patient reports the pain starts in his left lower chest radiates across upper abdomen to the right side of upper abdomen. Patient describes the pain as severe and constant in nature. Patient was given IV Dilaudid in the ER which improved the pain. Patient reports pain is associated with vomiting times one earlier today. Patient also reports intermitted constipation but is still passing flatus. Patient denies fevers, chills, diaphoresis or shortness of breath. Patient follows with a oncologist . Patient also reports he plans to move to go to [place] to be closer to his family soon. 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 Depression Hyperlipidemia Hypertension Diabetes GERD Past Surgical History Gastrojejunostomy with biopsy on 03/16/17 Appendectomy Reported Medications Isosorbide Mononitrate ER (Isosorbide Mononitrate) 30 Mg Bertha 30 Mg PO DAILY@07 Ativan (Lorazepam) 0.5 Mg Tab 0.5 Mg PO BID PRN Oxycodone-Acetaminophen 5-325 mg Tab 1 Tab PO Q6H PRN Amitriptyline (Amitriptyline HCl) 75 Mg Tab 75 Mg PO HS Lopressor (Metoprolol Tartrate) 50 Mg Tab 50 Mg PO Q8HR Colace (Docusate Sodium) 100 Mg Cap 100 Mg PO DAILY PRN Multiple Vitamin 1 Tab 1 Tab PO DAILY Aspirin DR (Aspirin) 81 Mg Tabdr 81 Mg PO HS Metformin (Metformin HCl) 500 Mg Tab 500 Mg PO BIDPC With meals Amlodipine (Amlodipine Besylate) 10 Mg Tab 10 Mg PO DAILY Nabumetone 500 Mg Tab 500 Mg PO DAILY Lovastatin 40 Mg Tab 40 Mg PO HS Omeprazole 20 Mg Tab 20 Mg PO DAILY Glipizide 5 Mg Tab 5 Mg PO AC DINNER Take 30 minutes before a meal Allergies: Coded Allergies: No Known Allergies (Unverified , 04/06/17) Active Ordered Medications Current Medications Medications (Trade) Dose Ordered Sig/Burton Route Start Time Stop Time Status Last Admin (NS Flush) 2 ml UNSCH PRN IV FLUSH 04/07/17 02:15 (NS Flush) 2 ml BID IV FLUSH 04/07/17 09:00 (Zofran Inj) 4 mg Q6H PRN IVP 04/07/17 02:15 (Narcan Inj) 0.4 mg UNSCH PRN IV 04/07/17 02:15 (Dilaudid Pf Inj) 1 mg Q2HR PRN IV PUSH 04/07/17 02:15 Family History Denies family history of [place], CVA, or cancer. Social History Lives at home with his Denies alcohol use. Denies history of heavy drinking. Denies history of tobacco use. Denies history of illicit drug use. Physical Exam Vital Signs Vital Signs Date Time Temp Pulse Resp B/P Pulse Ox O2 Delivery O2 Flow Rate FiO2 04/07/17 00:15 88 16 125/66 100 Nasal Cannula 2 04/06/17 21:46 98.9 100 16 120/59 98 Room Air Physical Exam GENERAL: This is a frail elderly 72-year-old gentleman who appears pale, jaundiced and fatigued SKIN: Jaundiced in color HEAD: Atraumatic. Normocephalic. No temporal or scalp tenderness. EYES:Extraocular motions intact. No injection or drainage. CARDIOVASCULAR: Regular rate and rhythm without murmurs, gallops, or rubs. RESPIRATORY: Clear to auscultation. Breath sounds equal bilaterally. No wheezes , rales, or rhonchi. GASTROINTESTINAL: Abdomen soft, generalized tenderness to palpation with mild distention MUSCULOSKELETAL: 1+ bilateral lower extremity pitting edema No calf tenderness. Negative Homans sign bilaterally. NEUROLOGICAL: Awake and alert. Motor and sensory grossly within normal limits. 3 -5 out of 5 muscle strength in all muscle groups. Normal speech. 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 Patient presents to the emergency department today because of uncontrolled pain. Patient was seen earlier in emergency department discharged with prescription for OxyContin which he took with no pain relief. Patient returns to the emergency department this evening again with uncontrolled pain. Intractable Pain likely secondary to stage IV adenocarcinoma with metastasis Failed outpatient therapy Initial troponin 0.38 which is trending down from prior troponin of 1.30 on Continue IV Dilaudid as needed for pain Consult palliative care for assistance with pain management and establish goals of care Leukocytosis and anemia Both appear chronic in nature Continue to monitor Hyponatremia also likely secondary to cancer IV hydration with normal saline at 84 cc/h Recheck in a.m. Diabetes mellitus hold oral medication Accu-Cheks before meals at bedtime and sliding scale insulin coverage Elevated d-dimer CT angiogram done 04/06/2017 negative for pulmonary embolism Other chronic stable medical conditions include Hypertension, Anxiety, Depression and GERD will continue home medication. DVT prophylaxis with Lovenox Discussed with ER provider, nursing and patient Written by Ana Espinoza, acting as scribe for Dr. Cottrell on 04/07/17 at 03: 12. This note was transcribed by scribe [Ana Espinoza]. I, Dr. Winnie Cottrell personally performed the history, physical exam, and medical decision making; and confirmed the accuracy of the information in the transcribed note. Authenticated by Dr. Winnie Cottrell on 04/07/17 at 03:12. Physician Certification 2 Midnight Certification Type: Admission for Inpatient Services Order for Inpatient Services The services are ordered in accordance with Medicare regulations or non- Medicare payer requirements, as applicable. In the case of services not specified as inpatient-only, they are appropriately provided as inpatient services in accordance with the 2-midnight benchmark. Estimated LOS (days): 3 days is the estimated time the patient will need to remain in the hospital, assuming treatment plan goals are met and no additional complications. Post-Hospital Plan: Home Ana Espinoza April 07, 2017 03:20 Winnie Cottrell MD May 08, 2017 12:21
[2017-04-07] MEDS ORDERED: SODIUM CHLOR 0.9% 1000 ML INJ 1,000 ML IV SCH (04:00)
[2017-04-07] MEDS ORDERED: ENOXAPARIN SODIUM 40 MG/0.4 ML SYRINGE SQ SCH (04:00)
[2017-04-07] MEDS: HYDROmorphone HCL PF 1 MG/ML VIAL IV PUSH PRN ×3 (04:24→13:28)
[2017-04-07] MEDS: INSULIN ASPART SUPPLEMENTAL SCALE SQ SCH ×3 (06:07→17:43)
[2017-04-07] MEDS: METOPROLOL TARTRATE 50 MG TAB PO SCH ×2 (06:08→13:28)
[2017-04-07] MEDS ORDERED: ISOSORBIDE MONONITRATE 30 MG TAB PO SCH (07:00)
[2017-04-07] MEDS ORDERED: SODIUM CHLORIDE 0.9% FLUSH 10 ML FLUSH IV FLUSH SCH (09:00)
[2017-04-07] MEDS ORDERED: PANTOPRAZOLE SOD 20 MG DELAYED RELEASE TAB PO SCH (09:00)
--- NOTE | 2017-04-07 11:42 | PD.CONS ---
Consult Service Palliative Care . Consult Requested By Dr. Cottrell . Primary Care Physician Non-Staff . Reason for Consultation a. To assist with evaluation and management of symptoms including: pain, weakness, decreased appetite. . b. To assist medical decision maker(s) with: better understanding of current medical conditions; weighing benefits/burdens of medical treatment options; making medical treatment decisions. . (GRUPOAMAIRANI) HPI History of Present Illness Mr. 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 This is the patient's 4th acute acute care hospitalization since March 09, 2017 related to cancer associated symptoms. Patient underwent palliative laparoscopic gastrojejunostomy (bypass) in 02/[address] King with duodenal biopsy revealed high grade malignant neoplasm. He also underwent CT directed liver biopsy revealed poorly differentiated non small cell carcinoma. CT chest revealed multiple lung nodules. It appears cancer of possible GI vs pancreatic origin. Patient was also in the emergency room on 04/06/17 with shortness of breath and pain in axilla/ chest. Symptoms resolved after aspirin and nitroglycerin. Troponin (0.38) was decreased from prior (1.3). CTA revealed no evidence of PE and worsening pulmonary nodules increased in size and number, mets lesion in liver with mass in gastric bulb/ duodenum. Pain was thought to be related to disease progression. Cardiology notes indicate NSTEMI demand mediated, given medical comorbidities, malignancy, anemia, recommendations for medical management and hospice. Patient presented [facility] to [facility] room on 04/07/17 with worsening pain not relieved home Oxycodone/ acetaminophen 5/325mg every 6 hours PRN pain. Pain was reported severe, constant pain in left lower chest radiated to right upper abdomen. Pain was associated with vomiting once prior to admission. He had some constipation, positive flatus. Denied fever, chills or shortness of breath. Patient is admitted with intractable pain. He has been on Dilaudid 1mg IV every 2 hours prn pain. He has had 3 doses of Dilaudid 1mg in the past 24 hours. Palliative care is consulted to assist to clarify treatment goals and pain management. . Function/Cognitive Trajectory Patient has had ongoing decline over the past month. He lost 20 pounds unintentional. He has early satiety. Increased pain, weakness and fatigue. He is spending most of his time in bed or chair. He is eating only bites and sips. . (AMAIRANI LOMBARDO) Review of Systems ROS Limitations: Hearing Impaired Constitutional: COMPLAINS OF: Fatigue, Weight loss (20 lbs), Change in appetite (decreased), Pain (sharp pain in left chest to right abdomen, constant , some relief with meds. 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 Past Surgical History Gastrojejunostomy with biopsy on 02/2017 - high grade malignant neoplasm. Appendectomy CT directed liver biopsy - poorly differentiated non-small cell carcinoma Carpel Tunnel surgery . Reported Medications Reported Meds & Active Scripts Active Isosorbide Mononitrate ER (Isosorbide Mononitrate) 30 Mg Bertha 30 Mg PO DAILY@07 Ativan (Lorazepam) 0.5 Mg Tab 0.5 Mg PO BID PRN Oxycodone-Acetaminophen 5-325 mg Tab 1 Tab PO Q6H PRN Amitriptyline (Amitriptyline HCl) 75 Mg Tab 75 Mg PO HS Lopressor (Metoprolol Tartrate) 50 Mg Tab 50 Mg PO Q8HR Reported Colace (Docusate Sodium) 100 Mg Cap 100 Mg PO DAILY PRN Multiple Vitamin 1 Tab 1 Tab PO DAILY Aspirin DR (Aspirin) 81 Mg Tabdr 81 Mg PO HS Metformin (Metformin HCl) 500 Mg Tab 500 Mg PO BIDPC With meals Amlodipine (Amlodipine Besylate) 10 Mg Tab 10 Mg PO DAILY Nabumetone 500 Mg Tab 500 Mg PO DAILY Lovastatin 40 Mg Tab 40 Mg PO HS Omeprazole 20 Mg Tab 20 Mg PO DAILY Glipizide 5 Mg Tab 5 Mg PO AC DINNER Take 30 minutes before a meal . Current Medications Medications (Trade) Dose Ordered Sig/Burton Route Start Time Stop Time Status Last Admin (NS Flush) 2 ml UNSCH PRN IV FLUSH 04/07/17 02:15 (NS Flush) 2 ml BID IV FLUSH 04/07/17 09:00 (Zofran Inj) 4 mg Q6H PRN IVP 04/07/17 02:15 (Narcan Inj) 0.4 mg UNSCH PRN IV 04/07/17 02:15 (Dilaudid Pf Inj) 1 mg Q2HR PRN IV PUSH 04/07/17 02:15 04/07/17 04:24 (D50w (Vial) Inj) 25 ml UNSCH PRN IV PUSH 04/07/17 03:15 (Glucagon Inj) 1 mg UNSCH PRN OTHER 04/07/17 03:15 (Elavil) 75 mg HS PO 04/07/17 21:00 (Norvasc) 10 mg DAILY PO 04/07/17 09:00 04/07/17 09:13 (Ecotrin Ec) 81 mg HS PO 04/07/17 21:00 (Colace) 100 mg DAILY PRN PO 04/07/17 03:15 (Imdur) 30 mg DAILY@07 PO 04/07/17 07:00 04/07/17 06:08 (Ativan) 0.5 mg BID PRN PO 04/07/17 03:15 (Lopressor) 50 mg Q8HR PO 04/07/17 06:00 04/07/17 06:08 Pantoprazole Sodium 20 mg 20 mg DAILY PO 04/07/17 09:00 04/07/17 09:13 (NS 1000 ml Inj) 1,000 ml @ 84 mls/hr [id number] IV 04/07/17 04:00 (Lovenox Inj) 40 mg Q24H SQ 04/07/17 04:00 04/07/17 04:24 . Family History Mother had breast cancer. Father had lung disease? . Substance Use Tobacco: Denies. Alcohol: Denies. Prescription med abuse: Only uses prescribed meds. Illicits: None. . Psychosocial History Born and raised in [place], [place]. For the past 5 years he was living between [place], [place] and [place], [place]. He is . He has 2 children. He is a retired from construction. He completed high school. He served in [employer], which he is very emotional about during my visit. . Spiritual/Cultural Factors Quaker mami. Cross Country Truck Driver visited, pt could really benefit from continued spiritual support. He is verbalizing emotion related to his [place] memories. . (AMAIRANI LOMBARDO) Living Will: Never completed Health Care Surrogate: Never completed Durable Power of Fire Inspector: Never completed Today's verbally stated goals: Patient desires transition to comfort with hospice support in hopes he will be able to return home to [place] in the coming week. He and together elect NO CODE. . Ethical and Legal Issues Patient is currently capacitated. According to [place] statutes, health care proxy decision making will fall to his should he lose capacity. He agrees this would be in keeping with wishes. . (AMAIRANI LOMBARDO) Physical Exam Vital Signs Date Time Temp Pulse Resp B/P Pulse Ox O2 Delivery O2 Flow Rate FiO2 04/07/17 09:11 80 04/07/17 08:50 97.7 91 124/67 100 04/07/17 04:54 20 04/07/17 04:21 92 04/07/17 04:00 97.6 98 17 130/66 100 04/07/17 03:00 87 16 126/68 99 Nasal Cannula 2 04/07/17 00:15 88 16 125/66 100 Nasal Cannula 2 04/06/17 21:46 98.9 100 16 120/59 98 Room Air 04/06/17 04/07/17 19:00 07:00 Intake Total 162 ml Balance 162 ml Intake IV Total 162 ml # Voids 1 Exam CONSTITUTIONAL/GENERAL: This is frail appearing ill man, in no apparent distress. TUBES/LINES/DRAINS: Oxygen via NC, PIV left AC. SKIN: No jaundice, rashes, or lesions. Ecchymoses on upper extremities. No wounds seen anteriorly. Skin temperature appropriate. Not diaphoretic. HEAD: Atraumatic. Normocephalic. EYES: Pupils equal and round and reactive. Extraocular motions intact. No scleral icterus. No injection or drainage. Fundi not examined. ENT: Hearing grossly normal. Nose without bleeding or purulent drainage. Throat without visible erythema, exudates, masses, or lesions. NECK: Trachea midline. Supple, nontender. No palpable thyroid enlargement or nodularity. CARDIOVASCULAR: Regular rate and rhythm without murmurs, gallops, or rubs. No JVD. Peripheral pulses symmetric. RESPIRATORY/CHEST: Symmetric, unlabored respirations. Clear to auscultation. Breath sounds equal bilaterally. GASTROINTESTINAL: Abdomen soft, non-tender, nondistended. No guarding. Bowel sounds present. GENITOURINARY: Without palpable bladder distension. MUSCULOSKELETAL: Extremities without clubbing, cyanosis, or edema. No mottling or clubbing. LYMPHATICS: No palpable cervical or supraclavicular adenopathy. NEUROLOGICAL: Awake and alert. Generalized weakness noted. Cognitively sharp, though sleepy. Moves all extremities. PSYCHIATRIC: appropriately tearful, vivid memories of war reported. . (AMAIRANI LOMBARDO) Patient/Family Conference Present at Family Conference: Met with patient and his . Family Conference Time (mins): 90 Family Conference Location: Bedside Issues Discussed: * Palliative care role, purpose, approach * Additional medical, psychosocial, and spiritual history * Patients general health, functional status, and cognitive changes in the months leading up to the current hospitalization * Patient/family understanding of the current medical problems, treatment options * Patient/family understanding of prognosis * Patients goals of care as best understood from advance directives and/or conversations and/or values * Current medical treatment options and benefits/burdens of those options * Likely scenarios comparing ongoing aggressive care with a transition to comfort measures only * Questions answered to the best of my ability * Palliative care contact information provided Desires NO CODE. Desires hospice with [facility] ([place] placement for management of pain with hopes he will be able to return to [place] in the coming week. (AMAIRANI LOMBARDO) Assessment and Plan Disease Oriented Problem List: (1) Intractable pain (2) Leukocytosis (3) Anemia (4) Vomiting (5) HTN (hypertension) (6) Diabetes Symptom Scale: (1) Intractable pain (2) Dyspnea Pertinent Non-Medical Issues Psychosocial: , Lives between [place] and [place]. Spiritual: Quaker mami. Legal: Uncertain if patient has written advanced directives. Ethical issues impacting care: No known concerns at this time. . Important Contacts * Nakita James, : [phone] or [phone] * Romeo James, son: [phone] . Code Status: No Code Plan * No known written advance directives. Patient is currently capacitated. According to [place] statutes, health care proxy decision making will fall to his should he lose capacity. He agrees this would be in keeping with wishes. * NO CODE * Spoke with Dr. Rios (medical oncologist who saw him at time of diagnosis), patient is not a candidate for palliative chemotherapy given ongoing functional and nutritional decline. * Palliative care met with patient/ : Desires NO CODE. Desires hospice with care center ([place]) placement for management of pain with hopes he will be able to return to [place] in the coming week. * Patient and will benefit from ongoing spiritual and psychosocial support in care center given sudden diagnosis and rapid decline. Patient is also have significant memories of the time he served in [place] and is having significant emotional memories during my visit. Called Patrice at [facility] to request [employer] Pin[employer]. * SYMPTOMS: Pain: severe, constant, sharp pain in left chest that radiates across upper abdomen to region of the liver. Currently on Dilaudid 1 mg IV every 2 hours PRN, only had 3 doses in the past 24 hours. Increase Dilaudid 1- 1.5mg IV every 2 hours PRN pain. Dyspnea: at rest and with conversation. He spends most of his time in bed. Decreased appetite: eating only bites and sips. Weakness: due to underlying malignancy that is progressing. * Palliative care number provided. * Palliative care will continue to follow throughout hospital course to assist with symptom management and clarification of goals as needed. . (AMAIRANI LOMBARDO) Time Spent Total Floor Time (mins): 120 Face to Face Time (mins): 90 >50% Counseling/Coord of Care: Yes (AMAIRANI LOMBARDO) Thank you for the opportunity to participate in the care of Mr. James. (AMAIRANI LOMBARDO) Attestation To help prompt me to consider important information that might be impacting today's encounter and assessment, information from prior notes written by myself or my colleagues may have been "brought forward" into today's note. My signature on this note, however, is an attestation that I personally performed the exam, history, and/or decision-making noted today, and, unless otherwise indicated, the interactions with patient, family, and staff as well as the review of records all occurred today. I also attest that the listed assessment and stated plan reflect my best clinical judgment today based on the combination of historical information, prior notes, and today's exam/ interactions. When time spent is documented, it refers only to time spent today by the signer, or if indicated, combined time spent today by collaborating physician/nurse practitioner. . (AMAIRANI LOMBARDO) Collaborating MD Comments . Chart reviewed. Case discussed with palliative care MINE CAR REPAIRER. I have reviewed above MINE CAR REPAIRER note and I concur. . (Mark Anderson MD) AMAIRANI LOMBARDO April 07, 2017 11:02 Mark Anderson MD April 25, 2017 12:34
[2017-04-07] MEDS ORDERED: HYDROmorphone HCL PF 1 MG/ML VIAL IV PUSH PRN (15:30)
[2017-04-07] MEDS ORDERED: HYDROmorphone HCL PF 2 MG/ML VIAL IV PRN (16:15)
--- NOTE | 2017-04-07 17:47 | HHI.PR ---
Addendum to Inpatient Note Addendum Reason: Additional Documentation Additional Information Patient with severe pain. Pain medications adjusted. Patient had a meeting with palliative care, patient wants hospice. Discussed with the nurse. Discussed with hospice service, patient is accepted to [place] [facility]. The patient was Discharged to hospice in [place] in deteriorating condition. Josie Sellers MD April 07, 2017 17:47
[2017-04-07] MEDS ORDERED: ASPIRIN EC 81 MG TABEC PO SCH (21:00)
[2017-04-07] MEDS ORDERED: AMITRIPTYLINE HCL 75 MG TAB PO SCH (21:00)
== END 2017-04-07 19:10 | disposition hospice, inpatient (51) | DRG 947 ==
LOC: NEPE 21:42 → NEDA 04-07 02:06 → OBSVTOIN 04-07 02:06 → HOCB 04-07 04:13
PROVIDERS: ADMIT Hospitalist; ATTEND Hospitalist
DX: G89.3 Neoplasm related pain (acute) (chronic) (principal); I21.4 Non-ST elevation (NSTEMI) myocardial infarction; C78.7 Secondary malignant neoplasm of liver and intrahepatic bile duct; C78.02 Secondary malignant neoplasm of left lung; C78.01 Secondary malignant neoplasm of right lung; C78.89 Secondary malignant neoplasm of other digestive organs; D64.9 Anemia, unspecified; C80.1 Malignant (primary) neoplasm, unspecified; K31.1 Adult hypertrophic pyloric stenosis; E87.1 Hypo-osmolality and hyponatremia; E11.9 Type 2 diabetes mellitus without complications; I10 Essential (primary) hypertension; F32.9 Major depressive disorder, single episode, unspecified; D72.829 Elevated white blood cell count, unspecified; M19.90 Unspecified osteoarthritis, unspecified site; E78.00 Pure hypercholesterolemia, unspecified; H91.93 Unspecified hearing loss, bilateral; K21.9 Gastro-esophageal reflux disease without esophagitis; Z79.84 Long term (current) use of oral hypoglycemic drugs; E78.5 Hyperlipidemia, unspecified; K59.00 Constipation, unspecified; Z51.5 Encounter for palliative care; Z98.84 Bariatric surgery status; R11.10 Vomiting, unspecified; R94.31 Abnormal electrocardiogram [ECG] [EKG]; R06.02 Shortness of breath; Z79.01 Long term (current) use of anticoagulants
CPT/HCPCS: 71010; 71275; 80053; 82948; 84484; 85007; 85027; 85379; 93005; 96374; 96375; J1170; J1650; J1815; J2405; Q9967